=== PATIENT | female | born 1985 | race Two or more races ===

== ENCOUNTER 2020-08-11 06:47 | Outpatient (REF) | payer OTHER, SELFPAY ==
[2020-08-11 07:10] LABS: MANUAL DIFF FLAG NO
[2020-08-11 07:57] LABS: Basophils Percent Auto 0.5 % (0-2); Eosinophils Absolute Auto 0.1 X10*3/uL (0.0-0.4); Eosinophils Percent Auto 1.9 % (0-4); Hematocrit 40.3 % (37-47); Hemoglobin 13.3 g/dl (12.0-16.0); Imm Gran Abs Auto 0.02 X10*3/uL (0.00-0.03); Imm Gran Pct Auto 0.3 % (0.0-0.4); Lymphocytes Absolute Auto 2.1 X10*3/uL (1.2-4.9); Lymphocytes Percent Auto 34.3 % (20-40); Mean Corpuscular Hemoglobin 29.3 pg (27.0-33.0); Mean Corpuscular Volume 88.8 fL (80-98); Mean Platelet Volume 9.2 fL (9.4-12.3); Monocytes Absolute Auto 0.4 X10*3/uL (0.1-1.2); Monocytes Percent Auto 6.6 % (2-11); Neutrophils Absolute Auto 3.5 X10*3/uL (2.0-8.3); Neutrophils Percent Auto 56.4 % (45-73); Platelet Count 288 X10*3/uL (160-400); Red Blood Count 4.54 X10*6/uL (4.20-5.50); Red Cell Distribution Width 12.2 % (11.0-16.0); White Blood Count 6.2 X10*3/uL (4.8-10.8)
[2020-08-11 08:14] LABS: Alanine Aminotransferase 18 U/L (0-31); Albumin Level 4.2 g/dL (3.5-5.0); Alkaline Phosphatase 78 U/L (39-117); Anion Gap 14 (12-20); Aspartate Amino Transferase 14 U/L (5-31); Bilirubin Total 0.4 mg/dL (0.0-1.0); Blood Urea Nitrogen 9 mg/dL (9-16); Calcium 8.5 mg/dL (8.4-10.2); Carbon Dioxide 24 mmol/L (22-29); Chloride 103 mmol/L (96-108); Cholesterol 192 mg/dL; Estimated Glomerular Filt Rate > 60; Glucose Random 88 mg/dL (60-115); HDL Cholesterol 45 mg/dL; LDL Cholesterol Calculated 122 mg/dl; Sodium 137 mmol/L (135-145); Total Protein 7.5 g/dL (6.5-8.0); Triglycerides 127 mg/dL
[2020-08-11 08:37] LABS: Thyroid Stimulating Hormone 3.84 uIU/mL (0.32-4.0)
== END 2020-08-11 06:48 | disposition home or self-care (01) ==
LOC: HO.LAB 06:47
PROVIDERS: Visit Provider Internal Medicine
DX: N89.8 Other specified noninflammatory disorders of vagina (principal)
CPT/HCPCS: 36415; 80053; 80061; 84443; 85025

== ENCOUNTER 2020-09-06 23:07 | Emergency (ER) | payer OTHER, SELFPAY ==
--- NOTE | 2020-09-06 23:12 | ED.SEIZURE ---
HPI - Seizure General Chief Complaint: Seizure Stated Complaint: seizures Time Seen by Provider: 09/06/20 23:11 Source: EMS Mode of arrival: EMS Limitations: no limitations History of Present Illness HPI Narrative: Patient's history of seizures on Keppra 1000 twice daily and Lamictal 200 mg twice daily with fair compliance last seizure was in 12/16 today her noticed patient is having seizures 2 times lasted about 2 minutes each no head injury no fall patient did not miss her medications on EMS arrival patient was postictal slowly woke up and was back to normal when she arrived in the ER no fever no use of tramadol Wellbutrin no substance abuse. Patient has less sleep lately MD complaint: seizure Onset (ago): minute(s) Description of Episode: loss of consciousness and tonic-clonic movement -: minutes(s) Witnessed: Yes - by Bystander Trauma: No Related Data Home Medications Medication Instructions Recorded Confirmed lamotrigine 200 mg PO BID 09/06/20 09/06/20 levetiracetam 1,000 mg PO BID 09/06/20 09/06/20 Previous Rx's Medication Instructions Recorded cholecalciferol (vitamin D3) 50 50 mcg PO DAILY 30 Days #30 cap 05/24/20 mcg (2,000 unit) capsule linaclotide 145 mcg capsule 145 mcg PO DAILY 30 Days #30 cap 08/28/20 Allergies Allergy/AdvReac Type Severity Reaction Status Date / Time meperidine [From Demerol] AdvReac Mild HIVES Verified 09/06/20 23:36 Review of Systems Review of Systems: Constitutional : No Weight loss, No Fever, No Chills ENT/Mouth : No sore throat, No Rhinorrhea Eyes: No Eye Pain, No Swelling Cardiovascular : No Chest Pain, no palpitations Respiratory : No Cough, No Sputum, no shortness of breath Gastrointestinal : no Nausea, No Vomiting, No Diarrhea, No abdominal Pain, no black stools Genitourinary : No Dysuria, No Urinary Frequency Musculoskeletal : No joint pain, No Myalgias, No Joint Swelling Skin : No Skin Lesions, No rash Neuro : No Weakness, No Numbness, No Dizziness, No Headache Psych : No Anxiety/Panic, No Depression Heme/Lymph: No Bruising, No Lymphadenopathy Endocrine : No Polyuria, No Polydipsia All other systems reviewed and are negative [facility] Past Medical History Medical History Constipation by delayed colonic transit Social History Social History Alcohol intake: never Use of substances other than those prescribed or required for medical reasons: No Advance Directives: No Physical Exam Vital Signs: Vital Signs: Last Vital Signs Temp 98.0 F 09/07/20 00:26 Pulse 103 H 09/07/20 00:26 Resp 23 H 09/07/20 00:26 BP 131/76 09/07/20 00:26 Pulse Ox 96 09/07/20 00:26 Body Mass Index 35.5 Const: General: healthy appearing, comfortable, no acute distress, well developed and alert Nutritional Appearance: average body habitus Orientation/consciousness: patient oriented x3 HENMT: Head: Yes normocephalic and Yes atraumatic Ears: hearing grossly normal bilaterally General nose exam: Normal external nose present Mouth: Normal oral and palatal mucosa present and tongue normal Eyes: General: appearance normal, both eyes and all related structures Conjunctivae: conjunctivae normal Sclerae: sclerae normal Pupils: Equal, round and reactive pupils present Neck: Neck: Yes normal visual inspection Chest: Chest palpation & inspection: normal palpation of entire chest wall Resp: Effort & Inspection: normal respiratory effort Auscultation: clear to auscultation bilaterally, no crackles, no rales and no rhonchi Cardio: Rate: regular rate Rhythm: regular rhythm Heart sounds: S1 normal heart sound present and S2 normal heart sound present GI: Inspection: Yes normal to inspection Palpation (GI): Soft to palpation Auscultation: normal bowel sounds Back/Spine/Pelvis: Thoracic/Lumbar Spine: thoracic and lumbar spine normal to inspection Skin: General skin exam: no rashes or lesions noted Neuro: General: patient oriented x3, moves all extremities, no focal motor deficits and CN's II-XI intact bilaterally Cranial nerves: Yes Equal, round and reactive pupils present Extrem: General: Yes normal to inspection and Yes no calf tenderness Course Reevaluation(s) Reevaluation #1: Patient had a generalized tonic-clonic seizure witnessed by RN and myself lasted about a minute will give her Ativan 2 mg and 1 g of Keppra IV Time: 00:15 MDM - Seizure MDM Narrative Medical decision making narrative: Patient with history of recurrent seizures will give her a dose of Keppra iv 1000 mg in the ER advised to follow-up with her neurologist Differential Diagnosis Differential diagnosis: Likely generalized seizure Medical Records Attestation: I reviewed the patient's medical records. Lab Data Attestation: I reviewed the patient's lab results. Result diagrams: 09/06/20 23:54 09/06/20 23:54 Labs: Lab Results 09/06/20 09/06/20 09/06/20 Range/Units 23:16 23:54 23:54 WBC 7.0 (4.8-10.8) X10*3/uL RBC 4.37 (4.20-5.50) X10*6/uL Hgb 13.0 (12.0-16.0) g/dl Hct 39.2 (37-47) % MCV 89.7 (80-98) fL MCH 29.7 (27.0-33.0) pg MCHC 33.2 (31.0-35.0) g/dl RDW 12.2 (11.0-16.0) % Plt Count 310 (160-400) X10*3/uL MPV 9.0 L (9.4-12.3) fL Immature Gran % (Auto) 0.1 (0.0-0.4) % Neut % (Auto) 54.4 (45-73) % Lymph % (Auto) 35.3 (20-40) % [place] % (Auto) 7.9 (2-11) % Eos % (Auto) 1.9 (0-4) % Baso % (Auto) 0.4 (0-2) % Lymph # (Auto) 2.5 (1.2-4.9) X10*3/uL [place] # (Auto) 0.6 (0.1-1.2) X10*3/uL Eos # (Auto) 0.1 (0.0-0.4) X10*3/uL Baso # (Auto) 0.0 (0.0-0.2) X10*3/uL Abs Immat Gran (auto) 0.01 (0.00-0.03) X10*3/uL Absolute Neuts (auto) 3.8 (2.0-8.3) X10*3/uL Absolute Nucleated RBC 0.000 (0.0-0.012) X10*3/uL Nucleated RBC % (auto) 0.0 (0.0-0.2) /100WBC Sodium 138 (135-145) mmol/L Potassium 3.7 (3.3-5.1) mmol/L Chloride 104 (96-108) mmol/L Carbon Dioxide 28 (22-29) mmol/L Anion Gap 10 L (12-20) BUN 11 (9-16) mg/dL Creatinine 0.78 (0.5-1.4) mg/dL Estim Creat Clear Calc 118.8 Estimated GFR > 60 POC Glucose 99 (60-115) mg/dL Random Glucose 98 (60-115) mg/dL Calcium 8.6 (8.4-10.2) mg/dL Total Bilirubin 0.2 (0.0-1.0) mg/dL Direct Bilirubin < 0.2 (0.0-0.5) mg/dL AST 13 (5-31) U/L ALT 15 (0-31) U/L Alkaline Phosphatase 86 (39-117) U/L Total Protein 7.3 (6.5-8.0) g/dL Albumin 4.1 (3.5-5.0) g/dL Discharge Plan Discharge Clinical Impression: Epileptic seizure Patient Disposition: Home, Self-Care Instructions: Epilepsy (ED) Additional Instructions: Continue taking medication for seizures. Follow-up with neurologist. Report to the ER if recurrence of seizure Prescriptions: No Action cholecalciferol (vitamin D3) 50 mcg (2,000 unit) capsule 50 mcg PO DAILY 30 Days Qty: 30 RF: 3 Linzess 145 mcg capsule 145 mcg PO DAILY 30 Days Qty: 30 RF: 1 lamotrigine 200 mg Tablet 200 mg PO BID RF: 0 levetiracetam 1,000 mg Tablet 1,000 mg PO BID RF: 0 Referrals: Yunier House MD [Physician] - 1 week
[2020-09-06 23:19] LABS: Glucose, Whole Blood 99 mg/dL (60-115)
[2020-09-06 23:31] VITALS: BP 126/81; BP 140/87; PULSE 78; PULSE 90; RESP 16; TEMP 37.4; O2SAT 100; O2SAT 98; BMI 35.5
[2020-09-06 23:40] VITALS: BP 126/81; PULSE 81; RESP 12; TEMP 37.4; O2SAT 98
[2020-09-07 00:02] LABS: Basophils Percent Auto 0.4 % (0-2); Eosinophils Absolute Auto 0.1 X10*3/uL (0.0-0.4); Eosinophils Percent Auto 1.9 % (0-4); Hematocrit 39.2 % (37-47); Imm Gran Abs Auto 0.01 X10*3/uL (0.00-0.03); Imm Gran Pct Auto 0.1 % (0.0-0.4); Lymphocytes Absolute Auto 2.5 X10*3/uL (1.2-4.9); Lymphocytes Percent Auto 35.3 % (20-40); MANUAL DIFF FLAG NO; Mean Corpuscular HGB Conc 33.2 g/dl (31.0-35.0); Mean Corpuscular Hemoglobin 29.7 pg (27.0-33.0); Mean Corpuscular Volume 89.7 fL (80-98); Monocytes Absolute Auto 0.6 X10*3/uL (0.1-1.2); Monocytes Percent Auto 7.9 % (2-11); Neutrophils Absolute Auto 3.8 X10*3/uL (2.0-8.3); Neutrophils Percent Auto 54.4 % (45-73); Platelet Count 310 X10*3/uL (160-400); Red Blood Count 4.37 X10*6/uL (4.20-5.50); Red Cell Distribution Width 12.2 % (11.0-16.0)
[2020-09-07] MEDS: levETIRAcetam 1,000 MG in 0.9 % Sodium Chloride 100 ML 400 MG IV (00:24)
[2020-09-07] MEDS: LORazepam 2 MG/ML VIAL IVPUSH (00:24)
[2020-09-07 00:26] VITALS: BP 131/76; PULSE 103; RESP 23; TEMP 36.7; O2SAT 96
[2020-09-07 00:31] LABS: Alanine Aminotransferase 15 U/L (0-31); Albumin Level 4.1 g/dL (3.5-5.0); Alkaline Phosphatase 86 U/L (39-117); Anion Gap 10 (12-20); Aspartate Amino Transferase 13 U/L (5-31); Bilirubin Direct < 0.2 mg/dL (0.0-0.5); Bilirubin Total 0.2 mg/dL (0.0-1.0); Blood Urea Nitrogen 11 mg/dL (9-16); Calcium 8.6 mg/dL (8.4-10.2); Carbon Dioxide 28 mmol/L (22-29); Chloride 104 mmol/L (96-108); Creatinine Clr Calc Pharmacy 118.8; Estimated Glomerular Filt Rate > 60; Glucose Random 98 mg/dL (60-115); Potassium 3.7 mmol/L (3.3-5.1); Sodium 138 mmol/L (135-145); Total Protein 7.3 g/dL (6.5-8.0)
--- NOTE | 2020-09-07 02:08 | PC.NURSE ---
MD REPORTS PT IS READY FOR DISCHARGE, PT IS READY TO GO ONCE SHE IS A LITTLE MORE ALERT. CALLED FOR UPDATE, HE IS WAITING OUTSIDE IN CAR.
[2020-09-07 02:26] VITALS: BP 107/55; PULSE 123; RESP 16; O2SAT 98
== END 2020-09-07 02:59 | disposition home or self-care (01) ==
PROVIDERS: Emergency Provider Internal Medicine
DX: G40.909 Epilepsy, unspecified, not intractable, without status epilepticus (principal)
CPT/HCPCS: 36415; 80048; 80076; 82947; 85025; 96374; 96375; 99284; J1953; J2060

== ENCOUNTER 2020-11-07 21:03 | Emergency (ER) | payer OTHER, SELFPAY ==
[2020-11-07 21:10] VITALS: BP 120/78; BP 134/83; PULSE 100; PULSE 80; RESP 16; TEMP 36.7; O2SAT 100; BMI 35.5
--- NOTE | 2020-11-07 21:10 | ED.SEIZURE ---
HPI - Seizure General Chief Complaint: Seizure Stated Complaint: SEIZURE Time Seen by Provider: 11/07/20 21:08 Source: patient Mode of arrival: EMS History of Present Illness HPI Narrative: This is a 35-year-old female with history of seizures and otherwise no significant past medical history. She was diagnosed with seizures approximately 2 years ago and this evening was laying down at the time that she had the seizure, these are not tonic colonic, her witnessed this and states that the seizure was approximately 1 minute induration, and patient denies any loss of urine or feces. In addition, she denies any recent changes in medications or new medications, or recent illnesses. She denies any fevers, chills, abdominal pain/nausea/vomiting, urinary pain/frequency/burning. Seizure History: Yes Related Data Home Medications Medication Instructions Recorded Confirmed lamotrigine 200 mg PO BID 09/06/20 09/06/20 levetiracetam 1,000 mg PO BID 09/06/20 09/06/20 Previous Rx's Medication Instructions Recorded linaclotide 145 mcg capsule 145 mcg PO DAILY 30 Days #30 cap 08/28/20 cholecalciferol (vitamin D3) 50 50 mcg PO DAILY #30 cap 09/24/20 mcg (2,000 unit) capsule Allergies Allergy/AdvReac Type Severity Reaction Status Date / Time meperidine [From Demerol] AdvReac Mild HIVES Verified 09/06/20 23:36 Review of Systems Review of Systems: Pertinent positives and negatives as stated in HPI 10 point review of systems is otherwise negative. PMFSH Past Medical History Source: nursing notes reviewed Medical History Constipation by delayed colonic transit H/O partial seizures Social History Social History Alcohol intake: never Advance Directives: No Advance Directives Information Provided: No Physical Exam Vital Signs: Vital Signs: Last Vital Signs Temp 98.1 F 11/07/20 21:10 Pulse 80 11/07/20 21:10 Resp 16 11/07/20 21:10 BP 134/83 11/07/20 21:10 Pulse Ox 100 11/07/20 21:10 Body Mass Index 35.5 VITAL SIGNS: Reviewed. GENERAL: Well developed, well nourished, in no acute distress. HEAD: Normocephalic/atraumatic, EYES: PERRLA, EOMI intact without pain, no nystagmus EARS: Ext canals without abnormality NOSE: Nares patent bilateral OROPHARYNX: no oral lesions noted, posterior pharynx clear, and no intraoral lesions NECK: Supple, no adenopathy LUNGS: Normal breath sounds. No adventitious sounds or accessory muscle use. SpO2<100> CARDIOVASCULAR: Regular rate and rhythm without noted murmurs ABDOMEN: Soft, non-tender, non-distended with bowel sounds. NEUROLOGIC: Alert and oriented x 4. Strength and sensation to light touch were grossly intact x 4, no focal deficits noted. Course Course Course Narrative: This is a 35-year-old female with history and clinical presentation consistent with breakthrough seizure and will evaluate for evidence of infection, anemia, metabolic derangements that may have contributed to this event. In addition, will obtain drug levels of anti seizure medications. Review of all investigations without acute findings to demonstrate infection, anemia, arrhythmia, metabolic derangement. Both Lamictal and Keppra levels are pending and all results were discussed with the patient and she was instructed to follow-up with neurology for re-evaluation. MDM - Seizure Lab Data Result diagrams: 11/07/20 22:22 11/07/20 22:22 Labs: Lab Results 11/07/20 11/07/20 11/07/20 Range/Units 21:40 21:40 21:40 WBC (4.8-10.8) X10*3/uL RBC (4.20-5.50) X10*6/uL Hgb (12.0-16.0) g/dl Hct (37-47) % MCV (80-98) fL MCH (27.0-33.0) pg MCHC (31.0-35.0) g/dl RDW (11.0-16.0) % Plt Count (160-400) X10*3/uL MPV (9.4-12.3) fL Immature Gran % (Auto) (0.0-0.4) % Neut % (Auto) (45-73) % Lymph % (Auto) (20-40) % [place] % (Auto) (2-11) % Eos % (Auto) (0-4) % Baso % (Auto) (0-2) % Lymph # (Auto) (1.2-4.9) X10*3/uL [place] # (Auto) (0.1-1.2) X10*3/uL Eos # (Auto) (0.0-0.4) X10*3/uL Baso # (Auto) (0.0-0.2) X10*3/uL Abs Immat Gran (auto) (0.00-0.03) X10*3/uL Absolute Neuts (auto) (2.0-8.3) X10*3/uL Absolute Nucleated RBC (0.0-0.012) X10*3/uL Nucleated RBC % (auto) (0.0-0.2) /100WBC Sodium (135-145) mmol/L Potassium (3.3-5.1) mmol/L Chloride (96-108) mmol/L Carbon Dioxide (22-29) mmol/L Anion Gap (12-20) BUN (9-16) mg/dL Creatinine (0.5-1.4) mg/dL Estim Creat Clear Calc Estimated GFR Random Glucose (60-115) mg/dL Calcium (8.4-10.2) mg/dL Total Bilirubin (0.0-1.0) mg/dL AST (5-31) U/L ALT (0-31) U/L Alkaline Phosphatase (39-117) U/L Total Protein (6.5-8.0) g/dL Albumin (3.5-5.0) g/dL Beta HCG, Quant mIU/mL Urine Color YELLOW Urine Appearance CLEAR Urine pH 6.5 (5.0-8.0) Ur Specific [place] 1.025 (1.005-1.025) Urine Protein NEG (NEG-TRACE) MG/DL Urine Glucose (UA) NEG (NEG) MG/DL Urine Ketones NEG (NEG) MG/DL Urine Blood NEG (NEG) Urine Nitrite NEG (NEG) Ur Leukocyte Esterase NEG (NEG) Urine Test NEGATIVE (NEGATIVE) Urine Opiates Screen Not Detected (Not Detect) Ur Barbiturates Screen Not Detected (Not Detect) Ur Phencyclidine Scrn Not Detected (Not Detect) Ur Amphetamines Screen Not Detected (Not Detect) U Benzodiazepines Scrn Not Detected (Not Detect) Urine Cocaine Screen Not Detected (Not Detect) U Marijuana (THC) Screen Not Detected (Not Detect) Ethyl Alcohol mg/dL 11/07/20 11/07/20 11/07/20 Range/Units 22:22 22:22 22:22 WBC 8.9 (4.8-10.8) X10*3/uL RBC 4.60 (4.20-5.50) X10*6/uL Hgb 13.8 (12.0-16.0) g/dl Hct 40.4 (37-47) % MCV 87.8 (80-98) fL MCH 30.0 (27.0-33.0) pg MCHC 34.2 (31.0-35.0) g/dl RDW 12.5 (11.0-16.0) % Plt Count 333 (160-400) X10*3/uL MPV 8.9 L (9.4-12.3) fL Immature Gran % (Auto) 0.2 (0.0-0.4) % Neut % (Auto) 60.7 (45-73) % Lymph % (Auto) 28.9 (20-40) % [place] % (Auto) 8.1 (2-11) % Eos % (Auto) 1.8 (0-4) % Baso % (Auto) 0.3 (0-2) % Lymph # (Auto) 2.6 (1.2-4.9) X10*3/uL [place] # (Auto) 0.7 (0.1-1.2) X10*3/uL Eos # (Auto) 0.2 (0.0-0.4) X10*3/uL Baso # (Auto) 0.0 (0.0-0.2) X10*3/uL Abs Immat Gran (auto) 0.02 (0.00-0.03) X10*3/uL Absolute Neuts (auto) 5.4 (2.0-8.3) X10*3/uL Absolute Nucleated RBC 0.000 (0.0-0.012) X10*3/uL Nucleated RBC % (auto) 0.0 (0.0-0.2) /100WBC Sodium 139 (135-145) mmol/L Potassium 3.9 (3.3-5.1) mmol/L Chloride 105 (96-108) mmol/L Carbon Dioxide 25 (22-29) mmol/L Anion Gap 13 (12-20) BUN 11 (9-16) mg/dL Creatinine 0.81 (0.5-1.4) mg/dL Estim Creat Clear Calc 114.4 Estimated GFR > 60 Random Glucose 109 (60-115) mg/dL Calcium 9.3 D (8.4-10.2) mg/dL Total Bilirubin 0.3 (0.0-1.0) mg/dL AST 18 (5-31) U/L ALT 21 (0-31) U/L Alkaline Phosphatase 87 (39-117) U/L Total Protein 8.0 (6.5-8.0) g/dL Albumin 4.6 (3.5-5.0) g/dL Beta HCG, Quant < 2 mIU/mL Urine Color Urine Appearance Urine pH (5.0-8.0) Ur Specific [place] (1.005-1.025) Urine Protein (NEG-TRACE) MG/DL Urine Glucose (UA) (NEG) MG/DL Urine Ketones (NEG) MG/DL Urine Blood (NEG) Urine Nitrite (NEG) Ur Leukocyte Esterase (NEG) Urine Test (NEGATIVE) Urine Opiates Screen (Not Detect) Ur Barbiturates Screen (Not Detect) Ur Phencyclidine Scrn (Not Detect) Ur Amphetamines Screen (Not Detect) U Benzodiazepines Scrn (Not Detect) Urine Cocaine Screen (Not Detect) U Marijuana (THC) Screen (Not Detect) Ethyl Alcohol < 10 mg/dL ECG Data Attestation: I personally reviewed and interpreted this ECG as follows: Prior ECG tracings: available for review (12/20/2019 no acute changes on comparison) Interpretation: Normal sinus rhythm, HR-66, no evidence of acute ischemia, NH/QRS/QTC are within normal limits. Discharge Plan Discharge Clinical Impression: Seizure Patient Disposition: Home, Self-Care Instructions: Nonepileptic Seizures (ED) Additional Instructions: 1. Please resume all home medications as prescribed. 2. Please continue to get adequate rest, food, hydration. 3. Please follow up with Neurology, Dr. House, for re-evaluation and follow-up on your Lamictal and Keppra levels. Do not hesitate to return to the emergency department should you experience any acute worsening of your symptoms. Prescriptions: No Action Linzess 145 mcg capsule 145 mcg PO DAILY 30 Days Qty: 30 RF: 1 cholecalciferol (vitamin D3) 50 mcg (2,000 unit) capsule 50 mcg PO DAILY Qty: 30 RF: 3 lamotrigine 200 mg Tablet 200 mg PO BID RF: 0 levetiracetam 1,000 mg Tablet 1,000 mg PO BID RF: 0 Referrals: Physician,Unknown [Primary Care Provider] - 2 days
--- NOTE | 2020-11-07 21:11 | ECG_ITS ---
Test Reason : SEIZURE Blood Pressure : / mmHG Vent. Rate : 066 BPM Atrial Rate : 066 BPM P-R Int : 142 ms QRS Dur : 080 ms QT Int : 432 ms P-R-T Axes : 067 066 048 degrees QTc Int : 452 ms Normal sinus rhythm Normal ECG When compared with ECG of 20-DEC-2019 20:53, No significant change was found Referred By: Brittany Tate Electronically Signed By:DANUTA TREVINO
[2020-11-07 22:28] LABS: MANUAL DIFF FLAG NO
[2020-11-07 22:29] LABS: Basophils Percent Auto 0.3 % (0-2); Eosinophils Absolute Auto 0.2 X10*3/uL (0.0-0.4); Eosinophils Percent Auto 1.8 % (0-4); Hematocrit 40.4 % (37-47); Hemoglobin 13.8 g/dl (12.0-16.0); Imm Gran Abs Auto 0.02 X10*3/uL (0.00-0.03); Imm Gran Pct Auto 0.2 % (0.0-0.4); Lymphocytes Absolute Auto 2.6 X10*3/uL (1.2-4.9); Lymphocytes Percent Auto 28.9 % (20-40); Mean Corpuscular HGB Conc 34.2 g/dl (31.0-35.0); Mean Corpuscular Volume 87.8 fL (80-98); Mean Platelet Volume 8.9 fL (9.4-12.3); Monocytes Absolute Auto 0.7 X10*3/uL (0.1-1.2); Monocytes Percent Auto 8.1 % (2-11); Neutrophils Absolute Auto 5.4 X10*3/uL (2.0-8.3); Neutrophils Percent Auto 60.7 % (45-73); Platelet Count 333 X10*3/uL (160-400); Red Cell Distribution Width 12.5 % (11.0-16.0); White Blood Count 8.9 X10*3/uL (4.8-10.8)
[2020-11-07 22:50] LABS: Ethanol < 10 mg/dL
[2020-11-07 22:51] LABS: Glucose Urine UA NEG (NEG); Leukocyte Esterase Urine NEG (NEG); Nitrite Urine NEG (NEG); PH 6.5 (5.0-8.0); Specific Gravity - Urine 1.025 (1.005-1.025); Urine Blood NEG (NEG); Urine Ketones NEG (NEG); Urine Protein NEG (NEG-TRACE)
[2020-11-07 22:53] LABS: UPreg QC Valid YES; Urine Pregnancy NEGATIVE (NEGATIVE)
[2020-11-07 22:54] LABS: Alanine Aminotransferase 21 U/L (0-31); Albumin Level 4.6 g/dL (3.5-5.0); Alkaline Phosphatase 87 U/L (39-117); Anion Gap 13 (12-20); Aspartate Amino Transferase 18 U/L (5-31); Bilirubin Total 0.3 mg/dL (0.0-1.0); Blood Urea Nitrogen 11 mg/dL (9-16); Calcium 9.3 mg/dL (8.4-10.2); Carbon Dioxide 25 mmol/L (22-29); Chloride 105 mmol/L (96-108); Creatinine Clr Calc Pharmacy 114.4; Estimated Glomerular Filt Rate > 60; Glucose Random 109 mg/dL (60-115); Potassium 3.9 mmol/L (3.3-5.1); Sodium 139 mmol/L (135-145)
[2020-11-07 22:54] LABS: Appearance Urine CLEAR; Color Urine YELLOW
[2020-11-07 23:13] LABS: Amphetamine Screen Urine Not Detected (Not Detect); Barbiturates, Urine Not Detected (Not Detect); Benzodiazepines Screen Urine Not Detected (Not Detect); Cannabinoid Screen Urine Not Detected (Not Detect); Cocaine Screen Urine Not Detected (Not Detect); Opiate Screen Urine Not Detected (Not Detect); Phencyclidine Screen Urine Not Detected (Not Detect)
--- NOTE | 2020-11-07 23:22 | PC.NURSE ---
Report from Nedra RN, pt with seizure pads on her bed rails. Pt alert, ambulated back from bathroom on steady feet. EKG obtained. Pt VAZQUEZ.
[2020-11-07 23:43] LABS: HCG Quantitative < 2 mIU/mL
[2020-11-12 03:37] LABS: Lamotrigine Lamictal 9.9 mcg/mL (4.0-18.0)
[2020-11-12 22:28] LABS: Levetiracetam Keppra 22.9 mcg/mL (12.0-46.0)
== END 2020-11-08 00:45 | disposition home or self-care (01) ==
PROVIDERS: Emergency Provider Student in an Organized Health Care Education/Training Program
DX: R56.9 Unspecified convulsions (principal)
CPT/HCPCS: 36415; 80053; 80175; 80177; 80307; 80320; 81003; 81025; 84702; 85025; 93005; 99283

== ENCOUNTER 2020-11-14 23:25 | Emergency (ER) | payer OTHER, SELFPAY ==
[2020-11-15 00:02] VITALS: BP 133/64; PULSE 80; RESP 22; TEMP 36.4; O2SAT 98; BMI 35.5
== END 2020-11-15 01:18 | disposition left against medical advice (07) ==
PROVIDERS: Emergency Provider Emergency Medicine; PCP Internal Medicine
DX: R10.31 Right lower quadrant pain (principal)
CPT/HCPCS: 99282

== ENCOUNTER 2020-11-15 12:09 | Emergency (ER) | payer OTHER, SELFPAY ==
--- NOTE | ~2020-11-15 | CT_ITS ---
EXAMINATION: CT ABDOMEN AND PELVIS WITH CONTRAST CLINICAL INFORMATION: Right lower quadrant pain COMPARISON: CT abdomen and pelvis noncontrast 03/25/2017 TECHNIQUE: Multidetector volumetric images were obtained from the superior aspect of the liver through the pubic symphysis following administration 85 mL of Omnipaque 350 intravenous contrast. Sagittal and coronal reformatted images were obtained on the technologist's workstation. Oral contrast: No This CT examination was performed using dose optimization techniques as appropriate, variously including the following: *Automated exposure control *Adjustment of mA and/or kV according to patient size (this includes techniques or standardized protocols for targeted exams where dose is matched to indication/reason for exam; i.e. extremities or head) *Use of iterative reconstruction technique DLP: 780 mGy-cm FINDINGS: LUNG BASES: There is punctate nodule central left base and adjacent small pleural-based nodule, both stable from prior CT 03/25/2017 consistent with benign nodules. LIVER, GALLBLADDER, AND BILIARY TREE: The liver is normal in size and smooth in contour. There is mild hepatic steatosis. No focal hepatic parenchymal lesion or intrahepatic biliary ductal dilatation. The gallbladder is unremarkable with no evidence of radiopaque gallstones, gallbladder wall thickening, or obvious pericholecystic inflammatory changes. PANCREAS: Unremarkable. SPLEEN: Unremarkable. ADRENAL GLANDS: Borderline thickening left medial adrenal limb stable from 2017. Right adrenal normal. KIDNEYS AND URETERS: The kidneys enhance symmetrically. There is no hydronephrosis, hydroureter, calculi, or perinephric stranding. There is a probable subcentimeter cyst medial upper pole right kidney too small to characterize with density measurement. BLADDER: Unremarkable. GASTROINTESTINAL TRACT: There is no bowel obstruction or inflammatory changes in the bowel or mesentery. The appendix is normal in size. There is no inflammatory changes around the cecum or terminal ileum. No bowel wall thickening and pneumatosis or free air. No ascites or fluid collection. ABDOMINAL WALL: No significant hernia is appreciated. LYMPH NODES: No lymphadenopathy. VASCULAR: Unremarkable. PELVIC VISCERA: Unremarkable. OSSEOUS STRUCTURES: Unremarkable. CT/CT abdomen pelvis w con IMPRESSION: 1. No inflammatory changes in abdomen or pelvis. Unremarkable appendix. 2. No cholelithiasis or biliary ductal dilatation. 3. No hydronephrosis, calculi, or perinephric stranding. 4. 2 small benign stable nodules left lung base similar to CT 2017.
[2020-11-15 12:34] VITALS: BP 120/73; PULSE 78; RESP 17; TEMP 36.6; O2SAT 98; BMI 35.6
--- NOTE | 2020-11-15 13:09 | ED_ITS ---
HPI - Abdominal Pain General Chief Complaint: Abdominal Pain Stated Complaint: rt side abd pain Time Seen by Provider: 11/15/20 13:00 Source: patient Mode of arrival: ambulatory Limitations: no limitations History of Present Illness HPI narrative: 35-year-old female with a past medical history of a seizure disorder here with right-sided abdominal pain for 5 days. The patient told me the pain radiates from her right flank to right abdomen down the back of her right leg. She has had nausea with no vomiting. No urinary symptoms or vaginal discharge. No numbness or tingling. No saddle anesthesia. No fevers or chills. No diarrhea or constipation. MD elicited complaint: abdominal pain Related Data Home Medications Medication Instructions Recorded Confirmed lamotrigine 200 mg PO BID 09/06/20 09/06/20 levetiracetam 1,000 mg PO BID 09/06/20 09/06/20 Previous Rx's Medication Instructions Recorded linaclotide 145 mcg capsule 145 mcg PO DAILY 30 Days #30 cap 08/28/20 cholecalciferol (vitamin D3) 50 50 mcg PO DAILY #30 cap 09/24/20 mcg (2,000 unit) capsule cyclobenzaprine 10 mg PO TID PRN #10 tab 11/15/20 lidocaine [Lidoderm] 1 patch TOPICAL DAILY #15 ea 11/15/20 naproxen 500 mg PO BID PRN #20 tab 11/15/20 Allergies Allergy/AdvReac Type Severity Reaction Status Date / Time meperidine [From Demerol] AdvReac Mild HIVES Verified 09/06/20 23:36 Review of Systems Review of Systems Yes all other systems are reviewed and are negative Constitutional: Reports no additional constitutional complaints, Denies body ache(s), Denies chills, Denies fever(s), Denies headache(s) and Denies weakness Eyes: Reports no additional eye complaints and Denies change in vision Reports system reviewed and no additional complaints, except as documented, Denies dizziness, Denies headache(s), Denies nasal congestion, Denies nasal discharge and Denies neck pain Cardiovascular: Reports no additional cardiovascular complaints, Denies chest pain, Denies leg edema and Denies dyspnea Respiratory: Reports no additional respiratory complaints, Denies cough and Denies dyspnea Gastrointestinal: Reports no additional gastrointestinal complaints, Reports abdominal pain, Denies diarrhea, Reports nausea and Denies vomiting Genitourinary: Reports no additional female genitourinary complaints, Denies urinary frequency, Denies difficulty voiding, Denies dysuria, Denies pelvic pain, Reports flank pain, Denies urinary incontinence, Denies urinary hesitancy, Denies urinary urgency, Denies vaginal discharge and Denies vaginal pruritus Musculoskeletal: Reports no additional musculoskeletal complaints, Reports back pain, Denies arthralgias, Denies joint swelling, Denies neck pain, Denies numbness and Denies tingling Skin/Breast: Reports system reviewed and no additional complaints, except as docu and Denies rash Reports system reviewed and no additional complaints, except as documented, Denies Abnormal speech present, Denies dizziness, Denies headache(s), Denies numbness, Denies tingling and Denies weakness Physical Exam Vital Signs: Vital Signs: Last Vital Signs Temp 98.6 F 11/15/20 17:19 Pulse 67 11/15/20 17:19 Resp 12 11/15/20 17:19 BP 110/72 11/15/20 17:19 Pulse Ox 98 11/15/20 17:19 Body Mass Index 35.6 Const: General: cooperative, healthy appearing, comfortable and no acute distress Orientation/consciousness: patient oriented x3 Limitations: no limitations HENMT: Head: Yes normal to inspection Ears: hearing grossly normal bilaterally General nose exam: Normal external nose present Face and sinus: Yes normal facial exam Mouth: Normal oral and palatal mucosa present Throat: Yes posterior oropharynx normal Eyes: General: appearance normal, both eyes and all related structures Pupils: Equal, round and reactive pupils present Neck: Neck: Yes normal visual inspection Chest: Chest palpation & inspection: normal inspection of the chest Resp: Effort & Inspection: normal respiratory effort Auscultation: clear to auscultation bilaterally Cardio: Rate: regular rate Rhythm: regular rhythm Peripheral pulses: Peripheral pulses 2+ throughout GI: Inspection: Yes normal to inspection Palpation (GI): Soft to palpation and Tenderness to palpation present (GI) (Diffusely tender but there is some tenderness in the RLQ w/ guarding ) Auscultation: normal bowel sounds Back/Spine/Pelvis: Other: right thoracic/lumbar soft tissue tenderness with no muscle spasm Pain with straight leg raise on the right side Back: CVA tenderness (mild) Thoracic/Lumbar Spine: thoracic and lumbar spine normal to inspection Skin: General skin exam: no rashes or lesions noted Neuro: General: patient oriented x3, no focal motor deficits and normal sensation to monofilament Cranial nerves: Yes CN's II-XII intact bilaterally, Yes Equal, round and reactive pupils present, Yes Bilaterally intact EOM present, Yes Nystagmus not present, Yes Normal facial strength present and Yes Midline tongue present Cognition (Neuro): normal cognition Speech: No Abnormal speech present Gait exam (Neuro): Normal gait present Motor exam (neuro): 5/5 motor strength present throughout Sensory Exam: Normal double simultaneous stimulation for sensation Extrem: General: Yes normal to inspection Course Course Course Narrative: 35-year-old female here with right-sided abdominal pain with radiation from the right back to the right leg. With some nausea. No other complaints. On exam does have some tenderness in the right flank and right- sided abdomen but is diffusely tender in the abdomen. She has pain over the posterior right thigh. Pain with straight leg raise. Question the lumbar strain versus underlying abdominal pathology. Will need labs, UA, CT A/P. 1730-urine negative. Labs are unremarkable. CT shows no acute abdominal pathology. Exam is more consistent with sciatica or lumbar strain which was reviewed with the patient. Unclear source of abdominal pain. Patient however feeling improved and is tolerating p.o. ? Referred pain. Reviewed worrisome signs and symptoms and when to return to the emergency depart ment. Comfortable discharge home. MDM - Abdominal Pain MDM Narrative Medical decision making narrative: Lumbar strain, renal colic, , pyelonephritis ovarian cyst, appendicitis Medical Records Attestation: I reviewed the patient's medical records. Lab Data Attestation: I reviewed the patient's lab results. Result diagrams: 11/15/20 13:56 11/15/20 13:56 Labs: Lab Results 11/15/20 11/15/20 11/15/20 Range/Units 11:35 13:56 13:56 WBC 7.9 (4.8-10.8) X10*3/uL RBC 4.46 (4.20-5.50) X10*6/uL Hgb 13.2 (12.0-16.0) g/dl Hct 39.6 (37-47) % MCV 88.8 (80-98) fL MCH 29.6 (27.0-33.0) pg MCHC 33.3 (31.0-35.0) g/dl RDW 12.2 (11.0-16.0) % Plt Count 267 (160-400) X10*3/uL MPV 9.1 L (9.4-12.3) fL Immature Gran % (Auto) 0.4 (0.0-0.4) % Neut % (Auto) 68.4 (45-73) % Lymph % (Auto) 21.8 (20-40) % [place] % (Auto) 7.6 (2-11) % Eos % (Auto) 1.4 (0-4) % Baso % (Auto) 0.4 (0-2) % Lymph # (Auto) 1.7 (1.2-4.9) X10*3/uL [place] # (Auto) 0.6 (0.1-1.2) X10*3/uL Eos # (Auto) 0.1 (0.0-0.4) X10*3/uL Baso # (Auto) 0.0 (0.0-0.2) X10*3/uL Abs Immat Gran (auto) 0.03 (0.00-0.03) X10*3/uL Absolute Neuts (auto) 5.4 (2.0-8.3) X10*3/uL Absolute Nucleated RBC 0.000 (0.0-0.012) X10*3/uL Nucleated RBC % (auto) 0.0 (0.0-0.2) /100WBC Hold Blue Top SEE NOTE Sodium (135-145) mmol/L Potassium (3.3-5.1) mmol/L Chloride (96-108) mmol/L Carbon Dioxide (22-29) mmol/L Anion Gap (12-20) BUN (9-16) mg/dL Creatinine (0.5-1.4) mg/dL Estim Creat Clear Calc Estimated GFR Random Glucose (60-115) mg/dL Calcium (8.4-10.2) mg/dL Magnesium (1.6-2.6) mg/dL Total Bilirubin (0.0-1.0) mg/dL Direct Bilirubin (0.0-0.5) mg/dL AST (5-31) U/L ALT (0-31) U/L Alkaline Phosphatase (39-117) U/L Total Protein (6.5-8.0) g/dL Albumin (3.5-5.0) g/dL Lipase (8-78) U/L Urine Color YELLOW Urine Appearance CLEAR Urine pH 5.5 (5.0-8.0) Ur Specific [place] >= 1.030 H (1.005-1.025) Urine Protein NEG (NEG-TRACE) MG/DL Urine Glucose (UA) NEG (NEG) MG/DL Urine Ketones NEG (NEG) MG/DL Urine Blood NEG (NEG) Urine Nitrite NEG (NEG) Ur Leukocyte Esterase NEG (NEG) Urine Test (NEGATIVE) 11/15/20 11/15/20 11/15/20 Range/Units 13:56 13:56 13:56 WBC (4.8-10.8) X10*3/uL RBC (4.20-5.50) X10*6/uL Hgb (12.0-16.0) g/dl Hct (37-47) % MCV (80-98) fL MCH (27.0-33.0) pg MCHC (31.0-35.0) g/dl RDW (11.0-16.0) % Plt Count (160-400) X10*3/uL MPV (9.4-12.3) fL Immature Gran % (Auto) (0.0-0.4) % Neut % (Auto) (45-73) % Lymph % (Auto) (20-40) % [place] % (Auto) (2-11) % Eos % (Auto) (0-4) % Baso % (Auto) (0-2) % Lymph # (Auto) (1.2-4.9) X10*3/uL [place] # (Auto) (0.1-1.2) X10*3/uL Eos # (Auto) (0.0-0.4) X10*3/uL Baso # (Auto) (0.0-0.2) X10*3/uL Abs Immat Gran (auto) (0.00-0.03) X10*3/uL Absolute Neuts (auto) (2.0-8.3) X10*3/uL Absolute Nucleated RBC (0.0-0.012) X10*3/uL Nucleated RBC % (auto) (0.0-0.2) /100WBC Hold Blue Top Sodium 138 (135-145) mmol/L Potassium 4.3 (3.3-5.1) mmol/L Chloride 101 (96-108) mmol/L Carbon Dioxide 28 (22-29) mmol/L Anion Gap 13 (12-20) BUN 12 (9-16) mg/dL Creatinine 0.72 (0.5-1.4) mg/dL Estim Creat Clear Calc 128.9 Estimated GFR > 60 Random Glucose 85 (60-115) mg/dL Calcium 9.1 (8.4-10.2) mg/dL Magnesium 1.9 (1.6-2.6) mg/dL Total Bilirubin 0.7 (0.0-1.0) mg/dL Direct Bilirubin 0.2 (0.0-0.5) mg/dL AST 19 (5-31) U/L ALT 26 (0-31) U/L Alkaline Phosphatase 76 (39-117) U/L Total Protein 7.7 (6.5-8.0) g/dL Albumin 4.4 (3.5-5.0) g/dL Lipase 23 (8-78) U/L Urine Color Urine Appearance Urine pH (5.0-8.0) Ur Specific [place] (1.005-1.025) Urine Protein (NEG-TRACE) MG/DL Urine Glucose (UA) (NEG) MG/DL Urine Ketones (NEG) MG/DL Urine Blood (NEG) Urine Nitrite (NEG) Ur Leukocyte Esterase (NEG) Urine Test NEGATIVE (NEGATIVE) Imaging Data CT scan - abdomen: Attestation: I personally reviewed and interpreted this imaging study as follows: Radiologist's impression: EXAMINATION: CT ABDOMEN AND PELVIS WITH CONTRAST CLINICAL INFORMATION: Right lower quadrant pain COMPARISON: CT abdomen and pelvis noncontrast 03/25/2017 TECHNIQUE: Multidetector volumetric images were obtained from the superior aspect of the liver through the pubic symphysis following administration 85 mL of Omnipaque 350 intravenous contrast. Sagittal and coronal reformatted images were obtained on the technologist's workstation. Oral contrast: No This CT examination was performed using dose optimization techniques as appropriate, variously including the following: *Automated exposure control *Adjustment of mA and/or kV according to patient size (this includes techniques or standardized protocols for targeted exams where dose is matched to indication/reason for exam; i.e. extremities or head) *Use of iterative reconstruction technique DLP: 780 mGy-cm FINDINGS: LUNG BASES: There is punctate nodule central left base and adjacent small pleural-based nodule, both stable from prior CT 03/25/2017 consistent with benign nodules. LIVER, GALLBLADDER, AND BILIARY TREE: The liver is normal in size and smooth in contour. There is mild hepatic steatosis. No focal hepatic parenchymal lesion or intrahepatic biliary ductal dilatation. The gallbladder is unremarkable with no evidence of radiopaque gallstones, gallbladder wall thickening, or obvious pericholecystic inflammatory changes. PANCREAS: Unremarkable. SPLEEN: Unremarkable. ADRENAL GLANDS: Borderline thickening left medial adrenal limb stable from 2017. Right adrenal normal. KIDNEYS AND URETERS: The kidneys enhance symmetrically. There is no hydronephrosis, hydroureter, calculi, or perinephric stranding. There is a probable subcentimeter cyst medial upper pole right kidney too small to characterize with density measurement. BLADDER: Unremarkable. GASTROINTESTINAL TRACT: There is no bowel obstruction or inflammatory changes in the bowel or mesentery. The appendix is normal in size. There is no inflammatory changes around the cecum or terminal ileum. No bowel wall thickening and pneumatosis or free air. No ascites or fluid collection. ABDOMINAL WALL: No significant hernia is appreciated. LYMPH NODES: No lymphadenopathy. VASCULAR: Unremarkable. PELVIC VISCERA: Unremarkable. OSSEOUS STRUCTURES: Unremarkable. CT/CT abdomen pelvis w con IMPRESSION: 1. No inflammatory changes in abdomen or pelvis. Unremarkable appendix. 2. No cholelithiasis or biliary ductal dilatation. 3. No hydronephrosis, calculi, or perinephric stranding. 4. 2 small benign stable nodules left lung base similar to CT 2017. Discharge Plan Discharge Clinical Impression: Constipation by delayed colonic transit, Sciatica Patient Disposition: Home, Self-Care Instructions: Constipation (ED), Sciatica (ED) Additional Instructions: No heavy lifting or bending Gentle stretching Prescriptions: New naproxen 500 mg tablet 500 mg PO BID PRN (Reason: pain) Qty: 20 RF: 0 cyclobenzaprine 10 mg tablet 10 mg PO TID PRN (Reason: muscle spasm) Qty: 10 RF: 0 lidocaine [Lidoderm] 5 % adhesive patch,medicated 1 patch topical DAILY Qty: 15 RF: 0 No Action Linzess 145 mcg capsule 145 mcg PO DAILY 30 Days Qty: 30 RF: 1 cholecalciferol (vitamin D3) 50 mcg (2,000 unit) capsule 50 mcg PO DAILY Qty: 30 RF: 3 lamotrigine 200 mg Tablet 200 mg PO BID RF: 0 levetiracetam 1,000 mg Tablet 1,000 mg PO BID RF: 0 Referrals: Vee Shafer MD [Primary Care Provider] - 2 days Stand Alone Forms: Work/School Release Interventions: ED Discharge Assessment Last Done: 11/15/20 17:26 Discharge Date/Time: 11/15/20 17:28 [facility] Past Medical History Attestation statement: The following information was validated with the patient. Source: old records reviewed and nursing notes reviewed Medical History Constipation by delayed colonic transit H/O partial seizures Social History Social History Alcohol intake: never Advance Directives: No Advance Directives Information Provided: No
[2020-11-15 14:24] LABS: MANUAL DIFF FLAG NO
[2020-11-15 14:28] LABS: Basophils Percent Auto 0.4 % (0-2); Eosinophils Absolute Auto 0.1 X10*3/uL (0.0-0.4); Eosinophils Percent Auto 1.4 % (0-4); Hematocrit 39.6 % (37-47); Hemoglobin 13.2 g/dl (12.0-16.0); Imm Gran Abs Auto 0.03 X10*3/uL (0.00-0.03); Imm Gran Pct Auto 0.4 % (0.0-0.4); Lymphocytes Absolute Auto 1.7 X10*3/uL (1.2-4.9); Lymphocytes Percent Auto 21.8 % (20-40); Mean Corpuscular HGB Conc 33.3 g/dl (31.0-35.0); Mean Corpuscular Hemoglobin 29.6 pg (27.0-33.0); Mean Corpuscular Volume 88.8 fL (80-98); Mean Platelet Volume 9.1 fL (9.4-12.3); Monocytes Absolute Auto 0.6 X10*3/uL (0.1-1.2); Monocytes Percent Auto 7.6 % (2-11); Neutrophils Absolute Auto 5.4 X10*3/uL (2.0-8.3); Neutrophils Percent Auto 68.4 % (45-73); Platelet Count 267 X10*3/uL (160-400); Red Blood Count 4.46 X10*6/uL (4.20-5.50); Red Cell Distribution Width 12.2 % (11.0-16.0); White Blood Count 7.9 X10*3/uL (4.8-10.8)
[2020-11-15 14:35] LABS: Glucose Urine UA NEG (NEG); Leukocyte Esterase Urine NEG (NEG); Nitrite Urine NEG (NEG); PH 5.5 (5.0-8.0); Specific Gravity - Urine >= 1.030 (1.005-1.025); Urine Blood NEG (NEG); Urine Ketones NEG (NEG); Urine Protein NEG (NEG-TRACE)
[2020-11-15 14:44] LABS: Appearance Urine CLEAR; Color Urine YELLOW
[2020-11-15 14:44] LABS: UPreg QC Valid YES; Urine Pregnancy NEGATIVE (NEGATIVE)
[2020-11-15 14:56] LABS: Lipase 23 U/L (8-78)
[2020-11-15 14:57] LABS: Alanine Aminotransferase 26 U/L (0-31); Albumin Level 4.4 g/dL (3.5-5.0); Alkaline Phosphatase 76 U/L (39-117); Anion Gap 13 (12-20); Aspartate Amino Transferase 19 U/L (5-31); Bilirubin Direct 0.2 mg/dL (0.0-0.5); Bilirubin Total 0.7 mg/dL (0.0-1.0); Blood Urea Nitrogen 12 mg/dL (9-16); Calcium 9.1 mg/dL (8.4-10.2); Carbon Dioxide 28 mmol/L (22-29); Chloride 101 mmol/L (96-108); Creatinine Clr Calc Pharmacy 128.9; Estimated Glomerular Filt Rate > 60; Glucose Random 85 mg/dL (60-115); Magnesium 1.9 mg/dL (1.6-2.6); Potassium 4.3 mmol/L (3.3-5.1); Sodium 138 mmol/L (135-145); Total Protein 7.7 g/dL (6.5-8.0)
[2020-11-15 15:29] VITALS: BP 103/58; PULSE 71; RESP 15; TEMP 36.6; O2SAT 99
[2020-11-15 15:45] VITALS: RESP 15
[2020-11-15] MEDS: Morphine Sulfate 4 MG/ML CARTRIDGE IVPUSH (15:45)
[2020-11-15] MEDS: ondansetron HCL 4 MG/2 ML VIAL IVPUSH (15:45)
[2020-11-15] MEDS: iohexoL 350 MG/ML 100 ML INFUS..BTL IV (16:16)
[2020-11-15 17:19] VITALS: BP 110/72; PULSE 67; RESP 12; TEMP 37; O2SAT 98
== END 2020-11-15 17:28 | disposition home or self-care (01) ==
PROVIDERS: Nurse Practitioner Family; Emergency Provider Emergency Medicine; PCP Internal Medicine
DX: M54.42 Lumbago with sciatica, left side (principal); M54.41 Lumbago with sciatica, right side; K59.00 Constipation, unspecified; R10.9 Unspecified abdominal pain; M79.604 Pain in right leg; Z79.899 Other long term (current) drug therapy
CPT/HCPCS: 36415; 74177; 80048; 80076; 81003; 81025; 83690; 83735; 85025; 96365; 96375; 99284; J2270; J2405; Q9967

== ENCOUNTER → 2020-12-06 13:24 | Outpatient (BNVA) | payer OTHER, SELFPAY | PROVIDERS: PCP Internal Medicine; Visit Provider Physician Assistant | DX: R10.9 Unspecified abdominal pain (principal); K59.01 Slow transit constipation; G89.29 Other chronic pain | CPT/HCPCS: 99212 ==

== ENCOUNTER 2020-12-23 13:58 | Day surgery (SDC) | payer OTHER, SELFPAY ==
[2020-12-17 11:00] VITALS: BMI 37.3
--- NOTE | 2020-12-22 09:14 | P.CONAN_ITS ---
Documented by User: Elissa Catalan 12/22/20 09:15 HPI - Anesthesia Eval Consult details Narrative: 35yo F for Colonoscopy PMFSH Active Problems Active Problems: All Active Problems (Updated 12/17/20 @ 10:59 by Juana Almonte) Chronic abdominal pain (Acute) Constipation by delayed colonic transit (Acute) Past Medical History Medical History (Updated 12/17/20 @ 10:59 by Juana Almonte) Chronic abdominal pain Constipation by delayed colonic transit H/O partial seizures Family History Family History Maternal Grandmother Colon cancer Paternal Grandmother Stomach cancer Mother Diabetes Father Diabetes Surgical History Surgical History (Updated 12/17/20 @ 10:59 by Juana Almonte) Hx of hemorrhoidectomy Hx of tubal ligation Social History Social History (Updated 12/06/20 @ 13:38 by Bonny Mackay CMA) Household Members: Spouse and Children Alcohol intake: never Advance Directives Information Provided: No 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 Allergies Allergy/AdvReac Type Severity Reaction Status Date / Time meperidine [From Demerol] AdvReac Mild HIVES Verified 12/06/20 13:33 Home Medications Medication Instructions Recorded Confirmed Last Taken Type lamotrigine 200 mg PO BID 09/06/20 12/17/20 12/23/20 History levetiracetam 1,000 mg PO BID 09/06/20 12/23/20 12/23/20 History Exam Exam Date and Time: December 22, 2020 0914 Height,Weight and Vital Signs: Height 5 ft 6 in Weight 104.78 kg Pertinent Lab Results Pertinent Lab Results: Laboratory Tests 11/15/20 11/15/20 13:56 13:56 WBC 7.9 Hgb 13.2 Hct 39.6 Plt Count 267 Sodium 138 Potassium 4.3 Chloride 101 Carbon Dioxide 28 BUN 12 Creatinine 0.72 Assessment and Plan Assessment Anesthesia Assessment: Chart Reviewed Documented by User: Rodney Lindquist MD 12/23/20 14:11 [facility] Past Medical History Medical History (Updated 12/17/20 @ 10:59 by Juana Almonte) Chronic abdominal pain Constipation by delayed colonic transit H/O partial seizures Family History Family History Maternal Grandmother Colon cancer Paternal Grandmother Stomach cancer Mother Diabetes Father Diabetes Surgical History Surgical History (Updated 12/17/20 @ 10:59 by Juana Almonte) Hx of hemorrhoidectomy Hx of tubal ligation Social History Social History (Updated 12/06/20 @ 13:38 by Bonny Mackay CMA) Household Members: Spouse and Children Alcohol intake: never Advance Directives Information Provided: No 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 Allergies Allergy/AdvReac Type Severity Reaction Status Date / Time meperidine [From Demerol] AdvReac Mild HIVES Verified 12/06/20 13:33 Home Medications Medication Instructions Recorded Confirmed Last Taken Type lamotrigine 200 mg PO BID 09/06/20 12/17/20 12/23/20 History levetiracetam 1,000 mg PO BID 09/06/20 12/23/20 12/23/20 History Assessment and Plan Assessment Anesthesia Assessment: Anesthesia Plan Discussed and Chart Reviewed Final Anesthetic Review NPO: Yes ASA Class: III Final Preanesthetic Review: No Changes in Pt Med Stat, Meds/Allgs Chart Reviewed, Consent Obtained/Reviewed and Anes Risks/Benef Reviewed Patient Risk: Low Anesthetic Plan Anesthetic Plan: MAC: Disposition: Standard PACU
[2020-12-23 14:11] VITALS: BP 102/58; PULSE 82; RESP 16; TEMP 36.7; O2SAT 98
[2020-12-23] MEDS: Lactated Ringers 1,000 ML 100 ML IVCONT (14:14)
--- NOTE | 2020-12-23 14:20 | MHC.SHP ---
Pre-Procedural Eval Section B Chief Complaint: slow transit constipation Details of Present Illness: nausea and epigastric pain Relevant Family History (Specify if Yes): No Relevant Social History: None Present Medications: see Short Stay Collaborative assessment Medical History: Significant History (Chronic abdominal pain Constipation by delayed colonic transit H/O partial seizures) History of Previous Operations: Relevant previous surgery/procedure and date(s) (Hx of hemorrhoidectomy Hx of tubal ligation) Allergies: Allergies Allergy/AdvReac Type Severity Reaction Status Date / Time meperidine [From Demerol] AdvReac Mild HIVES Verified 12/06/20 13:33 Review of Systems Sugical H&P ROS: Negative: Constitution, Cardiovascular, Respiratory, Neurological, Psychiatric, Hem-Onc, Allergic/Immunologic, Gastrointestinal, Genitourinary, Musculoskeletal, Integumentary, Endocrine and Eyes/Ears/Nose/Throat Exam Surgical H&P Exam: Normal: HEENT, Normal: Heart, Normal: Lungs, Normal: Extremities, Normal: Skin and Normal: Neurological and Significant Findings: Abdomen (epigastric tenderness) Plan Diagnosis/Plan: Unchanged I have reviewed the history and physical and performed a pertinent physical examination on my patient. No changes have occurred unless specified. Colonoscopy and possible EGD
--- NOTE | 2020-12-23 14:32 | P.BOP_ITS ---
Brief Operative Note Date of Service: 12/23/20 Pre-op diagnosis: constipation, epigastric pain, nausea Post-op diagnosis: same Procedure: see op note Surgeon: La Godfrey MD Anesthesia: MAC Was an Head Transfer Clerk used for this Procedure?: No Estimated blood loss (mL): 0 Condition: stable Disposition: PACU
--- NOTE | 2020-12-23 14:33 | P.OP_ITS ---
Operative Note Operative Note Date of Service: 12/23/20 Narrative: Operative Information Procedure Description: EGD, Colonoscopy FLEXIBLE TRANSORAL UPPER GASTROINTESTINAL ENDOSCOPY AND COLONOSCOPY PROCEDURE NOTE UPPER ENDOSCOPY Consent: Indications for the procedure and potential complications of bleeding, perforation, reaction to medications and missed diagnosis were discussed with the patient and informed consent was obtained. Instrument: Olympus GIF H 190 J mid size upper endoscope Monitoring: Vital signs and clinical assessment, continuous EKG monitoring, Pulse oximetry, Carbon Dioxide monitoring and blood pressure monitoring were done throughout the procedure. Procedure: The patient was placed in the left lateral decubitis position and pre-procedure medications were administered and a bite block was placed. The endoscope was inserted into the mouth and advanced under direct vision to the third part of duodenum. A careful inspection was made as the upper endoscope was withdrawn including a retroflexed examination of the proximal stomach; Findings and interventions are described below. Findings: Larynx:normal Esophagus: GE junction at 37 cm, diaphragm hiatus at 37 cm, LA grade A esophagitis noted, bx taken Stomach: scattered erythema with erosions at the antrum. Biopsies were obtained. Grade 2 flap valve on retroflexed examination of the cardia. Duodenum: Mild bulbar duodenitis, bx taken Intervention: Biopsies as noted above COLONOSCOPY Instrument: Olympus variable stiffness pediatric scope 190L Colonoscopy Monitoring: Vital signs and clinical assessment, continuous EKG monitoring, Pulse oximetry, Carbon Dioxide monitoring and blood pressure monitoring were done throughout the procedure. Colon withdrawal time was 17 minutes. Procedure: The patient was placed in the left lateral decubitis position and pre-procedure medications were administered. After a digital rectal examination of the ano-rectum, the video colonoscope was inserted into the rectum and advanced through the colon to the cecum/TI. The colonoscope was slowly withdrawn in a retrograde panoramic fashion and the colon mucosa was carefully examined including a retroflexed view of the rectum. Findings and interventions are described below. Procedure Difficulty:moderate due to looping and tortuous colon, pressure applied Findings: Terminal Ileum-normal, bx taken random colon bx taken Cecum:normal Ascending Colon: normal Transverse Colon -normal Descending Colon:normal Sigmoid Colon: normal Rectum: Retroflexion with small internal hemorrhoids, grade I Anorectum - normal Colon preparation: [place] Bowel Preparation Scale Right colon; 2 Transverse colon: 2 Left colon; 1 (0 = Unprepared colon segment with mucosa not seen due to solid stool that cannot be cleared. 1 = Portion of mucosa of the colon segment seen, but other areas of the colon segment not well seen due to staining, residual stool and/or opaque liquid. 2 = Minor amount of residual staining, small fragments of stool and/or opaque liquid, but mucosa of colon segment seen well. 3 = Entire mucosa of colon segment seen well with no residual staining, small fragments of stool or opaque liquid) Impression and Post Procedure Diagnosis: Endoscopy Findings: esophagitis gastritis, erosions duodenitis Colonoscopy Findings: internal hemorrhoids Plan: Await Pathology results Repeat Colonoscopy in 5 years or earlier if clinically indicated High fiber diet leaflet avoid straining at stool, epsom salts and sitz bath, anusol supps or cream prn if h pylori pos then treat, may benefit from PPI, check nsaid hx Above findings were reviewed with the patient and relevant handouts were provided if indicated.
[2020-12-23 15:33] VITALS: BP 106/64; PULSE 92; RESP 16; TEMP 36.1; O2SAT 92
[2020-12-23 15:48] VITALS: BP 107/66; PULSE 75; RESP 18; O2SAT 100
[2020-12-23 16:03] VITALS: BP 106/66; PULSE 77; RESP 20; O2SAT 100
== END 2020-12-23 16:30 | disposition home or self-care (01) ==
PROVIDERS: PCP Internal Medicine; Visit Provider Internal Medicine Gastroenterology
PROC: 0DJD8ZZ Inspection of Lower Intestinal Tract, Via Natural or Artificial Opening Endoscopic (ICD-10-PCS; CPT 45378; principal; 2020-12-23 15:40)
DX: K59.01 Slow transit constipation (principal); K64.0 First degree hemorrhoids; K20.80 Other esophagitis without bleeding; K29.60 Other gastritis without bleeding; K29.80 Duodenitis without bleeding; K44.9 Diaphragmatic hernia without obstruction or gangrene; Z79.899 Other long term (current) drug therapy; Z88.8 Allergy status to other drugs, medicaments and biological substances
CPT/HCPCS: 45380; 43239; 88305; 88342; J2250

== ENCOUNTER 2021-01-26 17:11 | Outpatient (REF) | payer OTHER, SELFPAY ==
[2021-01-28 21:22] LABS: TS Negative Control Passed; TS Panel A 0; TS Panel B 0; TS Positive Control Passed; TSpotTB Negative (SeeBelow)
== END 2021-01-26 17:12 | disposition home or self-care (01) ==
LOC: HO.LAB 17:11
PROVIDERS: PCP Internal Medicine; Visit Provider Internal Medicine
DX: Z11.7 Encounter for testing for latent tuberculosis infection (principal); N89.8 Other specified noninflammatory disorders of vagina
CPT/HCPCS: 36415; 86481

== ENCOUNTER → 2021-02-01 10:49 | Outpatient (BNVA) | payer OTHER, SELFPAY | PROVIDERS: PCP Internal Medicine; Visit Provider Physician Assistant ==

== ENCOUNTER 2021-02-05 10:05 | Emergency (ER) | payer OTHER, SELFPAY ==
[2021-02-05 10:09] VITALS: BP 113/84; BP 123/65; PULSE 106; PULSE 110; RESP 16; TEMP 36.9; O2SAT 100; O2SAT 95; BMI 36.9
--- NOTE | 2021-02-05 10:11 | ED_ITS ---
HPI - Seizure General Chief Complaint: Seizure Stated Complaint: seizure Time Seen by Provider: 02/05/21 10:11 Source: patient and EMS Mode of arrival: EMS Limitations: no limitations History of Present Illness HPI Narrative: witnessed in bed GTC seizure at home x 1 to 2 minutes with incontinence, tongue abrasion started after being told a family member this AM she took her keppra and lamictal this morning complaint: seizure Onset (ago): minute(s) Description of Episode: loss of consciousness and tonic-clonic movement Duration of episode: 2 -: minutes(s) Witnessed: Yes - by Bystander Trauma: No Seizure History: Yes Place: Home Possible Precipitating Event: stress Associated symptoms: other (tongue abrasion and urinary incontinence) Treatments prior to arrival: other (she took her AEDs prior to event) Related Data Home Medications Medication Instructions Recorded Confirmed lamotrigine 200 mg PO BID 09/06/20 12/17/20 levetiracetam 1,000 mg PO BID 09/06/20 12/23/20 Previous Rx's Medication Instructions Recorded linaclotide 145 mcg capsule 145 mcg PO DAILY 30 Days #30 cap 08/28/20 cholecalciferol (vitamin D3) 50 50 mcg PO DAILY #30 cap 09/24/20 mcg (2,000 unit) capsule cyclobenzaprine 10 mg PO TID PRN #10 tab 11/15/20 lidocaine [Lidoderm] 1 patch TOPICAL DAILY #15 ea 11/15/20 naproxen 500 mg PO BID PRN #20 tab 11/15/20 bisacodyl 5 mg tablet,delayed 10 mg PO ONCE 1 Days #2 tab 12/06/20 release methylcellulose (laxative) 500 mg 500 mg PO BID #60 tab 12/06/20 tablet polyethylene glycol 3350 17 238 g PO ONCE 1 Days #238 g 12/06/20 gram/dose oral powder Allergies Allergy/AdvReac Type Severity Reaction Status Date / Time meperidine [From Demerol] AdvReac Mild HIVES Verified 12/06/20 13:33 Review of Systems Review of Systems: Constitutional :No Fever, No Chills ENT/Mouth : No sore throat, No Rhinorrhea, pos tongue abrasion Eyes: No Eye Pain, No Swelling, No Redness Cardiovascular : No Chest Pain, No SOB Respiratory : No Cough, No Sputum, No Wheezing Gastrointestinal : No Nausea, No Vomiting, No Diarrhea Genitourinary : No Dysuria, No Urinary Frequency, No Hematuria, Musculoskeletal : No joint pain, No Myalgia Neuro : No Weakness, No Numbness, No Dizziness, No Headache, pos seizure Psych : No Anxiety/Panic, No Depression All other systems reviewed and are negative [facility] Past Medical History Attestation statement: The following information was validated with the patient. 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 Oriented X3. No acute distress. Eyes: Pupils equal, round and reactive to light. ENT: Pharynx normal. small tongue abrasion to left anterior side no bleeding Neck: Normal inspection. Neck supple. CVS: Normal heart rate and rhythm. Pulses normal. Respiratory: No respiratory distress. Breath sounds normal. Abdomen: Soft and non-tender. Skin: Skin warm and dry. Normal skin color. Normal skin turgor. Extremities: No lower extremity edema. No calf ttp Neuro: Oriented X 3. No motor deficit. No sensory deficit. Course Course Course Narrative: at baseline no further seizures, GCS 15, obs x 2 hours stable for DC MDM - Seizure MDM Narrative Medical decision making narrative: 35 yo female known seizure disorder compliant with her AEDs comes in with c/o GTC seizure after hearing terrible news, she is GCS 15 now, took her AM meds, no trauma other than tongue biting will obtain basic labs, observe IV ativan, anticipate DC home once clinically improved and observed. Lab Data Result diagrams: 02/05/21 11:29 02/05/21 11:29 Labs: Lab Results 02/05/21 02/05/21 Range/Units 11:29 11:29 WBC 6.4 (4.8-10.8) X10*3/uL RBC 4.66 (4.20-5.50) X10*6/uL Hgb 13.6 (12.0-16.0) g/dl Hct 41.4 (37-47) % MCV 88.8 (80-98) fL MCH 29.2 (27.0-33.0) pg MCHC 32.9 (31.0-35.0) g/dl RDW 11.9 (11.0-16.0) % Plt Count 240 (160-400) X10*3/uL MPV 9.2 L (9.4-12.3) fL Immature Gran % (Auto) 0.2 (0.0-0.4) % Neut % (Auto) 72.9 (45-73) % Lymph % (Auto) 18.8 L (20-40) % [place] % (Auto) 6.1 (2-11) % Eos % (Auto) 1.4 (0-4) % Baso % (Auto) 0.6 (0-2) % Lymph # (Auto) 1.2 (1.2-4.9) X10*3/uL [place] # (Auto) 0.4 (0.1-1.2) X10*3/uL Eos # (Auto) 0.1 (0.0-0.4) X10*3/uL Baso # (Auto) 0.0 (0.0-0.2) X10*3/uL Abs Immat Gran (auto) 0.01 (0.00-0.03) X10*3/uL Absolute Neuts (auto) 4.6 (2.0-8.3) X10*3/uL Absolute Nucleated RBC 0.000 (0.0-0.012) X10*3/uL Nucleated RBC % (auto) 0.0 (0.0-0.2) /100WBC Sodium 138 (135-145) mmol/L Potassium 3.9 (3.3-5.1) mmol/L Chloride 106 (96-108) mmol/L Carbon Dioxide 21 L (22-29) mmol/L Anion Gap 15 (12-20) BUN 8 L (9-16) mg/dL Creatinine 0.78 (0.5-1.4) mg/dL Estim Creat Clear Calc 121.4 Estimated GFR > 60 Random Glucose 90 (60-115) mg/dL Calcium 9.0 (8.4-10.2) mg/dL Magnesium 1.9 (1.6-2.6) mg/dL Total Bilirubin 0.4 (0.0-1.0) mg/dL Direct Bilirubin < 0.2 (0.0-0.5) mg/dL AST 17 (5-31) U/L ALT 20 (0-31) U/L Alkaline Phosphatase 75 (39-117) U/L Total Protein 7.6 (6.5-8.0) g/dL Albumin 4.3 (3.5-5.0) g/dL Discharge Plan Discharge Clinical Impression: Generalized seizure Patient Disposition: Home, Self-Care Instructions: Epilepsy (ED) Additional Instructions: return to ED for any worsening symptoms or concerns stay with family today follow up and touch base with your Neurologist this week. Prescriptions: No Action Linzess 145 mcg capsule 145 mcg PO DAILY 30 Days Qty: 30 RF: 1 cholecalciferol (vitamin D3) 50 mcg (2,000 unit) capsule 50 mcg PO DAILY Qty: 30 RF: 3 lamotrigine 200 mg Tablet 200 mg PO BID RF: 0 levetiracetam 1,000 mg Tablet 1,000 mg PO BID RF: 0 naproxen 500 mg tablet 500 mg PO BID PRN (Reason: pain) Qty: 20 RF: 0 cyclobenzaprine 10 mg tablet 10 mg PO TID PRN (Reason: muscle spasm) Qty: 10 RF: 0 lidocaine [Lidoderm] 5 % adhesive patch,medicated 1 patch topical DAILY Qty: 15 RF: 0 Citrucel 500 mg tablet 500 mg PO BID Qty: 60 RF: 5 bisacodyl [Dulcolax (bisacodyl)] 5 mg tablet,delayed release (DR/EC) 10 mg PO ONCE 1 Days Qty: 2 RF: 0 polyethylene glycol 3350 [Miralax] 17 gram/dose powder 238 g PO ONCE 1 Days Qty: 238 RF: 0 Stand Alone Forms: Work/School Release
[2021-02-05] MEDS: LORazepam 2 MG/ML VIAL 1 MG IVPUSH (10:52)
[2021-02-05] MEDS: ondansetron HCL 4 MG/2 ML VIAL IVPUSH (10:52)
[2021-02-05] MEDS: 0.9 % Sodium Chloride 1,000 ML 999 ML IVCONT (10:54)
[2021-02-05 11:34] LABS: MANUAL DIFF FLAG NO
[2021-02-05 11:37] LABS: Basophils Percent Auto 0.6 % (0-2); Eosinophils Absolute Auto 0.1 X10*3/uL (0.0-0.4); Eosinophils Percent Auto 1.4 % (0-4); Hematocrit 41.4 % (37-47); Hemoglobin 13.6 g/dl (12.0-16.0); Imm Gran Abs Auto 0.01 X10*3/uL (0.00-0.03); Imm Gran Pct Auto 0.2 % (0.0-0.4); Lymphocytes Absolute Auto 1.2 X10*3/uL (1.2-4.9); Lymphocytes Percent Auto 18.8 % (20-40); Mean Corpuscular HGB Conc 32.9 g/dl (31.0-35.0); Mean Corpuscular Hemoglobin 29.2 pg (27.0-33.0); Mean Corpuscular Volume 88.8 fL (80-98); Mean Platelet Volume 9.2 fL (9.4-12.3); Monocytes Absolute Auto 0.4 X10*3/uL (0.1-1.2); Monocytes Percent Auto 6.1 % (2-11); Neutrophils Absolute Auto 4.6 X10*3/uL (2.0-8.3); Neutrophils Percent Auto 72.9 % (45-73); Platelet Count 240 X10*3/uL (160-400); Red Blood Count 4.66 X10*6/uL (4.20-5.50); Red Cell Distribution Width 11.9 % (11.0-16.0); White Blood Count 6.4 X10*3/uL (4.8-10.8)
[2021-02-05 11:43] VITALS: BP 101/63; PULSE 78; RESP 16; O2SAT 99
[2021-02-05 12:05] LABS: Alanine Aminotransferase 20 U/L (0-31); Albumin Level 4.3 g/dL (3.5-5.0); Alkaline Phosphatase 75 U/L (39-117); Anion Gap 15 (12-20); Aspartate Amino Transferase 17 U/L (5-31); Bilirubin Direct < 0.2 mg/dL (0.0-0.5); Bilirubin Total 0.4 mg/dL (0.0-1.0); Blood Urea Nitrogen 8 mg/dL (9-16); Carbon Dioxide 21 mmol/L (22-29); Chloride 106 mmol/L (96-108); Creatinine Clr Calc Pharmacy 121.4; Estimated Glomerular Filt Rate > 60; Glucose Random 90 mg/dL (60-115); Magnesium 1.9 mg/dL (1.6-2.6); Potassium 3.9 mmol/L (3.3-5.1); Sodium 138 mmol/L (135-145); Total Protein 7.6 g/dL (6.5-8.0)
== END 2021-02-05 12:21 | disposition home or self-care (01) ==
PROVIDERS: Emergency Provider Emergency Medicine; PCP Internal Medicine
DX: G40.409 Other generalized epilepsy and epileptic syndromes, not intractable, without status epilepticus (principal); Z79.899 Other long term (current) drug therapy; Z63.4 Disappearance and death of family member
CPT/HCPCS: 36415; 80048; 80076; 83735; 85025; 96361; 96374; 96375; 99284; J2060; J2405

== ENCOUNTER 2021-07-02 20:24 | Emergency (ER) | payer OTHER, SELFPAY ==
[2021-07-02 20:30] VITALS: BP 114/69; PULSE 84; RESP 16; TEMP 36.7; O2SAT 99; BMI 36.8
--- NOTE | 2021-07-02 23:39 | PC.NURSE ---
CALLED MULTIPLE TIMES NO RESPONSE FOR ROOM ASSIGNMENT
== END 2021-07-02 23:39 | disposition left against medical advice (07) ==
PROVIDERS: Emergency Provider Emergency Medicine; PCP Internal Medicine
DX: R10.9 Unspecified abdominal pain (principal)
CPT/HCPCS: 99281; 99283

== ENCOUNTER 2021-07-03 14:19 | Emergency (ER) | payer OTHER, SELFPAY ==
[2021-07-03 14:40] VITALS: BP 120/69; PULSE 67; RESP 18; TEMP 36.8; O2SAT 100; BMI 36.8
[2021-07-03 15:14] LABS: Appearance Urine CLEAR; Color Urine YELLOW; Glucose Urine UA NEG (NEG); Leukocyte Esterase Urine NEG (NEG); Nitrite Urine NEG (NEG); Specific Gravity - Urine >= 1.030 (1.005-1.025); Urine Blood NEG (NEG); Urine Ketones NEG (NEG); Urine Protein NEG (NEG-TRACE)
[2021-07-03 18:30] LABS: UPreg QC Valid YES; Urine Pregnancy NEGATIVE (NEGATIVE)
== END 2021-07-03 19:05 | disposition left against medical advice (07) ==
LOC: HO.ED 20:14
PROVIDERS: Physician Assistant Medical; Emergency Provider Emergency Medicine; PCP Internal Medicine
DX: N23 Unspecified renal colic (principal)
CPT/HCPCS: 36415; 81003; 81025; 99283

== ENCOUNTER 2021-07-16 19:18 | Emergency (ER) | payer OTHER, SELFPAY ==
[2021-07-16 20:14] VITALS: BP 108/68; PULSE 75; RESP 20; TEMP 36.6; O2SAT 99; BMI 36.8
--- NOTE | 2021-07-17 00:28 | PC.NURSE ---
PT WAS NOT IN ROOM WHEN DR WENT TO SEE THEM CHECKED BATHROOM AND WAIT ROOM AND PT WAS NOT THERE.
== END 2021-07-17 00:31 | disposition left against medical advice (07) ==
PROVIDERS: Emergency Provider Emergency Medicine; PCP Internal Medicine
DX: M54.50 Low back pain, unspecified (principal)
CPT/HCPCS: 99281; 99282

== ENCOUNTER 2021-11-03 15:39 | Outpatient (REF) | payer OTHER, SELFPAY ==
[2021-11-03 16:04] LABS: MANUAL DIFF FLAG NO
[2021-11-03 16:10] LABS: Basophils Percent Auto 0.6 % (0-2); Eosinophils Absolute Auto 0.1 X10*3/uL (0.0-0.4); Eosinophils Percent Auto 1.9 % (0-4); Hematocrit 39.1 % (37.0-47.0); Imm Gran Abs Auto 0.01 X10*3/uL (0.00-0.03); Imm Gran Pct Auto 0.1 % (0.0-0.4); Lymphocytes Absolute Auto 2.4 X10*3/uL (1.2-4.9); Lymphocytes Percent Auto 35.3 % (20-40); Mean Corpuscular HGB Conc 33.2 g/dl (31.0-35.0); Mean Corpuscular Hemoglobin 29.1 pg (27.0-33.0); Mean Corpuscular Volume 87.7 fL (80.0-98.0); Mean Platelet Volume 9.1 fL (9.4-12.3); Monocytes Absolute Auto 0.4 X10*3/uL (0.1-1.2); Monocytes Percent Auto 5.5 % (2-11); Neutrophils Absolute Auto 3.8 x10*3/uL (2.0-8.3); Neutrophils Percent Auto 56.6 % (45-73); Platelet Count 324 X10*3/uL (160-400); Red Blood Count 4.46 X10*6/uL (4.20-5.50); Red Cell Distribution Width 12.5 % (11.0-16.0); White Blood Count 6.8 X10*3/uL (4.8-10.8)
[2021-11-03 16:28] LABS: Alanine Aminotransferase 24 U/L (0-31); Albumin Level 4.5 g/dL (3.5-5.0); Alkaline Phosphatase 79 U/L (39-117); Anion Gap 13 (12-20); Aspartate Amino Transferase 19 U/L (5-31); Bilirubin Total 0.3 mg/dL (0.0-1.0); Blood Urea Nitrogen 13 mg/dL (9-16); Calcium 9.2 mg/dL (8.4-10.2); Carbon Dioxide 23 mmol/L (22-29); Chloride 105 mmol/L (96-108); Cholesterol 199 mg/dL; Estimated Glomerular Filt Rate > 60; Glucose Random 88 mg/dL (60-115); HDL Cholesterol 43 mg/dL; LDL Cholesterol Calculated 139 mg/dl; Potassium 3.8 mmol/L (3.3-5.1); Sodium 137 mmol/L (135-145); Total Protein 8.2 g/dL (6.5-8.0); Triglycerides 85 mg/dL
[2021-11-09 11:17] LABS: Levetiracetam Keppra 14.9 mcg/mL (12.0-46.0)
== END 2021-11-03 15:40 | disposition home or self-care (01) ==
LOC: HO.LAB 15:39
PROVIDERS: PCP Internal Medicine; Visit Provider Internal Medicine
DX: Z00.00 Encounter for general adult medical examination without abnormal findings (principal); R21 Rash and other nonspecific skin eruption; G43.909 Migraine, unspecified, not intractable, without status migrainosus; G40.109 Localization-related (focal) (partial) symptomatic epilepsy and epileptic syndromes with simple partial seizures, not intractable, without status epilepticus; Z90.710 Acquired absence of both cervix and uterus
CPT/HCPCS: 36415; 80053; 80061; 80177; 85025

== ENCOUNTER 2021-11-12 21:21 | Emergency (ER) | payer OTHER, SELFPAY ==
[2021-11-12 21:32] VITALS: BP 118/72; PULSE 66; RESP 15; TEMP 36.5; O2SAT 98; BMI 36.3
--- NOTE | 2021-11-12 21:41 | ECG_ITS ---
Test Reason : SEIZURE Blood Pressure : / mmHG Vent. Rate : 071 BPM Atrial Rate : 071 BPM P-R Int : 132 ms QRS Dur : 074 ms QT Int : 418 ms P-R-T Axes : 045 048 037 degrees QTc Int : 454 ms Normal sinus rhythm Junctional ST depression, probably normal Borderline ECG When compared with ECG of 07-NOV-2020 23:13, No significant change was found Referred By: Brittany Tate Electronically Signed By:Bharat Awad
[2021-11-12 21:42] VITALS: BP 126/72; PULSE 78; RESP 17; O2SAT 97
[2021-11-12 22:05] LABS: MANUAL DIFF FLAG NO
[2021-11-12 22:07] LABS: Basophils Percent Auto 0.4 % (0-2); Eosinophils Absolute Auto 0.2 X10*3/uL (0.0-0.4); Eosinophils Percent Auto 2.1 % (0-4); Hematocrit 38.8 % (37.0-47.0); Imm Gran Abs Auto 0.02 X10*3/uL (0.00-0.03); Imm Gran Pct Auto 0.3 % (0.0-0.4); Lymphocytes Absolute Auto 2.8 X10*3/uL (1.2-4.9); Lymphocytes Percent Auto 35.1 % (20-40); Mean Corpuscular HGB Conc 33.5 g/dl (31.0-35.0); Mean Corpuscular Hemoglobin 29.8 pg (27.0-33.0); Monocytes Absolute Auto 0.5 X10*3/uL (0.1-1.2); Monocytes Percent Auto 6.6 % (2-11); Neutrophils Absolute Auto 4.4 x10*3/uL (2.0-8.3); Neutrophils Percent Auto 55.5 % (45-73); Platelet Count 314 X10*3/uL (160-400); Red Blood Count 4.36 X10*6/uL (4.20-5.50); Red Cell Distribution Width 12.3 % (11.0-16.0); White Blood Count 7.9 X10*3/uL (4.8-10.8)
[2021-11-12 22:22] LABS: Ethanol < 10 mg/dL
[2021-11-12 22:29] LABS: Alanine Aminotransferase 31 U/L (0-31); Alkaline Phosphatase 81 U/L (39-117); Anion Gap 15 (12-20); Aspartate Amino Transferase 21 U/L (5-31); Bilirubin Total 0.4 mg/dL (0.0-1.0); Blood Urea Nitrogen 11 mg/dL (9-16); Calcium 9.4 mg/dL (8.4-10.2); Carbon Dioxide 23 mmol/L (22-29); Chloride 104 mmol/L (96-108); Creatinine Clr Calc Pharmacy 113.2; Estimated Glomerular Filt Rate > 60; Glucose Random 92 mg/dL (60-115); Potassium 3.4 mmol/L (3.3-5.1); Sodium 139 mmol/L (135-145); Total Protein 7.5 g/dL (6.5-8.0)
[2021-11-12 22:37] LABS: Appearance Urine CLEAR; Color Urine YELLOW; Glucose Urine UA NEG (NEG); Leukocyte Esterase Urine NEG (NEG); Nitrite Urine NEG (NEG); Urine Blood NEG (NEG); Urine Ketones NEG (NEG); Urine Protein NEG (NEG-TRACE)
[2021-11-12 22:38] LABS: UPreg QC Valid YES; Urine Pregnancy NEGATIVE (NEGATIVE)
[2021-11-12 22:46] LABS: Amphetamine Screen Urine Not Detected (Not Detect); Barbiturates, Urine Not Detected (Not Detect); Benzodiazepines Screen Urine Not Detected (Not Detect); Cannabinoid Screen Urine Not Detected (Not Detect); Cocaine Screen Urine Not Detected (Not Detect); Fentanyl, urine Not Detected (Not Detect); Opiate Screen Urine Not Detected (Not Detect); Phencyclidine Screen Urine Not Detected (Not Detect)
--- NOTE | 2021-11-12 22:48 | ED_ITS ---
HPI - Seizure General Chief Complaint: Seizure Stated Complaint: ? Seizure Time Seen by Provider: 11/12/21 21:41 Source: patient Mode of arrival: EMS Limitations: no limitations History of Present Illness HPI Narrative: 36-year-old female who has a known seizure presents emergency department by ambulance for evaluation of a seizure witnessed at home by her family. The patient states that she has no aura before her seizures but 1-2 days before in onset seizure she has fatigue. She states that she has been very tired over the past 1-2 days but has had no difficulty sleeping. She takes Keppra 1000 mg twice a day and she states she has been compliant with his medication. She states that she was in bed and had no awareness of her seizure. Family members reported that she was convulsing for approximately 1 minute. The patient then had a postictal period and she remembers waking up when the paramedics arrived to take her to the hospital. She states that her last seizure was 2 months prior. She states that 1 week prior she had 1 day of severe abdominal pain, nausea, vomiting and diarrhea. She states that she did have an episode of syncope after vomiting. Seizure History: Yes Place: Home Related Data Home Medications Medication Instructions Recorded Confirmed lamotrigine 200 mg tablet 200 mg PO BID 09/06/20 12/17/20 levetiracetam 1,000 mg tablet 1,000 mg PO BID 09/06/20 12/23/20 Previous Rx's Medication Instructions Recorded cholecalciferol (vitamin D3) 50 50 mcg PO DAILY #30 cap 09/24/20 mcg (2,000 unit) capsule cyclobenzaprine 10 mg tablet 10 mg PO TID PRN #10 tab 11/15/20 lidocaine 5 % topical patch 1 patch TOPICAL DAILY #15 ea 11/15/20 (Lidoderm) naproxen 500 mg tablet 500 mg PO BID PRN #20 tab 11/15/20 bisacodyl 5 mg tablet,delayed 10 mg PO ONCE 1 Days #2 tab 12/06/20 release (Dulcolax (bisacodyl)) methylcellulose (laxative) 500 mg 500 mg PO BID #60 tab 12/06/20 tablet (Citrucel) polyethylene glycol 3350 17 238 g PO ONCE 1 Days #238 g 12/06/20 gram/dose oral powder (Miralax) linaclotide 145 mcg capsule 145 mcg PO DAILY #30 cap 08/02/21 (Linzess) Allergies Allergy/AdvReac Type Severity Reaction Status Date / Time meperidine [From Demerol] AdvReac Mild HIVES Verified 07/16/21 20:19 Review of Systems Review of Systems: Yes all other systems are reviewed and are negative [facility] Past Medical History [facility] Narrative: Social history: She denies tobacco, alcohol and drug use. 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 Vital Signs: Vital Signs: Last Vital Signs Temp 97.7 F 11/12/21 21:32 Pulse 70 11/12/21 22:53 Resp 13 11/12/21 22:53 BP 105/77 11/12/21 22:53 Pulse Ox 98 11/12/21 22:53 BMI result Body Mass Index 36.3 Const: General: cooperative and no acute distress Orientation/c onsciousness: oriented to person and oriented to place Limitations: no limitations HEENT: Head: Yes normal to inspection, Yes normocephalic and Yes atraumatic Ears: external ears normal General nose exam: Normal external nose present Face and sinus: Yes normal facial exam Mouth: Normal oral and palatal mucosa present Throat: Yes posterior oropharynx normal Eyes: General: appearance normal, both eyes and all related structures Pupils: Equal, round and reactive pupils present Neck: Neck: Yes normal visual inspection, Yes no lymphadenopathy, Yes trachea midline and Yes supple Chest: Chest palpation & inspection: normal inspection of the chest and normal palpation of entire chest wall Resp: Effort & Inspection: normal respiratory effort and able to speak in complete sentences Auscultation: clear to auscultation bilaterally Cardio: Rate: regular rate Rhythm: regular rhythm Heart sounds: S1 normal heart sound present, S2 normal heart sound present and no murmurs GI: Inspection: Yes normal to inspection Palpation (GI): Soft to palpation, nontender and no guarding Auscultation: normal bowel sounds : General: Yes no CVA tenderness Back/Spine/Pelvis: Back: no CVA tenderness Skin: General skin exam: no rashes or lesions noted Neuro: General: oriented to person and oriented to place Cranial nerves: Yes CN's II-XII intact bilaterally and Yes Equal, round and reactive pupils present Cognition (Neuro): normal cognition Motor exam (neuro): 5/5 motor strength present throughout Extrem: General: Yes normal to inspection Psych: Appearance: grossly normal Speech and movement: Normal speech and movement present Affect: normal affect Attitude: cooperative Thought process: Normal thought process present Thought content: Normal thought co ntent present Course Course Course Narrative: 36-year-old female who presents emergency department for evaluation of a witnessed tonic-clonic seizure that occurred at home while she was in bed, report from the family was that she was convulsing and lasted approximately 1 minute. The patient was not aware of her seizure, she was postictal and did wake up when the paramedics arrived to bring her to the hospital. Patient takes Keppra 1000 mg twice a day and she states she has been compliant with this re gimen. Vital signs were normal. Physical examination was unremarkable. Patient was given Toradol 15 mg IV and Ativan 1 mg IV. 2252 : Laboratory evaluation: CMP was normal. CBC was normal. Urinalysis was normal. Urine tox screen was negative. The patient's presentation and findings are consistent with her seizure disorder. Patient has been compliant with her medications and there was no obvious precipitating event causing her seizure. The patient will be discharged home, she was advised to continue her medications as prescribed by her provider and to return to emergency department if her symptoms get worse or she develops any symptoms that are concerning to her. MDM - Seizure Lab Data Result diagrams: 11/12/21 22:00 11/12/21 22:00 Labs: Lab Results 11/12/21 11/12/21 11/12/21 Range/Units 22:00 22:00 22:00 WBC 7.9 (4.8-10.8) X10*3/uL RBC 4.36 (4.20-5.50) X10*6/uL Hgb 13.0 (12.0-16.0) g/dl Hct 38.8 (37.0-47.0) % MCV 89.0 (80.0-98.0) fL MCH 29.8 (27.0-33.0) pg MCHC 33.5 (31.0-35.0) g/dl RDW 12.3 (11.0-16.0) % Plt Count 314 (160-400) X10*3/uL MPV 9.0 L (9.4-12.3) fL Immature Gran % (Auto) 0.3 (0.0-0.4) % Neut % (Auto) 55.5 (45-73) % Lymph % (Auto) 35.1 (20-40) % [place] % (Auto) 6.6 (2-11) % Eos % (Auto) 2.1 (0-4) % Baso % (Auto) 0.4 (0-2) % Lymph # (Auto) 2.8 (1.2-4.9) X10*3/uL [place] # (Auto) 0.5 (0.1-1.2) X10*3/uL Eos # (Auto) 0.2 (0.0-0.4) X10*3/uL Baso # (Auto) 0.0 (0.0-0.2) X10*3/uL Abs Immat Gran (auto) 0.02 (0.00-0.03) X10*3/uL Absolute Neuts (auto) 4.4 (2.0-8.3) x10*3/uL Absolute Nucleated RBC 0.000 (0.0-0.012) X10*3/uL Nucleated RBC % (auto) 0.0 (0.0-0.2) /100WBC Sodium 139 (135-145) mmol/L Potassium 3.4 (3.3-5.1) mmol/L Chloride 104 (96-108) mmol/L Carbon Dioxide 23 (22-29) mmol/L Anion Gap 15 (12-20) BUN 11 (9-16) mg/dL Creatinine 0.82 (0.5-1.4) mg/dL Estim Creat Clear Calc 113.2 Estimated GFR > 60 Random Glucose 92 (60-115) mg/dL Calcium 9.4 (8.4-10.2) mg/dL Magnesium 2.0 (1.6-2.6) mg/dL Total Bilirubin 0.4 (0.0-1.0) mg/dL AST 21 (5-31) U/L ALT 31 (0-31) U/L Alkaline Phosphatase 81 (39-117) U/L Total Protein 7.5 (6.5-8.0) g/dL Albumin 4.0 (3.5-5.0) g/dL Urine Color Urine Appearance Urine pH (5.0-8.0) Ur Specific [place] (1.005-1.025) Urine Protein (NEG-TRACE) MG/DL Urine Glucose (UA) (NEG) MG/DL Urine Ketones (NEG) MG/DL Urine Blood (NEG) Urine Nitrite (NEG) Ur Leukocyte Esterase (NEG) Urine Test (NEGATIVE) Urine Opiates Screen (Not Detect) Urine Fentanyl Screen (Not Detect) Ur Barbiturates Screen (Not Detect) Ur Phencyclidine Scrn (Not Detect) Ur Amphetamines Screen (Not Detect) U Benzodiazepines Scrn (Not Detect) Urine Cocaine Screen (Not Detect) U Marijuana (THC) Screen (Not Detect) Ethyl Alcohol mg/dL COVID-19 (YONY) COVID-19 Clin Com Influenza Type A (LINDA) Cancelled Influenza Type A (PCR) (Negative) Influenza Type B (LINDA) Cancelled Influenza Type B (PCR) (Negative) Influenza A & B Note Cancelled RSV RNA Qual (PCR) (Negative) SARS-CoV-2 RNA (RT-PCR) (Negative) 11/12/21 11/12/21 11/12/21 Range/Units 22:00 22:00 22:00 WBC (4.8-10.8) X10*3/uL RBC (4.20-5.50) X10*6/uL Hgb (12.0-16.0) g/dl Hct (37.0-47.0) % MCV (80.0-98.0) fL MCH (27.0-33.0) pg MCHC (31.0-35.0) g/dl RDW (11.0-16.0) % Plt Count (160-400) X10*3/uL MPV (9.4-12.3) fL Immature Gran % (Auto) (0.0-0.4) % Neut % (Auto) (45-73) % Lymph % (Auto) (20-40) % [place] % (Auto) (2-11) % Eos % (Auto) (0-4) % Baso % (Auto) (0-2) % Lymph # (Auto) (1.2-4.9) X10*3/uL [place] # (Auto) (0.1-1.2) X10*3/uL Eos # (Auto) (0.0-0.4) X10*3/uL Baso # (Auto) (0.0-0.2) X10*3/uL Abs Immat Gran (auto) (0.00-0.03) X10*3/uL Absolute Neuts (auto) (2.0-8.3) x10*3/uL Absolute Nucleated RBC (0.0-0.012) X10*3/uL Nucleated RBC % (auto) (0.0-0.2) /100WBC Sodium (135-145) mmol/L Potassium (3.3-5.1) mmol/L Chloride (96-108) mmol/L Carbon Dioxide (22-29) mmol/L Anion Gap (12-20) BUN (9-16) mg/dL Creatinine (0.5-1.4) mg/dL Estim Creat Clear Calc Estimated GFR Random Glucose (60-115) mg/dL Calcium (8.4-10.2) mg/dL Magnesium (1.6-2.6) mg/dL Total Bilirubin (0.0-1.0) mg/dL AST (5-31) U/L ALT (0-31) U/L Alkaline Phosphatase (39-117) U/L Total Protein (6.5-8.0) g/dL Albumin (3.5-5.0) g/dL Urine Color Urine Appearance Urine pH (5.0-8.0) Ur Specific [place] (1.005-1.025) Urine Protein (NEG-TRACE) MG/DL Urine Glucose (UA) (NEG) MG/DL Urine Ketones (NEG) MG/DL Urine Blood (NEG) Urine Nitrite (NEG) Ur Leukocyte Esterase (NEG) Urine Test (NEGATIVE) Urine Opiates Screen (Not Detect) Urine Fentanyl Screen (Not Detect) Ur Barbiturates Screen (Not Detect) Ur Phencyclidine Scrn (Not Detect) Ur Amphetamines Screen (Not Detect) U Benzodiazepines Scrn (Not Detect) Urine Cocaine Screen (Not Detect) U Marijuana (THC) Screen (Not Detect) Ethyl Alcohol < 10 mg/dL COVID-19 (YONY) Cancelled COVID-19 Clin Com Cancelled Influenza Type A (LINDA) Influenza Type A (PCR) NEGATIVE (Negative) Influenza Type B (LINDA) Influenza Type B (PCR) NEGATIVE (Negative) Influenza A & B Note RSV RNA Qual (PCR) NEGATIVE (Negative) SARS-CoV-2 RNA (RT-PCR) NEGATIVE (Negative) 11/12/21 11/12/21 11/12/21 Range/Units 22:22 22:22 22:22 WBC (4.8-10.8) X10*3/uL RBC (4.20-5.50) X10*6/uL Hgb (12.0-16.0) g/dl Hct (37.0-47.0) % MCV (80.0-98.0) fL MCH (27.0-33.0) pg MCHC (31.0-35.0) g/dl RDW (11.0-16.0) % Plt Count (160-400) X10*3/uL MPV (9.4-12.3) fL Immature Gran % (Auto) (0.0-0.4) % Neut % (Auto) (45-73) % Lymph % (Auto) (20-40) % [place] % (Auto) (2-11) % Eos % (Auto) (0-4) % Baso % (Auto) (0-2) % Lymph # (Auto) (1.2-4.9) X10*3/uL [place] # (Auto) (0.1-1.2) X10*3/uL Eos # (Auto) (0.0-0.4) X10*3/uL Baso # (Auto) (0.0-0.2) X10*3/uL Abs Immat Gran (auto) (0.00-0.03) X10*3/uL Absolute Neuts (auto) (2.0-8.3) x10*3/uL Absolute Nucleated RBC (0.0-0.012) X10*3/uL Nucleated RBC % (auto) (0.0-0.2) /100WBC Sodium (135-145) mmol/L Potassium (3.3-5.1) mmol/L Chloride (96-108) mmol/L Carbon Dioxide (22-29) mmol/L Anion Gap (12-20) BUN (9-16) mg/dL Creatinine (0.5-1.4) mg/dL Estim Creat Clear Calc Estimated GFR Random Glucose (60-115) mg/dL Calcium (8.4-10.2) mg/dL Magnesium (1.6-2.6) mg/dL Total Bilirubin (0.0-1.0) mg/dL AST (5-31) U/L ALT (0-31) U/L Alkaline Phosphatase (39-117) U/L Total Protein (6.5-8.0) g/dL Albumin (3.5-5.0) g/dL Urine Color YELLOW Urine Appearance CLEAR Urine pH 6.0 (5.0-8.0) Ur Specific [place] 1.010 (1.005-1.025) Urine Protein NEG (NEG-TRACE) MG/DL Urine Glucose (UA) NEG (NEG) MG/DL Urine Ketones NEG (NEG) MG/DL Urine Blood NEG (NEG) Urine Nitrite NEG (NEG) Ur Leukocyte Esterase NEG (NEG) Urine Test NEGATIVE (NEGATIVE) Urine Opiates Screen Not Detected (Not Detect) Urine Fentanyl Screen Not Detected (Not Detect) Ur Barbiturates Screen Not Detected (Not Detect) Ur Phencyclidine Scrn Not Detected (Not Detect) Ur Amphetamines Screen Not Detected (Not Detect) U Benzodiazepines Scrn Not Detected (Not Detect) Urine Cocaine Screen Not Detected (Not Detect) U Marijuana (THC) Screen Not Detected (Not Detect) Ethyl Alcohol mg/dL COVID-19 (YONY) COVID-19 Clin Com Influenza Type A (LINDA) Influenza Type A (PCR) (Negative) Influenza Type B (LINDA) Influenza Type B (PCR) (Negative) Influenza A & B Note RSV RNA Qual (PCR) (Negative) SARS-CoV-2 RNA (RT-PCR) (Negative) ECG Data Attestation: I personally reviewed and interpreted this ECG as follows: Interpretation: 2209 : Normal sinus rhythm the rate of 71, normal [place] interval QRS duration QTC interval pain no ST segment elevation, no ST segment depression, inverted T- wave in V1, no PACs, no PVCs Discharge Plan Discharge Clinical Impression: Epileptic seizure Patient Disposition: Home, Self-Care Instructions: Epilepsy (ED) Additional Instructions: Your laboratory evaluation was unremarkable. You received Toradol 15 mg IV for your head and neck pain. Received Ativan (lorazepam) 1 mg IV to help prevent to seizure over the next 24 hours. This medication will make you sleepy so you should go home sleep. Continue taking your Keppra as prescribed by your doctor. You should ask your doctor about increasing your dose of Keppra to 1000 mg in the morning and 1500 mg at night to see if this would reduce the number of seizures that your having. Continue taking your other anti seizure medications, lamotigine as prescribed by your doctor Follow-up with your doctor in 2 days. Please return to the emergency department if your symptoms get worse or if you develop any symptoms that are concerning to you. Prescriptions: No Action cholecalciferol (vitamin D3) 50 mcg (2,000 unit) capsule 50 mcg PO DAILY Qty: 30 3RF Linzess 145 mcg capsule 145 mcg PO DAILY Qty: 30 1RF lamotrigine 200 mg Tablet 200 mg PO BID 0RF levetiracetam 1,000 mg Tablet 1,000 mg PO BID 0RF naproxen 500 mg tablet 500 mg PO BID PRN (Reason: pain) Qty: 20 0RF cyclobenzaprine 10 mg tablet 10 mg PO TID PRN (Reason: muscle spasm) Qty: 10 0RF lidocaine [Lidoderm] 5 % adhesive patch,medicated 1 patch topical DAILY Qty: 15 0RF Rx Instructions: leave on most painful area for up to 12 hrs Citrucel 500 mg tablet 500 mg PO BID Qty: 60 5RF bisacodyl [Dulcolax (bisacodyl)] 5 mg tablet,delayed release (DR/EC) 10 mg PO ONCE 1 Days Qty: 2 0RF Rx Instructions: Take 2 tablets by mouth at 12:00pm the day before your procedure. polyethylene glycol 3350 [Miralax] 17 gram/dose powder 238 g PO ONCE 1 Days Qty: 238 0RF Rx Instructions: Take as directed by mouth the day before your procedure. Interventions: ED Discharge Assessment Last Done: 11/12/21 23:21 Discharge Date/Time: 11/12/21 23:22
[2021-11-12 22:53] VITALS: BP 105/77; PULSE 70; RESP 13; O2SAT 98
[2021-11-12 22:55] LABS: Influenza A PCR NEGATIVE (Negative); Influenza B PCR NEGATIVE (Negative); Resp Syncy Virus RNA Qual PCR NEGATIVE (Negative); SARS COV2 PCR INHOUSE NEGATIVE (Negative)
[2021-11-12] MEDS: LORazepam 2 MG/ML VIAL 1 MG IVPUSH (22:55)
[2021-11-12] MEDS: Ketorolac Tromethamine 15 MG/ML VIAL IVPUSH (22:55)
[2021-11-18 14:07] LABS: Levetiracetam Keppra 26.5 mcg/mL (12.0-46.0)
== END 2021-11-12 23:22 | disposition home or self-care (01) ==
PROVIDERS: Student in an Organized Health Care Education/Training Program; Emergency Provider Emergency Medicine Emergency Medical Services; PCP Internal Medicine
DX: G40.909 Epilepsy, unspecified, not intractable, without status epilepticus (principal); Z79.899 Other long term (current) drug therapy; Z20.822 Contact with and (suspected) exposure to COVID-19
CPT/HCPCS: 0241U; 36415; 80053; 80177; 80307; 81003; 81025; 82077; 83735; 85025; 93005; 96374; 96375; 99285; J1885; J2060

== ENCOUNTER 2022-05-01 14:59 | Outpatient (REF) | payer OTHER, SELFPAY ==
[2022-05-01 15:08] LABS: MANUAL DIFF FLAG NO
[2022-05-01 15:44] LABS: Basophils Percent Auto 0.4 % (0-2); Eosinophils Absolute Auto 0.1 X10*3/uL (0.0-0.4); Eosinophils Percent Auto 1.1 % (0-4); Hematocrit 41.7 % (37.0-47.0); Hemoglobin 13.6 g/dl (12.0-16.0); Imm Gran Abs Auto 0.05 X10*3/uL (0.00-0.03); Imm Gran Pct Auto 0.6 % (0.0-0.4); Lymphocytes Absolute Auto 2.2 X10*3/uL (1.2-4.9); Mean Corpuscular HGB Conc 32.6 g/dl (31.0-35.0); Mean Corpuscular Hemoglobin 29.2 pg (27.0-33.0); Mean Corpuscular Volume 89.7 fL (80.0-98.0); Mean Platelet Volume 9.4 fL (9.4-12.3); Monocytes Absolute Auto 0.6 X10*3/uL (0.1-1.2); Monocytes Percent Auto 7.2 % (2-11); Neutrophils Percent Auto 62.7 % (45-73); Platelet Count 313 X10*3/uL (160-400); Red Blood Count 4.65 X10*6/uL (4.20-5.50); Red Cell Distribution Width 12.2 % (11.0-16.0)
[2022-05-01 16:11] LABS: Alanine Aminotransferase 17 U/L (0-31); Albumin Level 4.5 g/dL (3.5-5.0); Alkaline Phosphatase 70 U/L (39-117); Anion Gap 14 (12-20); Aspartate Amino Transferase 13 U/L (5-31); Bilirubin Total 0.3 mg/dL (0.0-1.0); Blood Urea Nitrogen 12 mg/dL (9-16); Calcium 9.6 mg/dL (8.4-10.2); Carbon Dioxide 29 mmol/L (22-29); Chloride 102 mmol/L (96-108); Estimated Glomerular Filt Rate > 60; Glucose Random 96 mg/dL (60-115); Potassium 4.2 mmol/L (3.3-5.1); Sodium 141 mmol/L (135-145); Total Protein 7.8 g/dL (6.5-8.0)
== END 2022-05-01 15:00 | disposition home or self-care (01) ==
LOC: HO.LAB 14:59
PROVIDERS: PCP Internal Medicine; Visit Provider Internal Medicine
DX: K64.8 Other hemorrhoids (principal); R10.32 Left lower quadrant pain; R10.813 Right lower quadrant abdominal tenderness; R11.10 Vomiting, unspecified; R19.7 Diarrhea, unspecified
CPT/HCPCS: 36415; 80053; 85025

== ENCOUNTER 2022-05-29 19:27 | Emergency (ER) | payer OTHER, SELFPAY ==
--- NOTE | ~2022-05-29 | CT_ITS ---
EXAMINATION: CT HEAD WITHOUT CONTRAST CLINICAL INFORMATION: Fall. Pain. COMPARISON: CT head 10/07/2018 TECHNIQUE: Contiguous axial imaging was performed from the skull base to vertex without intravenous administration of contrast. Coronal and sagittal reformatted images are performed at the CT scanner. [This CT examination was performed using dose optimization techniques as appropriate, variously including the following: *Automated exposure control *Adjustment of mA and/or kV according to patient size (this includes techniques or standardized protocols for targeted exams where dose is matched to indication/reason for exam; i.e. extremities or head) *Use of iterative reconstruction technique] DLP: 706 mGy-cm. FINDINGS: There is no evidence of acute intracranial hemorrhage or territorial infarction. No abnormal mass-effect or midline shift is seen. Maher to white matter differentiation is well preserved. No extra-axial fluid collections are identified. The ventricles are normal in size. There is no abnormal attenuation within the brain parenchyma. There is no osseous abnormality. The mastoid air cells and visualized portions of the paranasal sinuses are well-aerated. CT/CT head/brain wo IV con IMPRESSION: No acute intracranial pathology.
[2022-05-29 19:42] VITALS: BP 130/86; BP 137/87; PULSE 107; PULSE 98; RESP 18; TEMP 36.8; O2SAT 96; O2SAT 97; BMI 36.3
--- NOTE | 2022-05-29 19:54 | ED_ITS ---
HPI - Seizure General Chief Complaint: Seizure Stated Complaint: seizure Time Seen by Provider: 05/29/22 19:33 Source: patient Mode of arrival: EMS Limitations: no limitations History of Present Illness HPI Narrative: Patient has history of seizures for last 3 years on Keppra 1500 mg twice daily Lamictal 200 mg twice daily fair compliance still having seizure about 3 to 4 times a year last seizure was 3 months ago. He today patient was in the bedroom with the granddaughter trying to get up and suddenly her daughter heard some sound of falling noted her having a tonic-clonic seizure lasted for about 3-4 miinutes patient fell to the ground complaining of headache feels very sleepy at this time Seizure History: Yes Related Data Home Medications Medication Instructions Recorded Confirmed lamotrigine 200 mg tablet 200 mg PO BID 09/06/20 12/17/20 levetiracetam 1,000 mg tablet 1,000 mg PO BID 09/06/20 12/23/20 Previous Rx's Medication Instructions Recorded cholecalciferol (vitamin D3) 50 50 mcg PO DAILY #30 caps 09/24/20 mcg (2,000 unit) capsule cyclobenzaprine 10 mg tablet 10 mg PO TID PRN muscle spasm #10 11/15/20 tabs lidocaine 5 % topical patch 1 patch topical DAILY #15 ea 11/15/20 (Lidoderm) naproxen 500 mg tablet 500 mg PO BID PRN pain #20 tabs 11/15/20 bisacodyl 5 mg tablet,delayed 10 mg PO ONCE colonoscopy prep 1 12/06/20 release (Dulcolax (bisacodyl)) day #2 tabs methylcellulose (laxative) 500 mg 500 mg PO BID #60 tabs 12/06/20 tablet (Citrucel) polyethylene glycol 3350 17 238 g PO ONCE 1 day #238 grams 12/06/20 gram/dose oral powder (Miralax) linaclotide 145 mcg capsule 145 mcg PO DAILY #30 caps 08/02/21 (Linzess) Allergies Allergy/AdvReac Type Severity Reaction Status Date / Time meperidine [From Demerol] AdvReac Mild HIVES Verified 07/16/21 20:19 Review of Systems Review of Systems: Yes all other systems are reviewed and are negative PMFSH Past Medical History Medical History Chronic abdominal pain Constipation by delayed colonic transit Epilepsy H/O partial seizures Surgical History Hx of hemorrhoidectomy Hx of tubal ligation Family History Family History Maternal Grandmother Colon cancer Paternal Grandmother Stomach cancer Mother Diabetes Father Diabetes Social History Social History Household Members: Spouse and Children Alcohol intake: never Patient Tobacco Use Status: Never used Tobacco Advance Directives: No Advance Directives Information Provided: No Current occupational status: employed 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 Oriented X3. No acute distress. Eyes: PERRLA, No Nystagmus ENT: Pharynx normal. Oral Mucosa moist soft tissues swelling right temporal parietal area Neck: Normal inspection. Neck supple. CVS: Normal heart rate and rhythm. Pulses normal. Respiratory: No respiratory distress. Equal air entry bilateral, no wheezing/rales/rhonchi Abdomen: Soft and nontender. Bowel sounds are present, no mass palpable, no CVA tenderness Skin: Skin warm and dry. Normal skin color. Normal skin turgor. Extremities: No lower extremity edema. No calf tenderness Neuro: Oriented X 3. No motor deficit. No sensory deficit.No cerebellar signs , cranial nerves II-XII intact MDM - Seizure MDM Narrative Medical decision making narrative: Patient with recurrent seizures case discussed with Dr. House neurologist it was nothing to be done at this time can give patient may take Ativan as needed for seizures and follow with neurologist Differential Diagnosis Differential diagnosis: Likely generalized seizure Lab Data Attestation: I reviewed the patient's lab results. Result diagrams: 05/29/22 20:46 05/29/22 20:46 Labs: Lab Results 05/29/22 05/29/22 Range/Units 20:46 20:46 WBC 6.5 (4.8-10.8) X10*3/uL RBC 4.29 (4.20-5.50) X10*6/uL Hgb 12.8 (12.0-16.0) g/dl Hct 38.0 (37.0-47.0) % MCV 88.6 (80.0-98.0) fL MCH 29.8 (27.0-33.0) pg MCHC 33.7 (31.0-35.0) g/dl RDW 11.8 (11.0-16.0) % Plt Count 258 (160-400) X10*3/uL MPV 9.1 L (9.4-12.3) fL Immature Gran % (Auto) 0.2 (0.0-0.4) % Neut % (Auto) 63.6 (45-73) % Lymph % (Auto) 24.8 (20-40) % [place] % (Auto) 9.3 (2-11) % Eos % (Auto) 1.5 (0-4) % Baso % (Auto) 0.6 (0-2) % Lymph # (Auto) 1.6 (1.2-4.9) X10*3/uL [place] # (Auto) 0.6 (0.1-1.2) X10*3/uL Eos # (Auto) 0.1 (0.0-0.4) X10*3/uL Baso # (Auto) 0.0 (0.0-0.2) X10*3/uL Abs Immat Gran (auto) 0.01 (0.00-0.03) X10*3/uL Absolute Neuts (auto) 4.1 (2.0-8.3) x10*3/uL Absolute Nucleated RBC 0.000 (0.0-0.012) X10*3/uL Nucleated RBC % (auto) 0.0 (0.0-0.2) /100WBC Sodium 140 (135-145) mmol/L Potassium 3.7 (3.3-5.1) mmol/L Chloride 103 (96-108) mmol/L Carbon Dioxide 30 H (22-29) mmol/L Anion Gap 11 L (12-20) BUN 10 (9-16) mg/dL Creatinine 0.78 (0.5-1.4) mg/dL Estim Creat Clear Calc 117.9 Estimated GFR > 60 Random Glucose 97 (60-115) mg/dL Calcium 8.9 D (8.4-10.2) mg/dL Total Bilirubin 0.2 (0.0-1.0) mg/dL AST 15 (5-31) U/L ALT 19 (0-31) U/L Alkaline Phosphatase 86 D (39-117) U/L Total Protein 7.4 (6.5-8.0) g/dL Albumin 4.3 (3.5-5.0) g/dL Discharge Plan Discharge Clinical Impression: Generalized seizure Patient Disposition: Home, Self-Care Instructions: Recurrent Seizures in Adults (ED) Additional Instructions: Continue seizure medications Follow-up with your neurologist Prescriptions: No Action cholecalciferol (vitamin D3) 50 mcg (2,000 unit) capsule 50 mcg PO DAILY Qty: 30 3RF Linzess 145 mcg capsule 145 mcg PO DAILY Qty: 30 1RF lamotrigine 200 mg Tablet 200 mg PO BID levetiracetam 1,000 mg Tablet 1,000 mg PO BID naproxen 500 mg tablet 500 mg PO BID PRN (Reason: pain) Qty: 20 0RF cyclobenzaprine 10 mg tablet 10 mg PO TID PRN (Reason: muscle spasm) Qty: 10 0RF lidocaine [Lidoderm] 5 % adhesive patch,medicated 1 patch topical DAILY Qty: 15 0RF Rx Instructions: leave on most painful area for up to 12 hrs Citrucel 500 mg tablet 500 mg PO BID Qty: 60 5RF bisacodyl [Dulcolax (bisacodyl)] 5 mg tablet,delayed release (DR/EC) 10 mg PO ONCE 1 Days Qty: 2 0RF Rx Instructions: Take 2 tablets by mouth at 12:00pm the day before your procedure. polyethylene glycol 3350 [Miralax] 17 gram/dose powder 238 g PO ONCE 1 Days Qty: 238 0RF Rx Instructions: Take as directed by mouth the day before your procedure.
[2022-05-29 20:49] LABS: MANUAL DIFF FLAG NO
[2022-05-29 20:50] LABS: Basophils Percent Auto 0.6 % (0-2); Eosinophils Absolute Auto 0.1 X10*3/uL (0.0-0.4); Eosinophils Percent Auto 1.5 % (0-4); Hemoglobin 12.8 g/dl (12.0-16.0); Imm Gran Abs Auto 0.01 X10*3/uL (0.00-0.03); Imm Gran Pct Auto 0.2 % (0.0-0.4); Lymphocytes Absolute Auto 1.6 X10*3/uL (1.2-4.9); Lymphocytes Percent Auto 24.8 % (20-40); Mean Corpuscular HGB Conc 33.7 g/dl (31.0-35.0); Mean Corpuscular Hemoglobin 29.8 pg (27.0-33.0); Mean Corpuscular Volume 88.6 fL (80.0-98.0); Mean Platelet Volume 9.1 fL (9.4-12.3); Monocytes Absolute Auto 0.6 X10*3/uL (0.1-1.2); Monocytes Percent Auto 9.3 % (2-11); Neutrophils Absolute Auto 4.1 x10*3/uL (2.0-8.3); Neutrophils Percent Auto 63.6 % (45-73); Platelet Count 258 X10*3/uL (160-400); Red Blood Count 4.29 X10*6/uL (4.20-5.50); Red Cell Distribution Width 11.8 % (11.0-16.0); White Blood Count 6.5 X10*3/uL (4.8-10.8)
[2022-05-29 21:04] LABS: Alanine Aminotransferase 19 U/L (0-31); Albumin Level 4.3 g/dL (3.5-5.0); Alkaline Phosphatase 86 U/L (39-117); Anion Gap 11 (12-20); Aspartate Amino Transferase 15 U/L (5-31); Bilirubin Total 0.2 mg/dL (0.0-1.0); Blood Urea Nitrogen 10 mg/dL (9-16); Calcium 8.9 mg/dL (8.4-10.2); Carbon Dioxide 30 mmol/L (22-29); Chloride 103 mmol/L (96-108); Creatinine Clr Calc Pharmacy 117.9; Estimated Glomerular Filt Rate > 60; Glucose Random 97 mg/dL (60-115); Potassium 3.7 mmol/L (3.3-5.1); Sodium 140 mmol/L (135-145); Total Protein 7.4 g/dL (6.5-8.0)
[2022-05-29] MEDS: Ketorolac Tromethamine 30 MG/ML VIAL IVPUSH (21:19)
--- NOTE | 2022-05-29 21:58 | PC.NURSE ---
this RN went in to re-assess patient pain but patient sleeping comfortably on stretcher, no apparent distress, respirations even and unlabored. on workers compensation coordinator, seizure pads in place. call hughes within reach. will continue to monitor closely.
[2022-05-29 22:21] VITALS: BP 120/72; PULSE 83; RESP 18; O2SAT 97
== END 2022-05-29 22:26 | disposition home or self-care (01) ==
PROVIDERS: Emergency Provider Internal Medicine; PCP Internal Medicine
DX: R56.9 Unspecified convulsions (principal); Z79.899 Other long term (current) drug therapy
CPT/HCPCS: 36415; 70450; 80053; 85025; 96374; 99283; 99284; J1885

== ENCOUNTER 2022-07-28 18:59 | Emergency (ER) | payer OTHER, SELFPAY ==
[2022-07-28 19:06] VITALS: BP 118/72; BP 120/70; PULSE 102; PULSE 90; RESP 16; TEMP 37.2; O2SAT 92; O2SAT 99; BMI 35.3
[2022-07-28 20:52] LABS: MANUAL DIFF FLAG NO
[2022-07-28 21:01] LABS: Basophils Percent Auto 0.5 % (0-2); Eosinophils Absolute Auto 0.1 X10*3/uL (0.0-0.4); Eosinophils Percent Auto 0.9 % (0-4); Hematocrit 39.3 % (37.0-47.0); Hemoglobin 13.2 g/dl (12.0-16.0); Imm Gran Abs Auto 0.03 X10*3/uL (0.00-0.03); Imm Gran Pct Auto 0.4 % (0.0-0.4); Lymphocytes Absolute Auto 1.4 X10*3/uL (1.2-4.9); Lymphocytes Percent Auto 16.9 % (20-40); Mean Corpuscular HGB Conc 33.6 g/dl (31.0-35.0); Mean Corpuscular Hemoglobin 29.6 pg (27.0-33.0); Mean Corpuscular Volume 88.1 fL (80.0-98.0); Mean Platelet Volume 9.2 fL (9.4-12.3); Monocytes Absolute Auto 0.4 X10*3/uL (0.1-1.2); Monocytes Percent Auto 5.4 % (2-11); Neutrophils Absolute Auto 6.2 x10*3/uL (2.0-8.3); Neutrophils Percent Auto 75.9 % (45-73); Platelet Count 336 X10*3/uL (160-400); Red Blood Count 4.46 X10*6/uL (4.20-5.50); Red Cell Distribution Width 11.9 % (11.0-16.0); White Blood Count 8.2 X10*3/uL (4.8-10.8)
[2022-07-28] MEDS: LORazepam 2 MG/ML VIAL IVPUSH (21:03)
[2022-07-28 21:11] LABS: Alanine Aminotransferase 14 U/L (0-31); Albumin Level 4.2 g/dL (3.5-5.0); Alkaline Phosphatase 82 U/L (39-117); Anion Gap 16 (12-20); Aspartate Amino Transferase 21 U/L (5-31); Bilirubin Total 0.3 mg/dL (0.0-1.0); Blood Urea Nitrogen 10 mg/dL (9-16); Calcium 9.1 mg/dL (8.4-10.2); Carbon Dioxide 22 mmol/L (22-29); Chloride 105 mmol/L (96-108); Creatinine Clr Calc Pharmacy 110.6; Estimated Glomerular Filt Rate > 60; Glucose Random 115 mg/dL (60-115); Sodium 138 mmol/L (135-145); Total Protein 7.8 g/dL (6.5-8.0)
--- NOTE | 2022-07-28 21:20 | P.HPHOSP_ITS ---
History of Present Illness Date of Service: 07/28/22 [facility] Medical History Chronic abdominal pain Constipation by delayed colonic transit Epilepsy H/O partial seizures Family History Maternal Grandmother Colon cancer Paternal Grandmother Stomach cancer Mother Diabetes Father Diabetes Surgical History Hx of hemorrhoidectomy Hx of tubal ligation Social History Household Members: Spouse and Children Alcohol intake: never Patient Tobacco Use Status: Never used Tobacco Smoked in Last 30 Days: No Use of substances other than those prescribed or required for medical reasons: No Advance Directives: No Advance Directives Information Provided: No Current occupational status: employed 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 Meds Allergies Allergy/AdvReac Type Severity Reaction Status Date / Time meperidine [From Demerol] AdvReac Mild HIVES Verified 07/16/21 20:19 Home Medications Medication Instructions Recorded Confirmed Last Taken Type lamotrigine 200 mg tablet 200 mg PO BID 09/06/20 12/17/20 12/23/20 History levetiracetam 1,000 mg tablet 1,000 mg PO BID 09/06/20 12/23/20 12/23/20 History Physical Exam Vital Signs and Narrative: Vital Signs: Last Vital Signs Temp 98.9 F 07/28/22 19:06 Pulse 90 07/28/22 19:06 Resp 16 07/28/22 19:06 BP 118/72 07/28/22 19:06 Pulse Ox 99 07/28/22 19:06 O2 Del Method 07/28/22 19:06 BMI result Body Mass Index 35.3 Results Labs CBC and Chem 7: 07/28/22 20:48 07/28/22 20:48 Labs: Laboratory Results - last 24 hr 07/28/22 07/28/22 20:48 20:48 MCV 88.1 MCH 29.6 MCHC 33.6 RDW 11.9 Plt Count 336 D MPV 9.2 L Immature Gran % (Auto) 0.4 Neut % (Auto) 75.9 H Lymph % (Auto) 16.9 L [place] % (Auto) 5.4 Eos % (Auto) 0.9 Baso % (Auto) 0.5 Lymph # (Auto) 1.4 [place] # (Auto) 0.4 Eos # (Auto) 0.1 Baso # (Auto) 0.0 Abs Immat Gran (auto) 0.03 Absolute Neuts (auto) 6.2 Absolute Nucleated RBC 0.000 Nucleated RBC % (auto) 0.0 Anion Gap 16 Estim Creat Clear Calc 110.6 Estimated GFR > 60 Random Glucose 115 Calcium 9.1 Total Bilirubin 0.3 AST 21 ALT 14 Alkaline Phosphatase 82 Total Protein 7.8 Albumin 4.2 Assessment and Plan Time Spent With Patient Time: Total time managing care of this patient today ____ minutes.
--- NOTE | 2022-07-28 21:30 | ED.SEIZURE ---
HPI - Seizure General Chief Complaint: Seizure Stated Complaint: seizure Time Seen by Provider: 07/28/22 20:39 Source: patient Mode of arrival: EMS Limitations: no limitations History of Present Illness HPI Narrative: Patient comes in the emergency room complaining of a seizure. Patient states today that she had a 1 minute seizure, witnessed by her . Patient states she bit the side of her tongue, did not lose consciousness. Patient has has history of epilepsy, takes lamotrigine and Keppra. Patient states she is compliant with her medications. Patient states that for the last 2-3 days she has been feeling very weak, complaining of diffuse body aches, headache. Seizure History: Yes Place: Home Related Data Home Medications Medication Instructions Recorded Confirmed lamotrigine 200 mg tablet 200 mg PO BID 09/06/20 12/17/20 levetiracetam 1,000 mg tablet 1,000 mg PO BID 09/06/20 12/23/20 Previous Rx's Medication Instructions Recorded cholecalciferol (vitamin D3) 50 50 mcg PO DAILY #30 caps 09/24/20 mcg (2,000 unit) capsule cyclobenzaprine 10 mg tablet 10 mg PO TID PRN muscle spasm #10 11/15/20 tabs lidocaine 5 % topical patch 1 patch topical DAILY #15 ea 11/15/20 (Lidoderm) naproxen 500 mg tablet 500 mg PO BID PRN pain #20 tabs 11/15/20 bisacodyl 5 mg tablet,delayed 10 mg PO ONCE colonoscopy prep 1 12/06/20 release (Dulcolax (bisacodyl)) day #2 tabs methylcellulose (laxative) 500 mg 500 mg PO BID #60 tabs 12/06/20 tablet (Citrucel) polyethylene glycol 3350 17 238 g PO ONCE 1 day #238 grams 12/06/20 gram/dose oral powder (Miralax) linaclotide 145 mcg capsule 145 mcg PO DAILY #30 caps 08/02/21 (Linzess) lorazepam 1 mg tablet (Ativan) 1 mg PO BID PRN anxiety/seizure 05/29/22 #10 tabs lamotrigine 100 mg tablet 250 mg PO BID 30 days #150 tabs 07/28/22 Allergies Allergy/AdvReac Type Severity Reaction Status Date / Time meperidine [From Demerol] AdvReac Mild HIVES Verified 07/16/21 20:19 Review of Systems Review of Systems: Constitutional : No Weight loss, No Fever, No Chills, No Night Sweats, vomiting of fatigue, generalized malaise ENT/Mouth : No Hearing loss, No Ear Pain, No Nasal Congestion, No Sinus Pain, No Hoarseness, No sore throat, No Rhinorrhea, No Swallowing Difficulty Eyes: No Eye Pain, No Swelling, No Redness, No Foreign Body, No Discharge, No Vision Changes Cardiovascular : No Chest Pain, No SOB, No Dyspnea on Exertion, No Orthopnea, No Edema, No Palpitations Respiratory : No Cough, No Sputum, No Wheezing, No Smoke Exposure, No Dyspnea Gastrointestinal : No Nausea, No Vomiting, No Diarrhea, No Constipation, No abdominal Pain, No Hematochezia, No Melena Genitourinary : no irregular bleeding, No Dysuria, No Urinary Frequency, No Hematuria, No Urinary Incontinence, No Urgency, No Flank Pain, No Urinary Flow Changes, No Hesitancy Musculoskeletal : No joint pain, No Myalgias, No Joint Swelling Skin : No Skin Lesions, No rash Neuro : No Weakness, No Numbness, No Paresthesias, complaining of an epileptic seizure lasting approximately 1 minute No Dizziness, No Headache Psych : No Anxiety/Panic, No Depression, No SI/HI/AH/VH, No Social Issues, Heme/Lymph: No Bruising, No Bleeding,No Lymphadenopathy Endocrine : No Polyuria, No Polydipsia, No Temperature Intolerance PMFSH Past Medical History Medical History Chronic abdominal pain Constipation by delayed colonic transit Epilepsy H/O partial seizures Surgical History Hx of hemorrhoidectomy Hx of tubal ligation Family History Family History Maternal Grandmother Colon cancer Paternal Grandmother Stomach cancer Mother Diabetes Father Diabetes Social History Social History Household Members: Spouse and Children Alcohol intake: never Patient Tobacco Use Status: Never used Tobacco Smoked in Last 30 Days: No Use of substances other than those prescribed or required for medical reasons: No Advance Directives: No Advance Directives Information Provided: No Current occupational status: employed 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 Oriented X3. No acute distress. Eyes: Pupils equal, round and reactive to light. ENT: Pharynx normal. Neck: Normal inspection. Neck supple. No lymph nodes noted. No crepitus CVS: Normal heart rate and rhythm. Pulses normal. Normal S1 and S2 Respiratory: No respiratory distress. Breath sounds normal. No Wheezing. No rales Abdomen: Soft and nontender. No rigidity. No distention. Skin: Skin warm and dry. Normal skin color. Normal skin turgor. Extremities: No lower extremity edema. No Lacerations. No Rash Neuro: Oriented X 3. No motor deficit. No sensory deficit. Moving all extremities. No slurred speech. CN 2 through 12 grossly intact Psych: calm, cooperative, normal affect Course Course Course Narrative: Here in the emergency room, patient did not have any seizures. Patient was given 2 mg of Ativan. Patient is a high dose lamotrigine and Keppra which is already at max dose. Lamotrigine can side increased. Patient is running out of medications, requesting a prescription. I discussed with the patient that we will increase her lamotrigine to 250 mg b.i.d. which is max dose. Patient is close follow-up with her neurologist. Of note, patient did not have any tongue bite markings, her white blood cell count was within normal limits, lactic acid within normal limits. For a seizure that lasted approximately 1 minute, I would expect an abnormality in her labs. It is possible the patient may have had pseudo-seizure Medications Administered Discontinued Medications Generic Name Dose Route Start Last Admin Trade Name Freq PRN Reason Stop Dose Admin Lorazepam 2 mg 07/28/22 20:48 07/28/22 21:03 Lorazepam 2 Mg/Ml Vial IVPUSH 07/28/22 20:49 2 mg ONCE ONE Administration Medical Decision Making Differential Diagnosis Differential Diagnoses: The differential diagnosis associated with the presentation includes (Seizure, pseudo-seizure, viral syndrome) Lab Data MDM Lab Attestation statement: I reviewed the patient's lab results. Result Diagrams: 07/28/22 20:48 07/28/22 20:48 Labs: Lab Results 07/28/22 07/28/22 07/28/22 Range/Units 20:48 20:48 20:48 WBC 8.2 (4.8-10.8) X10*3/uL RBC 4.46 (4.20-5.50) X10*6/uL Hgb 13.2 (12.0-16.0) g/dl Hct 39.3 (37.0-47.0) % MCV 88.1 (80.0-98.0) fL MCH 29.6 (27.0-33.0) pg MCHC 33.6 (31.0-35.0) g/dl RDW 11.9 (11.0-16.0) % Plt Count 336 D (160-400) X10*3/uL MPV 9.2 L (9.4-12.3) fL Immature Gran % (Auto) 0.4 (0.0-0.4) % Neut % (Auto) 75.9 H (45-73) % Lymph % (Auto) 16.9 L (20-40) % [place] % (Auto) 5.4 (2-11) % Eos % (Auto) 0.9 (0-4) % Baso % (Auto) 0.5 (0-2) % Lymph # (Auto) 1.4 (1.2-4.9) X10*3/uL [place] # (Auto) 0.4 (0.1-1.2) X10*3/uL Eos # (Auto) 0.1 (0.0-0.4) X10*3/uL Baso # (Auto) 0.0 (0.0-0.2) X10*3/uL Abs Immat Gran (auto) 0.03 (0.00-0.03) X10*3/uL Absolute Neuts (auto) 6.2 (2.0-8.3) x10*3/uL Absolute Nucleated RBC 0.000 (0.0-0.012) X10*3/uL Nucleated RBC % (auto) 0.0 (0.0-0.2) /100WBC Sodium 138 (135-145) mmol/L Potassium 5.0 D (3.3-5.1) mmol/L Chloride 105 (96-108) mmol/L Carbon Dioxide 22 (22-29) mmol/L Anion Gap 16 (12-20) BUN 10 (9-16) mg/dL Creatinine 0.82 (0.5-1.4) mg/dL Estim Creat Clear Calc 110.6 Estimated GFR > 60 Random Glucose 115 (60-115) mg/dL Lactic Acid (0.5-2.0) mmol/L Calcium 9.1 (8.4-10.2) mg/dL Total Bilirubin 0.3 (0.0-1.0) mg/dL AST 21 (5-31) U/L ALT 14 (0-31) U/L Alkaline Phosphatase 82 (39-117) U/L Total Protein 7.8 (6.5-8.0) g/dL Albumin 4.2 (3.5-5.0) g/dL COVID-19 (YONY) (Negative) COVID-19 Clin Com Influenza Type A (LINDA) (Negative) Influenza Type A (PCR) NEGATIVE (Negative) Influenza Type B (LINDA) (Negative) Influenza Type B (PCR) NEGATIVE (Negative) Influenza A & B Note RSV RNA Qual (PCR) NEGATIVE (Negative) SARS-CoV-2 RNA (RT-PCR) NEGATIVE (Negative) 07/28/22 07/28/22 07/28/22 Range/Units 22:00 22:00 22:00 WBC (4.8-10.8) X10*3/uL RBC (4.20-5.50) X10*6/uL Hgb (12.0-16.0) g/dl Hct (37.0-47.0) % MCV (80.0-98.0) fL MCH (27.0-33.0) pg MCHC (31.0-35.0) g/dl RDW (11.0-16.0) % Plt Count (160-400) X10*3/uL MPV (9.4-12.3) fL Immature Gran % (Auto) (0.0-0.4) % Neut % (Auto) (45-73) % Lymph % (Auto) (20-40) % [place] % (Auto) (2-11) % Eos % (Auto) (0-4) % Baso % (Auto) (0-2) % Lymph # (Auto) (1.2-4.9) X10*3/uL [place] # (Auto) (0.1-1.2) X10*3/uL Eos # (Auto) (0.0-0.4) X10*3/uL Baso # (Auto) (0.0-0.2) X10*3/uL Abs Immat Gran (auto) (0.00-0.03) X10*3/uL Absolute Neuts (auto) (2.0-8.3) x10*3/uL Absolute Nucleated RBC (0.0-0.012) X10*3/uL Nucleated RBC % (auto) (0.0-0.2) /100WBC Sodium (135-145) mmol/L Potassium (3.3-5.1) mmol/L Chloride (96-108) mmol/L Carbon Dioxide (22-29) mmol/L Anion Gap (12-20) BUN (9-16) mg/dL Creatinine (0.5-1.4) mg/dL Estim Creat Clear Calc Estimated GFR Random Glucose (60-115) mg/dL Lactic Acid 1.0 (0.5-2.0) mmol/L Calcium (8.4-10.2) mg/dL Total Bilirubin (0.0-1.0) mg/dL AST (5-31) U/L ALT (0-31) U/L Alkaline Phosphatase (39-117) U/L Total Protein (6.5-8.0) g/dL Albumin (3.5-5.0) g/dL COVID-19 (YONY) Negative (Negative) COVID-19 Clin Com See Note Influenza Type A (LINDA) Negative (Negative) Influenza Type A (PCR) (Negative) Influenza Type B (LINDA) Negative (Negative) Influenza Type B (PCR) (Negative) Influenza A & B Note See Note RSV RNA Qual (PCR) (Negative) SARS-CoV-2 RNA (RT-PCR) (Negative) Discharge Plan Discharge Clinical Impression: Epileptic seizure Patient Disposition: Home, Self-Care Instructions: Epilepsy (ED) Additional Instructions: Please follow-up with your primary care physician and with your neurologist tomorrow. If you have any worsening or new symptoms, please return to the emergency room or call 911 Prescriptions: New lamotrigine 100 mg tablet 250 mg PO BID 30 Days Qty: 150 0RF No Action cholecalciferol (vitamin D3) 50 mcg (2,000 unit) capsule 50 mcg PO DAILY Qty: 30 3RF Linzess 145 mcg capsule 145 mcg PO DAILY Qty: 30 1RF lamotrigine 200 mg Tablet 200 mg PO BID levetiracetam 1,000 mg Tablet 1,000 mg PO BID naproxen 500 mg tablet 500 mg PO BID PRN (Reason: pain) Qty: 20 0RF cyclobenzaprine 10 mg tablet 10 mg PO TID PRN (Reason: muscle spasm) Qty: 10 0RF lidocaine [Lidoderm] 5 % adhesive patch,medicated 1 patch topical DAILY Qty: 15 0RF Rx Instructions: leave on most painful area for up to 12 hrs lorazepam [Ativan] 1 mg tablet 1 mg PO BID PRN (Reason: anxiety/seizure) Qty: 10 0RF Citrucel 500 mg tablet 500 mg PO BID Qty: 60 5RF bisacodyl [Dulcolax (bisacodyl)] 5 mg tablet,delayed release (DR/EC) 10 mg PO ONCE 1 Days Qty: 2 0RF Rx Instructions: Take 2 tablets by mouth at 12:00pm the day before your procedure. polyethylene glycol 3350 [Miralax] 17 gram/dose powder 238 g PO ONCE 1 Days Qty: 238 0RF Rx Instructions: Take as directed by mouth the day before your procedure.
[2022-07-28 21:32] LABS: Influenza A PCR NEGATIVE (Negative); Influenza B PCR NEGATIVE (Negative); Resp Syncy Virus RNA Qual PCR NEGATIVE (Negative); SARS COV2 PCR INHOUSE NEGATIVE (Negative)
[2022-07-28 22:24] LABS: COVID-19 Test Negative (Negative); IDNOW Serial# 08D9AD1C; Influenza A Negative (Negative); Influenza B2 Negative (Negative)
--- NOTE | 2022-07-28 22:27 | PC.NURSE ---
Patient is alert and oriented x3. Patient is able to use a call hughes and make her needs known. VSS. Patient is resting in bed with her eyes closed, RR 16, no s/s of distress noted. Seizure precautions in place. Lactic acid drawn per MD orders.
[2022-07-28 22:39] VITALS: BP 125/68; PULSE 81; RESP 12; TEMP 37.1; O2SAT 98
== END 2022-07-28 23:14 | disposition home or self-care (01) ==
PROVIDERS: Emergency Provider Emergency Medicine
DX: R56.9 Unspecified convulsions (principal); Z20.822 Contact with and (suspected) exposure to COVID-19; Z79.899 Other long term (current) drug therapy
CPT/HCPCS: 0241U; 36415; 80053; 83605; 85025; 87502; 87635; 96374; 99284; J2060

== ENCOUNTER 2022-08-09 10:58 | Outpatient (REF) | payer OTHER, SELFPAY ==
[2022-08-09 13:30] LABS: Syphilis Screen Nonreactive (Nonreactive)
[2022-08-09 14:04] LABS: CT PCR NOT DETECTED (Not Detect.); NG PCR NOT DETECTED (Not Detect.)
[2022-08-11 09:44] LABS: HIV AB/AG Nonreactive (Nonreactive); HIV Num 1 0.07 S/CO (0.00-0.99)
[2022-08-13 20:43] LABS: Lamotrigine Lamictal 10.2 mcg/mL (4.0-18.0); Levetiracetam Keppra 39.6 mcg/mL (6.0-46.0)
== END 2022-08-09 10:59 | disposition home or self-care (01) ==
LOC: HO.LAB 10:58
PROVIDERS: PCP Internal Medicine; Visit Provider Internal Medicine
DX: Z11.4 Encounter for screening for human immunodeficiency virus [HIV] (principal); Z11.3 Encounter for screening for infections with a predominantly sexual mode of transmission; F32.2 Major depressive disorder, single episode, severe without psychotic features; G40.109 Localization-related (focal) (partial) symptomatic epilepsy and epileptic syndromes with simple partial seizures, not intractable, without status epilepticus; N64.4 Mastodynia
CPT/HCPCS: 0353U; 80175; 80177; 86780; 87389

== ENCOUNTER 2022-09-07 10:52 | Outpatient (REF) | payer OTHER, SELFPAY ==
--- NOTE | ~2022-09-07 | MM_ITS ---
EXAMINATION: MM DIAGNOSTIC DIGITAL BREAST TOMOSYNTHESIS, BILATERAL US BREAST, BILATERAL CLINICAL INFORMATION: Bilateral nipple pain radiating to axilla with itching. Bilateral inverted nipples for 3 years. The lifetime risk of breast cancer based on the Tyrer-Cuzick Model is 19.1%. COMPARISON: Mammography: None TECHNIQUE: Digital breast tomosynthesis is performed in both the craniocaudal and mediolateral oblique views along with computer-aided detection (CAD). Synthesized 2D images are generated from the tomosynthesis. Bilateral targeted breast ultrasound. FINDINGS: There are scattered areas of fibroglandular density (ACR BI-RADS breast composition Category b). There are no significant masses, abnormal calcifications, or other abnormalities. Targeted right breast ultrasound did not demonstrate any suspicious cystic or solid masses. No region of abnormal distal sound shadowing. No edematous change within the parenchyma is seen. Targeted left breast ultrasound did not demonstrate any suspicious cystic or solid masses. No region of abnormal distal sound shadowing was identified. No edematous change within the parenchyma is seen. There is noted to be a 3 x 2 mm cyst in the retroareolar region. Results are discussed with the patient at time of visit. MM/MM tomosynthesis diagnostic BI IMPRESSION: No mammographic or ultrasound evidence of malignancy. ASSESSMENT: BI-RADS 1: Negative RECOMMENDATION: Routine annual mammography screening. This patient's information was entered into a reminder system with a target due date for their next mammogram.
== END 2022-09-07 10:53 | disposition home or self-care (01) ==
LOC: HO.MAMMO 10:52
PROVIDERS: Visit Provider Internal Medicine
DX: N64.4 Mastodynia (principal)
CPT/HCPCS: 76642; 77062; 77066

== ENCOUNTER 2022-10-02 11:53 | Outpatient (REF) | payer OTHER, SELFPAY ==
--- NOTE | ~2022-10-02 | XR_ITS ---
EXAMINATION: XR CHEST CLINICAL INFORMATION: Preop COMPARISON: None TECHNIQUE: 2 views of the chest were obtained. FINDINGS: No significant abnormality is noted involving the heart, lungs, mediastinum, bony thorax or soft tissues. XR/XR chest 2V IMPRESSION: Unremarkable examination.
[2022-10-02 12:56] LABS: INTERNATIONAL NORM RATIO 1.5 (0.9-1.1); Prothrombin Time 17.4 SEC (10.0-13.1)
[2022-10-02 12:58] LABS: Partial Thromboplastin Time 36.1 SEC (26.0-36.4)
[2022-10-02 13:28] LABS: Alanine Aminotransferase 15 U/L (0-31); Albumin Level 4.3 g/dL (3.5-5.0); Alkaline Phosphatase 74 U/L (39-117); Anion Gap 13 (12-20); Aspartate Amino Transferase 16 U/L (5-31); Bilirubin Total 0.4 mg/dL (0.0-1.0); Blood Urea Nitrogen 11 mg/dL (9-16); Calcium 8.9 mg/dL (8.4-10.2); Carbon Dioxide 26 mmol/L (22-29); Chloride 107 mmol/L (96-108); Estimated Glomerular Filt Rate > 60; Glucose Random 92 mg/dL (60-115); Potassium 4.1 mmol/L (3.3-5.1); Sodium 142 mmol/L (135-145); Total Protein 7.4 g/dL (6.5-8.0)
[2022-10-02 13:33] LABS: HIV AB/AG Nonreactive (Nonreactive); HIV Num 1 0.06 S/CO (0.00-0.99)
[2022-10-02 13:46] LABS: Thyroid Stimulating Hormone 3.01 uIU/mL (0.32-4.0)
== END 2022-10-02 11:54 | disposition home or self-care (01) ==
LOC: HO.XRAY 11:53
PROVIDERS: PCP Internal Medicine; Visit Provider Internal Medicine
DX: Z01.818 Encounter for other preprocedural examination (principal); Z11.4 Encounter for screening for human immunodeficiency virus [HIV]; I10 Essential (primary) hypertension
CPT/HCPCS: 36415; 71046; 80053; 84443; 85610; 85730; 87389

== ENCOUNTER 2022-10-11 13:43 | Outpatient (REF) | payer OTHER, SELFPAY ==
[2022-10-11 14:07] LABS: INTERNATIONAL NORM RATIO 1.4 (0.9-1.1); Prothrombin Time 16.2 SEC (10.0-13.1)
== END 2022-10-11 13:44 | disposition home or self-care (01) ==
LOC: HO.LAB 13:43
PROVIDERS: PCP Internal Medicine; Visit Provider Internal Medicine
DX: Z01.818 Encounter for other preprocedural examination (principal); I10 Essential (primary) hypertension
CPT/HCPCS: 36415; 85610

== ENCOUNTER 2022-11-14 09:11 | Emergency (ER) | payer OTHER, SELFPAY ==
[2022-11-14 09:21] VITALS: BP 123/61; PULSE 66; RESP 18; TEMP 36.6; O2SAT 98; BMI 32.9
[2022-11-14 09:25] VITALS: BP 111/64; PULSE 58; RESP 16; TEMP 36.8; O2SAT 97
--- NOTE | 2022-11-14 10:23 | ED.GENADULT ---
HPI - General Adult General Chief complaint: Skin/Abscess/Foreign Body Stated complaint: Infection Surgical Site Time Seen by Provider: 11/14/22 09:37 Source: patient Mode of arrival: ambulatory Limitations: no limitations History of Present Illness HPI narrative: This is a 37 years old female what the an abdominoplasty in [place] about 3 weeks ago presented to the emergency room a with a question of wound infection. She denies any fever, any chills any vomiting any diarrhea. Onset (ago): day(s) (2) Radiation: non-radiation Severity: mild Quality: burning Relieving factors: none Exacerbating factors: none Associated symptoms: denies other symptoms Related Data Home Medications Medication Instructions Recorded Confirmed lamotrigine 200 mg tablet 200 mg PO BID 09/06/20 12/17/20 levetiracetam 1,000 mg tablet 1,000 mg PO BID 09/06/20 12/23/20 Previous Rx's Medication Instructions Recorded cholecalciferol (vitamin D3) 50 50 mcg PO DAILY #30 caps 09/24/20 mcg (2,000 unit) capsule cyclobenzaprine 10 mg tablet 10 mg PO TID PRN muscle spasm #10 11/15/20 tabs lidocaine 5 % topical patch 1 patch topical DAILY #15 ea 11/15/20 (Lidoderm) naproxen 500 mg tablet 500 mg PO BID PRN pain #20 tabs 11/15/20 bisacodyl 5 mg tablet,delayed 10 mg PO ONCE colonoscopy prep 1 12/06/20 release (Dulcolax (bisacodyl)) day #2 tabs methylcellulose (laxative) 500 mg 500 mg PO BID #60 tabs 12/06/20 tablet (Citrucel) polyethylene glycol 3350 17 238 g PO ONCE 1 day #238 grams 12/06/20 gram/dose oral powder (Miralax) linaclotide 145 mcg capsule 145 mcg PO DAILY #30 caps 08/02/21 (Linzess) lorazepam 1 mg tablet (Ativan) 1 mg PO BID PRN anxiety/seizure 05/29/22 #10 tabs lamotrigine 100 mg tablet 250 mg PO BID 30 days #150 tabs 07/28/22 cephalexin 500 mg capsule 500 mg PO Q8H 7 days #21 caps 11/14/22 Allergies Allergy/AdvReac Type Severity Reaction Status Date / Time meperidine [From Demerol] AdvReac Mild HIVES Verified 11/14/22 09:21 Review of Systems Constitutional: Constitutional: Reports no additional constitutional complaints ENT: Reports system reviewed and no additional complaints, except as documented Neurologic: Reports system reviewed and no additional complaints, except as documented PMFSH Past Medical History Medical History Chronic abdominal pain Constipation by delayed colonic transit Epilepsy H/O partial seizures Surgical History Hx of hemorrhoidectomy Hx of tubal ligation Family History Family History Maternal Grandmother Colon cancer Paternal Grandmother Stomach cancer Mother Diabetes Father Diabetes Social History Social History Household Members: Spouse and Children Alcohol intake: never Patient Tobacco Use Status: Never used Tobacco Smoked in Last 30 Days: No Use of substances other than those prescribed or required for medical reasons: No Advance Directives: No Current occupational status: employed 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 Exam ED Vital Signs: Vital Signs - 24 hr 11/14/22 09:21 11/14/22 09:25 11/14/22 11:37 Temperature 98 F 98.2 F 98.3 F Pulse Rate 66 58 62 Respiratory Rate 18 16 16 Blood Pressure 123/61 111/64 117/80 Pulse Oximetry 98 97 100 Oxygen Delivery Method Room Air Room Air Room Air BMI result Body Mass Index 32.9 Const Other: She looks well she is not toxic-appearing General: cooperative, healthy appearing, comfortable, no acute distress, well developed, alert and awake Nutritional Appearance: well nourished Orientation/consciousness: patient oriented x3 Limitations: no limitations HENMT Head: Yes normal to inspection General nose exam: Normal external nose present Face and sinus: Yes normal facial exam Throat: Yes posterior oropharynx normal Neck Neck: Yes normal visual inspection Chest Chest palpation & inspection: normal inspection of the chest Resp Effort & Inspection: normal respiratory effort Auscultation: clear to auscultation bilaterally Cardio Jugular venous distension: no JVD Rate: regular rate Rhythm: regular rhythm GI Other: Examination of the abdomen shows a wound in the lower abdomen which is slightly red I do not see any evidence of abscess, I do not see any drainage at this point abdomen is otherwise soft and no tenderness no peritoneal signs no guarding Inspection: No distended Neuro General: patient oriented x3 Course Reevaluation(s) Reevaluation #1: LABS ARE SHOWED A NORMAL WHITE COUNT, SHE HAS NO FEVER SHE IS NOT TOXIC SHE CAN BE DISCHARGED HOME ON [address]. THE PATIENT STATES THAT SHE IS FLYING TO [place] IN A COUPLE OF DAYS TO SEE THE SURGEON WILL PERFORM THE THE OPERATION Time: 12:19 Medical Decision Making Medical Decision Making [facility] Narrative: PATIENT PRESENTED AFTER ABDOMINOPLASTY WITH THE POSSIBLE WOUND INFECTION WILL GET LABS AND REASSES Differential Diagnosis Differential Diagnoses: The differential diagnosis associated with the presentation includes CELLULITIS/ABSCESS/SEPSIS Admission/Observation Consideration of admission/observation: Escalation of care including admission/observation considered Lab Data [facility] Lab Attestation statement: I reviewed the patient's lab results. 11/14/22 10:41 11/14/22 10:42 Labs: Lab Results 11/14/22 11/14/22 11/14/22 Range/Units 10:41 10:42 10:42 WBC 6.2 (4.8-10.8) X10*3/uL RBC 3.83 L (4.20-5.50) X10*6/uL Hgb 11.7 L (12.0-16.0) g/dl Hct 34.8 L (37.0-47.0) % MCV 90.9 (80.0-98.0) fL MCH 30.5 (27.0-33.0) pg MCHC 33.6 (31.0-35.0) g/dl RDW 13.0 (11.0-16.0) % Plt Count 289 (160-400) X10*3/uL MPV 9.1 L (9.4-12.3) fL Immature Gran % (Auto) 0.2 (0.0-0.4) % Neut % (Auto) 58.7 (45-73) % Lymph % (Auto) 29.6 (20-40) % [place] % (Auto) 4.4 (2-11) % Eos % (Auto) 6.6 H (0-4) % Baso % (Auto) 0.5 (0-2) % Lymph # (Auto) 1.8 (1.2-4.9) X10*3/uL [place] # (Auto) 0.3 (0.1-1.2) X10*3/uL Eos # (Auto) 0.4 (0.0-0.4) X10*3/uL Baso # (Auto) 0.0 (0.0-0.2) X10*3/uL Abs Immat Gran (auto) 0.01 (0.00-0.03) X10*3/uL Absolute Neuts (auto) 3.6 (2.0-8.3) x10*3/uL Absolute Nucleated RBC 0.000 (0.0-0.012) X10*3/uL Nucleated RBC % (auto) 0.0 (0.0-0.2) /100WBC ESR 31 H (0-20) MM/HR Sodium 141 (135-145) mmol/L Potassium 3.9 (3.3-5.1) mmol/L Chloride 104 (96-108) mmol/L Carbon Dioxide 28 (22-29) mmol/L Anion Gap 13 (12-20) BUN 12 (9-16) mg/dL Creatinine 0.71 (0.5-1.4) mg/dL Estim Creat Clear Calc 123.1 Estimated GFR > 60 Random Glucose 84 (60-115) mg/dL Calcium 9.4 (8.4-10.2) mg/dL Total Bilirubin 0.4 (0.0-1.0) mg/dL AST 12 (5-31) U/L ALT 16 (0-31) U/L Alkaline Phosphatase 78 (39-117) U/L C-Reactive Protein 0.72 H (< or = 0.50) mg/dL Total Protein 7.9 (6.5-8.0) g/dL Albumin 4.6 (3.5-5.0) g/dL Tests considered The following testing was considered but not selected: cT SCAN OF ABDOMEN .NOT DONE BECAUSE ABDOMEN SOFT AND NO TENDER Prescription Management I considered prescription management with: Pain Medication NOT GIVEN BECAUSE NO PAIN Discharge Plan Discharge Clinical Impression: Wound infection Patient Disposition: Home, Self-Care Instructions: Cellulitis (DC) Additional Instructions: PLEASE FOLLOW-UP WITH YOU SURGEON A YOU PLANNING TO DO, RETURN TO EMERGENCY ROOM IF YOU HAVE A FEW ,IF YOU ARE VOMITING IF YOU ARE WORSE Prescriptions: New cephalexin 500 mg capsule 500 mg PO Q8H 7 Days Qty: 21 0RF No Action cholecalciferol (vitamin D3) 50 mcg (2,000 unit) capsule 50 mcg PO DAILY Qty: 30 3RF Linzess 145 mcg capsule 145 mcg PO DAILY Qty: 30 1RF lamotrigine 200 mg Tablet 200 mg PO BID levetiracetam 1,000 mg Tablet 1,000 mg PO BID naproxen 500 mg tablet 500 mg PO BID PRN (Reason: pain) Qty: 20 0RF cyclobenzaprine 10 mg tablet 10 mg PO TID PRN (Reason: muscle spasm) Qty: 10 0RF lidocaine [Lidoderm] 5 % adhesive patch,medicated 1 patch topical DAILY Qty: 15 0RF Rx Instructions: leave on most painful area for up to 12 hrs lorazepam [Ativan] 1 mg tablet 1 mg PO BID PRN (Reason: anxiety/seizure) Qty: 10 0RF lamotrigine 100 mg tablet 250 mg PO BID 30 Days Qty: 150 0RF Citrucel 500 mg tablet 500 mg PO BID Qty: 60 5RF bisacodyl [Dulcolax (bisacodyl)] 5 mg tablet,delayed release (DR/EC) 10 mg PO ONCE 1 Days Qty: 2 0RF Rx Instructions: Take 2 tablets by mouth at 12:00pm the day before your procedure. polyethylene glycol 3350 [Miralax] 17 gram/dose powder 238 g PO ONCE 1 Days Qty: 238 0RF Rx Instructions: Take as directed by mouth the day before your procedure.
[2022-11-14 10:49] LABS: MANUAL DIFF FLAG NO
[2022-11-14 10:51] LABS: Basophils Percent Auto 0.5 % (0-2); Eosinophils Absolute Auto 0.4 X10*3/uL (0.0-0.4); Eosinophils Percent Auto 6.6 % (0-4); Hematocrit 34.8 % (37.0-47.0); Hemoglobin 11.7 g/dl (12.0-16.0); Imm Gran Abs Auto 0.01 X10*3/uL (0.00-0.03); Imm Gran Pct Auto 0.2 % (0.0-0.4); Lymphocytes Absolute Auto 1.8 X10*3/uL (1.2-4.9); Lymphocytes Percent Auto 29.6 % (20-40); Mean Corpuscular HGB Conc 33.6 g/dl (31.0-35.0); Mean Corpuscular Hemoglobin 30.5 pg (27.0-33.0); Mean Corpuscular Volume 90.9 fL (80.0-98.0); Mean Platelet Volume 9.1 fL (9.4-12.3); Monocytes Absolute Auto 0.3 X10*3/uL (0.1-1.2); Monocytes Percent Auto 4.4 % (2-11); Neutrophils Absolute Auto 3.6 x10*3/uL (2.0-8.3); Neutrophils Percent Auto 58.7 % (45-73); Platelet Count 289 X10*3/uL (160-400); Red Blood Count 3.83 X10*6/uL (4.20-5.50); White Blood Count 6.2 X10*3/uL (4.8-10.8)
[2022-11-14 11:08] LABS: Alanine Aminotransferase 16 U/L (0-31); Albumin Level 4.6 g/dL (3.5-5.0); Alkaline Phosphatase 78 U/L (39-117); Anion Gap 13 (12-20); Aspartate Amino Transferase 12 U/L (5-31); Bilirubin Total 0.4 mg/dL (0.0-1.0); Blood Urea Nitrogen 12 mg/dL (9-16); C Reactive Protein 0.72 mg/dL (< or = 0.50); Calcium 9.4 mg/dL (8.4-10.2); Carbon Dioxide 28 mmol/L (22-29); Chloride 104 mmol/L (96-108); Creatinine Clr Calc Pharmacy 123.1; Estimated Glomerular Filt Rate > 60; Glucose Random 84 mg/dL (60-115); Potassium 3.9 mmol/L (3.3-5.1); Sodium 141 mmol/L (135-145); Total Protein 7.9 g/dL (6.5-8.0)
[2022-11-14 11:30] LABS: Erythrocyte Sedimentation Rate 31 MM/HR (0-20)
[2022-11-14 11:37] VITALS: BP 117/80; PULSE 62; RESP 16; TEMP 36.8; O2SAT 100
== END 2022-11-14 12:36 | disposition home or self-care (01) ==
PROVIDERS: Emergency Provider Emergency Medicine; PCP Internal Medicine
DX: K91.89 Other postprocedural complications and disorders of digestive system (principal); T81.49XA Infection following a procedure, other surgical site, initial encounter; B99.9 Unspecified infectious disease; Y82.8 Other medical devices associated with adverse incidents; Y83.8 Other surgical procedures as the cause of abnormal reaction of the patient, or of later complication, without mention of misadventure at the time of the procedure; Y92.9 Unspecified place or not applicable
CPT/HCPCS: 36415; 80053; 85025; 85652; 86140; 87040; 99283; 99284

== ENCOUNTER 2022-11-19 21:10 | Emergency (ER) | payer OTHER, SELFPAY ==
[2022-11-19 21:20] VITALS: BP 111/60; PULSE 65; RESP 18; TEMP 36.1; O2SAT 98; BMI 33.2
[2022-11-19 21:38] LABS: MANUAL DIFF FLAG NO
[2022-11-19 21:39] LABS: Basophils Percent Auto 0.4 % (0-2); Eosinophils Absolute Auto 0.4 X10*3/uL (0.0-0.4); Eosinophils Percent Auto 5.1 % (0-4); Hematocrit 34.7 % (37.0-47.0); Hemoglobin 11.4 g/dl (12.0-16.0); Imm Gran Abs Auto 0.02 X10*3/uL (0.00-0.03); Imm Gran Pct Auto 0.3 % (0.0-0.4); Lymphocytes Percent Auto 28.3 % (20-40); Mean Corpuscular HGB Conc 32.9 g/dl (31.0-35.0); Mean Corpuscular Hemoglobin 29.6 pg (27.0-33.0); Mean Corpuscular Volume 90.1 fL (80.0-98.0); Monocytes Absolute Auto 0.5 X10*3/uL (0.1-1.2); Monocytes Percent Auto 7.1 % (2-11); Neutrophils Absolute Auto 4.1 x10*3/uL (2.0-8.3); Neutrophils Percent Auto 58.8 % (45-73); Platelet Count 282 X10*3/uL (160-400); Red Blood Count 3.85 X10*6/uL (4.20-5.50); Red Cell Distribution Width 13.1 % (11.0-16.0)
[2022-11-19 21:57] LABS: Alanine Aminotransferase 22 U/L (0-31); Albumin Level 4.2 g/dL (3.5-5.0); Alkaline Phosphatase 72 U/L (39-117); Anion Gap 12 (12-20); Aspartate Amino Transferase 17 U/L (5-31); Bilirubin Total 0.4 mg/dL (0.0-1.0); Blood Urea Nitrogen 13 mg/dL (9-16); Calcium 9.1 mg/dL (8.4-10.2); Carbon Dioxide 28 mmol/L (22-29); Chloride 104 mmol/L (96-108); Creatinine Clr Calc Pharmacy 69.7; Estimated Glomerular Filt Rate 48; Glucose Random 93 mg/dL (60-115); Potassium 4.1 mmol/L (3.3-5.1); Sodium 140 mmol/L (135-145); Total Protein 7.3 g/dL (6.5-8.0)
[2022-11-19] MEDS: Doxycycline Monohydrate 100 MG CAPSULE PO (23:36)
[2022-11-19] MEDS: levoFLOXacin 500 MG TABLET PO (23:36)
--- NOTE | 2022-11-19 23:44 | ED_ITS ---
HPI - Wound/Laceration General Chief Complaint: Wound/Laceration Stated Complaint: infection on 4wk old surgery site Time Seen by Provider: 11/19/22 23:12 Source: patient Mode of arrival: ambulatory Limitations: no limitations History of Present Illness HPI narrative: Patient status post tummy tuck operation on 10/19 in [place] was seen here on 11/14 for slight infection of the wound started on cephalexin patient comes back as notice more discharge and redness in spite of taking cephalexin. No fever no significant redness or swelling no dehiscence of the wound Related Data Home Medications Medication Instructions Recorded Confirmed lamotrigine 200 mg tablet 200 mg PO BID 09/06/20 12/17/20 levetiracetam 1,000 mg tablet 1,000 mg PO BID 09/06/20 12/23/20 Previous Rx's Medication Instructions Recorded cholecalciferol (vitamin D3) 50 50 mcg PO DAILY #30 caps 09/24/20 mcg (2,000 unit) capsule cyclobenzaprine 10 mg tablet 10 mg PO TID PRN muscle spasm #10 11/15/20 tabs lidocaine 5 % topical patch 1 patch topical DAILY #15 ea 11/15/20 (Lidoderm) naproxen 500 mg tablet 500 mg PO BID PRN pain #20 tabs 11/15/20 bisacodyl 5 mg tablet,delayed 10 mg PO ONCE colonoscopy prep 1 12/06/20 release (Dulcolax (bisacodyl)) day #2 tabs methylcellulose (laxative) 500 mg 500 mg PO BID #60 tabs 12/06/20 tablet (Citrucel) polyethylene glycol 3350 17 238 g PO ONCE 1 day #238 grams 12/06/20 gram/dose oral powder (Miralax) linaclotide 145 mcg capsule 145 mcg PO DAILY #30 caps 08/02/21 (Linzess) lorazepam 1 mg tablet (Ativan) 1 mg PO BID PRN anxiety/seizure 05/29/22 #10 tabs lamotrigine 100 mg tablet 250 mg PO BID 30 days #150 tabs 07/28/22 cephalexin 500 mg capsule 500 mg PO Q8H 7 days #21 caps 11/14/22 ciprofloxacin HCl 500 mg tablet 500 mg PO BID #20 tabs 11/19/22 (Cipro) doxycycline hyclate 100 mg tablet 100 mg PO BID #20 tabs 11/19/22 mupirocin 2 % topical ointment 1 appl topical BID #22 grams 11/19/22 Allergies Allergy/AdvReac Type Severity Reaction Status Date / Time meperidine [From Demerol] AdvReac Mild HIVES Verified 11/19/22 21:20 Review of Systems Review of Systems: Yes all other systems are reviewed and are negative PMFSH Past Medical History Medical History Chronic abdominal pain Constipation by delayed colonic transit Epilepsy H/O partial seizures Surgical History Hx of hemorrhoidectomy Hx of tubal ligation Family History Family History Maternal Grandmother Colon cancer Paternal Grandmother Stomach cancer Mother Diabetes Father Diabetes Social History Social History Household Members: Spouse and Children Alcohol intake: never Patient Tobacco Use Status: Never used Tobacco Advance Directives: No Advance Directives Information Provided: Yes Current occupational status: employed 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 Oriented X3. No acute distress. Eyes: No pallor ENT: Pharynx normal. Oral Mucosa moist Neck: Normal inspection. Neck supple. CVS: Normal heart rate and rhythm. Pulses normal. Respiratory: No respiratory distress. Equal air entry bilateral, Abdomen: Soft and nontender. Bowel sounds are present, no mass palpable, no CVA tenderness Skin: Skin warm and dry. Healthy-looking surgical wound with small areas of purulent base no significant pus discharge. Extremities: No lower extremity edema. No calf tenderness Neuro: Oriented X 3. Medications Administered Discontinued Medications Generic Name Dose Route Start Last Admin Trade Name Freq PRN Reason Stop Dose Admin Doxycycline Monohydrate 100 mg 11/19/22 23:23 11/19/22 23:36 Doxycycline Monohydrate 100 Mg Capsule PO 11/19/22 23:24 100 mg ONCE ONE Administration Levofloxacin 500 mg 11/19/22 23:25 11/19/22 23:36 Levofloxacin 500 Mg Tablet PO 11/19/22 23:26 500 mg ONCE ONE Administration Medical Decision Making Medical Decision Making MDM Narrative: Culture from the wound were taken start patient on doxycycline and Cipro to cover Pseudomonas/MRSA infection as patient failed outpatient treatment with cephalexin Lab Data 11/19/22 21:27 11/19/22 21:27 Labs: Lab Results 11/19/22 11/19/22 Range/Units 21:27 21:27 WBC 7.0 (4.8-10.8) X10*3/uL RBC 3.85 L (4.20-5.50) X10*6/uL Hgb 11.4 L (12.0-16.0) g/dl Hct 34.7 L (37.0-47.0) % MCV 90.1 (80.0-98.0) fL MCH 29.6 (27.0-33.0) pg MCHC 32.9 (31.0-35.0) g/dl RDW 13.1 (11.0-16.0) % Plt Count 282 (160-400) X10*3/uL MPV 9.0 L (9.4-12.3) fL Immature Gran % (Auto) 0.3 (0.0-0.4) % Neut % (Auto) 58.8 (45-73) % Lymph % (Auto) 28.3 (20-40) % [place] % (Auto) 7.1 (2-11) % Eos % (Auto) 5.1 H (0-4) % Baso % (Auto) 0.4 (0-2) % Lymph # (Auto) 2.0 (1.2-4.9) X10*3/uL [place] # (Auto) 0.5 (0.1-1.2) X10*3/uL Eos # (Auto) 0.4 (0.0-0.4) X10*3/uL Baso # (Auto) 0.0 (0.0-0.2) X10*3/uL Abs Immat Gran (auto) 0.02 (0.00-0.03) X10*3/uL Absolute Neuts (auto) 4.1 (2.0-8.3) x10*3/uL Absolute Nucleated RBC 0.000 (0.0-0.012) X10*3/uL Nucleated RBC % (auto) 0.0 (0.0-0.2) /100WBC Sodium 140 (135-145) mmol/L Potassium 4.1 (3.3-5.1) mmol/L Chloride 104 (96-108) mmol/L Carbon Dioxide 28 (22-29) mmol/L Anion Gap 12 (12-20) BUN 13 (9-16) mg/dL Creatinine 1.26 (0.5-1.4) mg/dL Estim Creat Clear Calc 69.7 Estimated GFR 48 Random Glucose 93 (60-115) mg/dL Calcium 9.1 (8.4-10.2) mg/dL Total Bilirubin 0.4 (0.0-1.0) mg/dL AST 17 (5-31) U/L ALT 22 (0-31) U/L Alkaline Phosphatase 72 (39-117) U/L Total Protein 7.3 (6.5-8.0) g/dL Albumin 4.2 (3.5-5.0) g/dL Discharge Plan Discharge Clinical Impression: Infected surgical wound Patient Disposition: Home, Self-Care Instructions: Surgical Site Infections (ED) Additional Instructions: Local wound care as advised Take antibiotic as prescribed Apply Bactroban ointment twice daily at the infected area Follow with surgeon if not better Prescriptions: New ciprofloxacin HCl [Cipro] 500 mg tablet 500 mg PO BID Qty: 20 0RF doxycycline hyclate 100 mg tablet 100 mg PO BID Qty: 20 0RF mupirocin 2 % ointment 1 appl topical BID Qty: 22 0RF No Action cholecalciferol (vitamin D3) 50 mcg (2,000 unit) capsule 50 mcg PO DAILY Qty: 30 3RF Linzess 145 mcg capsule 145 mcg PO DAILY Qty: 30 1RF lamotrigine 200 mg Tablet 200 mg PO BID levetiracetam 1,000 mg Tablet 1,000 mg PO BID naproxen 500 mg tablet 500 mg PO BID PRN (Reason: pain) Qty: 20 0RF cyclobenzaprine 10 mg tablet 10 mg PO TID PRN (Reason: muscle spasm) Qty: 10 0RF lidocaine [Lidoderm] 5 % adhesive patch,medicated 1 patch topical DAILY Qty: 15 0RF Rx Instructions: leave on most painful area for up to 12 hrs lorazepam [Ativan] 1 mg tablet 1 mg PO BID PRN (Reason: anxiety/seizure) Qty: 10 0RF lamotrigine 100 mg tablet 250 mg PO BID 30 Days Qty: 150 0RF cephalexin 500 mg capsule 500 mg PO Q8H 7 Days Qty: 21 0RF Citrucel 500 mg tablet 500 mg PO BID Qty: 60 5RF bisacodyl [Dulcolax (bisacodyl)] 5 mg tablet,delayed release (DR/EC) 10 mg PO ONCE 1 Days Qty: 2 0RF Rx Instructions: Take 2 tablets by mouth at 12:00pm the day before your procedure. polyethylene glycol 3350 [Miralax] 17 gram/dose powder 238 g PO ONCE 1 Days Qty: 238 0RF Rx Instructions: Take as directed by mouth the day before your procedure. Referrals: Tony Ray MD [Physician] - 1 week Discharge Date/Time: 11/19/22 23:40
== END 2022-11-19 23:40 | disposition home or self-care (01) ==
PROVIDERS: Emergency Provider Internal Medicine; PCP Internal Medicine
DX: L08.9 Local infection of the skin and subcutaneous tissue, unspecified (principal); Z79.899 Other long term (current) drug therapy
CPT/HCPCS: 36415; 80053; 85025; 87070; 87205; 99282; 99283

== ENCOUNTER 2023-01-07 17:40 | Emergency (ER) | payer OTHER, SELFPAY ==
[2023-01-07 17:52] VITALS: BP 114/71; BP 131/86; PULSE 93; PULSE 97; RESP 17; TEMP 36.6; O2SAT 97; O2SAT 99; BMI 34.1
--- NOTE | 2023-01-07 18:17 | ED.SEIZURE ---
HPI - Seizure General Chief Complaint: Seizure Stated Complaint: seizure Time Seen by Provider: 01/07/23 18:12 Source: patient Mode of arrival: ambulatory Limitations: no limitations History of Present Illness HPI Narrative: Patient is 37 years old with history of epilepsy years on Lamictal 200 mg twice daily and Keppra 1500 mg twice see neurologist at [facility] last seizure was 2 weeks ago comes here as well she is getting her hair done had 2 small episodes of seizure lasted total for 4 minutes patient feels tired with mild headache no injury no tongue bite no incontinence patient recently had abdominal plasty and sleeping on recliner with poor sleep lately Seizure History: Yes Related Data Home Medications Medication Instructions Recorded Confirmed lamotrigine 200 mg tablet 200 mg PO BID 09/06/20 12/17/20 levetiracetam 1,000 mg tablet 1,000 mg PO BID 09/06/20 12/23/20 Previous Rx's Medication Instructions Recorded cholecalciferol (vitamin D3) 50 50 mcg PO DAILY #30 caps 09/24/20 mcg (2,000 unit) capsule cyclobenzaprine 10 mg tablet 10 mg PO TID PRN muscle spasm #10 11/15/20 tabs lidocaine 5 % topical patch 1 patch topical DAILY #15 ea 11/15/20 (Lidoderm) naproxen 500 mg tablet 500 mg PO BID PRN pain #20 tabs 11/15/20 bisacodyl 5 mg tablet,delayed 10 mg PO ONCE colonoscopy prep 1 12/06/20 release (Dulcolax (bisacodyl)) day #2 tabs methylcellulose (laxative) 500 mg 500 mg PO BID #60 tabs 12/06/20 tablet (Citrucel) polyethylene glycol 3350 17 238 g PO ONCE 1 day #238 grams 12/06/20 gram/dose oral powder (Miralax) linaclotide 145 mcg capsule 145 mcg PO DAILY #30 caps 08/02/21 (Linzess) lorazepam 1 mg tablet (Ativan) 1 mg PO BID PRN anxiety/seizure 05/29/22 #10 tabs lamotrigine 100 mg tablet 250 mg PO BID 30 days #150 tabs 07/28/22 cephalexin 500 mg capsule 500 mg PO Q8H 7 days #21 caps 11/14/22 ciprofloxacin HCl 500 mg tablet 500 mg PO BID #20 tabs 11/19/22 (Cipro) doxycycline hyclate 100 mg tablet 100 mg PO BID #20 tabs 11/19/22 mupirocin 2 % topical ointment 1 appl topical BID #22 grams 11/19/22 lorazepam 1 mg tablet (Ativan) 1 mg PO BEDTIME PRN sleep #14 tabs 01/07/23 Allergies Allergy/AdvReac Type Severity Reaction Status Date / Time meperidine [From Demerol] AdvReac Mild HIVES Verified 11/19/22 21:20 Review of Systems Review of Systems: Yes all other systems are reviewed and are negative COUNTS INCLUDE 234 BEDS AT THE [facility] Past Medical History Medical History Chronic abdominal pain Constipation by delayed colonic transit Epilepsy H/O partial seizures Surgical History Hx of hemorrhoidectomy Hx of tubal ligation Family History Family History Maternal Grandmother Colon cancer Paternal Grandmother Stomach cancer Mother Diabetes Father Diabetes Social History Social History Household Members: Spouse and Children Alcohol intake: never Patient Tobacco Use Status: Never used Tobacco Advance Directives: No Advance Directives Information Provided: No Current occupational status: employed 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 Oriented X3. No acute distress. Eyes: PERRLA, No Nystagmus ENT: Pharynx normal. Oral Mucosa moist Neck: Normal inspection. Neck supple. CVS: Normal heart rate and rhythm. Pulses normal. Respiratory: No respiratory distress. Equal air entry bilateral, no wheezing/rales/rhonchi Abdomen: Soft and nontender. Bowel sounds are present, no mass palpable, no CVA tenderness Skin: Skin warm and dry. Normal skin color. Normal skin turgor. Extremities: No lower extremity edema. No calf tenderness Neuro: Oriented X 3. No motor deficit. No sensory deficit.No cerebellar signs , cranial nerves II-XII intact Medications Administered Discontinued Medications Generic Name Dose Route Start Last Admin Trade Name Freq PRN Reason Stop Dose Admin Lorazepam 2 mg 01/07/23 18:24 01/07/23 18:38 Lorazepam 1 Mg Tablet PO 01/07/23 18:25 2 mg ONCE ONE Administration Medical Decision Making Medical Decision Making [facility] Narrative: Patient fairly compliant on medication been here before with workup negative supposed to see neurologist will add Ativan likely patient having seizure because of sleep deprivation from recent surgery Discharge Plan Discharge Clinical Impression: Generalized seizure Patient Disposition: Home, Self-Care Instructions: Recurrent Seizures in Adults (ED) Additional Instructions: Continue to use Lamictal and Keppra and follow-up with neurology Sleep well , Ativan for sleep and to avoid seizures every night Prescriptions: New lorazepam [Ativan] 1 mg tablet 1 mg PO BEDTIME PRN (Reason: sleep) Qty: 14 0RF No Action cholecalciferol (vitamin D3) 50 mcg (2,000 unit) capsule 50 mcg PO DAILY Qty: 30 3RF Linzess 145 mcg capsule 145 mcg PO DAILY Qty: 30 1RF lamotrigine 200 mg Tablet 200 mg PO BID levetiracetam 1,000 mg Tablet 1,000 mg PO BID naproxen 500 mg tablet 500 mg PO BID PRN (Reason: pain) Qty: 20 0RF cyclobenzaprine 10 mg tablet 10 mg PO TID PRN (Reason: muscle spasm) Qty: 10 0RF lidocaine [Lidoderm] 5 % adhesive patch,medicated 1 patch topical DAILY Qty: 15 0RF Rx Instructions: leave on most painful area for up to 12 hrs lorazepam [Ativan] 1 mg tablet 1 mg PO BID PRN (Reason: anxiety/seizure) Qty: 10 0RF lamotrigine 100 mg tablet 250 mg PO BID 30 Days Qty: 150 0RF cephalexin 500 mg capsule 500 mg PO Q8H 7 Days Qty: 21 0RF ciprofloxacin HCl [Cipro] 500 mg tablet 500 mg PO BID Qty: 20 0RF doxycycline hyclate 100 mg tablet 100 mg PO BID Qty: 20 0RF mupirocin 2 % ointment 1 appl topical BID Qty: 22 0RF Citrucel 500 mg tablet 500 mg PO BID Qty: 60 5RF bisacodyl [Dulcolax (bisacodyl)] 5 mg tablet,delayed release (DR/EC) 10 mg PO ONCE 1 Days Qty: 2 0RF Rx Instructions: Take 2 tablets by mouth at 12:00pm the day before your procedure. polyethylene glycol 3350 [Miralax] 17 gram/dose powder 238 g PO ONCE 1 Days Qty: 238 0RF Rx Instructions: Take as directed by mouth the day before your procedure. Interventions: ED Discharge Assessment Last Done: 01/07/23 18:40 Discharge Date/Time: 01/07/23 18:42
[2023-01-07] MEDS: LORazepam 1 MG TABLET 2 MG PO (18:38)
== END 2023-01-07 18:42 | disposition home or self-care (01) ==
PROVIDERS: Emergency Provider Internal Medicine; PCP Internal Medicine
DX: R56.9 Unspecified convulsions (principal); Z79.899 Other long term (current) drug therapy
CPT/HCPCS: 99282; 99283

== ENCOUNTER 2023-01-14 01:27 | Emergency (ER) | payer OTHER, SELFPAY ==
--- NOTE | ~2023-01-14 | CT_ITS ---
EXAMINATION: CT HEAD WITHOUT CONTRAST CLINICAL INFORMATION: Seizure and fall. COMPARISON: None available. TECHNIQUE: Contiguous axial imaging was performed from the skull base to vertex without intravenous administration of contrast. This CT examination was performed using dose optimization techniques as appropriate, variously including the following: *Automated exposure control *Adjustment of mA and/or kV according to patient size (this includes techniques or standardized protocols for targeted exams where dose is matched to indication/reason for exam; i.e. extremities or head) *Use of iterative reconstruction technique DLP: 627 mGy-cm FINDINGS: There is no acute intra-axial, extra-axial bleed, masses or midline shift., There is no acute infarction in evolution. There is no edema. The rosario to white matter difference is maintained normal. The lateral ventricles are symmetrical in size and configuration without enlargement. Bone windows reveal no calvarial abnormality. There is no scalp soft tissue abnormality. Bilateral paranasal sinuses and mastoid air cells are well-aerated. CT/CT head/brain wo IV con IMPRESSION: No acute intracranial process seen.
[2023-01-14 01:35] VITALS: BP 117/78; BP 121/79; PULSE 74; PULSE 90; RESP 13; TEMP 37; O2SAT 99; BMI 33.4
[2023-01-14 01:51] VITALS: BP 121/79; PULSE 74; RESP 13; TEMP 37; O2SAT 99
[2023-01-14 04:08] VITALS: BP 104/62; PULSE 78; RESP 17; TEMP 36.8; O2SAT 99
[2023-01-14 06:14] VITALS: BP 98/58; PULSE 73; RESP 14; TEMP 36.8; O2SAT 97
[2023-01-14] MEDS: Acetaminophen 325 MG TABLET 975 MG PO (06:18)
--- NOTE | 2023-01-14 06:32 | ED.GENADULT ---
HPI - General Adult General Chief complaint: Seizure Stated complaint: Seizure Time Seen by Provider: 01/14/23 06:29 Source: patient, EMS, RN notes reviewed and old records reviewed Mode of arrival: EMS Limitations: no limitations History of Present Illness HPI narrative: Patient is a 37-year-old female with history of epilepsy, constipation, and recent abdominoplasty in October presenting to the emergency department after seizure. Patient states she was in the bathroom urinating when her seizure began, was found on the bathroom floor seizing by her father after he heard her fall. PatReports seizure one week prior for which she was seen here, also reports seizure two week ago. States she has been taking her medications as prescribed, at the same times each day. Denies any other new medications. Has an appointment with her neurologist at [facility] on 01/21 for medication adjustment due to multiple recent seizures. Denies any recent illness or fevers. Does report mild lower abdominal pain in area of surgical incision. Denies any erythema, swelling, discharge or drainage from incision. Denies any cough, shortness of breath or chest pain. Does report some constipation but states this is baseline. Denies diarrhea or vomiting. Denies dysuria, hematuria, or any other urinary symptoms. Denies headache or vision changes. Denies dizziness or lightheadedness. MD complaint: seizure Onset (ago): hour(s) Associated symptoms: denies other symptoms Treatments prior to arrival: none Related Data Home Medications Medication Instructions Recorded Confirmed lamotrigine 200 mg tablet 200 mg PO BID 09/06/20 12/17/20 levetiracetam 1,000 mg tablet 1,000 mg PO BID 09/06/20 12/23/20 Previous Rx's Medication Instructions Recorded cholecalciferol (vitamin D3) 50 50 mcg PO DAILY #30 caps 09/24/20 mcg (2,000 unit) capsule cyclobenzaprine 10 mg tablet 10 mg PO TID PRN muscle spasm #10 11/15/20 tabs lidocaine 5 % topical patch 1 patch topical DAILY #15 ea 11/15/20 (Lidoderm) naproxen 500 mg tablet 500 mg PO BID PRN pain #20 tabs 11/15/20 bisacodyl 5 mg tablet,delayed 10 mg PO ONCE colonoscopy prep 1 12/06/20 release (Dulcolax (bisacodyl)) day #2 tabs methylcellulose (laxative) 500 mg 500 mg PO BID #60 tabs 12/06/20 tablet (Citrucel) polyethylene glycol 3350 17 238 g PO ONCE 1 day #238 grams 12/06/20 gram/dose oral powder (Miralax) linaclotide 145 mcg capsule 145 mcg PO DAILY #30 caps 08/02/21 (Linzess) lorazepam 1 mg tablet (Ativan) 1 mg PO BID PRN anxiety/seizure 05/29/22 #10 tabs lamotrigine 100 mg tablet 250 mg PO BID 30 days #150 tabs 07/28/22 cephalexin 500 mg capsule 500 mg PO Q8H 7 days #21 caps 11/14/22 ciprofloxacin HCl 500 mg tablet 500 mg PO BID #20 tabs 11/19/22 (Cipro) doxycycline hyclate 100 mg tablet 100 mg PO BID #20 tabs 11/19/22 mupirocin 2 % topical ointment 1 appl topical BID #22 grams 11/19/22 lorazepam 1 mg tablet (Ativan) 1 mg PO BEDTIME PRN sleep #14 tabs 01/07/23 Allergies Allergy/AdvReac Type Severity Reaction Status Date / Time meperidine [From Demerol] AdvReac Mild HIVES Verified 11/19/22 21:20 Review of Systems Review of Systems: As per HPI. Yes all other systems are reviewed and are negative Constitutional: Constitutional: Reports as per HPI [facility] Past Medical History Medical History Chronic abdominal pain Constipation by delayed colonic transit Epilepsy H/O partial seizures Surgical History Hx of hemorrhoidectomy Hx of tubal ligation Family History Family History Maternal Grandmother Colon cancer Paternal Grandmother Stomach cancer Mother Diabetes Father Diabetes Social History Social History Household Members: Spouse and Children Alcohol intake: never Patient Tobacco Use Status: Never used Tobacco Smoked in Last 30 Days: No Use of substances other than those prescribed or required for medical reasons: No Advance Directives: No Advance Directives Information Provided: No Patient : No Current occupational status: employed 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 Blood pressure normal. Heart rate normal. Respiratory rate normal. Temperature normal. Oxygen saturation normal. Const General: cooperative, healthy appearing and no acute distress Orientation/consciousness: oriented to person, oriented to place, oriented to time and patient oriented x3 Limitations: no limitations HENMT Head: Yes No palpable skull fracture present, Yes normocephalic, No Alvarez's sign, Yes contusion (right forehead, healing), No raccoon eyes, No scalp tenderness and No periorbital ecchymosis Head images: 1. contusion Ears: external ears normal General nose exam: Normal external nose present Face and sinus: Yes face symmetric Mouth: oropharynx normal and moist mucous membranes Throat: Yes uvula midline Eyes Pupils: Equal, round and reactive pupils present Neck Neck: Yes normal visual inspection and Yes supple Resp Effort & Inspection: normal respiratory effort and able to speak in complete sentences Auscultation: clear to auscultation bilaterally Cardio Rate: regular rate Rhythm: regular rhythm Heart sounds: S1 normal heart sound present and S2 normal heart sound present GI Inspection: Yes scar (lower abdominal surgical incision, no erythema, calor, fluctuance, discharg) Palpation (GI): Soft to palpation, nontender, no guarding and No Rebound tenderness present Auscultation: normoactive bowel sounds Abdomen image: 1. surgical incision is clean, dry, well healed, no erythema, calor, fluctuance, drainage or discharge General: Yes no CVA tenderness Back/Spine/Pelvis Back: no CVA tenderness Skin General skin exam: elasticity normal and turgor normal Neuro General: oriented to person, oriented to place, oriented to time, patient oriented x3, moves all extremities, no focal motor deficits and CN's II-XI intact bilaterally Cranial nerves: Yes Equal, round and reactive pupils present Cognition (Neuro): normal cognition Extrem General: Yes full ROM, Yes no pedal edema and Yes no calf tenderness Psych Mental Status: mental status grossly normal Affect: normal affect Thought process: Normal thought process present Medications Administered Discontinued Medications Generic Name Dose Route Start Last Admin Trade Name Lucina PRN Reason Stop Dose Admin Acetaminophen 975 mg 01/14/23 06:12 01/14/23 06:18 Acetaminophen 325 Mg Tablet PO 01/14/23 06:13 975 mg ONCE STA Administration Medical Decision Making Medical Decision Making [facility] Narrative: Patient is a 37-year-old female with history of epilepsy, constipation, and recent abdominoplasty in October presenting to the emergency department after seizure. On exam patient is awake, A+Ox3, normal neurological exam without focal deficits, LS CTA throughout, abdomen is soft and nontender, no CVA tenderness. Review of outside records from [facility] Neurology state that patient is supposed to be taking 1500mg of Keppra BID and 200mg of Lamictal BID which patient states she is taking as prescribed. Patient has not had any seizure-like activity since arriving to the ED. Labs unremarkable, UA negative for signs of infection, CT head without abnormal findings. Presentation is consistent with reported history of epilepsy. I considered but did not find evidence of metabolic disturbances, acute infection, ICH/tumor/CVA. No evidence of skull fracture. Patient currently at max dose of Keppra. Case discussed with Dr. Tate who recommends ordering levels for Keppra and Lamictal. Labs obtained but levels will not be available today. Feel patient is stable for discharge home with neurology follow up in one week. All results discussed and questions answered, return precautions discussed at bedside. Patient verbalized agreement with plan. Differential Diagnosis Differential Diagnoses: The differential diagnosis associated with the presentation includes As above. Lab Data [facility] Lab Attestation statement: I reviewed the patient's lab results. 01/14/23 06:49 01/14/23 06:49 Labs: Lab Results 01/14/23 01/14/23 01/14/23 Range/Units 06:49 06:49 07:54 WBC 10.6 (4.8-10.8) X10*3/uL RBC 4.40 (4.20-5.50) X10*6/uL Hgb 13.0 (12.0-16.0) g/dl Hct 38.2 (37.0-47.0) % MCV 86.8 (80.0-98.0) fL MCH 29.5 (27.0-33.0) pg MCHC 34.0 (31.0-35.0) g/dl RDW 12.0 (11.0-16.0) % Plt Count 292 (160-400) X10*3/uL MPV 9.4 (9.4-12.3) fL Immature Gran % (Auto) 0.4 (0.0-0.4) % Neut % (Auto) 76.5 H (45-73) % Lymph % (Auto) 18.2 L (20-40) % [place] % (Auto) 4.2 (2-11) % Eos % (Auto) 0.4 (0-4) % Baso % (Auto) 0.3 (0-2) % Lymph # (Auto) 1.9 (1.2-4.9) X10*3/uL [place] # (Auto) 0.5 (0.1-1.2) X10*3/uL Eos # (Auto) 0.0 (0.0-0.4) X10*3/uL Baso # (Auto) 0.0 (0.0-0.2) X10*3/uL Abs Immat Gran (auto) 0.04 H (0.00-0.03) X10*3/uL Absolute Neuts (auto) 8.1 (2.0-8.3) x10*3/uL Absolute Nucleated RBC 0.000 (0.0-0.012) X10*3/uL Nucleated RBC % (auto) 0.0 (0.0-0.2) /100WBC Sodium 136 (135-145) mmol/L Potassium 3.9 (3.3-5.1) mmol/L Chloride 106 (96-108) mmol/L Carbon Dioxide 21 L (22-29) mmol/L Anion Gap 13 (12-20) BUN 9 (9-16) mg/dL Creatinine 0.72 (0.5-1.4) mg/dL Estim Creat Clear Calc 122.3 Estimated GFR > 60 Random Glucose 99 (60-115) mg/dL Calcium 9.1 (8.4-10.2) mg/dL Total Bilirubin 0.4 (0.0-1.0) mg/dL AST 12 (5-31) U/L ALT 12 (0-31) U/L Alkaline Phosphatase 70 (39-117) U/L Total Protein 7.4 (6.5-8.0) g/dL Albumin 4.0 (3.5-5.0) g/dL Urine Color Yellow Urine Appearance Clear Urine pH 6.0 (5.0-9.0) Ur Specific [place] 1.010 (1.005-1.025) Urine Protein Negative (Neg-Trace) mg/dL Urine Glucose (UA) Negative (Negative) mg/dL Urine Ketones Negative (Negative) mg/dL Urine Blood Negative (Negative) Urine Nitrite Negative (Negative) Ur Leukocyte Esterase Negative (Negative) Independent Interpretation I performed an independent interpretation of an: CT Scan Interpretation: I independently reviewed the CT scan and agree with the radiologist's interpretation. Radiology Impression Discussion of test interpretation with radiology: I have reviewed the radiologist's reading. Radiologist Impression: FINDINGS: There is no acute intra-axial, extra-axial bleed, masses or midline shift., There is no acute infarction in evolution. There is no edema. The rosario to white matter difference is maintained normal. The lateral ventricles are symmetrical in size and configuration without enlargement. Bone windows reveal no calvarial abnormality. There is no scalp soft tissue abnormality. Bilateral paranasal sinuses and mastoid air cells are well-aerated. ? CT/CT head/brain wo IV con IMPRESSION: No acute intracranial process seen. External Record Review External record reviewed: Inpatient record, Office record, Outpatient record and Other ([facility] neuro from 10/03/22) Chronic Conditions Patient?s care impacted by: Other (EPILEPSY) Discharge Plan Discharge Clinical Impression: Seizure Patient Disposition: Home, Self-Care Instructions: Epilepsy (DC) Additional Instructions: You were evaluated in the emergency department today for a seizure. Your evaluation, including labs, urinalysis and CT scan of your brain, were unremarkable. Please keep your appointment with your neurologist next week. Continue taking your seizure medications as prescribed. Return to the emergency department if you experience recurrent seizures, difficulty walking or moving your arms or legs, slurred speech, difficulty with normal activities, abnormal behavior, vision changes, or any other concerning symptoms. Prescriptions: No Action cholecalciferol (vitamin D3) 50 mcg (2,000 unit) capsule 50 mcg PO DAILY Qty: 30 3RF Linzess 145 mcg capsule 145 mcg PO DAILY Qty: 30 1RF lamotrigine 200 mg Tablet 200 mg PO BID levetiracetam 1,000 mg Tablet 1,000 mg PO BID naproxen 500 mg tablet 500 mg PO BID PRN (Reason: pain) Qty: 20 0RF cyclobenzaprine 10 mg tablet 10 mg PO TID PRN (Reason: muscle spasm) Qty: 10 0RF lidocaine [Lidoderm] 5 % adhesive patch,medicated 1 patch topical DAILY Qty: 15 0RF Rx Instructions: leave on most painful area for up to 12 hrs lorazepam [Ativan] 1 mg tablet 1 mg PO BID PRN (Reason: anxiety/seizure) Qty: 10 0RF lamotrigine 100 mg tablet 250 mg PO BID 30 Days Qty: 150 0RF cephalexin 500 mg capsule 500 mg PO Q8H 7 Days Qty: 21 0RF ciprofloxacin HCl [Cipro] 500 mg tablet 500 mg PO BID Qty: 20 0RF doxycycline hyclate 100 mg tablet 100 mg PO BID Qty: 20 0RF mupirocin 2 % ointment 1 appl topical BID Qty: 22 0RF lorazepam [Ativan] 1 mg tablet 1 mg PO BEDTIME PRN (Reason: sleep) Qty: 14 0RF Citrucel 500 mg tablet 500 mg PO BID Qty: 60 5RF bisacodyl [Dulcolax (bisacodyl)] 5 mg tablet,delayed release (DR/EC) 10 mg PO ONCE 1 Days Qty: 2 0RF Rx Instructions: Take 2 tablets by mouth at 12:00pm the day before your procedure. polyethylene glycol 3350 [Miralax] 17 gram/dose powder 238 g PO ONCE 1 Days Qty: 238 0RF Rx Instructions: Take as directed by mouth the day before your procedure.
[2023-01-14 06:54] LABS: MANUAL DIFF FLAG NO
[2023-01-14 06:55] LABS: Basophils Percent Auto 0.3 % (0-2); Eosinophils Percent Auto 0.4 % (0-4); Hematocrit 38.2 % (37.0-47.0); Imm Gran Abs Auto 0.04 X10*3/uL (0.00-0.03); Imm Gran Pct Auto 0.4 % (0.0-0.4); Lymphocytes Absolute Auto 1.9 X10*3/uL (1.2-4.9); Lymphocytes Percent Auto 18.2 % (20-40); Mean Corpuscular Hemoglobin 29.5 pg (27.0-33.0); Mean Corpuscular Volume 86.8 fL (80.0-98.0); Mean Platelet Volume 9.4 fL (9.4-12.3); Monocytes Absolute Auto 0.5 X10*3/uL (0.1-1.2); Monocytes Percent Auto 4.2 % (2-11); Neutrophils Absolute Auto 8.1 x10*3/uL (2.0-8.3); Neutrophils Percent Auto 76.5 % (45-73); Platelet Count 292 X10*3/uL (160-400); White Blood Count 10.6 X10*3/uL (4.8-10.8)
[2023-01-14 07:07] LABS: Alanine Aminotransferase 12 U/L (0-31); Alkaline Phosphatase 70 U/L (39-117); Anion Gap 13 (12-20); Aspartate Amino Transferase 12 U/L (5-31); Bilirubin Total 0.4 mg/dL (0.0-1.0); Blood Urea Nitrogen 9 mg/dL (9-16); Calcium 9.1 mg/dL (8.4-10.2); Carbon Dioxide 21 mmol/L (22-29); Chloride 106 mmol/L (96-108); Creatinine Clr Calc Pharmacy 122.3; Estimated Glomerular Filt Rate > 60; Glucose Random 99 mg/dL (60-115); Potassium 3.9 mmol/L (3.3-5.1); Sodium 136 mmol/L (135-145); Total Protein 7.4 g/dL (6.5-8.0)
[2023-01-14 07:55] VITALS: BP 100/57; PULSE 66; RESP 18; O2SAT 97
--- NOTE | 2023-01-14 07:59 | PC.NURSE ---
pt alert and oriented, skin appropriate for ethnicity, respirations even and unlabored, no seizure activity noticed since arrival to the ed. pt is reporting a headache 8/10 Tylenol helped some but pt states hx of headaches but states these are getting worse and states feeling anxious and stressed out a little at home. vs stable and ns on the monitor.
[2023-01-14 08:13] LABS: Appearance Urine Clear; Color Urine Yellow; Glucose Urine UA Negative (Negative); Leukocyte Esterase Urine Negative (Negative); Nitrite Urine Negative (Negative); Urine Blood Negative (Negative); Urine Ketones Negative (Negative); Urine Protein Negative (Neg-Trace)
[2023-01-17 17:23] LABS: Levetiracetam Keppra 26.2 mcg/mL (6.0-46.0)
[2023-01-18 20:33] LABS: Lamotrigine Lamictal 6.6 mcg/mL (2.5-15.0)
== END 2023-01-14 09:30 | disposition home or self-care (01) ==
PROVIDERS: Registered Nurse Emergency; Emergency Provider Emergency Medicine Emergency Medical Services
DX: G40.909 Epilepsy, unspecified, not intractable, without status epilepticus (principal); S00.83XA Contusion of other part of head, initial encounter; W17.89XA Other fall from one level to another, initial encounter; Z79.899 Other long term (current) drug therapy; Y93.89 Activity, other specified; Y92.012 Bathroom of single-family (private) house as the place of occurrence of the external cause; Y99.9 Unspecified external cause status
CPT/HCPCS: 36415; 70450; 80053; 80175; 80177; 81003; 85025; 99284

== ENCOUNTER 2023-03-22 09:50 | Emergency (ER) | payer OTHER, SELFPAY | END 2023-03-22 12:37 | disposition left against medical advice (07) | PROVIDERS: Emergency Provider Emergency Medicine; PCP Internal Medicine | DX: R10.9 Unspecified abdominal pain (principal) ==

== ENCOUNTER 2023-05-01 15:49 | Emergency (ER) | payer OTHER, SELFPAY ==
[2023-05-01] VITALS (7 sets, daily range): BP systolic 104–128; BP diastolic 66–88; PULSE 60–104; RESP 14–17; TEMP 36.8–36.9; O2SAT 96–99; BMI 35.1
--- NOTE | ~2023-05-01 | CT_ITS ---
EXAMINATION: CT HEAD WITHOUT CONTRAST CLINICAL INFORMATION: Headache. Seizure. COMPARISON: CT head from 01/14/2023. TECHNIQUE: Contiguous axial imaging was performed from the skull base to vertex without intravenous administration of contrast. This CT examination was performed using dose optimization techniques as appropriate, variously including the following: *Automated exposure control. *Adjustment of mA and/or kV according to patient size (this includes techniques or standardized protocols for targeted exams where dose is matched to indication/reason for exam; i.e. extremities or head). *Use of iterative reconstruction technique. DLP: 640 mGy-cm FINDINGS: There is no evidence of acute intracranial hemorrhage or edematous territorial infarction. Maher-white matter differentiation is preserved. There is no abnormal attenuation within the brain parenchyma. The ventricles are normal in morphology and size. No evidence for obstructive hydrocephalus. No abnormal mass effect or midline shift. No extra-axial fluid collections. No acute soft tissue or osseous abnormalities. The mastoid air cells and visualized paranasal sinuses are clear. CT/CT head/brain wo IV con IMPRESSION: No evidence of acute intracranial hemorrhage or edematous territorial infarction.
--- NOTE | 2023-05-01 16:17 | PC.NURSE ---
Patient comes in from home, had 1 minutes seizure witnessed by family, unknown headstrike but is reporting a headache at this time. Pt verbalizes that she has not had a seizure in over a month. Pt takes medications for her seizures. Offers no complaints otherwise. Seizure precautions in place
--- NOTE | 2023-05-01 16:29 | ED_ITS ---
HPI - General Adult General Chief complaint: Seizure Stated complaint: SEIZURE Time Seen by Provider: 05/01/23 16:12 Source: patient Mode of arrival: ambulatory Limitations: no limitations History of Present Illness HPI narrative: 38-year-old female with history of seizure resents to the ED for having a seizure 1 hour ago at home. Patient states she was in bed when she had a seizure. Patient states seizure was witnessed and father. Patient did not fall off the bed or hit any objects. Patient states when she woke up she was in the ambulance. Once again patient states she had seizure in bed and family told her she did not fall off the bed. Patient states she her family informed her she was shaking while unconscious. Patient states being compliant with Lamictal and Keppra. Patient states she had seizure in bed. Patient also had seizure last month. Related Data Home Medications Medication Instructions Recorded Confirmed lamotrigine 200 mg tablet 200 mg PO BID 09/06/20 12/17/20 levetiracetam 1,000 mg tablet 1,000 mg PO BID 09/06/20 12/23/20 Previous Rx's Medication Instructions Recorded cholecalciferol (vitamin D3) 50 50 mcg PO DAILY #30 caps 09/24/20 mcg (2,000 unit) capsule cyclobenzaprine 10 mg tablet 10 mg PO TID PRN muscle spasm #10 11/15/20 tabs lidocaine 5 % topical patch 1 patch topical DAILY #15 ea 11/15/20 (Lidoderm) naproxen 500 mg tablet 500 mg PO BID PRN pain #20 tabs 11/15/20 bisacodyl 5 mg tablet,delayed 10 mg (2 x 5 mg) PO ONCE 12/06/20 release (Dulcolax (bisacodyl)) colonoscopy prep 1 day #2 tabs methylcellulose (laxative) 500 mg 500 mg PO BID #60 tabs 12/06/20 tablet (Citrucel) polyethylene glycol 3350 17 238 g PO ONCE 1 day #238 grams 12/06/20 gram/dose oral powder (Miralax) linaclotide 145 mcg capsule 145 mcg PO DAILY #30 caps 08/02/21 (Linzess) lorazepam 1 mg tablet (Ativan) 1 mg PO BID PRN anxiety/seizure 05/29/22 #10 tabs lamotrigine 100 mg tablet 250 mg (2.5 x 100 mg) PO BID 30 12/30/22 days #150 tabs cephalexin 500 mg capsule 500 mg PO Q8H 7 days #21 caps 11/14/22 ciprofloxacin HCl 500 mg tablet 500 mg PO BID #20 tabs 11/19/22 (Cipro) doxycycline hyclate 100 mg tablet 100 mg PO BID #20 tabs 11/19/22 mupirocin 2 % topical ointment 1 appl topical BID #22 grams 11/19/22 lorazepam 1 mg tablet (Ativan) 1 mg PO BEDTIME PRN sleep #14 tabs 01/07/23 Allergies Allergy/AdvReac Type Severity Reaction Status Date / Time meperidine [From Demerol] AdvReac Mild HIVES Verified 11/19/22 21:20 Review of Systems 2 Review of Systems: Seizure Yes all other systems are reviewed and are negative FORMERLY [facility], [facility] Past Medical History Medical History Chronic abdominal pain Constipation by delayed colonic transit Epilepsy H/O partial seizures Surgical History Hx of hemorrhoidectomy Hx of tubal ligation Family History Family History Maternal Grandmother Colon cancer Paternal Grandmother Stomach cancer Mother Diabetes Father Diabetes Social History Social History Household Members: Spouse and Children Alcohol intake: never Patient Tobacco Use Status: Never used Tobacco Smoked in Last 30 Days: No Use of substances other than those prescribed or required for medical reasons: No Advance Directives: No Advance Directives Information Provided: No Patient : No Current occupational status: employed 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 Physical Exam ED Vital Signs: Vital Signs - 24 hr 05/01/23 16:07 05/01/23 17:16 05/01/23 19:09 Temperature 98.5 F Pulse Rate 95 93 66 Respiratory Rate 16 15 14 Blood Pressure 115/81 111/68 Pulse Oximetry 96 99 98 Oxygen Delivery Method Room Air Room Air Room Air 05/01/23 19:54 05/01/23 21:41 05/01/23 23:35 Temperature 98.5 F 98.4 F 98.2 F Pulse Rate 71 60 66 Respiratory Rate 16 16 16 Blood Pressure 112/68 104/66 113/76 Pulse Oximetry 98 96 98 Oxygen Delivery Method Room Air Room Air Room Air BMI result Body Mass Index 35.1 Const General: cooperative, healthy appearing, comfortable, no acute distress, well developed, alert, awake and Physically active Orientation/consciousness: oriented to person, oriented to place, oriented to time and patient oriented x3 HENNV Head: Yes normal to inspection, Yes No palpable skull fracture present, Yes normocephalic, Yes atraumatic and No abrasion Ears: hearing grossly normal bilaterally, external ears normal, TM's normal bilaterally, TM normal on the right, TM normal on the left, EAC's normal, mastoids normal and no periauricular adenopathy Eyes General: appearance normal, both eyes and all related structures Neck Neck: Yes normal visual inspection, Yes full ROM, Yes no lymphadenopathy, Yes no meningeal signs, Yes trachea midline, Yes supple, No anterior neck swelling and No tender Chest Chest palpation & inspection: normal inspection of the chest and normal palpation of entire chest wall Resp Effort & Inspection: normal respiratory effort and able to speak in complete sentences Auscultation: clear to auscultation bilaterally Cardio Jugular venous distension: no JVD Heart sounds: S1 normal heart sound present and S2 normal heart sound present GI Inspection: Yes normal to inspection and No abdominal wall ecchymosis Palpation (GI): Soft to palpation, not firm, nontender, no guarding and not rigid General: No CVA tenderness and Yes no CVA tenderness Back/Spine/Pelvis Back: no CVA tenderness, No CVA tenderness and No back tenderness Skin General skin exam: no rashes or lesions noted, elasticity normal and turgor normal Neuro General: oriented to person, oriented to place, oriented to time, patient oriented x3, gait normal, tone normal, moves all extremities, Normal light touch and pain sensation, no meningeal signs, no focal motor deficits, CN's II-XI intact bilaterally and normal sensation to monofilament Extrem General: Yes normal to inspection and Yes full ROM Psych Appearance: grossly normal, well kempt and not disheveled Medications Administered Discontinued Medications Generic Name Dose Route Start Last Admin Trade Name Freq PRN Reason Stop Dose Admin Acetaminophen 975 mg 05/01/23 16:27 05/01/23 17:09 Acetaminophen 325 Mg Tablet PO 05/01/23 16:28 975 mg ONCE ONE Administration Sodium Chloride 1,000 mls @ 999 mls/hr 05/01/23 16:26 05/01/23 18:41 Ns IV 05/01/23 17:26 Infused .Q1H1M STA Infusion Sodium Chloride 1,000 mls @ 999 mls/hr 05/01/23 16:27 05/01/23 20:43 Ns IV 05/01/23 17:27 Infused .Q1H1M STA Infusion Ketorolac Tromethamine 15 mg 05/01/23 23:20 05/01/23 23:27 Ketorolac Tromethamine 15 Mg/Ml Vial IVPUSH 05/01/23 23:21 15 mg ONCE ONE Administration Lamotrigine 250 mg 05/01/23 16:36 05/01/23 17:10 Lamotrigine 100 Mg Tablet PO 05/01/23 16:37 250 mg ONCE ONE Administration Levetiracetam 1,500 mg 05/01/23 16:36 05/01/23 17:09 Levetiracetam 1,000 Mg Tablet PO 05/01/23 16:37 1,500 mg ONCE ONE Administration Ondansetron HCl 4 mg 05/01/23 16:27 05/01/23 17:10 Ondansetron Hcl 4 Mg/2 Ml Vial IVPUSH 05/01/23 16:28 4 mg ONCE ONE Administration Medical Decision Making Medical Decision Making MDM Narrative: 38-year-old female history of seizure presents to the ED for having a seizure while in bed today. Patient had a seizure last month. Patient states compliant with Lamictal and lamotrigine. Patient denies falling to the ground. Seizure was witnessed by and father. Patient was informed she was shaking in the bed. Will do medical evaluation including labs and fluids. Patient states she has headache with no signs of head trauma will give Tylenol. Will give Zofran for nausea. Patient states she is due for her Lamictal and Keppra 17:00. Will order them 23:16: Head CT scan normal. Labs are normal. Patient is safe for discharge. Patient had head CT scan done because she still complained of headache. headache resolved with toradol. Patient informed to follow-up with the primary care and neurologist. Differential Diagnosis Differential Diagnoses: The differential diagnosis associated with the presentation includes (Seizure) Admission/Observation Consideration of admission/observation: Escalation of care including admission/observation considered Lab Data MDM Lab Attestation statement: I reviewed the patient's lab results. 05/01/23 18:06 05/01/23 18:06 Labs: Lab Results 05/01/23 05/01/23 05/01/23 Range/Units 18:05 18:06 20:01 WBC 7.1 (4.8-10.8) X10*3/uL RBC 4.27 (4.20-5.50) X10*6/uL Hgb 12.6 (12.0-16.0) g/dl Hct 37.4 (37.0-47.0) % MCV 87.6 (80.0-98.0) fL MCH 29.5 (27.0-33.0) pg MCHC 33.7 (31.0-35.0) g/dl RDW 11.9 (11.0-16.0) % Plt Count 298 (160-400) X10*3/uL MPV 9.2 L (9.4-12.3) fL Immature Gran % (Auto) 0.1 (0.0-0.4) % Neut % (Auto) 71.2 (45-73) % Lymph % (Auto) 21.0 (20-40) % [place] % (Auto) 6.0 (2-11) % Eos % (Auto) 1.1 (0-4) % Baso % (Auto) 0.6 (0-2) % Lymph # (Auto) 1.5 (1.2-4.9) X10*3/uL [place] # (Auto) 0.4 (0.1-1.2) X10*3/uL Eos # (Auto) 0.1 (0.0-0.4) X10*3/uL Baso # (Auto) 0.0 (0.0-0.2) X10*3/uL Abs Immat Gran (auto) 0.01 (0.00-0.03) X10*3/uL Absolute Neuts (auto) 5.1 (2.0-8.3) x10*3/uL Absolute Nucleated RBC 0.000 (0.0-0.012) X10*3/uL Nucleated RBC % (auto) 0.0 (0.0-0.2) /100WBC Sodium 139 (135-145) mmol/L Potassium 3.8 (3.3-5.1) mmol/L Chloride 105 (96-108) mmol/L Carbon Dioxide 26 (22-29) mmol/L Anion Gap 12 (12-20) BUN 13 (9-16) mg/dL Creatinine 0.77 (0.5-1.4) mg/dL Estim Creat Clear Calc 116.1 Estimated GFR > 60 POC Glucose 109 (60-115) mg/dL Random Glucose 70 (60-115) mg/dL Calcium 9.4 (8.4-10.2) mg/dL Magnesium 2.0 (1.6-2.6) mg/dL Total Bilirubin 0.2 (0.0-1.0) mg/dL AST 13 (5-31) U/L ALT 10 (0-31) U/L Alkaline Phosphatase 71 (39-117) U/L Total Protein 7.4 (6.5-8.0) g/dL Albumin 4.1 (3.5-5.0) g/dL Beta HCG, Quant < 2 mIU/mL Urine Color Yellow Urine Appearance Clear Urine pH 6.0 (5.0-9.0) Ur Specific [place] 1.015 (1.005-1.025) Urine Protein Negative (Neg-Trace) mg/dL Urine Glucose (UA) Negative (Negative) mg/dL Urine Ketones Negative (Negative) mg/dL Urine Blood Negative (Negative) Urine Nitrite Negative (Negative) Ur Leukocyte Esterase Negative (Negative) Ethyl Alcohol < 10 mg/dL Independent Interpretation I performed an independent interpretation of an: CT Scan Radiology Impression Discussion of test interpretation with radiology: I have reviewed the radiologist's reading. Independent Historian Clinical information obtained from an independent historian. History obtained from or confirmed by: EMS External Record Review External record reviewed: Other (Prior Visit) Discharge Plan Discharge Clinical Impression: Seizure Patient Disposition: Home, Self-Care Instructions: Recurrent Seizures in Adults (ED) Additional Instructions: Recommend follow-up with your primary care provider and neurologist. Return to the ED immediately for recurring seizures, altered mental status, slurred speech, facial droop, paralysis of extremities, severe headache, or any other concerning symptoms. Prescriptions: No Action cholecalciferol (vitamin D3) 50 mcg (2,000 unit) capsule 50 mcg PO DAILY Qty: 30 3RF Linzess 145 mcg capsule 145 mcg PO DAILY Qty: 30 1RF lamotrigine 200 mg Tablet 200 mg PO BID levetiracetam 1,000 mg Tablet 1,000 mg PO BID naproxen 500 mg tablet 500 mg PO BID PRN (Reason: pain) Qty: 20 0RF cyclobenzaprine 10 mg tablet 10 mg PO TID PRN (Reason: muscle spasm) Qty: 10 0RF lidocaine [Lidoderm] 5 % adhesive patch,medicated 1 patch topical DAILY Qty: 15 0RF Rx Instructions: leave on most painful area for up to 12 hrs lorazepam [Ativan] 1 mg tablet 1 mg PO BID PRN (Reason: anxiety/seizure) Qty: 10 0RF lamotrigine 100 mg tablet 250 mg PO BID 30 Days Qty: 150 0RF cephalexin 500 mg capsule 500 mg PO Q8H 7 Days Qty: 21 0RF ciprofloxacin HCl [Cipro] 500 mg tablet 500 mg PO BID Qty: 20 0RF doxycycline hyclate 100 mg tablet 100 mg PO BID Qty: 20 0RF mupirocin 2 % ointment 1 appl topical BID Qty: 22 0RF lorazepam [Ativan] 1 mg tablet 1 mg PO BEDTIME PRN (Reason: sleep) Qty: 14 0RF Citrucel 500 mg tablet 500 mg PO BID Qty: 60 5RF bisacodyl [Dulcolax (bisacodyl)] 5 mg tablet,delayed release (DR/EC) 10 mg PO ONCE 1 Days Qty: 2 0RF Rx Instructions: Take 2 tablets by mouth at 12:00pm the day before your procedure. polyethylene glycol 3350 [Miralax] 17 gram/dose powder 238 g PO ONCE 1 Days Qty: 238 0RF Rx Instructions: Take as directed by mouth the day before your procedure. Interventions: ED Discharge Assessment Last Done: 05/01/23 23:37 Discharge Date/Time: 05/01/23 23:39 Print Language: [place]i
[2023-05-01] MEDS: Acetaminophen 325 MG TABLET 975 MG PO (17:09)
[2023-05-01] MEDS: levETIRAcetam 1,000 MG TABLET 1500 MG PO (17:09)
[2023-05-01] MEDS: lamoTRIgine 100 MG TABLET 250 MG PO (17:10)
[2023-05-01] MEDS: ondansetron HCL 4 MG/2 ML VIAL IVPUSH (17:10)
[2023-05-01] MEDS: 0.9 % Sodium Chloride 1,000 ML 999 ML IV ×2 (17:10→19:38)
--- NOTE | 2023-05-01 17:59 | PC.NURSE ---
this RN, Shelia SILVERMAN and DORITA Goyal were all unable to obtain venous access for blood work or IV. DEIRDRE restrepo
[2023-05-01 18:18] LABS: MANUAL DIFF FLAG NO
[2023-05-01 18:21] LABS: Appearance Urine Clear; Color Urine Yellow; Glucose Urine UA Negative (Negative); Leukocyte Esterase Urine Negative (Negative); Nitrite Urine Negative (Negative); Specific Gravity - Urine 1.015 (1.005-1.025); Urine Blood Negative (Negative); Urine Ketones Negative (Negative); Urine Protein Negative (Neg-Trace)
[2023-05-01 18:41] LABS: Basophils Percent Auto 0.6 % (0-2); Eosinophils Absolute Auto 0.1 X10*3/uL (0.0-0.4); Eosinophils Percent Auto 1.1 % (0-4); Hematocrit 37.4 % (37.0-47.0); Hemoglobin 12.6 g/dl (12.0-16.0); Imm Gran Abs Auto 0.01 X10*3/uL (0.00-0.03); Imm Gran Pct Auto 0.1 % (0.0-0.4); Lymphocytes Absolute Auto 1.5 X10*3/uL (1.2-4.9); Mean Corpuscular HGB Conc 33.7 g/dl (31.0-35.0); Mean Corpuscular Hemoglobin 29.5 pg (27.0-33.0); Mean Corpuscular Volume 87.6 fL (80.0-98.0); Mean Platelet Volume 9.2 fL (9.4-12.3); Monocytes Absolute Auto 0.4 X10*3/uL (0.1-1.2); Neutrophils Absolute Auto 5.1 x10*3/uL (2.0-8.3); Neutrophils Percent Auto 71.2 % (45-73); Platelet Count 298 X10*3/uL (160-400); Red Blood Count 4.27 X10*6/uL (4.20-5.50); Red Cell Distribution Width 11.9 % (11.0-16.0); White Blood Count 7.1 X10*3/uL (4.8-10.8)
[2023-05-01 18:45] LABS: Alanine Aminotransferase 10 U/L (0-31); Albumin Level 4.1 g/dL (3.5-5.0); Alkaline Phosphatase 71 U/L (39-117); Anion Gap 12 (12-20); Aspartate Amino Transferase 13 U/L (5-31); Bilirubin Total 0.2 mg/dL (0.0-1.0); Blood Urea Nitrogen 13 mg/dL (9-16); Calcium 9.4 mg/dL (8.4-10.2); Carbon Dioxide 26 mmol/L (22-29); Chloride 105 mmol/L (96-108); Creatinine Clr Calc Pharmacy 116.1; Estimated Glomerular Filt Rate > 60; Ethanol < 10 mg/dL; Glucose Random 70 mg/dL (60-115); HCG Quantitative < 2 mIU/mL; Potassium 3.8 mmol/L (3.3-5.1); Sodium 139 mmol/L (135-145); Total Protein 7.4 g/dL (6.5-8.0)
--- NOTE | 2023-05-01 18:46 | PC.NURSE ---
20g ultrasound guided IV placed by REMEDIOS Cody in L[facility]. Pt offers no complaints at this time, respirations even and unlabored, no seizure activity
[2023-05-01 21:01] LABS: Glucose, Whole Blood 109 mg/dL (60-115)
[2023-05-01] MEDS: Ketorolac Tromethamine 15 MG/ML VIAL IVPUSH (23:27)
[2023-05-06 09:14] LABS: Lamotrigine Lamictal 7.4 mcg/mL (2.5-15.0)
== END 2023-05-01 23:39 | disposition home or self-care (01) ==
PROVIDERS: Physician Assistant; Emergency Provider Emergency Medicine
DX: R56.9 Unspecified convulsions (principal); Z79.899 Other long term (current) drug therapy
CPT/HCPCS: 36415; 70450; 80053; 80175; 80307; 81003; 82947; 83735; 84702; 85025; 96361; 96374; 96375; 99284; 99285; J1885; J2405

== ENCOUNTER 2023-05-08 19:59 | Emergency (ER) | payer OTHER, SELFPAY ==
[2023-05-08 20:03] VITALS: BP 130/85; PULSE 69; O2SAT 98
[2023-05-08 20:08] VITALS: BP 110/74; PULSE 76; RESP 18; TEMP 37; O2SAT 99; BMI 33.8
--- NOTE | 2023-05-08 21:16 | ED.SEIZURE ---
HPI - Seizure General Chief Complaint: Seizure Stated Complaint: Sz lasting 1 min Time Seen by Provider: 05/08/23 21:10 Source: patient Mode of arrival: EMS Limitations: no limitations History of Present Illness HPI Narrative: Patient history of the lice epilepsy frequent episodes on Lamictal and Geeta was seen here on 05/01 comes back again as she had absence seizur while she is bed. Per patient she is able to sleep lately and has increased stress no history of tramadol of Wellbutrin intake no alcohol use no head injury Seizure History: Yes Place: Home Related Data Home Medications Medication Instructions Recorded Confirmed lamotrigine 200 mg tablet 200 mg PO BID 09/06/20 12/17/20 levetiracetam 1,000 mg tablet 1,000 mg PO BID 09/06/20 12/23/20 Previous Rx's Medication Instructions Recorded cholecalciferol (vitamin D3) 50 50 mcg PO DAILY #30 caps 09/24/20 mcg (2,000 unit) capsule cyclobenzaprine 10 mg tablet 10 mg PO TID PRN muscle spasm #10 11/15/20 tabs lidocaine 5 % topical patch 1 patch topical DAILY #15 ea 11/15/20 (Lidoderm) naproxen 500 mg tablet 500 mg PO BID PRN pain #20 tabs 11/15/20 bisacodyl 5 mg tablet,delayed 10 mg (2 x 5 mg) PO ONCE 12/06/20 release (Dulcolax (bisacodyl)) colonoscopy prep 1 day #2 tabs methylcellulose (laxative) 500 mg 500 mg PO BID #60 tabs 12/06/20 tablet (Citrucel) polyethylene glycol 3350 17 238 g PO ONCE 1 day #238 grams 12/06/20 gram/dose oral powder (Miralax) linaclotide 145 mcg capsule 145 mcg PO DAILY #30 caps 08/02/21 (Linzess) lorazepam 1 mg tablet (Ativan) 1 mg PO BID PRN anxiety/seizure 05/29/22 #10 tabs lamotrigine 100 mg tablet 250 mg (2.5 x 100 mg) PO BID 30 07/28/22 days #150 tabs cephalexin 500 mg capsule 500 mg PO Q8H 7 days #21 caps 11/14/22 ciprofloxacin HCl 500 mg tablet 500 mg PO BID #20 tabs 04/23/23 (Cipro) doxycycline hyclate 100 mg tablet 100 mg PO BID #20 tabs 11/19/22 mupirocin 2 % topical ointment 1 appl topical BID #22 grams 11/19/22 lorazepam 1 mg tablet (Ativan) 1 mg PO BEDTIME PRN sleep #14 tabs 01/07/23 lorazepam 1 mg tablet (Ativan) 1 mg PO BEDTIME PRN sleep #20 tabs 05/08/23 Allergies Allergy/AdvReac Type Severity Reaction Status Date / Time meperidine [From Demerol] AdvReac Mild HIVES Verified 11/19/22 21:20 Review of Systems Review of Systems: Yes all other systems are reviewed and are negative [facility] Past Medical History Medical History Epilepsy Chronic abdominal pain H/O partial seizures Constipation by delayed colonic transit Surgical History Hx of hemorrhoidectomy Hx of tubal ligation Family History Family History Maternal Grandmother Colon cancer Paternal Grandmother Stomach cancer Mother Diabetes Father Diabetes Social History Social History Household Members: Spouse and Children Alcohol intake: never Patient Tobacco Use Status: Never used Tobacco Advance Directives: No Advance Directives Information Provided: No Current occupational status: employed Current occupation: [employer] Physical Exam Vital Signs: Vital Signs: Last Vital Signs Temp 98.6 F 05/08/23 20:08 Pulse 76 05/08/23 20:08 Resp 18 05/08/23 20:08 BP 110/74 05/08/23 20:08 Pulse Ox 99 05/08/23 20:08 O2 Del Method Room Air 05/08/23 20:08 BMI result Body Mass Index 33.8 Appearance: Alert. Oriented X3. No acute distress. Eyes: PERRLA, No Nystagmus ENT: Pharynx normal. Oral Mucosa moist normal tongue Neck: Normal inspection. Neck supple. CVS: Normal heart rate and rhythm. Pulses normal. Respiratory: No respiratory distress. Equal air entry bilateral, no wheezing/rales/rhonchi Abdomen: Soft and nontender. Bowel sounds are present, no mass palpable, no CVA tenderness Skin: Skin warm and dry. Normal skin color. Normal skin turgor. Extremities: No lower extremity edema. No calf tenderness Neuro: Oriented X 3. No motor deficit. No sensory deficit.No cerebellar signs , cranial nerves II-XII intact Medical Decision Making Medical Decision Making [facility] Narrative: Patient with recurrent absence seizure on Lamictal and Keppra lately patient not able to sleep well and has increased stress likely the cause of seizure prior to this patient been having seizure very occasionally Lab Data [facility] Lab Attestation statement: I reviewed the patient's lab results. 05/08/23 21:28 05/08/23 21:28 Labs: Lab Results 05/08/23 Range/Units 21:28 WBC 7.1 (4.8-10.8) X10*3/uL RBC 4.58 (4.20-5.50) X10*6/uL Hgb 13.6 (12.0-16.0) g/dl Hct 40.4 (37.0-47.0) % MCV 88.2 (80.0-98.0) fL MCH 29.7 (27.0-33.0) pg MCHC 33.7 (31.0-35.0) g/dl RDW 11.9 (11.0-16.0) % Plt Count 284 (160-400) X10*3/uL MPV 9.0 L (9.4-12.3) fL Immature Gran % (Auto) 0.3 (0.0-0.4) % Neut % (Auto) 65.4 (45-73) % Lymph % (Auto) 26.0 (20-40) % [place] % (Auto) 6.5 (2-11) % Eos % (Auto) 1.4 (0-4) % Baso % (Auto) 0.4 (0-2) % Lymph # (Auto) 1.8 (1.2-4.9) X10*3/uL [place] # (Auto) 0.5 (0.1-1.2) X10*3/uL Eos # (Auto) 0.1 (0.0-0.4) X10*3/uL Baso # (Auto) 0.0 (0.0-0.2) X10*3/uL Abs Immat Gran (auto) 0.02 (0.00-0.03) X10*3/uL Absolute Neuts (auto) 4.6 (2.0-8.3) x10*3/uL Absolute Nucleated RBC 0.000 (0.0-0.012) X10*3/uL Nucleated RBC % (auto) 0.0 (0.0-0.2) /100WBC Lactic Acid 1.2 (0.5-2.0) mmol/L Discharge Plan Discharge Clinical Impression: Generalized seizure Patient Disposition: Home, Self-Care Instructions: Recurrent Seizures in Adults (ED) Additional Instructions: Continue to take your Keppra and Lamictal for seizure Ativan 1 mg every night as needed for sleep/stress Follow-up with your neurologist Prescriptions: New lorazepam [Ativan] 1 mg tablet 1 mg PO BEDTIME PRN (Reason: sleep) Qty: 20 0RF No Action cholecalciferol (vitamin D3) 50 mcg (2,000 unit) capsule 50 mcg PO DAILY Qty: 30 3RF Linzess 145 mcg capsule 145 mcg PO DAILY Qty: 30 1RF lamotrigine 200 mg Tablet 200 mg PO BID levetiracetam 1,000 mg Tablet 1,000 mg PO BID naproxen 500 mg tablet 500 mg PO BID PRN (Reason: pain) Qty: 20 0RF cyclobenzaprine 10 mg tablet 10 mg PO TID PRN (Reason: muscle spasm) Qty: 10 0RF lidocaine [Lidoderm] 5 % adhesive patch,medicated 1 patch topical DAILY Qty: 15 0RF Rx Instructions: leave on most painful area for up to 12 hrs lorazepam [Ativan] 1 mg tablet 1 mg PO BID PRN (Reason: anxiety/seizure) Qty: 10 0RF lamotrigine 100 mg tablet 250 mg PO BID 30 Days Qty: 150 0RF cephalexin 500 mg capsule 500 mg PO Q8H 7 Days Qty: 21 0RF ciprofloxacin HCl [Cipro] 500 mg tablet 500 mg PO BID Qty: 20 0RF doxycycline hyclate 100 mg tablet 100 mg PO BID Qty: 20 0RF mupirocin 2 % ointment 1 appl topical BID Qty: 22 0RF lorazepam [Ativan] 1 mg tablet 1 mg PO BEDTIME PRN (Reason: sleep) Qty: 14 0RF Citrucel 500 mg tablet 500 mg PO BID Qty: 60 5RF bisacodyl [Dulcolax (bisacodyl)] 5 mg tablet,delayed release (DR/EC) 10 mg PO ONCE 1 Days Qty: 2 0RF Rx Instructions: Take 2 tablets by mouth at 12:00pm the day before your procedure. polyethylene glycol 3350 [Miralax] 17 gram/dose powder 238 g PO ONCE 1 Days Qty: 238 0RF Rx Instructions: Take as directed by mouth the day before your procedure.
[2023-05-08 22:00] LABS: Alanine Aminotransferase 12 U/L (0-31); Albumin Level 4.4 g/dL (3.5-5.0); Alkaline Phosphatase 75 U/L (39-117); Anion Gap 15 (12-20); Aspartate Amino Transferase 14 U/L (5-31); Bilirubin Direct 0.1 mg/dL (0.0-0.5); Bilirubin Total 0.3 mg/dL (0.0-1.0); Blood Urea Nitrogen 13 mg/dL (9-16); Calcium 9.3 mg/dL (8.4-10.2); Carbon Dioxide 24 mmol/L (22-29); Chloride 104 mmol/L (96-108); Creatinine Clr Calc Pharmacy 123.5; Estimated Glomerular Filt Rate > 60; Ethanol < 10 mg/dL; Glucose Random 96 mg/dL (60-115); Potassium 4.5 mmol/L (3.3-5.1); Sodium 138 mmol/L (135-145)
== END 2023-05-08 22:24 | disposition home or self-care (01) ==
PROVIDERS: Emergency Medicine; Emergency Provider Internal Medicine
DX: R56.9 Unspecified convulsions (principal); Z79.899 Other long term (current) drug therapy
CPT/HCPCS: 36415; 80048; 80076; 80307; 83605; 84484; 84702; 85025; 99284

== ENCOUNTER 2023-05-16 00:02 | Emergency (ER) | payer OTHER, SELFPAY ==
[2023-05-16 00:28] VITALS: BP 158/67; PULSE 86; RESP 16; TEMP 36.8; O2SAT 96
--- NOTE | 2023-05-16 00:36 | ED.SEIZURE ---
HPI - Seizure General Chief Complaint: Seizure Stated Complaint: SEIZURE Time Seen by Provider: 05/16/23 00:14 Source: patient Mode of arrival: EMS Limitations: no limitations History of Present Illness HPI Narrative: Patient with history of idiopathic epilepsy for last 10 years on Lamictal 200 mg twice daily and keppra 750 twice a day been having recurrent seizures for last few weeks increased stress at home with poor sleep patient was seen here on 05/08 at that time labs were normal was prescribed Ativan for sleep today while in the bed patient had a witnessed seizure illness 20 clinic by her it was not available no injury no tongue bite Seizure History: Yes Related Data Home Medications Medication Instructions Recorded Confirmed lamotrigine 200 mg tablet 200 mg PO BID 09/06/20 12/17/20 levetiracetam 1,000 mg tablet 1,000 mg PO BID 09/06/20 12/23/20 Previous Rx's Medication Instructions Recorded cholecalciferol (vitamin D3) 50 50 mcg PO DAILY #30 caps 09/24/20 mcg (2,000 unit) capsule cyclobenzaprine 10 mg tablet 10 mg PO TID PRN muscle spasm #10 11/15/20 tabs lidocaine 5 % topical patch 1 patch topical DAILY #15 ea 11/15/20 (Lidoderm) naproxen 500 mg tablet 500 mg PO BID PRN pain #20 tabs 11/15/20 bisacodyl 5 mg tablet,delayed 10 mg (2 x 5 mg) PO ONCE 12/06/20 release (Dulcolax (bisacodyl)) colonoscopy prep 1 day #2 tabs methylcellulose (laxative) 500 mg 500 mg PO BID #60 tabs 12/06/20 tablet (Citrucel) polyethylene glycol 3350 17 238 g PO ONCE 1 day #238 grams 12/06/20 gram/dose oral powder (Miralax) linaclotide 145 mcg capsule 145 mcg PO DAILY #30 caps 08/02/21 (Linzess) lorazepam 1 mg tablet (Ativan) 1 mg PO BID PRN anxiety/seizure 05/29/22 #10 tabs lamotrigine 100 mg tablet 250 mg (2.5 x 100 mg) PO BID 30 07/28/22 days #150 tabs cephalexin 500 mg capsule 500 mg PO Q8H 7 days #21 caps 11/14/22 ciprofloxacin HCl 500 mg tablet 500 mg PO BID #20 tabs 04/23/23 (Cipro) doxycycline hyclate 100 mg tablet 100 mg PO BID #20 tabs 11/19/22 mupirocin 2 % topical ointment 1 appl topical BID #22 grams 11/19/22 lorazepam 1 mg tablet (Ativan) 1 mg PO BEDTIME PRN sleep #14 tabs 01/07/23 lorazepam 1 mg tablet (Ativan) 1 mg PO BEDTIME PRN sleep #20 tabs 05/08/23 lorazepam 1 mg tablet (Ativan) 1 mg PO BEDTIME PRN sleep #20 tabs 05/16/23 Allergies Allergy/AdvReac Type Severity Reaction Status Date / Time meperidine [From Demerol] AdvReac Mild HIVES Verified 05/16/23 00:50 Review of Systems Review of Systems: Yes all other systems are reviewed and are negative [facility] Past Medical History Medical History Epilepsy Chronic abdominal pain H/O partial seizures Constipation by delayed colonic transit Surgical History Hx of hemorrhoidectomy Hx of tubal ligation Family History Family History Maternal Grandmother Colon cancer Paternal Grandmother Stomach cancer Mother Diabetes Father Diabetes Social History Social History Household Members: Spouse and Children Alcohol intake: never Patient Tobacco Use Status: Never used Tobacco Advance Directives: No Advance Directives Information Provided: No Current occupational status: employed Current occupation: [employer] Physical Exam Vital Signs: Vital Signs: Last Vital Signs Temp 98.3 F 05/16/23 00:28 Pulse 86 05/16/23 00:28 Resp 16 05/16/23 00:28 BP 158/67 H 05/16/23 00:28 Pulse Ox 96 05/16/23 00:28 BMI result Body Mass Index 32.9 Appearance: Alert. Oriented X3. No acute distress. Eyes: PERRLA, No Nystagmus ENT: Pharynx normal. Oral Mucosa moist no tongue bite Neck: Normal inspection. Neck supple. CVS: Normal heart rate and rhythm. Pulses normal. Respiratory: No respiratory distress. Equal air entry bilateral, no wheezing/rales/rhonchi Abdomen: Soft and nontender. Bowel sounds are present, no mass palpable, no CVA tenderness Skin: Skin warm and dry. Normal skin color. Normal skin turgor. Extremities: No lower extremity edema. No calf tenderness Neuro: Oriented X 3. No motor deficit. No sensory deficit.No cerebellar signs , cranial nerves II-XII intact Medications Administered Discontinued Medications Generic Name Dose Route Start Last Admin Trade Name Freq PRN Reason Stop Dose Admin Levetiracetam 500 mg 05/16/23 00:54 05/16/23 01:09 Levetiracetam 500 Mg Tablet PO 05/16/23 00:55 500 mg ONCE ONE Administration Lorazepam 1 mg 05/16/23 00:54 05/16/23 01:09 Lorazepam 1 Mg Tablet PO 05/16/23 00:55 1 mg ONCE ONE Administration Medical Decision Making Medical Decision Making MDM Narrative: Patient with frequent seizures with increased stress and poor sleep liking the triggering factor will discharge patient home advised to discontinue lorazepam every night to sleep continue take Keppra will increase the dose to 1000 mg twice daily and continue Lamictal and follow-up with Neurology Discharge Plan Discharge Clinical Impression: Epileptic seizure Patient Disposition: Home, Self-Care Instructions: Epilepsy (ED) Additional Instructions: Increased dose of Keppra to 1000 mg twice a day Continued take Lamictal Sleep well and avoid stresses Follow-up with Neurology Prescriptions: New lorazepam [Ativan] 1 mg tablet 1 mg PO BEDTIME PRN (Reason: sleep) Qty: 20 0RF No Action cholecalciferol (vitamin D3) 50 mcg (2,000 unit) capsule 50 mcg PO DAILY Qty: 30 3RF Linzess 145 mcg capsule 145 mcg PO DAILY Qty: 30 1RF lamotrigine 200 mg Tablet 200 mg PO BID levetiracetam 1,000 mg Tablet 1,000 mg PO BID naproxen 500 mg tablet 500 mg PO BID PRN (Reason: pain) Qty: 20 0RF cyclobenzaprine 10 mg tablet 10 mg PO TID PRN (Reason: muscle spasm) Qty: 10 0RF lidocaine [Lidoderm] 5 % adhesive patch,medicated 1 patch topical DAILY Qty: 15 0RF Rx Instructions: leave on most painful area for up to 12 hrs lorazepam [Ativan] 1 mg tablet 1 mg PO BID PRN (Reason: anxiety/seizure) Qty: 10 0RF lamotrigine 100 mg tablet 250 mg PO BID 30 Days Qty: 150 0RF cephalexin 500 mg capsule 500 mg PO Q8H 7 Days Qty: 21 0RF ciprofloxacin HCl [Cipro] 500 mg tablet 500 mg PO BID Qty: 20 0RF doxycycline hyclate 100 mg tablet 100 mg PO BID Qty: 20 0RF mupirocin 2 % ointment 1 appl topical BID Qty: 22 0RF lorazepam [Ativan] 1 mg tablet 1 mg PO BEDTIME PRN (Reason: sleep) Qty: 20 0RF lorazepam [Ativan] 1 mg tablet 1 mg PO BEDTIME PRN (Reason: sleep) Qty: 14 0RF Citrucel 500 mg tablet 500 mg PO BID Qty: 60 5RF bisacodyl [Dulcolax (bisacodyl)] 5 mg tablet,delayed release (DR/EC) 10 mg PO ONCE 1 Days Qty: 2 0RF Rx Instructions: Take 2 tablets by mouth at 12:00pm the day before your procedure. polyethylene glycol 3350 [Miralax] 17 gram/dose powder 238 g PO ONCE 1 Days Qty: 238 0RF Rx Instructions: Take as directed by mouth the day before your procedure. Interventions: ED Discharge Assessment Last Done: 05/16/23 01:29 Discharge Date/Time: 05/16/23 01:31
[2023-05-16 00:50] VITALS: BMI 32.9
[2023-05-16] MEDS: LORazepam 1 MG TABLET PO (01:09)
[2023-05-16] MEDS: levETIRAcetam 500 MG TABLET PO (01:09)
== END 2023-05-16 01:31 | disposition home or self-care (01) ==
PROVIDERS: Emergency Provider Internal Medicine; PCP Internal Medicine
DX: G40.909 Epilepsy, unspecified, not intractable, without status epilepticus (principal); Z79.899 Other long term (current) drug therapy
CPT/HCPCS: 99282; 99283

== ENCOUNTER 2023-06-12 18:19 | Emergency (ER) | payer OTHER, SELFPAY ==
--- NOTE | 2023-06-12 | ECG_ITS ---
Test Reason : seizures Blood Pressure : / mmHG Vent. Rate : 092 BPM Atrial Rate : 092 BPM P-R Int : 142 ms QRS Dur : 086 ms QT Int : 374 ms P-R-T Axes : 067 059 052 degrees QTc Int : 462 ms Normal sinus rhythm Normal ECG No significant changes seen Referred By: Mary Elias Electronically Signed By:JEFFREY CANTRELL MD
[2023-06-12 18:28] VITALS: BP 113/68; PULSE 96; O2SAT 99; BMI 34.8
--- NOTE | 2023-06-12 18:37 | PC.NURSE ---
PT A+O X3, WITNESSED SEIZURE LASTING 2 MINS. HX OF SEIZURE, LAST ONE ABOUT ONE MONTH AGO. NO MEMORY OF EVENTS PRIOR TO SEIZURE. FELT TIRED ALL DAY, USUAL INDICATOR OF SEIZURE. C/O HEADACHE, UNKNOWN IF HEAD STRIKE. DENIES DIZZINESS, BLURRY VISION.
[2023-06-12 18:50] VITALS: BP 110/70; PULSE 96; RESP 18; O2SAT 98
--- NOTE | 2023-06-12 19:13 | ED_ITS ---
HPI - Seizure General Chief Complaint: Seizure Stated Complaint: seizure post ictal Time Seen by Provider: 06/12/23 18:25 History of Present Illness HPI Narrative: patient is a 38-year-old female presents today with having a history of seizure in the past. Normally gets seizure about once a month. Presented today after having a seizure today patient was in bed at the time. Her last seizure was 1 month ago patient is compliant with her Keppra and Lamictal. Denies any recreational drugs. No chest pain or shortness breath no systemic complaints. Patient from home. Seizure History: Yes Related Data Home Medications Medication Instructions Recorded Confirmed lamotrigine 200 mg tablet 200 mg PO BID 09/06/20 12/17/20 levetiracetam 1,000 mg tablet 1,000 mg PO BID 09/06/20 12/23/20 Previous Rx's Medication Instructions Recorded cholecalciferol (vitamin D3) 50 50 mcg PO DAILY #30 caps 09/24/20 mcg (2,000 unit) capsule cyclobenzaprine 10 mg tablet 10 mg PO TID PRN muscle spasm #10 11/15/20 tabs lidocaine 5 % topical patch 1 patch topical DAILY #15 ea 11/15/20 (Lidoderm) naproxen 500 mg tablet 500 mg PO BID PRN pain #20 tabs 11/15/20 bisacodyl 5 mg tablet,delayed 10 mg (2 x 5 mg) PO ONCE 12/06/20 release (Dulcolax (bisacodyl)) colonoscopy prep 1 day #2 tabs methylcellulose (laxative) 500 mg 500 mg PO BID #60 tabs 12/06/20 tablet (Citrucel) polyethylene glycol 3350 17 238 g PO ONCE 1 day #238 grams 12/06/20 gram/dose oral powder (Miralax) linaclotide 145 mcg capsule 145 mcg PO DAILY #30 caps 08/02/21 (Linzess) lorazepam 1 mg tablet (Ativan) 1 mg PO BID PRN anxiety/seizure 05/29/22 #10 tabs lamotrigine 100 mg tablet 250 mg (2.5 x 100 mg) PO BID 30 07/28/22 days #150 tabs cephalexin 500 mg capsule 500 mg PO Q8H 7 days #21 caps 11/14/22 ciprofloxacin HCl 500 mg tablet 500 mg PO BID #20 tabs 11/19/22 (Cipro) doxycycline hyclate 100 mg tablet 100 mg PO BID #20 tabs 11/19/22 mupirocin 2 % topical ointment 1 appl topical BID #22 grams 11/19/22 lorazepam 1 mg tablet (Ativan) 1 mg PO BEDTIME PRN sleep #14 tabs 01/07/23 lorazepam 1 mg tablet (Ativan) 1 mg PO BEDTIME PRN sleep #20 tabs 05/08/23 lorazepam 1 mg tablet (Ativan) 1 mg PO BEDTIME PRN sleep #20 tabs 05/16/23 Allergies Allergy/AdvReac Type Severity Reaction Status Date / Time meperidine [From Demerol] AdvReac Mild HIVES Verified 06/12/23 18:35 Review of Systems 2 Review of Systems: No fever no chills no chest pain or shortness of breath no diaphoresis Yes all other systems are reviewed and are negative [facility] Past Medical History Attestation statement: The following information was validated with the patient. Medical History Epilepsy Chronic abdominal pain H/O partial seizures Constipation by delayed colonic transit Surgical History Hx of hemorrhoidectomy Hx of tubal ligation Family History Family History Maternal Grandmother Colon cancer Paternal Grandmother Stomach cancer Mother Diabetes Father Diabetes Social History Social History Household Members: Spouse and Children Alcohol intake: never Patient Tobacco Use Status: Never used Tobacco Smoked in Last 30 Days: No Use of substances other than those prescribed or required for medical reasons: No Advance Directives: No Advance Directives Information Provided: No Patient : No Current occupational status: employed Current occupation: [employer] Physical Exam 2 Vital Signs: Vital Signs: Last Vital Signs Pulse 100 06/12/23 19:41 Resp 13 06/12/23 19:41 BP 103/68 06/12/23 19:41 Pulse Ox 98 06/12/23 19:41 O2 Del Method Room Air 06/12/23 19:41 BMI result Body Mass Index 34.8 Appearance: Alert. Oriented X3. No acute distress. Eyes: Pupils equal, round and reactive to light. ENT: Pharynx normal. Neck: Normal inspection. Neck supple. No lymph nodes noted. No crepitus CVS: Normal heart rate and rhythm. Pulses normal. Normal S1 and S2 Respiratory: No respiratory distress. Breath sounds normal. No Wheezing. No rales Abdomen: Soft and nontender. No rigidity. No distention. good BS x4 Skin: Skin warm and dry. Normal skin color. Normal skin turgor. Extremities: No lower extremity edema. Neurovascular intact to all extremities. No Lacerations. No Rash Neuro: Oriented X 3. No motor deficit. No sensory deficit. Moving all extermities. No slurred speech Medications Administered Discontinued Medications Generic Name Dose Route Start Last Admin Trade Name Freq PRN Reason Stop Dose Admin Acetaminophen 650 mg 06/12/23 19:37 06/12/23 19:43 Acetaminophen 325 Mg Tablet PO 06/12/23 19:38 650 mg ONCE ONE Administration Ondansetron HCl 4 mg 06/12/23 19:37 06/12/23 19:44 Ondansetron Hcl 4 Mg/2 Ml Vial IVPUSH 06/12/23 19:38 4 mg ONCE ONE Administration Medical Decision Making Medical Decision Making [facility] Narrative: well-appearing no acute distress. Neurologically intact. had a breakthrough seizure. The frequency of seizure has not changed. Patient claims compliance with her medication. Her electrolytes are normal. After a long discussion with patient will discharge patient home. Close follow-up with patient's neurologist. Continue current medications. Follow seizure precautions. Patient states understanding. No driving no activities are put her in danger she had a seizure that time Differential Diagnosis Differential Diagnoses: The differential diagnosis associated with the presentation includes seizure breakthrough seizure seizure secondary to noncompliance Admission/Observation Consideration of admission/observation: Escalation of care including admission/observation considered no need to admit as patient only have 1 seizure within the last month which is usual frequency. Lab Data [facility] Lab Attestation statement: I reviewed the patient's lab results. 06/12/23 19:56 06/12/23 19:56 Labs: Lab Results 06/12/23 Range/Units 19:56 WBC 9.3 (4.8-10.8) X10*3/uL RBC 4.37 (4.20-5.50) X10*6/uL Hgb 13.1 (12.0-16.0) g/dl Hct 37.9 (37.0-47.0) % MCV 86.7 (80.0-98.0) fL MCH 30.0 (27.0-33.0) pg MCHC 34.6 (31.0-35.0) g/dl RDW 11.9 (11.0-16.0) % Plt Count 272 (160-400) X10*3/uL MPV 9.2 L (9.4-12.3) fL Immature Gran % (Auto) 0.3 (0.0-0.4) % Neut % (Auto) 82.3 H (45-73) % Lymph % (Auto) 10.3 L (20-40) % [place] % (Auto) 5.9 (2-11) % Eos % (Auto) 1.0 (0-4) % Baso % (Auto) 0.2 (0-2) % Lymph # (Auto) 1.0 L (1.2-4.9) X10*3/uL [place] # (Auto) 0.6 (0.1-1.2) X10*3/uL Eos # (Auto) 0.1 (0.0-0.4) X10*3/uL Baso # (Auto) 0.0 (0.0-0.2) X10*3/uL Abs Immat Gran (auto) 0.03 (0.00-0.03) X10*3/uL Absolute Neuts (auto) 7.7 (2.0-8.3) x10*3/uL Absolute Nucleated RBC 0.000 (0.0-0.012) X10*3/uL Nucleated RBC % (auto) 0.0 (0.0-0.2) /100WBC Sodium 138 (135-145) mmol/L Potassium 4.2 (3.3-5.1) mmol/L Chloride 102 (96-108) mmol/L Carbon Dioxide 28 (22-29) mmol/L Anion Gap 12 (12-20) BUN 7 L (9-16) mg/dL Creatinine 0.80 (0.5-1.4) mg/dL Estim Creat Clear Calc 111.3 Estimated GFR > 60 Random Glucose 102 (60-115) mg/dL Calcium 9.0 (8.4-10.2) mg/dL Beta HCG, Quant < 2 mIU/mL Prescription Management I considered prescription management with: Pain Medication No need for pain medication Chronic Conditions seizure Discharge Plan Discharge Clinical Impression: Generalized seizure Patient Disposition: Home, Self-Care Instructions: Recurrent Seizures in Adults (ED) Prescriptions: No Action cholecalciferol (vitamin D3) 50 mcg (2,000 unit) capsule 50 mcg PO DAILY Qty: 30 3RF Linzess 145 mcg capsule 145 mcg PO DAILY Qty: 30 1RF lamotrigine 200 mg Tablet 200 mg PO BID levetiracetam 1,000 mg Tablet 1,000 mg PO BID naproxen 500 mg tablet 500 mg PO BID PRN (Reason: pain) Qty: 20 0RF cyclobenzaprine 10 mg tablet 10 mg PO TID PRN (Reason: muscle spasm) Qty: 10 0RF lidocaine [Lidoderm] 5 % adhesive patch,medicated 1 patch topical DAILY Qty: 15 0RF Rx Instructions: leave on most painful area for up to 12 hrs lorazepam [Ativan] 1 mg tablet 1 mg PO BID PRN (Reason: anxiety/seizure) Qty: 10 0RF lamotrigine 100 mg tablet 250 mg PO BID 30 Days Qty: 150 0RF cephalexin 500 mg capsule 500 mg PO Q8H 7 Days Qty: 21 0RF ciprofloxacin HCl [Cipro] 500 mg tablet 500 mg PO BID Qty: 20 0RF doxycycline hyclate 100 mg tablet 100 mg PO BID Qty: 20 0RF mupirocin 2 % ointment 1 appl topical BID Qty: 22 0RF lorazepam [Ativan] 1 mg tablet 1 mg PO BEDTIME PRN (Reason: sleep) Qty: 20 0RF lorazepam [Ativan] 1 mg tablet 1 mg PO BEDTIME PRN (Reason: sleep) Qty: 20 0RF lorazepam [Ativan] 1 mg tablet 1 mg PO BEDTIME PRN (Reason: sleep) Qty: 14 0RF Citrucel 500 mg tablet 500 mg PO BID Qty: 60 5RF bisacodyl [Dulcolax (bisacodyl)] 5 mg tablet,delayed release (DR/EC) 10 mg PO ONCE 1 Days Qty: 2 0RF Rx Instructions: Take 2 tablets by mouth at 12:00pm the day before your procedure. polyethylene glycol 3350 [Miralax] 17 gram/dose powder 238 g PO ONCE 1 Days Qty: 238 0RF Rx Instructions: Take as directed by mouth the day before your procedure. Referrals: Vee Shafer MD [Primary Care Provider] - 06/14/23
--- NOTE | 2023-06-12 19:29 | PC.NURSE ---
this rn assumed care of pt. pt a&ox4, respirations even and unlabored. pt reports remembering a possible seizure that her mother or father called ems for. pt currently reports headache and nausea that she reports are typical post seizure symptoms for her, provider aware. pt normal sinus on tele [id number]. resting in stretcher comfortably.
[2023-06-12 19:41] VITALS: BP 103/68; PULSE 100; RESP 13; O2SAT 98
[2023-06-12] MEDS: Acetaminophen 325 MG TABLET 650 MG PO (19:43)
[2023-06-12] MEDS: ondansetron HCL 4 MG/2 ML VIAL IVPUSH (19:44)
[2023-06-12 20:01] LABS: MANUAL DIFF FLAG NO
--- NOTE | 2023-06-12 20:04 | PC.NURSE ---
pt IV line infiltrated at this time, IV removed, new IV established in the right AC. labs obtained and sent to lab at this time.
[2023-06-12 20:05] LABS: Basophils Percent Auto 0.2 % (0-2); Eosinophils Absolute Auto 0.1 X10*3/uL (0.0-0.4); Hematocrit 37.9 % (37.0-47.0); Hemoglobin 13.1 g/dl (12.0-16.0); Imm Gran Abs Auto 0.03 X10*3/uL (0.00-0.03); Imm Gran Pct Auto 0.3 % (0.0-0.4); Lymphocytes Percent Auto 10.3 % (20-40); Mean Corpuscular HGB Conc 34.6 g/dl (31.0-35.0); Mean Corpuscular Volume 86.7 fL (80.0-98.0); Mean Platelet Volume 9.2 fL (9.4-12.3); Monocytes Absolute Auto 0.6 X10*3/uL (0.1-1.2); Monocytes Percent Auto 5.9 % (2-11); Neutrophils Absolute Auto 7.7 x10*3/uL (2.0-8.3); Neutrophils Percent Auto 82.3 % (45-73); Platelet Count 272 X10*3/uL (160-400); Red Blood Count 4.37 X10*6/uL (4.20-5.50); Red Cell Distribution Width 11.9 % (11.0-16.0); White Blood Count 9.3 X10*3/uL (4.8-10.8)
[2023-06-12 20:23] LABS: Anion Gap 12 (12-20); Blood Urea Nitrogen 7 mg/dL (9-16); Carbon Dioxide 28 mmol/L (22-29); Chloride 102 mmol/L (96-108); Creatinine Clr Calc Pharmacy 111.3; Estimated Glomerular Filt Rate > 60; Glucose Random 102 mg/dL (60-115); Potassium 4.2 mmol/L (3.3-5.1); Sodium 138 mmol/L (135-145)
[2023-06-12 20:24] LABS: HCG Quantitative < 2 mIU/mL
[2023-06-12 22:00] VITALS: BP 113/62; PULSE 60; RESP 14; O2SAT 96
== END 2023-06-12 22:16 | disposition home or self-care (01) ==
PROVIDERS: Emergency Provider Emergency Medicine Emergency Medical Services; PCP Internal Medicine
DX: G40.409 Other generalized epilepsy and epileptic syndromes, not intractable, without status epilepticus (principal)
CPT/HCPCS: 36415; 80048; 84702; 85025; 93005; 96374; 99284; 99285; J2405

== ENCOUNTER 2023-07-04 23:11 | Emergency (ER) | payer OTHER, SELFPAY ==
[2023-07-04 23:18] VITALS: BP 121/75; PULSE 89
[2023-07-04 23:23] VITALS: BP 119/71; PULSE 78; RESP 17; TEMP 36.9; O2SAT 97
[2023-07-04 23:37] VITALS: BP 119/71; PULSE 78; RESP 19; O2SAT 98; BMI 33.4
--- NOTE | 2023-07-04 23:41 | PC.NURSE ---
Pt ca&ox4, no signs of distress. Plan of care ongoing.
--- NOTE | 2023-07-05 00:17 | ED_ITS ---
HPI - Seizure General Chief Complaint: Seizure Stated Complaint: 2 SZ'S,POST ICTAL/TIRED PER EMS Time Seen by Provider: 07/04/23 23:43 Source: patient Mode of arrival: ambulatory Limitations: no limitations History of Present Illness HPI Narrative: Patient comes to the emergency room via ambulance from home. Earlier today, patient had 2 seizures which were witnessed by the patient's . Patient was already in bed. Patient states that she does not remember anything, just feels a bit tired and confused but otherwise has no headache, no pain. Patient states that approximately 3 weeks ago, patient had a breakthrough seizure, was brought here to the ED. Patient called her neurologist in [facility], they did a new MRI and EEG, patient is waiting for results, no changes to her medications were made. Patient states that for the last few weeks, patient has been having breakthrough seizures every 2-3 weeks. Seizure History: Yes Related Data Home Medications Medication Instructions Recorded Confirmed lamotrigine 200 mg tablet 200 mg PO BID 09/06/20 12/17/20 levetiracetam 1,000 mg tablet 1,000 mg PO BID 09/06/20 12/23/20 Previous Rx's Medication Instructions Recorded cholecalciferol (vitamin D3) 50 50 mcg PO DAILY #30 caps 09/24/20 mcg (2,000 unit) capsule cyclobenzaprine 10 mg tablet 10 mg PO TID PRN muscle spasm #10 11/15/20 tabs lidocaine 5 % topical patch 1 patch topical DAILY #15 ea 11/15/20 (Lidoderm) naproxen 500 mg tablet 500 mg PO BID PRN pain #20 tabs 11/15/20 bisacodyl 5 mg tablet,delayed 10 mg (2 x 5 mg) PO ONCE 12/06/20 release (Dulcolax (bisacodyl)) colonoscopy prep 1 day #2 tabs methylcellulose (laxative) 500 mg 500 mg PO BID #60 tabs 12/06/20 tablet (Citrucel) polyethylene glycol 3350 17 238 g PO ONCE 1 day #238 grams 12/06/20 gram/dose oral powder (Miralax) linaclotide 145 mcg capsule 145 mcg PO DAILY #30 caps 08/02/21 (Linzess) lorazepam 1 mg tablet (Ativan) 1 mg PO BID PRN anxiety/seizure 05/29/22 #10 tabs lamotrigine 100 mg tablet 250 mg (2.5 x 100 mg) PO BID 30 07/28/22 days #150 tabs cephalexin 500 mg capsule 500 mg PO Q8H 7 days #21 caps 11/14/22 ciprofloxacin HCl 500 mg tablet 500 mg PO BID #20 tabs 11/19/22 (Cipro) doxycycline hyclate 100 mg tablet 100 mg PO BID #20 tabs 11/19/22 mupirocin 2 % topical ointment 1 appl topical BID #22 grams 11/19/22 lorazepam 1 mg tablet (Ativan) 1 mg PO BEDTIME PRN sleep #14 tabs 01/07/23 lorazepam 1 mg tablet (Ativan) 1 mg PO BEDTIME PRN sleep #20 tabs 05/08/23 lorazepam 1 mg tablet (Ativan) 1 mg PO BEDTIME PRN sleep #20 tabs 05/16/23 lamotrigine 25 mg tablet (Lamictal) 50 mg (2 x 25 mg) PO DAILY 30 days 07/05/23 #60 tabs Allergies Allergy/AdvReac Type Severity Reaction Status Date / Time meperidine [From Demerol] AdvReac Mild HIVES Verified 06/12/23 18:35 Review of Systems 2 Review of Systems: Constitutional : No Weight loss, No Fever, No Chills, No Night Sweats, feeling tired and slightly confused ENT/Mouth : No Hearing loss, No Ear Pain, No Nasal Congestion, No Sinus Pain, No Hoarseness, No sore throat, No Rhinorrhea, No Swallowing Difficulty Eyes: No Eye Pain, No Swelling, No Redness, No Foreign Body, No Discharge, No Vision Changes Cardiovascular : No Chest Pain, No SOB, No Dyspnea on Exertion, No Orthopnea, No Edema, No Palpitations Respiratory : No Cough, No Sputum, No Wheezing, No Smoke Exposure, No Dyspnea Gastrointestinal : No Nausea, No Vomiting, No Diarrhea, No Constipation, No abdominal Pain, No Hematochezia, No Melena Genitourinary : no irregular bleeding, No Dysuria, No Urinary Frequency, No Hematuria, No Urinary Incontinence, No Urgency, No Flank Pain, No Urinary Flow Changes, No Hesitancy Musculoskeletal : No joint pain, No Myalgias, No Joint Swelling Skin : No Skin Lesions, No rash Neuro : No Weakness, No Numbness, No Paresthesias, No Loss of Consciousness, No Dizziness, No Headache, per patient , patient had a seizure Psych : No Anxiety/Panic, No Depression, No SI/HI/AH/VH, No Social Issues, Heme/Lymph: No Bruising, No Bleeding,No Lymphadenopathy Endocrine : No Polyuria, No Polydipsia, No Temperature Intolerance PMF Past Medical History Medical History Epilepsy Chronic abdominal pain H/O partial seizures Constipation by delayed colonic transit Surgical History Hx of hemorrhoidectomy Hx of tubal ligation Family History Family History Maternal Grandmother Colon cancer Paternal Grandmother Stomach cancer Mother Diabetes Father Diabetes Social History Social History Household Members: Spouse and Children Alcohol intake: never Patient Tobacco Use Status: Never used Tobacco Smoked in Last 30 Days: No Use of substances other than those prescribed or required for medical reasons: No Advance Directives: No Advance Directives Information Provided: Yes Current occupational status: employed Current occupation: [employer] Physical Exam 2 Vital Signs: Vital Signs: Last Vital Signs Temp 98.1 F 07/05/23 00:57 Pulse 63 07/05/23 00:57 Resp 17 07/05/23 00:57 BP 112/62 07/05/23 00:57 Pulse Ox 97 07/05/23 00:57 O2 Del Method Room Air 07/05/23 00:57 BMI result Body Mass Index 33.4 Const: Other: Appearance: Alert. Oriented X3. No acute distress, coherent Eyes: Pupils equal, round and reactive to light. ENT: Pharynx normal. Neck: Normal inspection. Neck supple. No lymph nodes noted. No crepitus CVS: Normal heart rate and rhythm. Pulses normal. Normal S1 and S2 Respiratory: No respiratory distress. Breath sounds normal. No Wheezing. No rales Abdomen: Soft and nontender. No rigidity. No distention. Skin: Skin warm and dry. Normal skin color. Normal skin turgor. Extremities: No lower extremity edema. No Lacerations. No Rash Neuro: Oriented X 3. No motor deficit. No sensory deficit. Moving all extremities. No slurred speech. CN 2 through 12 grossly intact Psych: calm, cooperative, normal affect Course Course Course Narrative: -all of patient's labs pending Medical Decision Making Medical Decision Making [facility] Narrative: -my lab interpretation: White blood cell count normal, lactic acid normal. Unclear if patient had tonic clonic seizure. However, patient does have history of epilepsy. -patient is already on the maximum dose of Keppra, 1500 mg b.i.d.. For the Lamictal, patient takes 200 mg b.i.d., discussed with the patient to take Lamictal 250 mg b.i.d. and to call her neurologist tomorrow and to inform him that she is still having breakthrough seizures. -patient already took her evening dose before arriving to the ED. patient was given additionally 50 mg of Lamictal. -patient overall feeling better, other than having a mild headache. No neurological deficits. Differential Diagnosis Differential Diagnoses: The differential diagnosis associated with the presentation includes (Seizure, pseudo-seizure, epilepsy) Admission/Observation Consideration of admission/observation: Escalation of care including admission/observation considered (Given patient's history of recurrent seizures, patient was considered) Lab Data [facility] Lab Attestation statement: I reviewed the patient's lab results. 07/05/23 01:09 07/05/23 01:09 Labs: Lab Results 07/05/23 Range/Units 01:09 WBC 10.4 (4.8-10.8) X10*3/uL RBC 4.36 (4.20-5.50) X10*6/uL Hgb 13.0 (12.0-16.0) g/dl Hct 38.4 (37.0-47.0) % MCV 88.1 (80.0-98.0) fL MCH 29.8 (27.0-33.0) pg MCHC 33.9 (31.0-35.0) g/dl RDW 11.9 (11.0-16.0) % Plt Count 320 (160-400) X10*3/uL MPV 9.3 L (9.4-12.3) fL Immature Gran % (Auto) 0.2 (0.0-0.4) % Neut % (Auto) 79.0 H (45-73) % Lymph % (Auto) 14.8 L (20-40) % [place] % (Auto) 4.9 (2-11) % Eos % (Auto) 0.6 (0-4) % Baso % (Auto) 0.5 (0-2) % Lymph # (Auto) 1.5 (1.2-4.9) X10*3/uL [place] # (Auto) 0.5 (0.1-1.2) X10*3/uL Eos # (Auto) 0.1 (0.0-0.4) X10*3/uL Baso # (Auto) 0.1 (0.0-0.2) X10*3/uL Abs Immat Gran (auto) 0.02 (0.00-0.03) X10*3/uL Absolute Neuts (auto) 8.2 (2.0-8.3) x10*3/uL Absolute Nucleated RBC 0.000 (0.0-0.012) X10*3/uL Nucleated RBC % (auto) 0.0 (0.0-0.2) /100WBC Lactic Acid 1.3 (0.5-2.0) mmol/L Discharge Plan Discharge Clinical Impression: Seizure Patient Disposition: Home, Self-Care Instructions: Epilepsy (ED) Additional Instructions: Please follow-up with your primary care physician and neurologist tomorrow. Do not drive until cleared by Neurology. This may be a few months. If you have any worsening or new symptoms, please return to the emergency room or call 911 Prescriptions: New lamotrigine [Lamictal] 25 mg tablet 50 mg PO DAILY 30 Days Qty: 60 1RF Rx Instructions: Please add 50 additional mg b.i.d. to your original dose of 200 mg. 250 mg oral twice a day. No Action cholecalciferol (vitamin D3) 50 mcg (2,000 unit) capsule 50 mcg PO DAILY Qty: 30 3RF Linzess 145 mcg capsule 145 mcg PO DAILY Qty: 30 1RF lamotrigine 200 mg Tablet 200 mg PO BID levetiracetam 1,000 mg Tablet 1,000 mg PO BID naproxen 500 mg tablet 500 mg PO BID PRN (Reason: pain) Qty: 20 0RF cyclobenzaprine 10 mg tablet 10 mg PO TID PRN (Reason: muscle spasm) Qty: 10 0RF lidocaine [Lidoderm] 5 % adhesive patch,medicated 1 patch topical DAILY Qty: 15 0RF Rx Instructions: leave on most painful area for up to 12 hrs lorazepam [Ativan] 1 mg tablet 1 mg PO BID PRN (Reason: anxiety/seizure) Qty: 10 0RF lamotrigine 100 mg tablet 250 mg PO BID 30 Days Qty: 150 0RF cephalexin 500 mg capsule 500 mg PO Q8H 7 Days Qty: 21 0RF ciprofloxacin HCl [Cipro] 500 mg tablet 500 mg PO BID Qty: 20 0RF doxycycline hyclate 100 mg tablet 100 mg PO BID Qty: 20 0RF mupirocin 2 % ointment 1 appl topical BID Qty: 22 0RF lorazepam [Ativan] 1 mg tablet 1 mg PO BEDTIME PRN (Reason: sleep) Qty: 20 0RF lorazepam [Ativan] 1 mg tablet 1 mg PO BEDTIME PRN (Reason: sleep) Qty: 20 0RF lorazepam [Ativan] 1 mg tablet 1 mg PO BEDTIME PRN (Reason: sleep) Qty: 14 0RF Citrucel 500 mg tablet 500 mg PO BID Qty: 60 5RF bisacodyl [Dulcolax (bisacodyl)] 5 mg tablet,delayed release (DR/EC) 10 mg PO ONCE 1 Days Qty: 2 0RF Rx Instructions: Take 2 tablets by mouth at 12:00pm the day before your procedure. polyethylene glycol 3350 [Miralax] 17 gram/dose powder 238 g PO ONCE 1 Days Qty: 238 0RF Rx Instructions: Take as directed by mouth the day before your procedure. Stand Alone Forms: Work/School Release
[2023-07-05 00:57] VITALS: BP 112/62; PULSE 63; RESP 17; TEMP 36.7; O2SAT 97
[2023-07-05 01:14] LABS: MANUAL DIFF FLAG NO
[2023-07-05 01:19] LABS: Basophils Absolute Auto 0.1 X10*3/uL (0.0-0.2); Basophils Percent Auto 0.5 % (0-2); Eosinophils Absolute Auto 0.1 X10*3/uL (0.0-0.4); Eosinophils Percent Auto 0.6 % (0-4); Hematocrit 38.4 % (37.0-47.0); Imm Gran Abs Auto 0.02 X10*3/uL (0.00-0.03); Imm Gran Pct Auto 0.2 % (0.0-0.4); Lymphocytes Absolute Auto 1.5 X10*3/uL (1.2-4.9); Lymphocytes Percent Auto 14.8 % (20-40); Mean Corpuscular HGB Conc 33.9 g/dl (31.0-35.0); Mean Corpuscular Hemoglobin 29.8 pg (27.0-33.0); Mean Corpuscular Volume 88.1 fL (80.0-98.0); Mean Platelet Volume 9.3 fL (9.4-12.3); Monocytes Absolute Auto 0.5 X10*3/uL (0.1-1.2); Monocytes Percent Auto 4.9 % (2-11); Neutrophils Absolute Auto 8.2 x10*3/uL (2.0-8.3); Platelet Count 320 X10*3/uL (160-400); Red Blood Count 4.36 X10*6/uL (4.20-5.50); Red Cell Distribution Width 11.9 % (11.0-16.0); White Blood Count 10.4 X10*3/uL (4.8-10.8)
[2023-07-05 01:24] LABS: Lactic Acid 1.3 mmol/L (0.5-2.0)
[2023-07-05 01:39] LABS: Alanine Aminotransferase 13 U/L (0-31); Albumin Level 4.1 g/dL (3.5-5.0); Alkaline Phosphatase 80 U/L (39-117); Aspartate Amino Transferase 14 U/L (5-31); Bilirubin Direct < 0.2 mg/dL (0.0-0.5); Bilirubin Total 0.2 mg/dL (0.0-1.0); Blood Urea Nitrogen 11 mg/dL (9-16); Calcium 9.3 mg/dL (8.4-10.2); Carbon Dioxide 23 mmol/L (22-29); Glucose Random 108 mg/dL (60-115); HCG Quantitative < 2 mIU/mL; Total Protein 7.5 g/dL (6.5-8.0)
[2023-07-05 01:42] LABS: Anion Gap 12 (12-20); Chloride 108 mmol/L (96-108); Creatinine Clr Calc Pharmacy 111.8; Estimated Glomerular Filt Rate > 60; Potassium 4.2 mmol/L (3.3-5.1); Sodium 139 mmol/L (135-145)
[2023-07-05] MEDS: lamoTRIgine 25 MG TABLET 50 MG PO (02:50)
[2023-07-05] MEDS: Acetaminophen 325 MG TABLET 975 MG PO (02:50)
--- NOTE | 2023-07-05 02:56 | PC.NURSE ---
Pt ca&ox4, no signs of distress. Pt medicated per mar. Plan of care ongoing.
[2023-07-10 22:38] LABS: Levetiracetam Keppra 34.4 mcg/mL (6.0-46.0)
[2023-07-11 17:24] LABS: Lamotrigine Lamictal 7.8 mcg/mL (2.5-15.0)
== END 2023-07-05 03:19 | disposition home or self-care (01) ==
PROVIDERS: Emergency Provider Emergency Medicine
DX: G40.909 Epilepsy, unspecified, not intractable, without status epilepticus (principal)
CPT/HCPCS: 36415; 80048; 80076; 80175; 80177; 83605; 84702; 85025; 99283; 99284

== ENCOUNTER 2023-07-10 02:30 | Emergency (ER) | payer OTHER, SELFPAY ==
[2023-07-10 03:30] VITALS: BP 123/48; PULSE 94; RESP 12; TEMP 37.3; O2SAT 98; BMI 35.7
--- NOTE | 2023-07-10 05:23 | ED_ITS ---
HPI - Seizure General Chief Complaint: Seizure Stated Complaint: Seizure Time Seen by Provider: 07/10/23 05:23 Source: patient Mode of arrival: EMS Limitations: no limitations History of Present Illness HPI Narrative: Patient with history of epilepsy and pseudo seizures secondary to stress on Lamictal and Keppra reports having 2 mgyp-rw-xqrd seizures witnessed by her is not available patient was seen on 07/05 for same patient been seen at [facility] also for same and they ordered for MRI which she had it. Patient feels today's seizure was not real epilepsy feels it is secondary to stress no tongue bite no incontinence no tiredness post seizure patient taking her Lamictal and Keppra on a regular basis Seizure History: Yes Related Data Home Medications Medication Instructions Recorded Confirmed lamotrigine 200 mg tablet 200 mg PO BID 09/06/20 12/17/20 levetiracetam 1,000 mg tablet 1,000 mg PO BID 09/06/20 12/23/20 Previous Rx's Medication Instructions Recorded cholecalciferol (vitamin D3) 50 50 mcg PO DAILY #30 caps 09/24/20 mcg (2,000 unit) capsule cyclobenzaprine 10 mg tablet 10 mg PO TID PRN muscle spasm #10 11/15/20 tabs lidocaine 5 % topical patch 1 patch topical DAILY #15 ea 11/15/20 (Lidoderm) naproxen 500 mg tablet 500 mg PO BID PRN pain #20 tabs 11/15/20 bisacodyl 5 mg tablet,delayed 10 mg (2 x 5 mg) PO ONCE 12/06/20 release (Dulcolax (bisacodyl)) colonoscopy prep 1 day #2 tabs methylcellulose (laxative) 500 mg 500 mg PO BID #60 tabs 12/06/20 tablet (Citrucel) polyethylene glycol 3350 17 238 g PO ONCE 1 day #238 grams 12/06/20 gram/dose oral powder (Miralax) linaclotide 145 mcg capsule 145 mcg PO DAILY #30 caps 08/02/21 (Linzess) lorazepam 1 mg tablet (Ativan) 1 mg PO BID PRN anxiety/seizure 05/29/22 #10 tabs lamotrigine 100 mg tablet 250 mg (2.5 x 100 mg) PO BID 30 07/28/22 days #150 tabs cephalexin 500 mg capsule 500 mg PO Q8H 7 days #21 caps 11/14/22 ciprofloxacin HCl 500 mg tablet 500 mg PO BID #20 tabs 11/19/22 (Cipro) doxycycline hyclate 100 mg tablet 100 mg PO BID #20 tabs 11/19/22 mupirocin 2 % topical ointment 1 appl topical BID #22 grams 11/19/22 lorazepam 1 mg tablet (Ativan) 1 mg PO BEDTIME PRN sleep #14 tabs 01/07/23 lorazepam 1 mg tablet (Ativan) 1 mg PO BEDTIME PRN sleep #20 tabs 05/08/23 lorazepam 1 mg tablet (Ativan) 1 mg PO BEDTIME PRN sleep #20 tabs 05/16/23 lamotrigine 25 mg tablet (Lamictal) 50 mg (2 x 25 mg) PO DAILY 30 days 07/05/23 #60 tabs lorazepam 1 mg tablet (Ativan) 1 mg PO BEDTIME PRN anxiety #10 07/10/23 tabs Allergies Allergy/AdvReac Type Severity Reaction Status Date / Time meperidine [From Demerol] AdvReac Mild HIVES Verified 06/12/23 18:35 Review of Systems Review of Systems: Yes all other systems are reviewed and are negative [facility] Past Medical History Medical History Epilepsy Chronic abdominal pain H/O partial seizures Constipation by delayed colonic transit Surgical History Hx of hemorrhoidectomy Hx of tubal ligation Family History Family History Maternal Grandmother Colon cancer Paternal Grandmother Stomach cancer Mother Diabetes Father Diabetes Social History Social History Household Members: Spouse and Children Alcohol intake: never Patient Tobacco Use Status: Never used Tobacco Smoked in Last 30 Days: No Use of substances other than those prescribed or required for medical reasons: No Advance Directives: No Advance Directives Information Provided: Yes Current occupational status: employed Current occupation: [employer] Physical Exam Vital Signs: Vital Signs: Last Vital Signs Temp 98.6 F 07/10/23 05:37 Pulse 84 12/12/23 05:37 Resp 17 07/10/23 05:37 BP 111/70 07/10/23 05:37 Pulse Ox 97 07/10/23 05:37 O2 Del Method Room Air 07/10/23 05:37 BMI result Body Mass Index 35.7 Appearance: Alert. Oriented X3. No acute distress. Eyes: PERRLA, No Nystagmus ENT: Pharynx normal. Oral Mucosa moist no tongue bite atraumatic normocephalic Neck: Normal inspection. Neck supple. CVS: Normal heart rate and rhythm. Pulses normal. Respiratory: No respiratory distress. Equal air entry bilateral, no wheezing/rales/rhonchi Abdomen: Soft and nontender. Bowel sounds are present, no mass palpable, no CVA tenderness Skin: Skin warm and dry. Normal skin color. Normal skin turgor. Extremities: No lower extremity edema. No calf tenderness Neuro: Oriented X 3. No motor deficit. 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 versus epilepsy given Ativan abuse follow with PCP neurologist regarding dosage Discharge Plan Discharge Clinical Impression: Epileptic seizure Patient Disposition: Home, Self-Care Instructions: Epilepsy (ED) Additional Instructions: Continue taking medications and follow with neurologist Take lorazepam 1 mg at bedtime for increased stress and seizure Prescriptions: New lorazepam [Ativan] 1 mg tablet 1 mg PO BEDTIME PRN (Reason: anxiety) Qty: 10 0RF No Action cholecalciferol (vitamin D3) 50 mcg (2,000 unit) capsule 50 mcg PO DAILY Qty: 30 3RF Linzess 145 mcg capsule 145 mcg PO DAILY Qty: 30 1RF lamotrigine 200 mg Tablet 200 mg PO BID levetiracetam 1,000 mg Tablet 1,000 mg PO BID naproxen 500 mg tablet 500 mg PO BID PRN (Reason: pain) Qty: 20 0RF cyclobenzaprine 10 mg tablet 10 mg PO TID PRN (Reason: muscle spasm) Qty: 10 0RF lidocaine [Lidoderm] 5 % adhesive patch,medicated 1 patch topical DAILY Qty: 15 0RF Rx Instructions: leave on most painful area for up to 12 hrs lorazepam [Ativan] 1 mg tablet 1 mg PO BID PRN (Reason: anxiety/seizure) Qty: 10 0RF lamotrigine 100 mg tablet 250 mg PO BID 30 Days Qty: 150 0RF cephalexin 500 mg capsule 500 mg PO Q8H 7 Days Qty: 21 0RF ciprofloxacin HCl [Cipro] 500 mg tablet 500 mg PO BID Qty: 20 0RF doxycycline hyclate 100 mg tablet 100 mg PO BID Qty: 20 0RF mupirocin 2 % ointment 1 appl topical BID Qty: 22 0RF lorazepam [Ativan] 1 mg tablet 1 mg PO BEDTIME PRN (Reason: sleep) Qty: 20 0RF lorazepam [Ativan] 1 mg tablet 1 mg PO BEDTIME PRN (Reason: sleep) Qty: 20 0RF lamotrigine [Lamictal] 25 mg tablet 50 mg PO DAILY 30 Days Qty: 60 1RF Rx Instructions: Please add 50 additional mg b.i.d. to your original dose of 200 mg. 250 mg oral twice a day. lorazepam [Ativan] 1 mg tablet 1 mg PO BEDTIME PRN (Reason: sleep) Qty: 14 0RF Citrucel 500 mg tablet 500 mg PO BID Qty: 60 5RF bisacodyl [Dulcolax (bisacodyl)] 5 mg tablet,delayed release (DR/EC) 10 mg PO ONCE 1 Days Qty: 2 0RF Rx Instructions: Take 2 tablets by mouth at 12:00pm the day before your procedure. polyethylene glycol 3350 [Miralax] 17 gram/dose powder 238 g PO ONCE 1 Days Qty: 238 0RF Rx Instructions: Take as directed by mouth the day before your procedure. Stand Alone Forms: Work/School Release Interventions: ED Discharge Assessment Last Done: 07/10/23 06:02 Discharge Date/Time: 07/10/23 06:07
[2023-07-10 05:37] VITALS: BP 111/70; PULSE 84; RESP 17; TEMP 37; O2SAT 97
--- NOTE | 2023-07-10 06:03 | PC.NURSE ---
Patient is alert and oriented x3, VSS. Patient reports mild headache, no nausea/ vomiting, no seizure activity observed during ED stay. Patient medicated with Lorazepam 1 mg PO per MD order at 04:11 am. Patient is calm and cooperative. Call [facility] within pateint's reach.
[2023-07-10] MEDS: LORazepam 1 MG TABLET PO (06:07)
== END 2023-07-10 06:07 | disposition home or self-care (01) ==
PROVIDERS: Emergency Provider Internal Medicine
DX: G40.909 Epilepsy, unspecified, not intractable, without status epilepticus (principal)
CPT/HCPCS: 99283; 99284

== ENCOUNTER 2023-09-18 13:18 | Outpatient (REF) | payer OTHER, SELFPAY | END 2023-09-18 13:19 | disposition home or self-care (01) | LOC: HO.LAB 13:18 | PROVIDERS: PCP Internal Medicine; Visit Provider Internal Medicine | DX: B37.31 Acute candidiasis of vulva and vagina (principal); R30.0 Dysuria | CPT/HCPCS: 87086 ==

== ENCOUNTER 2023-12-15 01:01 | Emergency (ER) | payer OTHER, SELFPAY ==
--- NOTE | 2023-12-15 01:05 | ECG_ITS ---
Test Reason : seizure Blood Pressure : / mmHG Vent. Rate : 085 BPM Atrial Rate : 085 BPM P-R Int : 148 ms QRS Dur : 084 ms QT Int : 380 ms P-R-T Axes : 054 052 042 degrees QTc Int : 452 ms Normal sinus rhythm Normal ECG When compared with ECG of 12-JUN-2023 18:36, No significant change was found Referred By: Evangelina Cardona Electronically Signed By:ANGEL BAPTISTE MD
[2023-12-15 01:09] VITALS: BP 122/76; PULSE 110
[2023-12-15 01:10] VITALS: BP 124/79; PULSE 101; RESP 13; TEMP 36.7; O2SAT 95
--- NOTE | 2023-12-15 01:15 | ED.SEIZURE ---
HPI - Seizure General Chief Complaint: Seizure Stated Complaint: seizure Time Seen by Provider: 12/15/23 01:11 Source: patient and EMS Mode of arrival: EMS Limitations: no limitations History of Present Illness HPI Narrative: Patient comes to the emergency room by ambulance from home. According to the patient, she had a seizure. Patient states that she does not remember much of what happened. Patient states that she is compliant with Lamictal and Keppra. At this time, patient states she feels a bit confused but otherwise has no symptoms. Denies headache. Patient denies any recent illnesses. Seizure History: Yes Related Data Home Medications ?Medication ?Instructions ?Recorded ?Confirmed lamotrigine 200 mg tablet 200 mg PO BID 09/06/20 12/17/20 levetiracetam 1,000 mg tablet 1,000 mg PO BID 09/06/20 12/23/20 Previous Rx's ?Medication ?Instructions ?Recorded cholecalciferol (vitamin D3) 50 50 mcg PO DAILY #30 caps 09/24/20 mcg (2,000 unit) capsule cyclobenzaprine 10 mg tablet 10 mg PO TID PRN muscle spasm #10 11/15/20 tabs lidocaine 5 % topical patch 1 patch topical DAILY #15 ea 11/15/20 (Lidoderm) naproxen 500 mg tablet 500 mg PO BID PRN pain #20 tabs 11/15/20 bisacodyl 5 mg tablet,delayed 10 mg (2 x 5 mg) PO ONCE 12/06/20 release (Dulcolax (bisacodyl)) colonoscopy prep 1 day #2 tabs methylcellulose (laxative) 500 mg 500 mg PO BID #60 tabs 12/06/20 tablet (Citrucel) polyethylene glycol 3350 17 238 g PO ONCE 1 day #238 grams 12/06/20 gram/dose oral powder (Miralax) linaclotide 145 mcg capsule 145 mcg PO DAILY #30 caps 08/02/21 (Linzess) lorazepam 1 mg tablet (Ativan) 1 mg PO BID PRN anxiety/seizure 05/29/22 #10 tabs lamotrigine 100 mg tablet 250 mg (2.5 x 100 mg) PO BID 30 07/28/22 days #150 tabs cephalexin 500 mg capsule 500 mg PO Q8H 7 days #21 caps 11/14/22 ciprofloxacin HCl 500 mg tablet 500 mg PO BID #20 tabs 11/19/22 (Cipro) doxycycline hyclate 100 mg tablet 100 mg PO BID #20 tabs 11/19/22 mupirocin 2 % topical ointment 1 appl topical BID #22 grams 11/19/22 lorazepam 1 mg tablet (Ativan) 1 mg PO BEDTIME PRN sleep #14 tabs 01/07/23 lorazepam 1 mg tablet (Ativan) 1 mg PO BEDTIME PRN sleep #20 tabs 05/08/23 lorazepam 1 mg tablet (Ativan) 1 mg PO BEDTIME PRN sleep #20 tabs 05/16/23 lamotrigine 25 mg tablet (Lamictal) 50 mg (2 x 25 mg) PO DAILY 30 days 07/05/23 #60 tabs lorazepam 1 mg tablet (Ativan) 1 mg PO BEDTIME PRN anxiety #10 07/10/23 tabs lamotrigine 150 mg tablet 300 mg (2 x 150 mg) PO BID 1 month 12/15/23 (Lamictal) #120 tabs Allergies Allergy/AdvReac Type Severity Reaction Status Date / Time meperidine [From Demerol] AdvReac Mild HIVES Verified 06/12/23 18:35 Review of Systems Review of Systems: Constitutional : No Weight loss, No Fever, No Chills, No Night Sweats, No Fatigue, No Malaise ENT/Mouth : No Hearing loss, No Ear Pain, No Nasal Congestion, No Sinus Pain, No Hoarseness, No sore throat, No Rhinorrhea, No Swallowing Difficulty Eyes: No Eye Pain, No Swelling, No Redness, No Foreign Body, No Discharge, No Vision Changes Cardiovascular : No Chest Pain, No SOB, No Dyspnea on Exertion, No Orthopnea, No Edema, No Palpitations Respiratory : No Cough, No Sputum, No Wheezing, No Smoke Exposure, No Dyspnea Gastrointestinal : No Nausea, No Vomiting, No Diarrhea, No Constipation, No abdominal Pain, No Hematochezia, No Melena Genitourinary : no irregular bleeding, No Dysuria, No Urinary Frequency, No Hematuria, No Urinary Incontinence, No Urgency, No Flank Pain, No Urinary Flow Changes, No Hesitancy Musculoskeletal : No joint pain, No Myalgias, No Joint Swelling Skin : No Skin Lesions, No rash Neuro : No Weakness, No Numbness, No Paresthesias, No Loss of Consciousness, No Dizziness, No Headache, complaining of having a seizure Psych : No Anxiety/Panic, No Depression, No SI/HI/AH/VH, No Social Issues, Heme/Lymph: No Bruising, No Bleeding,No Lymphadenopathy Endocrine : No Polyuria, No Polydipsia, No Temperature Intolerance PMF Past Medical History Medical History Epilepsy Chronic abdominal pain H/O partial seizures Constipation by delayed colonic transit Surgical History Hx of hemorrhoidectomy Hx of tubal ligation Family History Family History Maternal Grandmother Colon cancer Paternal Grandmother Stomach cancer Mother Diabetes Father Diabetes Social History Social History Household Members: Spouse and Children Alcohol intake: never Patient Tobacco Use Status: Never used Tobacco Smoked in Last 30 Days: No Advance Directives: No Advance Directives Information Provided: Yes Current occupational status: employed 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 Oriented X3. No acute distress. Eyes: Pupils equal, round and reactive to light. ENT: Pharynx normal. Neck: Normal inspection. Neck supple. No lymph nodes noted. No crepitus CVS: Normal heart rate and rhythm. Pulses normal. Normal S1 and S2 Respiratory: No respiratory distress. Breath sounds normal. No Wheezing. No rales Abdomen: Soft and nontender. No rigidity. No distention. Skin: Skin warm and dry. Normal skin color. Normal skin turgor. Extremities: No lower extremity edema. No Lacerations. No Rash Neuro: Oriented X 3. No motor deficit. No sensory deficit. Moving all extremities. No slurred speech. CN 2 through 12 grossly intact Psych: calm, cooperative, normal affect Course Course Course Narrative: -all of patient's labs and imaging pending Medications Administered Discontinued Medications Generic Name Dose Route Start Last Admin Trade Name Lucina PRN Reason Stop Dose Admin Sodium Chloride 1,000 mls @ 999 mls/hr 12/15/23 01:04 12/15/23 01:30 Ns IVCONT 12/15/23 02:04 999 mls/hr .Q1H1M ONE Administration Ondansetron HCl 4 mg 12/15/23 01:55 12/15/23 02:00 Ondansetron Hcl 4 Mg/2 Ml Vial IVPUSH 12/15/23 01:56 4 mg ONCE ONE Administration Medical Decision Making Medical Decision Making MDM Narrative: My interpretation of labs: Hematology and chemistry at baseline. Patient's lactic acid is 3.2 the secondary to a seizure. Sepsis is not suspected. -at home, patient takes Lamictal 200 mg b.i.d. and Keppra 150 mg b.i.d.. -here in the emergency room patient was given 2 mg of Ativan. -patient feeling better, no seizures activities. -discussed with the patient to increase her Lamictal to 300 mg b.i.d. and to have close follow-up with her primary care physician and neurologist. Differential Diagnosis Differential Diagnoses: The differential diagnosis associated with the presentation includes (Breakthrough seizure, pseudo-seizure, clonic seizure) Admission/Observation Consideration of admission/observation: Escalation of care including admission/observation considered (Given patient's breakthrough seizure history, admission/observation was considered) Lab Data MDM Lab Attestation statement: I reviewed the patient's lab results. 12/15/23 01:19 12/15/23 01:19 Labs: Lab Results 12/15/23 12/15/23 Range/Units 01:19 02:44 WBC 9.1 (4.8-10.8) X10*3/uL RBC 4.36 (4.20-5.50) X10*6/uL Hgb 13.4 (12.0-16.0) g/dl Hct 40.0 (37.0-47.0) % MCV 91.7 (80.0-98.0) fL MCH 30.7 (27.0-33.0) pg MCHC 33.5 (31.0-35.0) g/dl RDW 12.2 (11.0-16.0) % Plt Count 276 (160-400) X10*3/uL MPV 9.1 L (9.4-12.3) fL Immature Gran % (Auto) 0.2 (0.0-0.4) % Neut % (Auto) 59.2 (45-73) % Lymph % (Auto) 31.9 (20-40) % [place] % (Auto) 6.6 (2-11) % Eos % (Auto) 1.6 (0-4) % Baso % (Auto) 0.5 (0-2) % Lymph # (Auto) 2.9 (1.2-4.9) X10*3/uL [place] # (Auto) 0.6 (0.1-1.2) X10*3/uL Eos # (Auto) 0.2 (0.0-0.4) X10*3/uL Baso # (Auto) 0.1 (0.0-0.2) X10*3/uL Abs Immat Gran (auto) 0.02 (0.00-0.03) X10*3/uL Absolute Neuts (auto) 5.4 (2.0-8.3) x10*3/uL Absolute Nucleated RBC 0.000 (0.0-0.012) X10*3/uL Nucleated RBC % (auto) 0.0 (0.0-0.2) /100WBC Sodium 141 (135-145) mmol/L Potassium 3.8 (3.3-5.1) mmol/L Chloride 104 (96-108) mmol/L Carbon Dioxide 23 (22-29) mmol/L Anion Gap 18 (12-20) BUN 13 (9-16) mg/dL Creatinine 1.08 (0.5-1.4) mg/dL Estim Creat Clear Calc TNP Estimated GFR 56 Random Glucose 94 (60-115) mg/dL Lactic Acid 3.3 H* (0.5-2.0) mmol/L Calcium 9.6 (8.4-10.2) mg/dL Total Bilirubin 0.2 (0.0-1.0) mg/dL Direct Bilirubin < 0.2 (0.0-0.5) mg/dL AST 15 (5-31) U/L ALT 14 (0-31) U/L Alkaline Phosphatase 86 (39-117) U/L Total Protein 7.9 (6.5-8.0) g/dL Albumin 4.3 (3.5-5.0) g/dL Urine Color Yellow Urine Appearance Clear Urine pH 7.0 (5.0-9.0) Ur Specific [place] 1.025 (1.005-1.025) Urine Protein Trace (Neg-Trace) mg/dL Urine Glucose (UA) Negative (Negative) mg/dL Urine Ketones Trace (Negative) mg/dL Urine Blood Negative (Negative) Urine Nitrite Negative (Negative) Ur Leukocyte Esterase Negative (Negative) Urine Opiates Screen Not Detected (Not Detect) Ur Buprenorphine Scrn Not Detected (Not Detect) ng/mL Ur Oxycodone Screen Not Detected (Not Detect) ng/mL Urine Methadone Screen Not Detected (Not Detect) ng/mL Urine Fentanyl Screen Not Detected (Not Detect) Ur Barbiturates Screen Not Detected (Not Detect) Ur Phencyclidine Scrn Not Detected (Not Detect) Ur Amphetamines Screen Not Detected (Not Detect) U Benzodiazepines Scrn Not Detected (Not Detect) Urine Cocaine Screen Not Detected (Not Detect) U Marijuana (THC) Screen Not Detected (Not Detect) Ethyl Alcohol < 10 mg/dL Critical Care Time Critical Care Time Critical Care Time: Yes Total Critical Care Time: 60 Attestation: I have personally provided critical care time. Time includes review of lab data, radiology results, discussion with consultants, and monitoring for potential decompensation. Intervention performed as documented. Discharge Plan Discharge Clinical Impression: Breakthrough seizure Patient Disposition: Home, Self-Care Instructions: Recurrent Seizures in Adults (ED) Additional Instructions: Please increase Lamictal to 300 mg b.i.d.. Keep taking Keppra as prescribed. Please have close follow-up with your primary care physician and neurologist Prescriptions: New lamotrigine [Lamictal] 150 mg tablet 300 mg PO BID 30 Days Qty: 120 0RF No Action cholecalciferol (vitamin D3) 50 mcg (2,000 unit) capsule 50 mcg PO DAILY Qty: 30 3RF Linzess 145 mcg capsule 145 mcg PO DAILY Qty: 30 1RF lamotrigine 200 mg Tablet 200 mg PO BID levetiracetam 1,000 mg Tablet 1,000 mg PO BID naproxen 500 mg tablet 500 mg PO BID PRN (Reason: pain) Qty: 20 0RF cyclobenzaprine 10 mg tablet 10 mg PO TID PRN (Reason: muscle spasm) Qty: 10 0RF lidocaine [Lidoderm] 5 % adhesive patch,medicated 1 patch topical DAILY Qty: 15 0RF Rx Instructions: leave on most painful area for up to 12 hrs lorazepam [Ativan] 1 mg tablet 1 mg PO BID PRN (Reason: anxiety/seizure) Qty: 10 0RF lamotrigine 100 mg tablet 250 mg PO BID 30 Days Qty: 150 0RF cephalexin 500 mg capsule 500 mg PO Q8H 7 Days Qty: 21 0RF ciprofloxacin HCl [Cipro] 500 mg tablet 500 mg PO BID Qty: 20 0RF doxycycline hyclate 100 mg tablet 100 mg PO BID Qty: 20 0RF mupirocin 2 % ointment 1 appl topical BID Qty: 22 0RF lorazepam [Ativan] 1 mg tablet 1 mg PO BEDTIME PRN (Reason: sleep) Qty: 20 0RF lorazepam [Ativan] 1 mg tablet 1 mg PO BEDTIME PRN (Reason: sleep) Qty: 20 0RF lamotrigine [Lamictal] 25 mg tablet 50 mg PO DAILY 30 Days Qty: 60 1RF Rx Instructions: Please add 50 additional mg b.i.d. to your original dose of 200 mg. 250 mg oral twice a day. lorazepam [Ativan] 1 mg tablet 1 mg PO BEDTIME PRN (Reason: sleep) Qty: 14 0RF lorazepam [Ativan] 1 mg tablet 1 mg PO BEDTIME PRN (Reason: anxiety) Qty: 10 0RF Citrucel 500 mg tablet 500 mg PO BID Qty: 60 5RF bisacodyl [Dulcolax (bisacodyl)] 5 mg tablet,delayed release (DR/EC) 10 mg PO ONCE 1 Days Qty: 2 0RF Rx Instructions: Take 2 tablets by mouth at 12:00pm the day before your procedure. polyethylene glycol 3350 [Miralax] 17 gram/dose powder 238 g PO ONCE 1 Days Qty: 238 0RF Rx Instructions: Take as directed by mouth the day before your procedure. Print Language: [place] Citizen
[2023-12-15 01:26] LABS: Basophils Absolute Auto 0.1 X10*3/uL (0.0-0.2); Basophils Percent Auto 0.5 % (0-2); Eosinophils Absolute Auto 0.2 X10*3/uL (0.0-0.4); Eosinophils Percent Auto 1.6 % (0-4); Hemoglobin 13.4 g/dl (12.0-16.0); Imm Gran Abs Auto 0.02 X10*3/uL (0.00-0.03); Imm Gran Pct Auto 0.2 % (0.0-0.4); Lymphocytes Absolute Auto 2.9 X10*3/uL (1.2-4.9); Lymphocytes Percent Auto 31.9 % (20-40); MANUAL DIFF FLAG NO; Mean Corpuscular HGB Conc 33.5 g/dl (31.0-35.0); Mean Corpuscular Hemoglobin 30.7 pg (27.0-33.0); Mean Corpuscular Volume 91.7 fL (80.0-98.0); Mean Platelet Volume 9.1 fL (9.4-12.3); Monocytes Absolute Auto 0.6 X10*3/uL (0.1-1.2); Monocytes Percent Auto 6.6 % (2-11); Neutrophils Absolute Auto 5.4 x10*3/uL (2.0-8.3); Neutrophils Percent Auto 59.2 % (45-73); Platelet Count 276 X10*3/uL (160-400); Red Blood Count 4.36 X10*6/uL (4.20-5.50); Red Cell Distribution Width 12.2 % (11.0-16.0); White Blood Count 9.1 X10*3/uL (4.8-10.8)
[2023-12-15 01:30] VITALS: BMI 32.5
[2023-12-15] MEDS: 0.9 % Sodium Chloride 1,000 ML 999 ML IVCONT (01:30)
[2023-12-15 01:41] LABS: Ethanol < 10 mg/dL
[2023-12-15 01:43] LABS: Alanine Aminotransferase 14 U/L (0-31); Albumin Level 4.3 g/dL (3.5-5.0); Alkaline Phosphatase 86 U/L (39-117); Anion Gap 18 (12-20); Aspartate Amino Transferase 15 U/L (5-31); Bilirubin Direct < 0.2 mg/dL (0.0-0.5); Bilirubin Total 0.2 mg/dL (0.0-1.0); Blood Urea Nitrogen 13 mg/dL (9-16); Calcium 9.6 mg/dL (8.4-10.2); Carbon Dioxide 23 mmol/L (22-29); Chloride 104 mmol/L (96-108); Estimated Glomerular Filt Rate 56; Glucose Random 94 mg/dL (60-115); Lactic Acid 3.3 mmol/L (0.5-2.0); Potassium 3.8 mmol/L (3.3-5.1); Sodium 141 mmol/L (135-145); Total Protein 7.9 g/dL (6.5-8.0)
[2023-12-15] MEDS: ondansetron HCL 4 MG/2 ML VIAL IVPUSH (02:00)
[2023-12-15 02:50] LABS: Appearance Urine Clear; Color Urine Yellow; Glucose Urine UA Negative (Negative); Leukocyte Esterase Urine Negative (Negative); Nitrite Urine Negative (Negative); Specific Gravity - Urine 1.025 (1.005-1.025); Urine Blood Negative (Negative); Urine Ketones Trace mg/dL (Negative); Urine Protein Trace mg/dL (Neg-Trace)
[2023-12-15 03:03] LABS: Amphetamine Screen Urine Not Detected (Not Detect); Barbiturates, Urine Not Detected (Not Detect); Benzodiazepines Screen Urine Not Detected (Not Detect); Buprenorphine Scr Not Detected (Not Detect); Cannabinoid Screen Urine Not Detected (Not Detect); Cocaine Screen Urine Not Detected (Not Detect); Fentanyl, urine Not Detected (Not Detect); Methadone Screen, Urine Not Detected (Not Detect); Opiate Screen Urine Not Detected (Not Detect); Oxycodone Screen Urine Not Detected (Not Detect); Phencyclidine Screen Urine Not Detected (Not Detect)
[2023-12-15 03:25] LABS: Reflex Lactate? Lactic Acid Added
[2023-12-15 03:38] VITALS: PULSE 81; RESP 14; O2SAT 98
--- NOTE | 2023-12-15 03:44 | PC.NURSE ---
handoff to beatriz hopkins rn
[2023-12-15 04:59] VITALS: BP 124/79; PULSE 81; RESP 17; TEMP 36.6; O2SAT 98
[2023-12-20 08:53] LABS: Levetiracetam Keppra 23.2 mcg/mL (6.0-46.0)
[2023-12-20 15:24] LABS: Lamotrigine Lamictal 6.8 mcg/mL (2.5-15.0)
== END 2023-12-15 05:00 | disposition home or self-care (01) ==
PROVIDERS: Emergency Provider Emergency Medicine
DX: G40.909 Epilepsy, unspecified, not intractable, without status epilepticus (principal); Z79.899 Other long term (current) drug therapy
CPT/HCPCS: 36415; 80048; 80076; 80175; 80177; 80307; 81003; 83605; 85025; 93005; 96361; 96374; 99284; J2405

== ENCOUNTER → 2023-12-15 01:05 | Outpatient (BNV) | payer OTHER, SELFPAY | PROVIDERS: Emergency Provider Emergency Medicine; Visit Provider Internal Medicine Cardiovascular Disease | DX: G40.89 Other seizures (principal) | CPT/HCPCS: 93010 ==

== ENCOUNTER 2024-02-12 01:50 | Emergency (ER) | payer OTHER, SELFPAY ==
[2024-02-12 01:53] VITALS: BP 110/48; BP 123/74; PULSE 100; PULSE 90; RESP 12; TEMP 36.8; O2SAT 95; O2SAT 97; BMI 33.1
--- NOTE | 2024-02-12 01:59 | ECG_ITS ---
Test Reason : SEIZURE Blood Pressure : / mmHG Vent. Rate : 084 BPM Atrial Rate : 084 BPM P-R Int : 148 ms QRS Dur : 078 ms QT Int : 388 ms P-R-T Axes : 049 047 038 degrees QTc Int : 458 ms Normal sinus rhythm Normal ECG When compared with ECG of 15-DEC-2023 01:21, No significant change was found Referred By: Generic ED Physician Electronically Signed By:ANGEL BAPTISTE MD
[2024-02-12 02:04] VITALS: BP 110/48; PULSE 93; RESP 12; TEMP 36.8; O2SAT 95
[2024-02-12 02:10] LABS: MANUAL DIFF FLAG NO
[2024-02-12 02:12] LABS: Basophils Absolute Auto 0.1 X10*3/uL (0.0-0.2); Basophils Percent Auto 0.6 % (0-2); Eosinophils Absolute Auto 0.2 X10*3/uL (0.0-0.4); Eosinophils Percent Auto 1.9 % (0-4); Hematocrit 38.7 % (37.0-47.0); Hemoglobin 13.4 g/dl (12.0-16.0); Imm Gran Abs Auto 0.02 X10*3/uL (0.00-0.03); Imm Gran Pct Auto 0.2 % (0.0-0.4); Lymphocytes Absolute Auto 2.7 X10*3/uL (1.2-4.9); Lymphocytes Percent Auto 32.8 % (20-40); Mean Corpuscular HGB Conc 34.6 g/dl (31.0-35.0); Mean Corpuscular Hemoglobin 31.2 pg (27.0-33.0); Mean Corpuscular Volume 90.2 fL (80.0-98.0); Mean Platelet Volume 8.9 fL (9.4-12.3); Monocytes Absolute Auto 0.5 X10*3/uL (0.1-1.2); Monocytes Percent Auto 6.2 % (2-11); Neutrophils Absolute Auto 4.8 x10*3/uL (2.0-8.3); Neutrophils Percent Auto 58.3 % (45-73); Platelet Count 300 X10*3/uL (160-400); Red Blood Count 4.29 X10*6/uL (4.20-5.50); Red Cell Distribution Width 12.3 % (11.0-16.0); White Blood Count 8.2 X10*3/uL (4.8-10.8)
--- NOTE | 2024-02-12 02:21 | ED_ITS ---
HPI - Seizure General Chief Complaint: Seizure Stated Complaint: seizure Time Seen by Provider: 02/12/24 02:21 Source: patient Mode of arrival: ambulatory Limitations: no limitations History of Present Illness ED Provider: ting CLAY Narrative: Patient history of epilepsy and anxiety induced pseudo seizures on Lamictal and Keppra been under increased stress lately went to sleep noticed patient is having seizure which lasted for about 1 minutes no trauma no injury no tongue bite patient feel this seizure likely from increased stress not real epilepsy patient had poor sleep lately Seizure History: Yes Related Data Home Medications ?Medication ?Instructions ?Recorded ?Confirmed lamotrigine 200 mg tablet 200 mg PO BID 09/06/20 12/17/20 levetiracetam 1,000 mg tablet 1,000 mg PO BID 09/06/20 12/23/20 Previous Rx's ?Medication ?Instructions ?Recorded cholecalciferol (vitamin D3) 50 50 mcg PO DAILY #30 caps 09/24/20 mcg (2,000 unit) capsule cyclobenzaprine 10 mg tablet 10 mg PO TID PRN muscle spasm #10 11/15/20 tabs lidocaine 5 % topical patch 1 patch topical DAILY #15 ea 11/15/20 (Lidoderm) naproxen 500 mg tablet 500 mg PO BID PRN pain #20 tabs 11/15/20 bisacodyl 5 mg tablet,delayed 10 mg (2 x 5 mg) PO ONCE 12/06/20 release (Dulcolax (bisacodyl)) colonoscopy prep 1 day #2 tabs methylcellulose (laxative) 500 mg 500 mg PO BID #60 tabs 12/06/20 tablet (Citrucel) polyethylene glycol 3350 17 238 g PO ONCE 1 day #238 grams 12/06/20 gram/dose oral powder (Miralax) linaclotide 145 mcg capsule 145 mcg PO DAILY #30 caps 08/02/21 (Linzess) lorazepam 1 mg tablet (Ativan) 1 mg PO BID PRN anxiety/seizure 05/29/22 #10 tabs lamotrigine 100 mg tablet 250 mg (2.5 x 100 mg) PO BID 30 07/28/22 days #150 tabs cephalexin 500 mg capsule 500 mg PO Q8H 7 days #21 caps 11/14/22 ciprofloxacin HCl 500 mg tablet 500 mg PO BID #20 tabs 11/19/22 (Cipro) doxycycline hyclate 100 mg tablet 100 mg PO BID #20 tabs 11/19/22 mupirocin 2 % topical ointment 1 appl topical BID #22 grams 11/19/22 lorazepam 1 mg tablet (Ativan) 1 mg PO BEDTIME PRN sleep #14 tabs 01/07/23 lorazepam 1 mg tablet (Ativan) 1 mg PO BEDTIME PRN sleep #20 tabs 05/08/23 lorazepam 1 mg tablet (Ativan) 1 mg PO BEDTIME PRN sleep #20 tabs 05/16/23 lamotrigine 25 mg tablet (Lamictal) 50 mg (2 x 25 mg) PO DAILY 30 days 07/05/23 #60 tabs lorazepam 1 mg tablet (Ativan) 1 mg PO BEDTIME PRN anxiety #10 07/10/23 tabs lamotrigine 150 mg tablet 300 mg (2 x 150 mg) PO BID 1 month 12/15/23 (Lamictal) #120 tabs lorazepam 1 mg tablet (Ativan) 1 mg PO BEDTIME PRN anxiety/sleep 02/12/24 #7 tabs Allergies Allergy/AdvReac Type Severity Reaction Status Date / Time meperidine [From Demerol] AdvReac Mild HIVES Verified 02/12/24 01:56 Review of Systems 2 Review of Systems: Yes all other systems are reviewed and are negative PMFSH Past Medical History Medical History Epilepsy Chronic abdominal pain H/O partial seizures Constipation by delayed colonic transit Surgical History Hx of hemorrhoidectomy Hx of tubal ligation Family History Family History Maternal Grandmother Colon cancer Paternal Grandmother Stomach cancer Mother Diabetes Father Diabetes Social History Social History Household Members: Spouse and Children Alcohol intake: never Patient Tobacco Use Status: Never used Tobacco Smoked in Last 30 Days: No Use of substances other than those prescribed or required for medical reasons: No Advance Directives: No Advance Directives Information Provided: Yes Do you have a plan to hurt others: No Plan Current occupational status: employed Current occupation: [employer] Physical Exam 2 Vital Signs: Vital Signs: Last Vital Signs Temp 98.2 F 02/12/24 04:00 Pulse 80 02/12/24 04:00 Resp 19 02/12/24 04:00 BP 101/54 L 02/12/24 04:00 Pulse Ox 94 02/12/24 04:00 O2 Del Method Room Air 02/12/24 04:00 BMI result Body Mass Index 33.1 Appearance: Alert. Oriented X3. No acute distress. Eyes: PERRLA, No Nystagmus ENT: Pharynx normal. Oral Mucosa moist no tongue bite Neck: Normal inspection. Neck supple. CVS: Normal heart rate and rhythm. Pulses normal. Respiratory: No respiratory distress. Equal air entry bilateral, no wheezing/rales/rhonchi Abdomen: Soft and nontender. Bowel sounds are present, no mass palpable, no CVA tenderness Skin: Skin warm and dry. Normal skin color. Normal skin turgor. Extremities: No lower extremity edema. No calf tenderness Neuro: Oriented X 3. No motor deficit. No sensory deficit.No cerebellar signs , cranial nerves II-XII intact Medications Administered Discontinued Medications Generic Name Dose Route Start Last Admin Trade Name Freq PRN Reason Stop Dose Admin Lorazepam 1 mg 02/12/24 02:29 02/12/24 02:33 Lorazepam 2 Mg/Ml Vial IVPUSH 02/12/24 02:30 1 mg ONCE ONE Administration Ondansetron HCl 4 mg 02/12/24 02:29 02/12/24 02:33 Ondansetron Hcl 4 Mg/2 Ml Vial IVPUSH 02/12/24 02:30 4 mg ONCE ONE Administration Medical Decision Making Medical Decision Making [facility] Narrative: Patient is a epilepsy/pseudo seizures likely anxiety induced seizure vitals stable will give Ativan discharge patient home advised to continue medications and follow up with your neurologist Lab Data [facility] Lab Attestation statement: I reviewed the patient's lab results. 02/12/24 02:04 02/12/24 02:04 Labs: Lab Results 02/12/24 Range/Units 02:04 WBC 8.2 (4.8-10.8) X10*3/uL RBC 4.29 (4.20-5.50) X10*6/uL Hgb 13.4 (12.0-16.0) g/dl Hct 38.7 (37.0-47.0) % MCV 90.2 (80.0-98.0) fL MCH 31.2 (27.0-33.0) pg MCHC 34.6 (31.0-35.0) g/dl RDW 12.3 (11.0-16.0) % Plt Count 300 (160-400) X10*3/uL MPV 8.9 L (9.4-12.3) fL Immature Gran % (Auto) 0.2 (0.0-0.4) % Neut % (Auto) 58.3 (45-73) % Lymph % (Auto) 32.8 (20-40) % [place] % (Auto) 6.2 (2-11) % Eos % (Auto) 1.9 (0-4) % Baso % (Auto) 0.6 (0-2) % Lymph # (Auto) 2.7 (1.2-4.9) X10*3/uL [place] # (Auto) 0.5 (0.1-1.2) X10*3/uL Eos # (Auto) 0.2 (0.0-0.4) X10*3/uL Baso # (Auto) 0.1 (0.0-0.2) X10*3/uL Abs Immat Gran (auto) 0.02 (0.00-0.03) X10*3/uL Absolute Neuts (auto) 4.8 (2.0-8.3) x10*3/uL Absolute Nucleated RBC 0.000 (0.0-0.012) X10*3/uL Nucleated RBC % (auto) 0.0 (0.0-0.2) /100WBC Hold Purple Top SEE NOTE Sodium 139 (135-145) mmol/L Potassium 3.3 (3.3-5.1) mmol/L Chloride 103 (96-108) mmol/L Carbon Dioxide 27 (22-29) mmol/L Anion Gap 12 (12-20) BUN 11 (9-16) mg/dL Creatinine 0.85 (0.5-1.4) mg/dL Estim Creat Clear Calc 102.1 Estimated GFR > 60 Random Glucose 82 (60-115) mg/dL Calcium 9.6 (8.4-10.2) mg/dL Total Bilirubin 0.2 (0.0-1.0) mg/dL AST 16 (5-31) U/L ALT 16 (0-31) U/L Alkaline Phosphatase 94 (39-117) U/L Total Protein 7.9 (6.5-8.0) g/dL Albumin 4.5 (3.5-5.0) g/dL Discharge Plan Discharge Clinical Impression: Seizure disorder Patient Disposition: Home, Self-Care Instructions: Epilepsy (ED) Additional Instructions: Continue take your seizure medication Ativan for severe anxiety/sleep Follow up with neurologist Prescriptions: New lorazepam [Ativan] 1 mg tablet 1 mg PO BEDTIME PRN (Reason: anxiety/sleep) Qty: 7 0RF No Action cholecalciferol (vitamin D3) 50 mcg (2,000 unit) capsule 50 mcg PO DAILY Qty: 30 3RF Linzess 145 mcg capsule 145 mcg PO DAILY Qty: 30 1RF lamotrigine 200 mg Tablet 200 mg PO BID levetiracetam 1,000 mg Tablet 1,000 mg PO BID naproxen 500 mg tablet 500 mg PO BID PRN (Reason: pain) Qty: 20 0RF cyclobenzaprine 10 mg tablet 10 mg PO TID PRN (Reason: muscle spasm) Qty: 10 0RF lidocaine [Lidoderm] 5 % adhesive patch,medicated 1 patch topical DAILY Qty: 15 0RF Rx Instructions: leave on most painful area for up to 12 hrs lorazepam [Ativan] 1 mg tablet 1 mg PO BID PRN (Reason: anxiety/seizure) Qty: 10 0RF lamotrigine 100 mg tablet 250 mg PO BID 30 Days Qty: 150 0RF cephalexin 500 mg capsule 500 mg PO Q8H 7 Days Qty: 21 0RF ciprofloxacin HCl [Cipro] 500 mg tablet 500 mg PO BID Qty: 20 0RF doxycycline hyclate 100 mg tablet 100 mg PO BID Qty: 20 0RF mupirocin 2 % ointment 1 appl topical BID Qty: 22 0RF lorazepam [Ativan] 1 mg tablet 1 mg PO BEDTIME PRN (Reason: sleep) Qty: 20 0RF lorazepam [Ativan] 1 mg tablet 1 mg PO BEDTIME PRN (Reason: sleep) Qty: 20 0RF lamotrigine [Lamictal] 25 mg tablet 50 mg PO DAILY 30 Days Qty: 60 1RF Rx Instructions: Please add 50 additional mg b.i.d. to your original dose of 200 mg. 250 mg oral twice a day. lamotrigine [Lamictal] 150 mg tablet 300 mg PO BID 30 Days Qty: 120 0RF lorazepam [Ativan] 1 mg tablet 1 mg PO BEDTIME PRN (Reason: sleep) Qty: 14 0RF lorazepam [Ativan] 1 mg tablet 1 mg PO BEDTIME PRN (Reason: anxiety) Qty: 10 0RF Citrucel 500 mg tablet 500 mg PO BID Qty: 60 5RF bisacodyl [Dulcolax (bisacodyl)] 5 mg tablet,delayed release (DR/EC) 10 mg PO ONCE 1 Days Qty: 2 0RF Rx Instructions: Take 2 tablets by mouth at 12:00pm the day before your procedure. polyethylene glycol 3350 [Miralax] 17 gram/dose powder 238 g PO ONCE 1 Days Qty: 238 0RF Rx Instructions: Take as directed by mouth the day before your procedure. Print Language: [place] Citizen
[2024-02-12 02:27] LABS: Alanine Aminotransferase 16 U/L (0-31); Albumin Level 4.5 g/dL (3.5-5.0); Alkaline Phosphatase 94 U/L (39-117); Anion Gap 12 (12-20); Aspartate Amino Transferase 16 U/L (5-31); Bilirubin Total 0.2 mg/dL (0.0-1.0); Blood Urea Nitrogen 11 mg/dL (9-16); Calcium 9.6 mg/dL (8.4-10.2); Carbon Dioxide 27 mmol/L (22-29); Chloride 103 mmol/L (96-108); Creatinine Clr Calc Pharmacy 102.1; Estimated Glomerular Filt Rate > 60; Glucose Random 82 mg/dL (60-115); Potassium 3.3 mmol/L (3.3-5.1); Sodium 139 mmol/L (135-145); Total Protein 7.9 g/dL (6.5-8.0)
[2024-02-12] MEDS: LORazepam 2 MG/ML VIAL 1 MG IVPUSH (02:33)
[2024-02-12] MEDS: ondansetron HCL 4 MG/2 ML VIAL IVPUSH (02:33)
[2024-02-12 04:00] VITALS: BP 101/54; PULSE 80; RESP 19; TEMP 36.8; O2SAT 94
[2024-02-12 05:55] VITALS: BP 104/63; PULSE 88; RESP 15; TEMP 36.6; O2SAT 98
== END 2024-02-12 06:11 | disposition home or self-care (01) ==
PROVIDERS: Emergency Provider Internal Medicine; PCP Internal Medicine
DX: R56.9 Unspecified convulsions (principal); F43.9 Reaction to severe stress, unspecified; Z79.899 Other long term (current) drug therapy
CPT/HCPCS: 36415; 80053; 85025; 93005; 96374; 96375; 99284; J2060; J2405

== ENCOUNTER → 2024-02-12 01:59 | Outpatient (BNV) | payer OTHER, SELFPAY | PROVIDERS: Emergency Provider Internal Medicine; PCP Internal Medicine; Visit Provider Internal Medicine Cardiovascular Disease | DX: G40.89 Other seizures (principal) | CPT/HCPCS: 93010 ==

== ENCOUNTER 2024-02-20 13:37 | Outpatient (AMB) | payer OTHER, SELFPAY ==
[2024-02-20 13:44] VITALS: BP 128/76; PULSE 77; TEMP 36.4; O2SAT 99; BMI 33.5
--- NOTE | 2024-02-20 13:44 | AM.OFFWIN_ITS ---
Intake Vital Signs 02/20/24 13:44 Height 5 ft 6 in Weight 207 lb 8 oz BMI 33.5 BP 128/76 Blood Pressure Location Rt brachial Position Sitting Pulse 77 Pulse Source Pulse Oximeter Temp 97.5 F Temp Source Temporal Artery Scan Pulse Oximetry (%) 99 Oxygen Delivery Method Room Air Intake Visit Reasons: EP lower back pain/RT side leg affected Intake Note: Ramon is a 39 year old female who presents to the office today for lower back pain that goes down her leg. Pt states she had a seizure 02/12/24 and then 2 days later she started having this pain. She also states she has been urinating more frequently. Patient Tobacco Use Status: Never used Tobacco Allergies meperidine [From Demerol] Adverse Reaction (Mild, Verified 02/20/24 13:47) HIVES HPI HPI Comments History of Present Illness Details Patient is a 39-year-old female complaining of right-sided low back pain that extends into her leg. She states that she had a seizure 8 days ago and since then she has had this pain. She describes the pain as a sharp shooting pain that is worse when she tries to stand up or walk. She has not tri ed any medications to make it better. She denies any loss of control of her bladder or bowels. 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 [employer] Review of Systems Const All systems reviewed & are unremarkable except as noted in HPI and below Physical Exam Vital Signs: Last Vital Signs Temp 97.5 F 02/20/24 13:44 Pulse 77 02/20/24 13:44 BP 128/76 02/20/24 13:44 Pulse Ox 99 02/20/24 13:44 Oxygen Delivery Method Room Air 02/20/24 13:44 BMI result Body Mass Index 33.5 Const General: cooperative, healthy appearing, comfortable and no acute distress Orientation/consciousness: patient oriented x3 Limitations: no limitations HEENT Head: Yes normal to inspection Resp Effort & Inspection: normal respiratory effort and able to speak in complete sentences Back/Spine/Pelvis Thoracic/Lumbar Spine: straight leg raise positive right at 40 degrees Neuro General: patient oriented x3 Results AMB Urinalysis, Automated UA Leukoctes 0 Caio/uL Last Edit by Vikki Bennett CMA on 02/20/24 13:57 UA Nitrite Negative Last Edit by Vikki Bennett, MANNIE on 02/20/24 13:57 UA Urobilinogen 0.2 mg/dL Last Edit by Vikki Bennett CMA on 02/20/24 13:57 UA Protein 0 mg/dL Last Edit by Vikki Bennett CMA on 02/20/24 13:57 UA pH 6.0 Last Edit by Vikki Bennett, MANNIE on 02/20/24 13:57 UA Blood 10 Jaswant/uL Last Edit by Vikki Bennett, MANNIE on 02/20/24 13:57 UA Specific [place] 1.020 Last Edit by Vikki Bennett, MANNIE on 02/20/24 13:57 UA Ketone Negative Last Edit by Vikki Bennett CMA on 02/20/24 13:57 UA Bilirubin 0 mg/dL Last Edit by Vikki Bennett CMA on 02/20/24 13:57 UA Glucose 0 mg/dL Last Edit by Vikki Bennett CMA on 02/20/24 13:57 Assessment & Plan Assessment & Plan (1) Sciatica: Code(s): M54.30 - Sciatica, unspecified side Qualifiers: Laterality: right Qualified Code(s): M54.31 - Sciatica, right side Plan: Gave patient 1st dose of prednisone in office, sent prescription for the next 4 doses to her pharmacy. Also recommended using Aleve around the clock for the next 4-5 days. Recommended if she has any loss of control of her bladder or bowels that she go to the emergency department for further workup. Plan See above Orders: Orders AMB Prednisone Adult Dose Today M54.30 - Sciatica, unspecified side AMB Urinalysis Automated Today Z13.9 - Encounter for screening, unspecified Medications: New prednisone 20 mg PO DAILY 4 tabs 0RF prednisone 20 mg PO ONCE 1 tab 0RF M54.30 - Sciatica, unspecified side Coding Level of Care Code New Pt Level 4 (20806) Diagnoses Sciatica of right side M54.31 Laterality: right
== END 2024-02-20 14:06 | disposition home or self-care (01) ==
PROVIDERS: PCP Internal Medicine; Visit Provider Physician Assistant
DX: Z13.9 Encounter for screening, unspecified (principal); M54.31 Sciatica, right side
CPT/HCPCS: 81003; 99204

== ENCOUNTER 2024-03-07 00:38 | Emergency (ER) | payer OTHER, SELFPAY ==
[2024-03-07 00:45] VITALS: BP 117/74; PULSE 104; O2SAT 98
[2024-03-07 00:48] VITALS: BP 111/69; PULSE 90; RESP 17; TEMP 36.9; O2SAT 95
--- NOTE | 2024-03-07 00:52 | ECG_ITS ---
Test Reason : SEIZURE Blood Pressure : / mmHG Vent. Rate : 090 BPM Atrial Rate : 090 BPM P-R Int : 144 ms QRS Dur : 082 ms QT Int : 390 ms P-R-T Axes : 050 047 036 degrees QTc Int : 477 ms Normal sinus rhythm Normal ECG When compared with ECG of 12-FEB-2024 02:00, No significant change was found Referred By: Evangelina Cardona Electronically Signed By:ANGEL BAPTISTE MD
[2024-03-07 00:55] VITALS: BP 111/69; PULSE 90; RESP 17; TEMP 36.9; O2SAT 95; BMI 33.3
--- NOTE | 2024-03-07 01:09 | ED.SEIZURE ---
HPI - Seizure General Chief Complaint: Seizure Stated Complaint: seizure Time Seen by Provider: 03/07/24 01:04 Source: patient and EMS Mode of arrival: EMS Limitations: no limitations History of Present Illness ED Provider: Dr. Evangelina Cardona HPI Narrative: Patient comes to the emergency room complaining of having a seizure. Patient states that she went to bed, was sleeping, the next thing she remembers she was in the ambulance. Patient states that she takes Keppra and Lamictal and states that she is compliant with her medications. Patient denies falling off the bed, denies urinary/fecal incontinence, denies biting her tongue. Last breakthrough seizure was approximately 2 weeks ago. Patient states that this time she feels back to normal Seizure History: Yes Related Data Home Medications ?Medication ?Instructions ?Recorded ?Confirmed levetiracetam 1,000 mg tablet 1,000 mg PO BID 09/06/20 12/23/20 Previous Rx's ?Medication ?Instructions ?Recorded cholecalciferol (vitamin D3) 50 50 mcg PO DAILY #30 caps 09/24/20 mcg (2,000 unit) capsule lidocaine 5 % topical patch 1 patch topical DAILY #15 ea 11/15/20 (Lidoderm) naproxen 500 mg tablet 500 mg PO BID PRN pain #20 tabs 11/15/20 bisacodyl 5 mg tablet,delayed 10 mg (2 x 5 mg) PO ONCE 12/06/20 release (Dulcolax (bisacodyl)) colonoscopy prep 1 day #2 tabs polyethylene glycol 3350 17 238 g PO ONCE 1 day #238 grams 12/06/20 gram/dose oral powder (Miralax) mupirocin 2 % topical ointment 1 appl topical BID #22 grams 11/19/22 lamotrigine 150 mg tablet 300 mg (2 x 150 mg) PO BID 1 month 12/15/23 (Lamictal) #120 tabs prednisone 20 mg tablet 20 mg PO DAILY #4 tabs 02/20/24 Allergies Allergy/AdvReac Type Severity Reaction Status Date / Time meperidine [From Demerol] AdvReac Mild HIVES Verified 03/07/24 00:56 Review of Systems Review of Systems: Constitutional : No Weight loss, No Fever, No Chills, No Night Sweats, No Fatigue, No Malaise ENT/Mouth : No Hearing loss, No Ear Pain, No Nasal Congestion, No Sinus Pain, No Hoarseness, No sore throat, No Rhinorrhea, No Swallowing Difficulty Eyes: No Eye Pain, No Swelling, No Redness, No Foreign Body, No Discharge, No Vision Changes Cardiovascular : No Chest Pain, No SOB, No Dyspnea on Exertion, No Orthopnea, No Edema, No Palpitations Respiratory : No Cough, No Sputum, No Wheezing, No Smoke Exposure, No Dyspnea Gastrointestinal : No Nausea, No Vomiting, No Diarrhea, No Constipation, No abdominal Pain, No Hematochezia, No Melena Genitourinary : no irregular bleeding, No Dysuria, No Urinary Frequency, No Hematuria, No Urinary Incontinence, No Urgency, No Flank Pain, No Urinary Flow Changes, No Hesitancy Musculoskeletal : No joint pain, No Myalgias, No Joint Swelling Skin : No Skin Lesions, No rash Neuro : No Weakness, No Numbness, No Paresthesias, No Loss of Consciousness, No Dizziness, No Headache, complaining of a breakthrough seizure Psych : No Anxiety/Panic, No Depression, No SI/HI/AH/VH, No Social Issues, Heme/Lymph: No Bruising, No Bleeding,No Lymphadenopathy Endocrine : No Polyuria, No Polydipsia, No Temperature Intolerance PMFSH Past Medical History Medical History Epilepsy Chronic abdominal pain H/O partial seizures Constipation by delayed colonic transit Surgical History Hx of hemorrhoidectomy Hx of tubal ligation Family History Family History Maternal Grandmother Colon cancer Paternal Grandmother Stomach cancer Mother Diabetes Father Diabetes Social History Social History Household Members: Spouse and Children Alcohol intake: never Patient Tobacco Use Status: Never used Tobacco Advance Directives: No Advance Directives Information Provided: No Current occupational status: employed 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 Oriented X3. No acute distress. Eyes: Pupils equal, round and reactive to light. ENT: Pharynx normal. Neck: Normal inspection. Neck supple. No lymph nodes noted. No crepitus CVS: Normal heart rate and rhythm. Pulses normal. Normal S1 and S2 Respiratory: No respiratory distress. Breath sounds normal. No Wheezing. No rales Abdomen: Soft and nontender. No rigidity. No distention. Skin: Skin warm and dry. Normal skin color. Normal skin turgor. Extremities: No lower extremity edema. No Lacerations. No Rash Neuro: Oriented X 3. No motor deficit. No sensory deficit. Moving all extremities. No slurred speech. 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 Ativan Medications Administered Discontinued Medications Generic Name Dose Route Start Last Admin Trade Name Freq PRN Reason Stop Dose Admin Lorazepam 1 mg 03/07/24 01:08 03/07/24 02:02 Lorazepam 1 Mg Tablet PO 03/07/24 01:09 1 mg ONCE ONE Administration Medical Decision Making Medical Decision Making [facility] Narrative: My interpretation of labs: Normal white blood cell count, normal chemistry, normal lactic -patient asymptomatic -vitals stable -patient was never postictal, no incontinence, no tongue biting -today, patient likely had a pseudo-seizure. No changes in her medication will be made. Differential Diagnosis Differential Diagnoses: The differential diagnosis associated with the presentation includes (Seizure, pseudo-seizure) Lab Data [facility] Lab Attestation statement: I reviewed the patient's lab results. 03/07/24 01:09 03/07/24 01:09 Labs: Lab Results 03/07/24 03/07/24 03/07/24 Range/Units 01:08 01:09 01:44 WBC 9.3 (4.8-10.8) X10*3/uL RBC 4.17 L (4.20-5.50) X10*6/uL Hgb 12.9 (12.0-16.0) g/dl Hct 37.1 (37.0-47.0) % MCV 89.0 (80.0-98.0) fL MCH 30.9 (27.0-33.0) pg MCHC 34.8 (31.0-35.0) g/dl RDW 11.9 (11.0-16.0) % Plt Count 285 (160-400) X10*3/uL MPV 9.0 L (9.4-12.3) fL Immature Gran % (Auto) 0.2 (0.0-0.4) % Neut % (Auto) 65.2 (45-73) % Lymph % (Auto) 25.9 (20-40) % [place] % (Auto) 6.4 (2-11) % Eos % (Auto) 1.8 (0-4) % Baso % (Auto) 0.5 (0-2) % Lymph # (Auto) 2.4 (1.2-4.9) X10*3/uL [place] # (Auto) 0.6 (0.1-1.2) X10*3/uL Eos # (Auto) 0.2 (0.0-0.4) X10*3/uL Baso # (Auto) 0.1 (0.0-0.2) X10*3/uL Abs Immat Gran (auto) 0.02 (0.00-0.03) X10*3/uL Absolute Neuts (auto) 6.1 (2.0-8.3) x10*3/uL Absolute Nucleated RBC 0.000 (0.0-0.012) X10*3/uL Nucleated RBC % (auto) 0.0 (0.0-0.2) /100WBC Sodium 140 (135-145) mmol/L Potassium 3.3 (3.3-5.1) mmol/L Chloride 106 (96-108) mmol/L Carbon Dioxide 23 (22-29) mmol/L Anion Gap 14 (12-20) BUN 11 (9-16) mg/dL Creatinine 0.89 (0.5-1.4) mg/dL Estim Creat Clear Calc 96.7 Estimated GFR > 60 Random Glucose 116 H (60-115) mg/dL Lactic Acid 1.3 (0.5-2.0) mmol/L Calcium 9.2 (8.4-10.2) mg/dL Total Bilirubin 0.2 (0.0-1.0) mg/dL Direct Bilirubin < 0.2 (0.0-0.5) mg/dL AST 15 (5-31) U/L ALT 16 (0-31) U/L Alkaline Phosphatase 84 (39-117) U/L Troponin I High Sens < 2.7 (<3.5-17.0) ng/L Total Protein 7.4 (6.5-8.0) g/dL Albumin 4.1 (3.5-5.0) g/dL Ethyl Alcohol < 10 mg/dL Critical Care Time Critical Care Time Critical Care Time: Yes Total Critical Care Time: 35 Attestation: I have personally provided critical care time. Time includes review of lab data, radiology results, discussion with consultants, and monitoring for potential decompensation. Intervention performed as documented. Discharge Plan Discharge Clinical Impression: Breakthrough seizure Patient Disposition: Home, Self-Care Instructions: Recurrent Seizures in Adults (ED) Additional Instructions: Please follow-up with your primary care physician tomorrow. If you have any worsening or new symptoms, please return to the emergency room or call 911 Prescriptions: No Action cholecalciferol (vitamin D3) 50 mcg (2,000 unit) capsule 50 mcg PO DAILY Qty: 30 3RF levetiracetam 1,000 mg Tablet 1,000 mg PO BID naproxen 500 mg tablet 500 mg PO BID PRN (Reason: pain) Qty: 20 0RF lidocaine [Lidoderm] 5 % adhesive patch,medicated 1 patch topical DAILY Qty: 15 0RF Rx Instructions: leave on most painful area for up to 12 hrs mupirocin 2 % ointment 1 appl topical BID Qty: 22 0RF lamotrigine [Lamictal] 150 mg tablet 300 mg PO BID 30 Days Qty: 120 0RF prednisone 20 mg tablet 20 mg PO ONCE Qty: 1 0RF prednisone 20 mg tablet 20 mg PO DAILY Qty: 4 0RF bisacodyl [Dulcolax (bisacodyl)] 5 mg tablet,delayed release (DR/EC) 10 mg PO ONCE 1 Days Qty: 2 0RF Rx Instructions: Take 2 tablets by mouth at 12:00pm the day before your procedure. polyethylene glycol 3350 [Miralax] 17 gram/dose powder 238 g PO ONCE 1 Days Qty: 238 0RF Rx Instructions: Take as directed by mouth the day before your procedure. Print Language: Cameroonian
[2024-03-07 01:14] LABS: MANUAL DIFF FLAG NO
[2024-03-07 01:17] LABS: Basophils Absolute Auto 0.1 X10*3/uL (0.0-0.2); Basophils Percent Auto 0.5 % (0-2); Eosinophils Absolute Auto 0.2 X10*3/uL (0.0-0.4); Eosinophils Percent Auto 1.8 % (0-4); Hematocrit 37.1 % (37.0-47.0); Hemoglobin 12.9 g/dl (12.0-16.0); Imm Gran Abs Auto 0.02 X10*3/uL (0.00-0.03); Imm Gran Pct Auto 0.2 % (0.0-0.4); Lymphocytes Absolute Auto 2.4 X10*3/uL (1.2-4.9); Lymphocytes Percent Auto 25.9 % (20-40); Mean Corpuscular HGB Conc 34.8 g/dl (31.0-35.0); Mean Corpuscular Hemoglobin 30.9 pg (27.0-33.0); Monocytes Absolute Auto 0.6 X10*3/uL (0.1-1.2); Monocytes Percent Auto 6.4 % (2-11); Neutrophils Absolute Auto 6.1 x10*3/uL (2.0-8.3); Neutrophils Percent Auto 65.2 % (45-73); Platelet Count 285 X10*3/uL (160-400); Red Blood Count 4.17 X10*6/uL (4.20-5.50); Red Cell Distribution Width 11.9 % (11.0-16.0); White Blood Count 9.3 X10*3/uL (4.8-10.8)
[2024-03-07 01:37] LABS: Alanine Aminotransferase 16 U/L (0-31); Albumin Level 4.1 g/dL (3.5-5.0); Alkaline Phosphatase 84 U/L (39-117); Anion Gap 14 (12-20); Aspartate Amino Transferase 15 U/L (5-31); Bilirubin Direct < 0.2 mg/dL (0.0-0.5); Bilirubin Total 0.2 mg/dL (0.0-1.0); Blood Urea Nitrogen 11 mg/dL (9-16); Calcium 9.2 mg/dL (8.4-10.2); Carbon Dioxide 23 mmol/L (22-29); Chloride 106 mmol/L (96-108); Creatinine Clr Calc Pharmacy 96.7; Estimated Glomerular Filt Rate > 60; Ethanol < 10 mg/dL; Glucose Random 116 mg/dL (60-115); Potassium 3.3 mmol/L (3.3-5.1); Sodium 140 mmol/L (135-145); Total Protein 7.4 g/dL (6.5-8.0)
[2024-03-07 01:40] LABS: Troponin-I High Sensitivity < 2.7 ng/L (<3.5-17.0)
[2024-03-07 01:57] LABS: Lactic Acid 1.3 mmol/L (0.5-2.0)
[2024-03-07] MEDS: LORazepam 1 MG TABLET PO (02:02)
[2024-03-07] MEDS: Acetaminophen 325 MG TABLET 650 MG PO (02:32)
[2024-03-07 03:09] VITALS: BP 116/68; PULSE 76; RESP 18; TEMP 36.9; O2SAT 98
[2024-03-11 19:48] LABS: Levetiracetam Keppra 31.7 mcg/mL (6.0-46.0)
== END 2024-03-07 02:36 | disposition home or self-care (01) ==
PROVIDERS: Emergency Provider Emergency Medicine; PCP Internal Medicine
DX: G40.901 Epilepsy, unspecified, not intractable, with status epilepticus (principal); Z79.899 Other long term (current) drug therapy
CPT/HCPCS: 36415; 80048; 80076; 80175; 80177; 80307; 83605; 84484; 85025; 93005; 99283; 99285

== ENCOUNTER → 2024-03-07 00:52 | Outpatient (BNV) | payer OTHER, SELFPAY | PROVIDERS: Emergency Provider Emergency Medicine; PCP Internal Medicine; Visit Provider Internal Medicine Cardiovascular Disease | DX: R56.9 Unspecified convulsions (principal) | CPT/HCPCS: 93010 ==

== ENCOUNTER 2024-03-12 21:57 | Emergency (ER) | payer OTHER, SELFPAY ==
--- NOTE | 2024-03-12 | ECG_ITS ---
Test Reason : SEIZURE Blood Pressure : / mmHG Vent. Rate : 071 BPM Atrial Rate : 071 BPM P-R Int : 126 ms QRS Dur : 078 ms QT Int : 414 ms P-R-T Axes : 095 057 045 degrees QTc Int : 449 ms Normal sinus rhythm Normal ECG When compared with ECG of 07-MAR-2024 00:52, No significant change was found Referred By: Generic ED Physician Electronically Signed By:DEAN NICOLE
[2024-03-12 22:06] VITALS: BP 117/78; PULSE 100; O2SAT 97
[2024-03-12 22:15] VITALS: BP 116/65; PULSE 86; RESP 18; TEMP 36.9; O2SAT 99; BMI 35.9
[2024-03-12 22:55] LABS: MANUAL DIFF FLAG NO
[2024-03-12 22:56] LABS: Basophils Percent Auto 0.3 % (0-2); Eosinophils Absolute Auto 0.1 X10*3/uL (0.0-0.4); Eosinophils Percent Auto 1.3 % (0-4); Hematocrit 36.7 % (37.0-47.0); Hemoglobin 12.9 g/dl (12.0-16.0); Imm Gran Abs Auto 0.03 X10*3/uL (0.00-0.03); Imm Gran Pct Auto 0.3 % (0.0-0.4); Lymphocytes Absolute Auto 1.4 X10*3/uL (1.2-4.9); Mean Corpuscular HGB Conc 35.1 g/dl (31.0-35.0); Mean Corpuscular Hemoglobin 31.2 pg (27.0-33.0); Mean Corpuscular Volume 88.6 fL (80.0-98.0); Mean Platelet Volume 9.2 fL (9.4-12.3); Monocytes Absolute Auto 0.4 X10*3/uL (0.1-1.2); Monocytes Percent Auto 4.5 % (2-11); Neutrophils Absolute Auto 6.9 x10*3/uL (2.0-8.3); Neutrophils Percent Auto 77.6 % (45-73); Platelet Count 230 X10*3/uL (160-400); Red Blood Count 4.14 X10*6/uL (4.20-5.50); Red Cell Distribution Width 11.9 % (11.0-16.0); White Blood Count 8.9 X10*3/uL (4.8-10.8)
--- NOTE | 2024-03-12 22:57 | ED_ITS ---
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 Patient states that around 3:00 pm she was ?feeling somewhat confused. ? She was talking to family and seemed to be forgetting things. She states at the time she had a dull headache. This resolved with Excedrin She reports that around 6:00 pm tonight, about 5 hours prior to my evaluation she reports going to bed Patient states that she woke up with vomiting and ?next thing I know I woke up in the hospital here. ? Currently she states that she is not nauseous She denies any abdominal pain The patient does complain of a mild headache She reports that she takes both Keppra and lamotrigine for seizure disorder She reports that she is not missed any doses She follows with Neurology at [facility] and reports last seeing them a few months ago Related Data Home Medications ?Medication ?Instructions ?Recorded ?Confirmed levetiracetam 1,000 mg tablet 1,000 mg PO BID 09/06/20 12/23/20 Previous Rx's ?Medication ?Instructions ?Recorded cholecalciferol (vitamin D3) 50 50 mcg PO DAILY #30 caps 09/24/20 mcg (2,000 unit) capsule lidocaine 5 % topical patch 1 patch topical DAILY #15 ea 11/15/20 (Lidoderm) naproxen 500 mg tablet 500 mg PO BID PRN pain #20 tabs 11/15/20 bisacodyl 5 mg tablet,delayed 10 mg (2 x 5 mg) PO ONCE 12/06/20 release (Dulcolax (bisacodyl)) colonoscopy prep 1 day #2 tabs polyethylene glycol 3350 17 238 g PO ONCE 1 day #238 grams 12/06/20 gram/dose oral powder (Miralax) mupirocin 2 % topical ointment 1 appl topical BID #22 grams 11/19/22 lamotrigine 150 mg tablet 300 mg (2 x 150 mg) PO BID 1 month 12/15/23 (Lamictal) #120 tabs prednisone 20 mg tablet 20 mg PO DAILY #4 tabs 02/20/24 Allergies Allergy/AdvReac Type Severity Reaction Status Date / Time meperidine [From Demerol] AdvReac Mild HIVES Verified 03/12/24 22:17 Review of Systems 2 Constitutional: Constitutional: Denies body ache(s), Denies chills, Denies fever(s) and Reports headache(s) Eyes: Eyes: Denies blurry vision ENT: Denies vertigo, Denies dizziness and Reports headache(s) Cardiovascular: Cardiovascular: Denies chest pain and Denies dyspnea Respiratory: Respiratory: Denies cough and Denies dyspnea Gastrointestinal: Gastrointestinal: Reports abdominal pain, Reports nausea and Reports vomiting Musculoskeletal: Musculoskeletal: Denies back pain Integumentary/Breasts: Skin/Breast: Denies rash Neurologic: Denies vertigo, Denies dizziness, Reports headache(s) and Denies convulsions Psychiatric: Psychiatric: Denies anxiety PMFSH Past Medical History Medical History Epilepsy Chronic abdominal pain H/O partial seizures Constipation by delayed colonic transit Surgical History Hx of hemorrhoidectomy Hx of tubal ligation Family History Family History Maternal Grandmother Colon cancer Paternal Grandmother Stomach cancer Mother Diabetes Father Diabetes Social History Social History Household Members: Spouse and Children Alcohol intake: never Patient Tobacco Use Status: Never used Tobacco Advance Directives: No Advance Directives Information Provided: No Current occupational status: employed 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 Physical 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 ED Vital Signs: Vital Signs - 24 hr 03/12/24 22:15 03/13/24 00:11 Temperature 98.5 F Pulse Rate 86 76 Respiratory Rate 18 12 Blood Pressure 116/65 111/65 Pulse Oximetry 99 96 Oxygen Delivery Method Room Air Room Air BMI result Body Mass Index 35.9 Const General: healthy appearing, comfortable, no acute distress, alert and awake Nutritional Appearance: well nourished Orientation/consciousness: patient oriented x3 HENMT Head: Yes normocephalic and Yes atraumatic Eyes Eyelids: Yes eyelids normal Conjunctivae: conjunctivae normal Sclerae: sclerae normal Corneas: corneas normal Pupils: Equal, round and reactive pupils present EOM: EOMs intact bilaterally Neck Neck: Yes full ROM Resp Effort & Inspection: normal respiratory effort, able to speak in complete sentences, no audible wheezes and not labored Auscultation: clear to auscultation bilaterally Cardio Rate: regular rate Rhythm: regular rhythm GI Inspection: No distended Palpation (GI): Soft to palpation, not firm, nontender, no guarding and not rigid Skin General skin exam: no rashes or lesions noted and elasticity normal Neuro General: patient oriented x3 Cranial nerves: Yes CN's II-XII intact bilaterally, Yes Equal, round and reactive pupils present and Yes Bilaterally intact EOM present Cognition (Neuro): normal cognition Extrem Other: Moving all extremities well without any obvious deformities Course Reevaluation(s) Reevaluation #1: Patient remains neurologically intact, she has been in the ER for just under 3 hours and has had no further seizure-like activity. Her workup is largely unremarkable. The patient is stable for discharge to follow-up with her outpatient neurologist. No medication adjustments at this time. It is possible that the patient's seizure disorder is pseudo seizures, as her lactic, CPK were within normal limits, she had no obvious postictal state and no witnessed seizure-like activity Time: 00:42 Medications Administered Discontinued Medications Generic Name Dose Route Start Last Admin Trade Name Freq PRN Reason Stop Dose Admin Ibuprofen 600 mg 03/13/24 00:16 03/13/24 00:30 Ibuprofen 600 Mg Tablet PO 03/13/24 00:17 600 mg ONCE ONE Administration Medical Decision Making Medical Decision Making [facility] Narrative: 39-year-old female with past medical history significant for seizure disorder reports being compliant with the medication. She reports a possible seizure. There were no witnessed convulsions. The patient reports that she went to bed with a headache and woke up in the hospital. She remembers going to bed at about 6:00 p.m., about 5 hours prior to my evaluation. She arrived to the hospital four hours after she remembers going to bed. At present time she is awake, alert and oriented, she is not appear to be postictal whatsoever. She no longer has any nausea/vomiting. She does complain of a dull headache. Plan for basic labs including CPK and lactic acid. It is unclear if this was a true seizure disorder versus syncope versus pseudo-seizure. Patient will be on seizure precautions and will be on the lunchroom monitor Differential Diagnosis Differential Diagnoses: The differential diagnosis associated with the presentation includes Pseudo seizure Seizure disorder Anxiety Syncope Near-syncope Lab Data MDM Lab Attestation statement: I reviewed the patient's lab results. No leukocytosis or significant anemia. Normal platelet count. Electrolytes within normal limits. Lactic acid within normal limits, CPK within normal limits, less likely recent seizure-like activity 03/12/24 22:50 03/12/24 22:50 Labs: Lab Results 03/12/24 Range/Units 22:50 WBC 8.9 (4.8-10.8) X10*3/uL RBC 4.14 L (4.20-5.50) X10*6/uL Hgb 12.9 (12.0-16.0) g/dl Hct 36.7 L (37.0-47.0) % MCV 88.6 (80.0-98.0) fL MCH 31.2 (27.0-33.0) pg MCHC 35.1 H (31.0-35.0) g/dl RDW 11.9 (11.0-16.0) % Plt Count 230 (160-400) X10*3/uL MPV 9.2 L (9.4-12.3) fL Immature Gran % (Auto) 0.3 (0.0-0.4) % Neut % (Auto) 77.6 H (45-73) % Lymph % (Auto) 16.0 L (20-40) % [place] % (Auto) 4.5 (2-11) % Eos % (Auto) 1.3 (0-4) % Baso % (Auto) 0.3 (0-2) % Lymph # (Auto) 1.4 (1.2-4.9) X10*3/uL [place] # (Auto) 0.4 (0.1-1.2) X10*3/uL Eos # (Auto) 0.1 (0.0-0.4) X10*3/uL Baso # (Auto) 0.0 (0.0-0.2) X10*3/uL Abs Immat Gran (auto) 0.03 (0.00-0.03) X10*3/uL Absolute Neuts (auto) 6.9 (2.0-8.3) x10*3/uL Absolute Nucleated RBC 0.000 (0.0-0.012) X10*3/uL Nucleated RBC % (auto) 0.0 (0.0-0.2) /100WBC Sodium 138 (135-145) mmol/L Potassium 3.4 (3.3-5.1) mmol/L Chloride 108 (96-108) mmol/L Carbon Dioxide 25 (22-29) mmol/L Anion Gap 8 L (12-20) BUN 11 (9-16) mg/dL Creatinine 0.71 (0.5-1.4) mg/dL Estim Creat Clear Calc 126.2 Estimated GFR > 60 Random Glucose 129 H (60-115) mg/dL Lactic Acid 1.2 (0.5-2.0) mmol/L Calcium 8.7 (8.4-10.2) mg/dL Total Bilirubin 0.3 (0.0-1.0) mg/dL AST 14 (5-31) U/L ALT 15 (0-31) U/L Alkaline Phosphatase 70 (39-117) U/L Total Creatine Kinase 81 (26-140) U/L Total Protein 7.4 (6.5-8.0) g/dL Albumin 4.2 (3.5-5.0) g/dL Independent Interpretation I performed an independent interpretation of an: EKG (Normal sinus rhythm with a rate of 71 beats per minute. No ST segment elevations or depressions) Discharge Plan Discharge Clinical Impression: Nausea & vomiting, Headache Patient Disposition: Home, Self-Care Instructions: Acute Headache (ED), Acute Nausea and Vomiting (ED) Additional Instructions: Your workup in the ER today was reassuring. You did not have any seizure-like activity while in the ER. Your blood work was within normal limits. Take all your medications as prescribed. Call your neurologist in the morning to schedule follow up appointment Prescriptions: No Action cholecalciferol (vitamin D3) 50 mcg (2,000 unit) capsule 50 mcg PO DAILY Qty: 30 3RF levetiracetam 1,000 mg Tablet 1,000 mg PO BID naproxen 500 mg tablet 500 mg PO BID PRN (Reason: pain) Qty: 20 0RF lidocaine [Lidoderm] 5 % adhesive patch,medicated 1 patch topical DAILY Qty: 15 0RF Rx Instructions: leave on most painful area for up to 12 hrs mupirocin 2 % ointment 1 appl topical BID Qty: 22 0RF lamotrigine [Lamictal] 150 mg tablet 300 mg PO BID 30 Days Qty: 120 0RF prednisone 20 mg tablet 20 mg PO ONCE Qty: 1 0RF prednisone 20 mg tablet 20 mg PO DAILY Qty: 4 0RF bisacodyl [Dulcolax (bisacodyl)] 5 mg tablet,delayed release (DR/EC) 10 mg PO ONCE 1 Days Qty: 2 0RF Rx Instructions: Take 2 tablets by mouth at 12:00pm the day before your procedure. polyethylene glycol 3350 [Miralax] 17 gram/dose powder 238 g PO ONCE 1 Days Qty: 238 0RF Rx Instructions: Take as directed by mouth the day before your procedure. Print Language: Israeli
[2024-03-12 23:06] LABS: Lactic Acid 1.2 mmol/L (0.5-2.0)
[2024-03-12 23:11] LABS: Alanine Aminotransferase 15 U/L (0-31); Albumin Level 4.2 g/dL (3.5-5.0); Alkaline Phosphatase 70 U/L (39-117); Anion Gap 8 (12-20); Aspartate Amino Transferase 14 U/L (5-31); Bilirubin Total 0.3 mg/dL (0.0-1.0); Blood Urea Nitrogen 11 mg/dL (9-16); Calcium 8.7 mg/dL (8.4-10.2); Carbon Dioxide 25 mmol/L (22-29); Chloride 108 mmol/L (96-108); Creatinine Clr Calc Pharmacy 126.2; Estimated Glomerular Filt Rate > 60; Glucose Random 129 mg/dL (60-115); Potassium 3.4 mmol/L (3.3-5.1); Sodium 138 mmol/L (135-145); Total Protein 7.4 g/dL (6.5-8.0)
[2024-03-13 00:11] VITALS: BP 111/65; PULSE 76; RESP 12; O2SAT 96
[2024-03-13] MEDS: Ibuprofen 600 MG TABLET PO (00:30)
[2024-03-13 00:51] VITALS: BP 112/63; PULSE 81; RESP 14; O2SAT 96
[2024-03-13 01:09] VITALS: BP 112/63; PULSE 81; RESP 14; TEMP 36.9; O2SAT 96
[2024-03-16 18:59] LABS: Levetiracetam Keppra 32.2 mcg/mL (6.0-46.0)
== END 2024-03-13 01:10 | disposition home or self-care (01) ==
PROVIDERS: Emergency Provider Emergency Medicine
DX: R56.9 Unspecified convulsions (principal); R11.2 Nausea with vomiting, unspecified; R51.9 Headache, unspecified; Z79.899 Other long term (current) drug therapy
CPT/HCPCS: 36415; 80053; 80177; 82550; 83605; 85025; 93005; 99283; 99284

== ENCOUNTER 2024-04-03 23:15 | Emergency (ER) | payer OTHER, SELFPAY ==
[2024-04-03 23:30] VITALS: BP 118/88; PULSE 109; O2SAT 97
[2024-04-03 23:40] VITALS: BP 112/72; PULSE 79; RESP 17; TEMP 36.9; O2SAT 97; BMI 33.6
--- NOTE | 2024-04-04 02:21 | ECG_ITS ---
Test Reason : SEIZURE Blood Pressure : / mmHG Vent. Rate : 107 BPM Atrial Rate : 107 BPM P-R Int : 156 ms QRS Dur : 086 ms QT Int : 362 ms P-R-T Axes : 063 060 041 degrees QTc Int : 483 ms Sinus tachycardia Nonspecific ST abnormality Abnormal ECG When compared with ECG of 12-MAR-2024 22:23, Vent. rate has increased BY [address] abnormality is now Present Referred By: Elias Tobias Electronically Signed By:DEAN NICOLE
--- NOTE | 2024-04-04 02:21 | ED.GENADULT ---
HPI - General Adult General Chief complaint: Seizure Stated complaint: seizure Time Seen by Provider: 04/04/24 02:20 History of Present Illness ED Provider: Micheline CLAY narrative: The patient is a 39-year-old female with a history of a seizure disorder. She is on levetiracetam. Tells me she takes 750 mg twice a day. She also takes lamotrigine. She tells me she takes 400 mg b.i.d. of the lamotrigine. Apparently her has been called an ambulance because she had a seizure at home. Apparently she had had a headache with some nausea and vomiting which is not unusual when she has seizures. She subsequently had a seizure at home and then an ambulance was called and she was brought here. While waiting to be seen she had a seizure in the emergency room. It was after a seizure in the emergency room that I saw the patient. She recovered from the seizure and seemed sleepy. She says that she usually gets headaches with her seizures. She says that she sees a neurologist at [facility]. Related Data Home Medications ?Medication ?Instructions ?Recorded ?Confirmed levetiracetam 1,000 mg tablet 1,000 mg PO BID 09/06/20 12/23/20 Previous Rx's ?Medication ?Instructions ?Recorded cholecalciferol (vitamin D3) 50 50 mcg PO DAILY #30 caps 09/24/20 mcg (2,000 unit) capsule lidocaine 5 % topical patch 1 patch topical DAILY #15 ea 11/15/20 (Lidoderm) naproxen 500 mg tablet 500 mg PO BID PRN pain #20 tabs 11/15/20 bisacodyl 5 mg tablet,delayed 10 mg (2 x 5 mg) PO ONCE 12/06/20 release (Dulcolax (bisacodyl)) colonoscopy prep 1 day #2 tabs polyethylene glycol 3350 17 238 g PO ONCE 1 day #238 grams 12/06/20 gram/dose oral powder (Miralax) mupirocin 2 % topical ointment 1 appl topical BID #22 grams 11/19/22 lamotrigine 150 mg tablet 300 mg (2 x 150 mg) PO BID 1 month 12/15/23 (Lamictal) #120 tabs prednisone 20 mg tablet 20 mg PO DAILY #4 tabs 02/20/24 Allergies Allergy/AdvReac Type Severity Reaction Status Date / Time meperidine [From Demerol] AdvReac Mild HIVES Verified 04/03/24 23:48 Review of Systems Review of Systems: Yes all other systems are reviewed and are negative [facility] Past Medical History Medical History Epilepsy Chronic abdominal pain H/O partial seizures Constipation by delayed colonic transit Surgical History Hx of hemorrhoidectomy Hx of tubal ligation Family History Family History Maternal Grandmother Colon cancer Paternal Grandmother Stomach cancer Mother Diabetes Father Diabetes Social History Social History Household Members: Spouse and Children Alcohol intake: current Alcohol intake frequency: holidays/special occasions only Alcohol type: wine Patient Tobacco Use Status: Never used Tobacco Smoked in Last 30 Days: No Use of substances other than those prescribed or required for medical reasons: No Advance Directives: No Advance Directives Information Provided: No Patient : No Current occupational status: employed 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 the patient had apparently arrived with a normal mental status. I was asked to see the patient after the nurse was concerned that the patient had exhibited seizure-like activity in the emergency department. therefore when I 1st saw the patient she was somnolent with heavy breathing and was unresponsive to verbal and painful stimuli. She seemed postictal. Later she was awake and alert with normal mental status. HENMT Other: face is symmetrical. mucous membranes moist. No tongue biting. Eyes Other: Pupils are round equal reactive to light, extraocular movements intact, conjunctivae clear Neck Neck: Yes full ROM and Yes no meningeal signs Resp Effort & Inspection: normal respiratory effort Auscultation: clear to auscultation bilaterally Cardio Rate: regular rate Rhythm: regular rhythm Heart sounds: S1 normal heart sound present and S2 normal heart sound present GI Other: the abdomen was soft and not apparently tender. Skin Other: Skin was dry and unremarkable Neuro Other: why 1st saw the patient she was somnolent and did not significantly respond to verbal or painful stimuli. She seemed postictal with heavy breathing. Later she seemed to have recovered fully to a normal mental status. At that time she was awake and alert and oriented. Cranial nerves were intact. She moves her extremities normally. Her gait was normal. General: no meningeal signs Extrem Other: No injuries to the extremities. No calf swelling or tenderness. No peripheral edema. Medications Administered Discontinued Medications Generic Name Dose Route Start Last Admin Trade Name Lucina PRN Reason Stop Dose Admin Levetiracetam 1,000 mg in 100 mls @ 400 mls/hr 04/04/24 06:44 04/04/24 08:00 Keppra IV 04/04/24 06:58 Infused ONCE ONE Infusion Ketorolac Tromethamine 10 mg 04/04/24 08:16 04/04/24 08:46 Ketorolac Tromethamine 15 Mg/Ml Vial IVPUSH 04/04/24 08:17 10 mg ONCE ONE Administration Lamotrigine 400 mg 04/04/24 08:16 04/04/24 08:47 Lamotrigine 100 Mg Tablet PO 04/04/24 08:17 400 mg ONCE ONE Administration Lorazepam 2 mg 04/04/24 02:25 04/04/24 02:34 Lorazepam 2 Mg/Ml Vial IVPUSH 04/04/24 02:26 2 mg ONCE ONE Administration Medical Decision Making Medical Decision Making [facility] Narrative: The patient is a 39-year-old female with a history of a seizure disorder. She is on levetiracetam and lamotrigine. She came to the emergency room by ambulance after having apparently had a seizure at home. While waiting to be seen in the emergency department it seems as though she has had a 2nd seizure. She was given 2 mg of lorazepam IV. She was observed. She was also given 1000 mg of levetiracetam IV. She returned to normal mental status. Ultimately the sedative affects of the lorazepam wore off and she seemed ambulatory and appropriate. At that point she told me that in addition to levetiracetam she also took lamotrigine. She was given her usual morning dose of 400 mg of lamotrigine. Therefore after a fairly long period of observation and after she had received her morning dose of levetiracetam as an IV does and also having received her 400 mg of oral lamotrigine I felt she was appropriate for discharge to follow-up with her regular neurologist, Dr. Wagner of [facility]. Lab Data 04/04/24 02:26 04/04/24 02:26 Labs: Lab Results 04/04/24 04/04/24 Range/Units 02:18 02:26 WBC 12.3 H (4.8-10.8) X10*3/uL RBC 4.25 (4.20-5.50) X10*6/uL Hgb 13.0 (12.0-16.0) g/dl Hct 40.5 (37.0-47.0) % MCV 95.3 (80.0-98.0) fL MCH 30.6 (27.0-33.0) pg MCHC 32.1 (31.0-35.0) g/dl RDW 12.0 (11.0-16.0) % Plt Count 377 D (160-400) X10*3/uL MPV 9.1 L (9.4-12.3) fL Immature Gran % (Auto) 0.3 (0.0-0.4) % Neut % (Auto) 53.0 (45-73) % Lymph % (Auto) 38.3 (20-40) % [place] % (Auto) 6.5 (2-11) % Eos % (Auto) 1.4 (0-4) % Baso % (Auto) 0.5 (0-2) % Lymph # (Auto) 4.7 (1.2-4.9) X10*3/uL [place] # (Auto) 0.8 (0.1-1.2) X10*3/uL Eos # (Auto) 0.2 (0.0-0.4) X10*3/uL Baso # (Auto) 0.1 (0.0-0.2) X10*3/uL Abs Immat Gran (auto) 0.04 H (0.00-0.03) X10*3/uL Absolute Neuts (auto) 6.5 (2.0-8.3) x10*3/uL Absolute Nucleated RBC 0.000 (0.0-0.012) X10*3/uL Nucleated RBC % (auto) 0.0 (0.0-0.2) /100WBC Sodium 143 (135-145) mmol/L Potassium 3.4 (3.3-5.1) mmol/L Chloride 104 (96-108) mmol/L Carbon Dioxide 18 L (22-29) mmol/L Anion Gap 24 H (12-20) BUN 11 (9-16) mg/dL Creatinine 0.91 (0.5-1.4) mg/dL Estim Creat Clear Calc 95.1 Estimated GFR > 60 POC Glucose 103 (60-115) mg/dL Random Glucose 116 H (60-115) mg/dL Calcium 9.3 D (8.4-10.2) mg/dL Magnesium 2.1 (1.6-2.6) mg/dL Total Bilirubin 0.2 (0.0-1.0) mg/dL Direct Bilirubin < 0.2 (0.0-0.5) mg/dL AST 14 (5-31) U/L ALT 14 (0-31) U/L Alkaline Phosphatase 86 (39-117) U/L Total Protein 8.0 (6.5-8.0) g/dL Albumin 4.4 (3.5-5.0) g/dL Beta HCG, Quant < 2 mIU/mL Urine Color Yellow Urine Appearance Clear Urine pH 6.0 (5.0-9.0) Ur Specific [place] 1.010 (1.005-1.025) Urine Protein Negative (Neg-Trace) mg/dL Urine Glucose (UA) Negative (Negative) mg/dL Urine Ketones Negative (Negative) mg/dL Urine Blood Negative (Negative) Urine Nitrite Negative (Negative) Ur Leukocyte Esterase Negative (Negative) Urine Opiates Screen Not Detected (Not Detect) Ur Buprenorphine Scrn Not Detected (Not Detect) ng/mL Ur Oxycodone Screen Not Detected (Not Detect) ng/mL Urine Methadone Screen Not Detected (Not Detect) ng/mL Urine Fentanyl Screen Not Detected (Not Detect) Ur Barbiturates Screen Not Detected (Not Detect) Ur Phencyclidine Scrn Not Detected (Not Detect) Ur Amphetamines Screen Not Detected (Not Detect) U Benzodiazepines Scrn Not Detected (Not Detect) Urine Cocaine Screen Not Detected (Not Detect) U Marijuana (THC) Screen Not Detected (Not Detect) Ethyl Alcohol < 10 mg/dL Discharge Plan Discharge Clinical Impression: Breakthrough seizure, Headache Patient Disposition: Home, Self-Care Additional Instructions: Please continue your regular medications. Please follow up with your regular neurologist soon. Rest and take it easy today. Return to the emergency room if significantly worse. Prescriptions: No Action cholecalciferol (vitamin D3) 50 mcg (2,000 unit) capsule 50 mcg PO DAILY Qty: 30 3RF levetiracetam 1,000 mg Tablet 1,000 mg PO BID naproxen 500 mg tablet 500 mg PO BID PRN (Reason: pain) Qty: 20 0RF lidocaine [Lidoderm] 5 % adhesive patch,medicated 1 patch topical DAILY Qty: 15 0RF Rx Instructions: leave on most painful area for up to 12 hrs mupirocin 2 % ointment 1 appl topical BID Qty: 22 0RF lamotrigine [Lamictal] 150 mg tablet 300 mg PO BID 30 Days Qty: 120 0RF prednisone 20 mg tablet 20 mg PO ONCE Qty: 1 0RF prednisone 20 mg tablet 20 mg PO DAILY Qty: 4 0RF bisacodyl [Dulcolax (bisacodyl)] 5 mg tablet,delayed release (DR/EC) 10 mg PO ONCE 1 Days Qty: 2 0RF Rx Instructions: Take 2 tablets by mouth at 12:00pm the day before your procedure. polyethylene glycol 3350 [Miralax] 17 gram/dose powder 238 g PO ONCE 1 Days Qty: 238 0RF Rx Instructions: Take as directed by mouth the day before your procedure. Referrals: Miguel Ángel Chambers MD [Physician] - (breakthrough seizures) Interventions: ED Discharge Assessment Last Done: 04/04/24 08:56 Discharge Date/Time: 04/04/24 08:56 Print Language: Gabonese
[2024-04-04 02:22] LABS: Glucose, Whole Blood 103 mg/dL (60-115)
[2024-04-04] MEDS: LORazepam 2 MG/ML VIAL IVPUSH (02:34)
[2024-04-04 02:37] LABS: MANUAL DIFF FLAG NO
[2024-04-04 02:39] LABS: Basophils Absolute Auto 0.1 X10*3/uL (0.0-0.2); Basophils Percent Auto 0.5 % (0-2); Eosinophils Absolute Auto 0.2 X10*3/uL (0.0-0.4); Eosinophils Percent Auto 1.4 % (0-4); Hematocrit 40.5 % (37.0-47.0); Imm Gran Abs Auto 0.04 X10*3/uL (0.00-0.03); Imm Gran Pct Auto 0.3 % (0.0-0.4); Lymphocytes Absolute Auto 4.7 X10*3/uL (1.2-4.9); Lymphocytes Percent Auto 38.3 % (20-40); Mean Corpuscular HGB Conc 32.1 g/dl (31.0-35.0); Mean Corpuscular Hemoglobin 30.6 pg (27.0-33.0); Mean Corpuscular Volume 95.3 fL (80.0-98.0); Mean Platelet Volume 9.1 fL (9.4-12.3); Monocytes Absolute Auto 0.8 X10*3/uL (0.1-1.2); Monocytes Percent Auto 6.5 % (2-11); Neutrophils Absolute Auto 6.5 x10*3/uL (2.0-8.3); Platelet Count 377 X10*3/uL (160-400); Red Blood Count 4.25 X10*6/uL (4.20-5.50); White Blood Count 12.3 X10*3/uL (4.8-10.8)
--- NOTE | 2024-04-04 02:42 | PC.NURSE ---
Upon entering room Pt appeared to be having seizure activity lasting about 45 seconds. Provider Jacobo Tobias made aware, new order given per SEP. Blood work collected and sent to lab.
[2024-04-04 02:43] LABS: Appearance Urine Clear; Color Urine Yellow; Glucose Urine UA Negative (Negative); Leukocyte Esterase Urine Negative (Negative); Nitrite Urine Negative (Negative); Urine Blood Negative (Negative); Urine Ketones Negative (Negative); Urine Protein Negative (Neg-Trace)
[2024-04-04 02:56] LABS: Amphetamine Screen Urine Not Detected (Not Detect); Barbiturates, Urine Not Detected (Not Detect); Benzodiazepines Screen Urine Not Detected (Not Detect); Buprenorphine Scr Not Detected (Not Detect); Cannabinoid Screen Urine Not Detected (Not Detect); Cocaine Screen Urine Not Detected (Not Detect); Fentanyl, urine Not Detected (Not Detect); Methadone Screen, Urine Not Detected (Not Detect); Opiate Screen Urine Not Detected (Not Detect); Oxycodone Screen Urine Not Detected (Not Detect); Phencyclidine Screen Urine Not Detected (Not Detect)
[2024-04-04 02:59] LABS: Alanine Aminotransferase 14 U/L (0-31); Albumin Level 4.4 g/dL (3.5-5.0); Alkaline Phosphatase 86 U/L (39-117); Anion Gap 24 (12-20); Aspartate Amino Transferase 14 U/L (5-31); Bilirubin Direct < 0.2 mg/dL (0.0-0.5); Bilirubin Total 0.2 mg/dL (0.0-1.0); Blood Urea Nitrogen 11 mg/dL (9-16); Calcium 9.3 mg/dL (8.4-10.2); Carbon Dioxide 18 mmol/L (22-29); Chloride 104 mmol/L (96-108); Creatinine Clr Calc Pharmacy 95.1; Estimated Glomerular Filt Rate > 60; Ethanol < 10 mg/dL; Glucose Random 116 mg/dL (60-115); HCG Quantitative < 2 mIU/mL; Magnesium 2.1 mg/dL (1.6-2.6); Potassium 3.4 mmol/L (3.3-5.1); Sodium 143 mmol/L (135-145)
[2024-04-04 03:03] VITALS: BP 103/61; PULSE 98; RESP 20; TEMP 36.9; O2SAT 96
[2024-04-04 05:51] VITALS: BP 100/63; PULSE 77; RESP 18; TEMP 36.9; O2SAT 95
[2024-04-04] MEDS: levETIRAcetam in NaCl (iso-os) 1,000 MG/100 ML PIGGYBACK 400 MG IV (07:20)
[2024-04-04 07:22] VITALS: BP 116/71; PULSE 70; RESP 14; TEMP 36.6; O2SAT 98
[2024-04-04 08:01] VITALS: BP 98/54; PULSE 67; RESP 16; O2SAT 97
[2024-04-04] MEDS: Ketorolac Tromethamine 15 MG/ML VIAL 10 MG IVPUSH (08:46)
[2024-04-04] MEDS: lamoTRIgine 100 MG TABLET 400 MG PO (08:47)
[2024-04-04 08:49] VITALS: BP 119/75; PULSE 77; RESP 12; TEMP 36.6; O2SAT 100
[2024-04-04 08:56] VITALS: BP 119/75; PULSE 77; RESP 12; TEMP 36.6; O2SAT 100
== END 2024-04-04 08:56 | disposition home or self-care (01) ==
PROVIDERS: Emergency Provider Emergency Medicine; PCP Internal Medicine
DX: G40.901 Epilepsy, unspecified, not intractable, with status epilepticus (principal); R51.9 Headache, unspecified; Z79.899 Other long term (current) drug therapy
CPT/HCPCS: 36415; 80048; 80076; 80177; 80307; 81003; 82947; 83735; 84702; 85025; 93005; 96365; 96375; 99284; 99285; J1885; J1953; J2060

== ENCOUNTER 2024-07-12 09:01 | Emergency (ER) | payer OTHER, SELFPAY ==
[2024-07-12 09:09] VITALS: BP 130/90; PULSE 96; O2SAT 99
--- NOTE | 2024-07-12 09:15 | ECG_ITS ---
Test Reason : SEIZURE Blood Pressure : / mmHG Vent. Rate : 079 BPM Atrial Rate : 079 BPM P-R Int : 140 ms QRS Dur : 078 ms QT Int : 398 ms P-R-T Axes : 050 045 029 degrees QTc Int : 456 ms Normal sinus rhythm Normal ECG When compared with ECG of 04-APR-2024 02:27, No significant change was found Referred By: Loni Spann Electronically Signed By:ANGEL BAPTISTE MD
[2024-07-12 09:24] VITALS: BP 112/70; PULSE 87; RESP 18; TEMP 37.2; O2SAT 100; BMI 33.6
[2024-07-12 09:27] VITALS: RESP 16
--- NOTE | 2024-07-12 09:31 | ED.SEIZURE ---
HPI - Seizure General Chief Complaint: Seizure Stated Complaint: WITNESSED SZ,MARTIN/NAUSEA PER EMS Time Seen by Provider: 07/12/24 09:12 Source: patient, EMS and old records reviewed Mode of arrival: EMS Limitations: no limitations History of Present Illness ED Provider: KARO CLAY Narrative: 39 yo female with PMH of epilepsy on keppra 750mg BID and lamictal 200mg BID here with c/o seizure in bed 1 min GTC felt nauseated after with headache which is normal for the patient. No recent trauma, infections. She is compliant with medications. Has neurology appointment Sunday to discuss med changes as she had another seizure the start of the month. She has not been sleeping well which is a trigger for her. MD complaint: seizure Onset (ago): minute(s) (HEARING THERAPIST) Description of Episode: loss of consciousness and tonic-clonic movement Duration of episode: 1 -: minutes(s) Witnessed: Yes - by Bystander Trauma: No Seizure History: Yes Place: Home Possible Precipitating Event: lack of sleep Associated symptoms: denies other symptoms Treatments prior to arrival: other (zofran) Related Data Home Medications ?Medication ?Instructions ?Recorded ?Confirmed levetiracetam 1,000 mg tablet 1,000 mg PO BID 09/06/20 12/23/20 Previous Rx's ?Medication ?Instructions ?Recorded cholecalciferol (vitamin D3) 50 50 mcg PO DAILY #30 caps 09/24/20 mcg (2,000 unit) capsule lidocaine 5 % topical patch 1 patch topical DAILY #15 ea 11/15/20 (Lidoderm) naproxen 500 mg tablet 500 mg PO BID PRN pain #20 tabs 11/15/20 bisacodyl 5 mg tablet,delayed 10 mg (2 x 5 mg) PO ONCE 12/06/20 release (Dulcolax (bisacodyl)) colonoscopy prep 1 day #2 tabs polyethylene glycol 3350 17 238 g PO ONCE 1 day #238 grams 12/06/20 gram/dose oral powder (Miralax) mupirocin 2 % topical ointment 1 appl topical BID #22 grams 11/19/22 lamotrigine 150 mg tablet 300 mg (2 x 150 mg) PO BID 1 month 12/15/23 (Lamictal) #120 tabs prednisone 20 mg tablet 20 mg PO DAILY #4 tabs 02/20/24 levetiracetam 1,000 mg tablet 1,000 mg PO BID #60 tabs 07/12/24 (Keppra) Allergies Allergy/AdvReac Type Severity Reaction Status Date / Time meperidine [From Demerol] AdvReac Mild HIVES Verified 07/12/24 09:26 Review of Systems Review of Systems: Constitutional : No Fever, No Chills, No Fatigue ENT/Mouth : No sore throat, No Rhinorrhea Eyes: No Eye Pain, No Swelling, No Redness Cardiovascular : No Chest Pain, No SOB, No Dyspnea on Exertion Respiratory : No Cough, No Sputum Gastrointestinal : pos Nausea, No Vomiting, No Diarrhea, No abdominal Pain Genitourinary : No Dysuria, No Urinary Frequency, No Hematuria, Musculoskeletal : No joint pain, No Myalgias, No Joint Swelling Skin : No Skin Lesions, No rash Neuro : No Weakness, No Numbness, No Dizziness, positive Headache Psych : No Anxiety/Panic, No Depression All other systems reviewed and are negative PMFSH Past Medical History Attestation statement: The following information was validated with the patient. Source: old records reviewed Medical History Epilepsy Chronic abdominal pain H/O partial seizures Constipation by delayed colonic transit Surgical History Hx of hemorrhoidectomy Hx of tubal ligation Family History Family History Maternal Grandmother Colon cancer Paternal Grandmother Stomach cancer Mother Diabetes Father Diabetes Social History Social History Household Members: Spouse and Children Alcohol intake: current Alcohol intake frequency: does not drink Alcohol type: wine Patient Tobacco Use Status: Never used Tobacco Smoked in Last 30 Days: No Use of substances other than those prescribed or required for medical reasons: No Advance Directives: No Advance Directives Information Provided: Yes Patient : No Current occupational status: employed Current occupation: [employer] Physical Exam Vital Signs: Vital Signs: Last Vital Signs Temp 99.0 F 07/12/24 09:24 Pulse 87 07/12/24 09:24 Resp 16 07/12/24 09:27 BP 112/70 07/12/24 09:24 Pulse Ox 100 07/12/24 09:24 O2 Del Method Room Air 07/12/24 09:24 BMI result Body Mass Index 33.6 Appearance: Alert. Oriented X3. No acute distress. Eyes: Pupils equal, round and reactive to light. ENT: Pharynx normal. atraumatic Neck: Normal inspection. Neck supple. CVS: Normal heart rate and rhythm. Pulses normal. Respiratory: No respiratory distress. Breath sounds normal. Abdomen: Soft and non-tender. Skin: Skin warm and dry. Normal skin color. Extremities: No lower extremity edema. Neuro: Oriented X 3. No motor deficit. No sensory deficit. Medications Administered Discontinued Medications Generic Name Dose Route Start Last Admin Trade Name Freq PRN Reason Stop Dose Admin Lorazepam 1 mg 07/12/24 09:15 07/12/24 09:40 Lorazepam 2 Mg/Ml Vial IVPUSH 07/12/24 09:16 1 mg STAT STA Administration Medical Decision Making Medical Decision Making [facility] Narrative: 39 yo female with PMH of epilepsy on keppra 750mg BID and lamictal 200mg BID here with c/o seizure at home at this time she has no signs of trauma and this feels typical for her with her seizures - will start on IV ativan, plan to increase her keppra to 1000mg BID. Has neuro appointment Sunday. If work up negative and she is at baseline will DC home. She suspects lack of sleep as the cause Differential Diagnosis Differential Diagnoses: The differential diagnosis associated with the presentation includes epilepsy Admission/Observation Consideration of admission/observation: Escalation of care including admission/observation considered at baseline plan to increase keppra to 1000mg BID patient is comfortable Lab Data [facility] Lab Attestation statement: I reviewed the patient's lab results. 07/12/24 09:39 07/12/24 09:39 Labs: Lab Results 07/12/24 Range/Units 09:39 WBC 5.6 (4.8-10.8) X10*3/uL RBC 4.80 (4.20-5.50) X10*6/uL Hgb 14.5 (12.0-16.0) g/dl Hct 42.7 (37.0-47.0) % MCV 89.0 (80.0-98.0) fL MCH 30.2 (27.0-33.0) pg MCHC 34.0 (31.0-35.0) g/dl RDW 11.6 (11.0-16.0) % Plt Count 279 D (160-400) X10*3/uL MPV 9.1 L (9.4-12.3) fL Immature Gran % (Auto) 0.2 (0.0-0.4) % Neut % (Auto) 62.9 (45-73) % Lymph % (Auto) 29.1 (20-40) % [place] % (Auto) 5.9 (2-11) % Eos % (Auto) 1.4 (0-4) % Baso % (Auto) 0.5 (0-2) % Lymph # (Auto) 1.6 (1.2-4.9) X10*3/uL [place] # (Auto) 0.3 (0.1-1.2) X10*3/uL Eos # (Auto) 0.1 (0.0-0.4) X10*3/uL Baso # (Auto) 0.0 (0.0-0.2) X10*3/uL Abs Immat Gran (auto) 0.01 (0.00-0.03) X10*3/uL Absolute Neuts (auto) 3.6 (2.0-8.3) x10*3/uL Absolute Nucleated RBC 0.000 (0.0-0.012) X10*3/uL Nucleated RBC % (auto) 0.0 (0.0-0.2) /100WBC Sodium 140 (135-145) mmol/L Potassium 3.9 (3.3-5.1) mmol/L Chloride 103 (96-108) mmol/L Carbon Dioxide 27 (22-29) mmol/L Anion Gap 14 (12-20) BUN 11 (9-16) mg/dL Creatinine 0.67 (0.5-1.4) mg/dL Estim Creat Clear Calc 129.1 Estimated GFR > 60 Random Glucose 97 (60-115) mg/dL Calcium 9.3 (8.4-10.2) mg/dL Magnesium 2.0 (1.6-2.6) mg/dL Total Bilirubin 0.4 (0.0-1.0) mg/dL Direct Bilirubin 0.1 (0.0-0.5) mg/dL AST 17 (5-31) U/L ALT 14 (0-31) U/L Alkaline Phosphatase 76 (39-117) U/L Total Protein 8.5 H (6.5-8.0) g/dL Albumin 4.7 (3.5-5.0) g/dL Lipase 24 (8-78) U/L Beta HCG, Quant < 2 mIU/mL Ethyl Alcohol < 10 mg/dL Independent Interpretation I performed an independent interpretation of an: EKG Interpretation: Rate: 79 Rhythm: NSR [place]: normal Normal P waves. Normal JUANA. Normal QRS complex. ST T wave : normal no [place]ACKSON qTC: 456 prior studies: no acute ischemia The study has been interpreted contemporaneously by me. . External Record Review External record reviewed: Outpatient record Prescription Management I considered prescription management with: Other Discharge Plan Discharge Clinical Impression: Epileptic seizure Patient Disposition: Home, Self-Care Instructions: Epilepsy (ED) Additional Instructions: stay with responsible adult return for any worsening symptoms or complaints follow up with your neurologist as planned start on keppra 1,000mg twice a day STOP keppra 750mg twice a day Prescriptions: New levetiracetam [Keppra] 1,000 mg tablet 1,000 mg PO BID Qty: 60 0RF No Action cholecalciferol (vitamin D3) 50 mcg (2,000 unit) capsule 50 mcg PO DAILY Qty: 30 3RF levetiracetam 1,000 mg Tablet 1,000 mg PO BID naproxen 500 mg tablet 500 mg PO BID PRN (Reason: pain) Qty: 20 0RF lidocaine [Lidoderm] 5 % adhesive patch,medicated 1 patch topical DAILY Qty: 15 0RF Rx Instructions: leave on most painful area for up to 12 hrs mupirocin 2 % ointment 1 appl topical BID Qty: 22 0RF lamotrigine [Lamictal] 150 mg tablet 300 mg PO BID 30 Days Qty: 120 0RF prednisone 20 mg tablet 20 mg PO ONCE Qty: 1 0RF prednisone 20 mg tablet 20 mg PO DAILY Qty: 4 0RF bisacodyl [Dulcolax (bisacodyl)] 5 mg tablet,delayed release (DR/EC) 10 mg PO ONCE 1 Days Qty: 2 0RF Rx Instructions: Take 2 tablets by mouth at 12:00pm the day before your procedure. polyethylene glycol 3350 [Miralax] 17 gram/dose powder 238 g PO ONCE 1 Days Qty: 238 0RF Rx Instructions: Take as directed by mouth the day before your procedure. Stand Alone Forms: Work/School Release Print Language: Urdu
[2024-07-12] MEDS: LORazepam 2 MG/ML VIAL 1 MG IVPUSH (09:40)
[2024-07-12 09:44] LABS: Basophils Percent Auto 0.5 % (0-2); Eosinophils Absolute Auto 0.1 X10*3/uL (0.0-0.4); Eosinophils Percent Auto 1.4 % (0-4); Hematocrit 42.7 % (37.0-47.0); Hemoglobin 14.5 g/dl (12.0-16.0); Imm Gran Abs Auto 0.01 X10*3/uL (0.00-0.03); Imm Gran Pct Auto 0.2 % (0.0-0.4); Lymphocytes Absolute Auto 1.6 X10*3/uL (1.2-4.9); Lymphocytes Percent Auto 29.1 % (20-40); MANUAL DIFF FLAG NO; Mean Corpuscular Hemoglobin 30.2 pg (27.0-33.0); Mean Platelet Volume 9.1 fL (9.4-12.3); Monocytes Absolute Auto 0.3 X10*3/uL (0.1-1.2); Monocytes Percent Auto 5.9 % (2-11); Neutrophils Absolute Auto 3.6 x10*3/uL (2.0-8.3); Neutrophils Percent Auto 62.9 % (45-73); Platelet Count 279 X10*3/uL (160-400); Red Cell Distribution Width 11.6 % (11.0-16.0); White Blood Count 5.6 X10*3/uL (4.8-10.8)
[2024-07-12 10:14] LABS: Alanine Aminotransferase 14 U/L (0-31); Albumin Level 4.7 g/dL (3.5-5.0); Alkaline Phosphatase 76 U/L (39-117); Anion Gap 14 (12-20); Aspartate Amino Transferase 17 U/L (5-31); Bilirubin Direct 0.1 mg/dL (0.0-0.5); Bilirubin Total 0.4 mg/dL (0.0-1.0); Blood Urea Nitrogen 11 mg/dL (9-16); Calcium 9.3 mg/dL (8.4-10.2); Carbon Dioxide 27 mmol/L (22-29); Chloride 103 mmol/L (96-108); Creatinine Clr Calc Pharmacy 129.1; Estimated Glomerular Filt Rate > 60; Ethanol < 10 mg/dL; Glucose Random 97 mg/dL (60-115); HCG Quantitative < 2 mIU/mL; Lipase 24 U/L (8-78); Potassium 3.9 mmol/L (3.3-5.1); Sodium 140 mmol/L (135-145); Total Protein 8.5 g/dL (6.5-8.0)
[2024-07-12 12:14] VITALS: BP 93/58; PULSE 76; RESP 13; TEMP 36.8; O2SAT 99
[2024-07-12 12:53] VITALS: BP 98/55; PULSE 78; RESP 18; O2SAT 98
[2024-07-12 13:06] VITALS: BP 98/55; PULSE 78; RESP 18; TEMP 37.1; O2SAT 98
== END 2024-07-12 13:07 | disposition home or self-care (01) ==
PROVIDERS: Emergency Provider Emergency Medicine; PCP Internal Medicine
DX: G40.909 Epilepsy, unspecified, not intractable, without status epilepticus (principal); Z79.899 Other long term (current) drug therapy
CPT/HCPCS: 36415; 80048; 80076; 80307; 83690; 83735; 84702; 85025; 93005; 96374; 99284; J2060

== ENCOUNTER → 2024-07-12 09:15 | Outpatient (BNV) | payer OTHER, SELFPAY | PROVIDERS: Emergency Provider Emergency Medicine; PCP Internal Medicine; Visit Provider Internal Medicine Cardiovascular Disease | DX: G40.89 Other seizures (principal) | CPT/HCPCS: 93010 ==

== ENCOUNTER 2024-08-06 12:06 | Emergency (ER) | payer OTHER, SELFPAY ==
--- NOTE | ~2024-08-06 | XR_ITS ---
EXAMINATION: XR CHEST 2 VIEWS HISTORY: seizure COMPARISON: Comparison is made with the prior examination dated 10/02/2022. FINDINGS: PA and lateral views of the chest are submitted. The lungs are expanded and clear. There is no pleural effusion, pneumothorax, or pulmonary vascular congestion. The heart is normal in size. The bones are intact. XR/XR chest 2V IMPRESSION: No acute cardiopulmonary abnormality. Electronically signed by: Eusebio Mulligan MD 08/06/2024 01:32 PM [facility]
--- NOTE | ~2024-08-06 | CT_ITS ---
EXAMINATION: CT HEAD WITHOUT IV CONTRAST HISTORY: seizure, headache. TECHNIQUE: Unenhanced helical CT of the head was performed per standard departmental protocol. Coronal and sagittal reformats of the head were also evaluated. One or more of the following techniques was used for dose reduction: Automated exposure control, adjustment of the mA and/or kV according to patient size, use of iterative reconstruction technique. DLP: 662.16 mGy-cm COMPARISON: Comparison is made with the prior examination dated 05/01/2023. FINDINGS: BRAIN: The brain parenchyma is unremarkable. There is normal rosraio/white differentiation. The ventricular system is normal in size and configuration. There is no mass effect or midline shift. No intra- or extra-axial fluid collections are identified. SINUSES: The visualized paranasal sinuses are clear. The mastoid air cells and middle ear cavities are well pneumatized. ORBITS: The visualized orbits are unremarkable. BONES/SOFT TISSUES: The extracranial soft tissues are unremarkable. The calvarium is intact. No suspicious lytic or sclerotic lesions. CT/CT head/brain wo IV con IMPRESSION: No acute intracranial abnormality. Electronically signed by: Eusebio Mulligan MD 08/06/2024 02:11 PM [facility] [place] [place]
--- NOTE | ~2024-08-06 | CT_ITS ---
EXAMINATION: CT CERVICAL SPINE WITHOUT CONTRAST CLINICAL INFORMATION: Seizure. Neck pain. COMPARISON: None available. TECHNIQUE: Contiguous axial images through the cervical spine using 3 mm collimation with bone and soft tissue algorithm. Sagittal and coronal reformatted images acquired. This CT examination was performed using dose optimization techniques as appropriate, variously including the following: *Automated exposure control *Adjustment of mA and/or kV according to patient size (this includes techniques or standardized protocols for targeted exams where dose is matched to indication/reason for exam; i.e. extremities or head) *Use of iterative reconstruction technique. Total dose: 1295 mGy centimeter FINDINGS: Limited by patient's motion artifact. Craniocervical junction is intact. C1 is intact. C2 is intact. C3 is intact. C4 is intact. C5 is intact. C6 is intact. C7 is intact. The alignment is grossly normal. Marginal osteophyte formation at C4-5 and C5-6. Degenerative changes in the periodontal C1 region. No gross prevertebral compartment hematoma. Tympanic cavities and mastoid air cells are aerated. Focal calcification at the nuchal ligament, C5 level. CT/CT cervical spine wo IV con IMPRESSION: Limited by patient's motion artifact. Multilevel cervical spondylosis C4-5 and C5-6 without acute fracture or trauma-related listhesis. Fleischner guidelines were followed. Electronically signed by: Raj Cortes MD 08/06/2024 02:16 PM [facility]
[2024-08-06 12:20] VITALS: BP 107/7; PULSE 110; O2SAT 98
[2024-08-06 12:34] VITALS: BP 113/73; PULSE 92; RESP 16; TEMP 36.6; O2SAT 97; BMI 21.1
--- NOTE | 2024-08-06 12:53 | ECG_ITS ---
Test Reason : siezure Blood Pressure : */* mmHG Vent. Rate : 85 BPM Atrial Rate : 85 BPM P-R Int : 138 ms QRS Dur : 72 ms QT Int : 370 ms P-R-T Axes : 57 52 29 degrees QTcB Int : 440 ms Normal sinus rhythm Normal ECG When compared with ECG of 12-Jul-2024 10:04, No significant change was found Referred By: Rebeca Garcia Electronically Signed By: DANUTA TREVINO
--- NOTE | 2024-08-06 12:56 | ED_ITS ---
HPI - Seizure General Chief Complaint: Seizure Stated Complaint: WIT 5 MIN SZ,POSTICTAL PER EMS Time Seen by Provider: 08/06/24 12:35 Source: patient and EMS Mode of arrival: EMS Limitations: no limitations History of Present Illness ED Provider: VALERIY LYLES PA-C HPI Narrative: 39-year-old female with pmhx significant for epilepsy (on Keppra 1000 mg BID and lamictal 200 mg BID) presents to the ED today via EMS for evaluation of seizure prior to arrival in ED today. She states that she felt tired and generally unwell so she went to lie down in her bed. Her father was home who witnessed patient having a tonic-clonic seizure. She did not fall from the bed. Patient reports waking up in the ambulance on the way to the ED. Her last seizure was yesterday however she did not seek medical attention at that time. Her last seizure prior to that was approximately 1 month ago. She followed up with her neurologist who increased her Keppra to a 1000 mg b.i.d.. She was originally on 750 mg b.i.d.. States she is compliant with all of her medications. No missed doses. She states she has not been sleeping well and has had increased life stressors which are triggers for her. At present she endorses headache and neck pain which are normal post seizure per patient. Denies tongue pain or laceration. Denies losing control of her bowel/ bladder. complaint: seizure Onset (ago): minute(s) Description of Episode: loss of consciousness and tonic-clonic movement Seizure History: Yes Place: Home Possible Precipitating Event: stress Associated symptoms: denies other symptoms Treatments prior to arrival: none Related Data Home Medications ?Medication ?Instructions ?Recorded ?Confirmed levetiracetam 1,000 mg tablet 1,000 mg PO BID 09/06/20 12/23/20 Previous Rx's ?Medication ?Instructions ?Recorded cholecalciferol (vitamin D3) 50 50 mcg PO DAILY #30 caps 09/24/20 mcg (2,000 unit) capsule lidocaine 5 % topical patch 1 patch topical DAILY #15 ea 11/15/20 (Lidoderm) naproxen 500 mg tablet 500 mg PO BID PRN pain #20 tabs 11/15/20 bisacodyl 5 mg tablet,delayed 10 mg (2 x 5 mg) PO ONCE 12/06/20 release (Dulcolax (bisacodyl)) colonoscopy prep 1 day #2 tabs polyethylene glycol 3350 17 238 g PO ONCE 1 day #238 grams 12/06/20 gram/dose oral powder (Miralax) mupirocin 2 % topical ointment 1 appl topical BID #22 grams 11/19/22 lamotrigine 150 mg tablet 300 mg (2 x 150 mg) PO BID 1 month 12/15/23 (Lamictal) #120 tabs prednisone 20 mg tablet 20 mg PO DAILY #4 tabs 02/20/24 levetiracetam 1,000 mg tablet 1,000 mg PO BID #60 tabs 07/12/24 (Keppra) Allergies Allergy/AdvReac Type Severity Reaction Status Date / Time meperidine [From Demerol] AdvReac Mild HIVES Verified 08/06/24 12:38 Review of Systems 2 Review of Systems: Constitutional: No fever, chills, fatigue, night sweats, weight changes ENT/Mouth: No ear pain, hearing loss, nasal congestion, sinus pain, rhinorrhea, sore throat Eyes: No eye pain, swelling, redness, vision changes, discharge Cardio: No chest pain, palpitations, BERMUDEZ, orthopnea, peripheral edema Pulm: No SOB, cough, sputum, wheezing, dyspnea, hemoptysis GI: No nausea, vomiting, hematemesis, abdominal pain, diarrhea, constipation, hematochezia, melena : No irregular bleeding, dysuria, frequency, urgency, hesitancy, hematuria, flank pain, urinary flow changes, urinary incontinence or retention MSK: No back pain, neck pain, joint pain, myalgias, +neck pain Skin: No lesions, rashes Neuro: No weakness, numbness, paresthesias, LOC, dizziness, +headache Psych: No anxiety/panic, depression, SI/HI, AH/VH All other systems reviewed and are negative. [facility] Past Medical History Attestation statement: The following information was validated with the patient. Source: old records reviewed and nursing notes reviewed Medical History Epilepsy Chronic abdominal pain H/O partial seizures Constipation by delayed colonic transit Surgical History Hx of hemorrhoidectomy Hx of tubal ligation Family History Family History Maternal Grandmother Colon cancer Paternal Grandmother Stomach cancer Mother Diabetes Father Diabetes Social History Social History Household Members: Spouse and Children Alcohol intake: current Alcohol intake frequency: does not drink Alcohol type: wine Patient Tobacco Use Status: Never used Tobacco Advance Directives: No Advance Directives Information Provided: Yes Do you have a plan to hurt others: No Plan Current occupational status: employed 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 Skin: Warm, dry, intact. No rashes or lesions. Head: Normocephalic, atraumatic. No palpable hematoma or skull fracture. EENT: Hearing is intact b/l. Conjunctiva clear. PERRLA. EOM intact. Moist mucous membranes.?No tongue laceration. Neck: No midline cervical tenderness or step-off deformity Cardiac: Chest wall symmetric. RRR Lungs: Normal respiratory effort without accessory muscle use. CTA bilaterally Abdomen: Soft, non-tender, non-distended. No rebound tenderness or guarding. Positive BS x4. Back: No midline spinous or paraspinal tenderness. No step off deformity. Ext: Upper and lower extremities atraumatic, without tenderness, deformity, swelling or erythema. Full ROM throughout. Neuro: AOx3. Normal speech. Strength 5/5 intact throughout. No saddle anesthesia. Sensation intact to light touch. NV intact distally. Ambulating with steady gait. Psych: Appropriate mood and affect. Responds appropriately to questions. Course Course Course Narrative: CBC without leukocytosis. No anemia. H&H stable. Chemistry without acute electrolyte abnormality requiring intervention. No TON. Random glucose 106 > hypoglycemia unlikely. Liver function WNL. Troponin undetectable. Total CK 90. Negative COVID, flu, RSV. Chest x-ray does not demonstrate infiltrate or consolidation. EKG showing normal sinus rhythm with a rate of 85 beats per minute, QT 370, QTC 440, no acute ischemic changes or ST elevations. CT head/brain without intracranial bleed or mass. CT cervical spine without fracture. > UA pending. lamotrigine and Keppra levels pending > IV ativan and loading dose keppra ordered > tylenol ordered for headache 1531 --urine negative for nitrites, leukocyte esterase, 0-5 WBCs, 6-10 squamous epithelial cells with trace urine bacteria. concern for contamination as patient denies any urinary symptoms. Will await culture to treat. Patient has been observed for over 3.5 hours without further seizure activity. She states she feels well and feels comfortable being discharged home. Patient will be contacting her neurologist tomorrow morning for follow up. her father will be driving her home from the ED today. Patient has remained stable throughout ED visit today. Discussed worrisome signs and symptoms and when to return to the ED. All questions answered at this time. Patient is agreeable with disposition and stable for discharge. Medications Administered Discontinued Medications Generic Name Dose Route Start Last Admin Trade Name Freq PRN Reason Stop Dose Admin Acetaminophen 975 mg 08/06/24 12:52 08/06/24 13:36 Acetaminophen 325 Mg Tablet PO 08/06/24 12:53 975 mg ONCE ONE Administration Levetiracetam 1,000 mg in 100 mls @ 400 mls/hr 08/06/24 12:56 08/06/24 13:47 Keppra IV 08/06/24 13:10 Infused ONCE ONE Infusion Lorazepam 1 mg 08/06/24 14:32 08/06/24 14:44 Lorazepam 2 Mg/Ml Vial IVPUSH 08/06/24 14:33 1 mg ONCE ONE Administration Medical Decision Making Medical Decision Making MDM Narrative: 39-year-old female with pmhx significant for epilepsy (on Keppra 750 mg BID and lamictal 200 mg BID) presents to the ED today via EMS for evaluation of seizure prior to arrival in ED today. Her vital signs are stable. She is afebrile. She is nontoxic-appearing and in no acute distress. Exam is nonfocal. She does not present in post-ictal state. AOX3. PERRLA. No palpable hematoma or skull fracture. No midline cervical spinous tenderness. No tongue laceration. Exam essentially benign. Differential diagnosis includes anemia, electrolyte abnormality, dehydration, anxiety, seizure disorder, arrhythmia, viral syndrome, brain bleed/ mass, urinary tract infection, pnuemonia Plan for labs, EKG, chest x-ray, urinalysis, pain control, CT head/cervical spine, re-evaluation. Differential Diagnosis Differential Diagnoses: The differential diagnosis associated with the presentation includes As above Admission/Observation Consideration of admission/observation: Escalation of care including admission/observation considered admission considered on presentation Lab Data MDM Lab Attestation statement: I reviewed the patient's lab results. as above. 08/06/24 13:08 08/06/24 13:08 Labs: Lab Results 08/06/24 08/06/24 Range/Units 13:08 15:06 WBC 6.3 (4.8-10.8) X10*3/uL RBC 4.58 (4.20-5.50) X10*6/uL Hgb 13.7 (12.0-16.0) g/dl Hct 40.2 (37.0-47.0) % MCV 87.8 (80.0-98.0) fL MCH 29.9 (27.0-33.0) pg MCHC 34.1 (31.0-35.0) g/dl RDW 11.8 (11.0-16.0) % Plt Count 314 (160-400) X10*3/uL MPV 9.0 L (9.4-12.3) fL Immature Gran % (Auto) 0.3 (0.0-0.4) % Neut % (Auto) 78.9 H (45-73) % Lymph % (Auto) 16.0 L (20-40) % [place] % (Auto) 3.6 (2-11) % Eos % (Auto) 0.6 (0-4) % Baso % (Auto) 0.6 (0-2) % Lymph # (Auto) 1.0 L (1.2-4.9) X10*3/uL [place] # (Auto) 0.2 (0.1-1.2) X10*3/uL Eos # (Auto) 0.0 (0.0-0.4) X10*3/uL Baso # (Auto) 0.0 (0.0-0.2) X10*3/uL Abs Immat Gran (auto) 0.02 (0.00-0.03) X10*3/uL Absolute Neuts (auto) 5.0 (2.0-8.3) x10*3/uL Absolute Nucleated RBC 0.000 (0.0-0.012) X10*3/uL Nucleated RBC % (auto) 0.0 (0.0-0.2) /100WBC PT 16.5 H (10.9-12.4) SEC INR 1.4 H (0.9-1.1) Sodium 143 (135-145) mmol/L Potassium 3.9 (3.3-5.1) mmol/L Chloride 107 (96-108) mmol/L Carbon Dioxide 25 (22-29) mmol/L Anion Gap 15 (12-20) BUN 11 (9-16) mg/dL Creatinine 0.72 (0.5-1.4) mg/dL Estim Creat Clear Calc 100.4 Estimated GFR > 60 Random Glucose 106 (60-115) mg/dL Calcium 9.0 (8.4-10.2) mg/dL Magnesium 1.9 (1.6-2.6) mg/dL Total Bilirubin 0.3 (0.0-1.0) mg/dL AST 21 (5-31) U/L ALT 15 (0-31) U/L Alkaline Phosphatase 67 (39-117) U/L Total Creatine Kinase 90 (26-140) U/L Troponin I High Sens < 2.7 (<3.5-17.0) ng/L C-Reactive Protein 0.22 (< or = 0.50) mg/dL Total Protein 7.9 (6.5-8.0) g/dL Albumin 4.3 (3.5-5.0) g/dL Lipase 19 (8-78) U/L Urine Color Yellow Urine Appearance Clear Urine pH 6.5 (5.0-9.0) Ur Specific [place] >= 1.030 H (1.005-1.025) Urine Protein 30 (1+) H (Neg-Trace) mg/dL Urine Glucose (UA) Negative (Negative) mg/dL Urine Ketones Trace (Negative) mg/dL Urine Blood Negative (Negative) Urine Nitrite Negative (Negative) Ur Leukocyte Esterase Negative (Negative) Urine RBC 0-2 (0-2) /HPF Urine WBC 0-5 (0-5) /HPF Ur Squamous Epith Cells 6-10 (0-2) /HPF Urine Bacteria Trace (None Seen) Hyaline Casts 0-2 (0-2) /LPF Influenza Type A (PCR) NEGATIVE (Negative) Influenza Type B (PCR) NEGATIVE (Negative) RSV RNA Qual (PCR) NEGATIVE (Negative) SARS-CoV-2 RNA (RT-PCR) NEGATIVE (Negative) Independent Interpretation I performed an independent interpretation of an: EKG, Plain X-Ray and CT Scan Interpretation: EKG showing normal sinus rhythm with a rate of 85 beats per minute, QT 370, QTC 440, no acute ischemic changes or ST elevations. Chest x-ray does not show infiltrate or consolidation CT head/brain without bleed or mass CT cervical spine without fracture Radiology Impression Discussion of test interpretation with radiology: I have reviewed the radiologist's reading. Radiologist Impression: EXAMINATION: XR CHEST 2 VIEWS HISTORY: seizure COMPARISON: Comparison is made with the prior examination dated 10/02/2022. FINDINGS: PA and lateral views of the chest are submitted. The lungs are expanded and clear. There is no pleural effusion, pneumothorax, or pulmonary vascular congestion. The heart is normal in size. The bones are intact. XR/XR chest 2V IMPRESSION: No acute cardiopulmonary abnormality. Electronically signed by: Eusebio Mulligan MD 08/06/2024 01:32 PM [facility] Report Number: [id number]: Total DLP = 622.90 mGy-cm EXAMINATION: CT CERVICAL SPINE WITHOUT CONTRAST CLINICAL INFORMATION: Seizure. Neck pain. COMPARISON: None available. TECHNIQUE: Contiguous axial images through the cervical spine using 3 mm collimation with bone and soft tissue algorithm. Sagittal and coronal reformatted images acquired. This CT examination was performed using dose optimization techniques as appropriate, variously including the following: *Automated exposure control *Adjustment of mA and/or kV according to patient size (this includes techniques or standardized protocols for targeted exams where dose is matched to indication/reason for exam; i.e. extremities or head) *Use of iterative reconstruction technique. Total dose: 1295 mGy centimeter FINDINGS: Limited by patient's motion artifact. Craniocervical junction is intact. C1 is intact. C2 is intact. C3 is intact. C4 is intact. C5 is intact. C6 is intact. C7 is intact. The alignment is grossly normal. Marginal osteophyte formation at C4-5 and C5-6. Degenerative changes in the periodontal C1 region. No gross prevertebral compartment hematoma. Tympanic cavities and mastoid air cells are aerated. Focal calcification at the nuchal ligament, C5 level. CT/CT cervical spine wo IV con IMPRESSION: Limited by patient's motion artifact. Multilevel cervical spondylosis C4-5 and C5-6 without acute fracture or trauma-related listhesis. Fleischner guidelines were followed. Electronically signed by: Raj Cortes MD 08/06/2024 02:16 PM [facility] Report Number: [id number]: Total DLP = 672.41 mGy-cm EXAMINATION: CT HEAD WITHOUT IV CONTRAST HISTORY: seizure, headache. TECHNIQUE: Unenhanced helical CT of the head was performed per standard departmental protocol. Coronal and sagittal reformats of the head were also evaluated. One or more of the following techniques was used for dose reduction: Automated exposure control, adjustment of the mA and/or kV according to patient size, use of iterative reconstruction technique. DLP: 662.16 mGy-cm COMPARISON: Comparison is made with the prior examination dated 05/01/2023. FINDINGS: BRAIN: The brain parenchyma is unremarkable. There is normal rosario/white differentiation. The ventricular system is normal in size and configuration. There is no mass effect or midline shift. No intra- or extra-axial fluid collections are identified. SINUSES: The visualized paranasal sinuses are clear. The mastoid air cells and middle ear cavities are well pneumatized. ORBITS: The visualized orbits are unremarkable. BONES/SOFT TISSUES: The extracranial soft tissues are unremarkable. The calvarium is intact. No suspicious lytic or sclerotic lesions. CT/CT head/brain wo IV con IMPRESSION: No acute intracranial abnormality. Electronically signed by: Eusebio Mulligan MD 08/06/2024 02:11 PM [facility] Independent Historian Clinical information obtained from an independent historian. History obtained from or confirmed by: Parent (dad) and EMS External Record Review External record reviewed: Inpatient record, Office record, Outpatient record, Prior outpatient labs, Prior outpatient radiology, Primary care record and Outside ED record Chronic Conditions Patient?s care impacted by: Other (Epilepsy) Social Determinants Patient?s care significantly limited by Social Determinants of Health including: Other Social Determinant of Health Critical Care Time Critical Care Time Critical Care Time: No Discharge Plan Discharge Clinical Impression: Breakthrough seizure Patient Disposition: Home, Self-Care Instructions: Lamotrigine (By mouth), Levetiracetam (By mouth), Epilepsy (ED) Additional Instructions: You were evaluated in the ED today for seizure activity. Your workup today is reassuring. You were provided with a loading dose of Keppra and Ativan while in ED today without further seizure activity. Your increase in seizures may be related to your increased stress. I recommend taking it easy and increasing your hydration. As discussed, I would like you to contact your neurologist tomorrow morning to schedule an appointment this week. Continue all home medications as prescribed. Do not miss any doses. Your blood levels of keppra and lamotrigine are still pending. You will be contacted if these levels are not within therapeutic range. Do not drive/ operate heavy machinery for at least 6 months. Please return to the ED with any new or worsening symptoms. In the case of an emergency call 911. Prescriptions: No Action cholecalciferol (vitamin D3) 50 mcg (2,000 unit) capsule 50 mcg PO DAILY Qty: 30 3RF levetiracetam 1,000 mg Tablet 1,000 mg PO BID naproxen 500 mg tablet 500 mg PO BID PRN (Reason: pain) Qty: 20 0RF lidocaine [Lidoderm] 5 % adhesive patch,medicated 1 patch topical DAILY Qty: 15 0RF Rx Instructions: leave on most painful area for up to 12 hrs mupirocin 2 % ointment 1 appl topical BID Qty: 22 0RF lamotrigine [Lamictal] 150 mg tablet 300 mg PO BID 30 Days Qty: 120 0RF levetiracetam [Keppra] 1,000 mg tablet 1,000 mg PO BID Qty: 60 0RF prednisone 20 mg tablet 20 mg PO ONCE Qty: 1 0RF prednisone 20 mg tablet 20 mg PO DAILY Qty: 4 0RF bisacodyl [Dulcolax (bisacodyl)] 5 mg tablet,delayed release (DR/EC) 10 mg PO ONCE 1 Days Qty: 2 0RF Rx Instructions: Take 2 tablets by mouth at 12:00pm the day before your procedure. polyethylene glycol 3350 [Miralax] 17 gram/dose powder 238 g PO ONCE 1 Days Qty: 238 0RF Rx Instructions: Take as directed by mouth the day before your procedure. Referrals: Vee Shafer MD [Primary Care Provider] - Print Language: Romansh
[2024-08-06 13:14] LABS: MANUAL DIFF FLAG NO
[2024-08-06 13:18] LABS: Basophils Percent Auto 0.6 % (0-2); Eosinophils Percent Auto 0.6 % (0-4); Hematocrit 40.2 % (37.0-47.0); Hemoglobin 13.7 g/dl (12.0-16.0); Imm Gran Abs Auto 0.02 X10*3/uL (0.00-0.03); Imm Gran Pct Auto 0.3 % (0.0-0.4); Mean Corpuscular HGB Conc 34.1 g/dl (31.0-35.0); Mean Corpuscular Hemoglobin 29.9 pg (27.0-33.0); Mean Corpuscular Volume 87.8 fL (80.0-98.0); Monocytes Absolute Auto 0.2 X10*3/uL (0.1-1.2); Monocytes Percent Auto 3.6 % (2-11); Neutrophils Percent Auto 78.9 % (45-73); Platelet Count 314 X10*3/uL (160-400); Red Blood Count 4.58 X10*6/uL (4.20-5.50); Red Cell Distribution Width 11.8 % (11.0-16.0); White Blood Count 6.3 X10*3/uL (4.8-10.8)
[2024-08-06 13:23] LABS: INTERNATIONAL NORM RATIO 1.4 (0.9-1.1); Prothrombin Time 16.5 SEC (10.9-12.4)
[2024-08-06] MEDS: levETIRAcetam in NaCl (iso-os) 1,000 MG/100 ML PIGGYBACK 400 MG IV (13:32)
[2024-08-06 13:33] LABS: Alanine Aminotransferase 15 U/L (0-31); Albumin Level 4.3 g/dL (3.5-5.0); Alkaline Phosphatase 67 U/L (39-117); Anion Gap 15 (12-20); Aspartate Amino Transferase 21 U/L (5-31); Bilirubin Total 0.3 mg/dL (0.0-1.0); Blood Urea Nitrogen 11 mg/dL (9-16); C Reactive Protein 0.22 mg/dL (< or = 0.50); Carbon Dioxide 25 mmol/L (22-29); Chloride 107 mmol/L (96-108); Creatinine Clr Calc Pharmacy 100.4; Estimated Glomerular Filt Rate > 60; Glucose Random 106 mg/dL (60-115); Lipase 19 U/L (8-78); Magnesium 1.9 mg/dL (1.6-2.6); Potassium 3.9 mmol/L (3.3-5.1); Sodium 143 mmol/L (135-145); Total Protein 7.9 g/dL (6.5-8.0)
[2024-08-06] MEDS: Acetaminophen 325 MG TABLET 975 MG PO (13:36)
[2024-08-06 13:42] LABS: Troponin-I High Sensitivity < 2.7 ng/L (<3.5-17.0)
[2024-08-06 14:08] LABS: Influenza A PCR NEGATIVE (Negative); Influenza B PCR NEGATIVE (Negative); Resp Syncy Virus RNA Qual PCR NEGATIVE (Negative); SARS COV2 PCR INHOUSE NEGATIVE (Negative)
[2024-08-06 14:11] VITALS: BP 111/67; PULSE 77; RESP 16; TEMP 36.7; O2SAT 95
[2024-08-06] MEDS: LORazepam 2 MG/ML VIAL 1 MG IVPUSH (14:44)
[2024-08-06 15:13] LABS: Appearance Urine Clear; Color Urine Yellow; Glucose Urine UA Negative (Negative); Leukocyte Esterase Urine Negative (Negative); Nitrite Urine Negative (Negative); PH 6.5 (5.0-9.0); Specific Gravity - Urine >= 1.030 (1.005-1.025); UMIC TRIGGER UACC YES; Urine Blood Negative (Negative); Urine Ketones Trace mg/dL (Negative); Urine Protein 30 (1+) mg/dL (Neg-Trace)
[2024-08-06 15:28] LABS: Bacteria Urine Trace (None Seen); Hyaline Casts Urine 0-2 /LPF (0-2); RBC Urine 0-2 /HPF (0-2); WBC Urine 0-5 /HPF (0-5)
[2024-08-06 15:49] VITALS: BP 104/68; PULSE 82; RESP 18; TEMP 36.6; O2SAT 97
[2024-08-09 18:48] LABS: Lamotrigine Lamictal 8.4 mcg/mL (2.5-15.0)
[2024-08-10 05:33] LABS: Levetiracetam Keppra 23.4 mcg/mL (6.0-46.0)
== END 2024-08-06 15:56 | disposition home or self-care (01) ==
PROVIDERS: Physician Assistant Medical; Emergency Provider Student in an Organized Health Care Education/Training Program; PCP Internal Medicine
DX: R56.9 Unspecified convulsions (principal); M54.2 Cervicalgia; R51.9 Headache, unspecified; Z03.818 Encounter for observation for suspected exposure to other biological agents ruled out; Z79.899 Other long term (current) drug therapy
CPT/HCPCS: 0241U; 36415; 70450; 71046; 72125; 80053; 80175; 80177; 81001; 82550; 83690; 83735; 84484; 85025; 85610; 86140; 93005; 96374; 96375; 99284; J1953; J2060

== ENCOUNTER → 2024-08-06 12:53 | Outpatient (BNV) | payer OTHER, SELFPAY | PROVIDERS: Emergency Provider Student in an Organized Health Care Education/Training Program; PCP Internal Medicine; Visit Provider Internal Medicine | DX: G40.89 Other seizures (principal) | CPT/HCPCS: 93010 ==

== ENCOUNTER → 2024-08-06 12:53 | Outpatient (BNV) | payer OTHER, SELFPAY | PROVIDERS: Emergency Provider Student in an Organized Health Care Education/Training Program; PCP Internal Medicine; Visit Provider Radiology Diagnostic Radiology | DX: R56.9 Unspecified convulsions (principal); R51.9 Headache, unspecified; M47.812 Spondylosis without myelopathy or radiculopathy, cervical region | CPT/HCPCS: 70450; 71046; 72125 ==

== ENCOUNTER 2024-10-22 09:27 | Outpatient (REF) | payer OTHER, SELFPAY ==
[2024-10-22 12:04] LABS: Alanine Aminotransferase 19 U/L (0-31); Albumin Level 4.1 g/dL (3.5-5.0); Alkaline Phosphatase 68 U/L (39-117); Anion Gap 10 (12-20); Aspartate Amino Transferase 20 U/L (5-31); Bilirubin Total 0.4 mg/dL (0.0-1.0); Blood Urea Nitrogen 10 mg/dL (9-16); Calcium 8.7 mg/dL (8.4-10.2); Carbon Dioxide 23 mmol/L (22-29); Chloride 108 mmol/L (96-108); Cholesterol 193 mg/dL (<200); Estimated Glomerular Filt Rate > 60; Glucose Random 86 mg/dL (60-115); HDL Cholesterol 47 mg/dL (>40); LDL Cholesterol Calculated 133 mg/dL (<100); Potassium 3.6 mmol/L (3.3-5.1); Sodium 137 mmol/L (135-145); Total Protein 7.5 g/dL (6.5-8.0); Triglycerides 69 mg/dL (<150)
== END 2024-10-22 09:28 | disposition home or self-care (01) ==
LOC: HO.LAB 09:27
PROVIDERS: PCP Internal Medicine; Visit Provider Internal Medicine
DX: R07.89 Other chest pain (principal); R10.32 Left lower quadrant pain
CPT/HCPCS: 36415; 80053; 80061

== ENCOUNTER 2024-12-25 11:28 | Inpatient (IN) | payer OTHER, SELFPAY ==
--- NOTE | ~2024-12-25 | CT_ITS ---
EXAMINATION: CT ABDOMEN AND PELVIS WITH CONTRAST CLINICAL INFORMATION: Abdominal pain. COMPARISON: November 15, 2020. TECHNIQUE: Multidetector volumetric images were obtained from the superior aspect of the liver through the pubic symphysis following administration 85 mL of Omnipaque 350 intravenous contrast. Sagittal and coronal reformatted images were obtained on the technologist's workstation. Oral contrast: No This CT examination was performed using dose optimization techniques as appropriate, variously including the following: *Automated exposure control *Adjustment of mA and/or kV according to patient size (this includes techniques or standardized protocols for targeted exams where dose is matched to indication/reason for exam; i.e. extremities or head) *Use of iterative reconstruction technique. DLP: 830 mGy centimeter. FINDINGS: LUNG BASES: No acute airspace disease. LIVER, GALLBLADDER, AND BILIARY TREE: Liver measures 18 cm. No focal enhancing lesion. Portal veins, hepatic veins and intrahepatic portion of the IVC are patent. Low density intraluminal abnormalities in the gallbladder. No pericholecystic fluid collection or gallbladder wall thickening. No intrahepatic or extrahepatic biliary ductal dilatation. PANCREAS: No focal lesion. No peripancreatic fluid collection. No main pancreatic ductal dilatation. SPLEEN: 9 cm. No focal lesion. ADRENAL GLANDS: Soft tissue fullness. No gross nodular lesion. KIDNEYS AND URETERS: No hydronephrosis. No gross nephrolithiasis. 1 cm cystic lesion midportion right kidney. Normal enhancement of the renal parenchyma. BLADDER: Fluid-filled. GASTROINTESTINAL TRACT: Gas and fluid-filled prominent small bowel loops. Abundant stool throughout the large intestine. No pneumatosis intestinalis. No intestinal obstruction pattern. No gross intestinal wall thickening. No ascites. No pneumoperitoneum. No peripheral enhancing fluid collection, peritoneal cavity. Swirling of the mesenteric vessels. Sutures/scarring in the midline lower peritoneal cavity. Small hiatal hernia. ABDOMINAL WALL: Small tiny fat-containing periumbilical and epigastric hernias/eventration. LYMPH NODES: No lymphadenopathy, mesenteric or retroperitoneal. VASCULAR: No aneurysm or dissection, abdominal aorta. PELVIC VISCERA: I do not see the uterus. OSSEOUS STRUCTURES: Mild multilevel spondylosis without acute fracture or listhesis. Broad-based disc bulging at L4-5. CT/CT abdomen pelvis w IV con IMPRESSION: The possibility of an internal hernia creating partial/intermittent mid to distal small bowel obstruction versus ileus cannot be entirely excluded. Cholelithiasis likely cholesterol. Hepatomegaly, mild. Cystic lesion right kidney. Fleischner guidelines were followed. Electronically signed by: Raj Cortes MD 12/25/2024 03:26 PM EDT RP
--- NOTE | 2024-12-25 11:34 | ED_ITS ---
HPI - General Adult General Chief complaint: GI Bleed Stated complaint: rectal bleeding Time Seen by Provider: 12/25/24 12:19 History of Present Illness HPI narrative: Patient is a 39-year-old female presents today with having bright red blood per rectum. History of seizures. History of abdominal pain in the past. Patient is from home. Positive brown stool as well. Pain diffuse over the entire abdomen. Related Data Home Medications ?Medication ?Instructions ?Recorded ?Confirmed levetiracetam 1,000 mg tablet 1,000 mg PO BID 09/06/20 12/23/20 Previous Rx's ?Medication ?Instructions ?Recorded cholecalciferol (vitamin D3) 50 50 mcg PO DAILY #30 caps 09/24/20 mcg (2,000 unit) capsule lidocaine 5 % topical patch 1 patch topical DAILY #15 ea 11/15/20 (Lidoderm) naproxen 500 mg tablet 500 mg PO BID PRN pain #20 tabs 11/15/20 bisacodyl 5 mg tablet,delayed 10 mg (2 x 5 mg) PO ONCE 12/06/20 release (Dulcolax (bisacodyl)) colonoscopy prep 1 day #2 tabs polyethylene glycol 3350 17 238 g PO ONCE 1 day #238 grams 12/06/20 gram/dose oral powder (Miralax) mupirocin 2 % topical ointment 1 appl topical BID #22 grams 11/19/22 lamotrigine 150 mg tablet 300 mg (2 x 150 mg) PO BID 1 month 12/15/23 (Lamictal) #120 tabs prednisone 20 mg tablet 20 mg PO DAILY #4 tabs 02/20/24 levetiracetam 1,000 mg tablet 1,000 mg PO BID #60 tabs 07/12/24 (Keppra) Allergies Allergy/AdvReac Type Severity Reaction Status Date / Time meperidine [From Demerol] AdvReac Mild HIVES Verified 12/25/24 11:35 PMFSH Past Medical History Medical History Epilepsy Chronic abdominal pain H/O partial seizures Constipation by delayed colonic transit Surgical History Hx of hemorrhoidectomy Hx of tubal ligation Family History Family History Maternal Grandmother Colon cancer Paternal Grandmother Stomach cancer Mother Diabetes Father Diabetes Social History Social History Household Members: Spouse and Children Alcohol intake: current Alcohol intake frequency: does not drink Alcohol type: wine Patient Tobacco Use Status: Never used Tobacco Advance Directives: No Advance Directives Information Provided: Yes Current occupational status: employed 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 States this is associated with epigastric pain, and feels constipated. Showed a photo of moderate volume of bright red blood in the toilet bowl and on the toilet paper. Takes linzess for constipation. Also endorses lower back pain, took naproxen which improved back pain. States she has a history of hemorrhoids. Denies recent travel, or sick contacts. Patient has had hysterectomy. PE: hypoactive bowel sounds. Exquisitely tender in the RLQ Plan: labs, UA Medications Administered Discontinued Medications Generic Name Dose Route Start Last Admin Trade Name Freq PRN Reason Stop Dose Admin Iohexol 100 ml 12/25/24 15:06 12/25/24 15:06 Iohexol 350 Mg/Ml 100 Ml Infus..Btl IV 12/25/24 15:07 85 ml ONCE ONE Administration Ketorolac Tromethamine 15 mg 12/25/24 13:26 12/25/24 15:45 Ketorolac Tromethamine 15 Mg/Ml Vial IVPUSH 12/25/24 13:27 15 mg ONCE ONE Administration Ondansetron HCl 4 mg 12/25/24 13:26 12/25/24 15:45 Ondansetron Hcl 4 Mg/2 Ml Vial IVPUSH 12/25/24 13:27 4 mg ONCE ONE Administration Medical Decision Making Medical Decision Making MDM Narrative: Patient had colonoscopy and endoscopy done in 2020. The results are Endoscopy Findings: esophagitis gastritis, erosions duodenitis Colonoscopy Findings: internal hemorrhoids No obstruction no abscess no perforation. Positive internal hemorrhoids. Patient's hemoglobin is 13 and is baseline. Patient's electrolytes showed normal BUN and creatinine. Beta hCG was negative not . Patient's urine showed no signs of infection. Because of the excruciating abdominal pain. A CT scan of the abdomen pelvis was done. CT scan showed question internal hernia causing small bowel obstruction. Surgical team was consulted. Surgical team evaluated patient agreed patient should be admitted for observation overnight. 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 12/25/24 12:00 12/25/24 12:00 Labs: Lab Results 12/25/24 12/25/24 Range/Units 12:00 13:30 WBC 6.3 (4.8-10.8) X10*3/uL RBC 4.54 (4.20-5.50) X10*6/uL Hgb 13.3 (12.0-16.0) g/dl Hct 39.9 (37.0-47.0) % MCV 87.9 (80.0-98.0) fL MCH 29.3 (27.0-33.0) pg MCHC 33.3 (31.0-35.0) g/dl RDW 12.4 (11.0-16.0) % Plt Count 335 (160-400) X10*3/uL MPV 8.9 L (9.4-12.3) fL Immature Gran % (Auto) 0.2 (0.0-0.4) % Neut % (Auto) 62.0 (45-73) % Lymph % (Auto) 29.2 (20-40) % Colbert % (Auto) 6.3 (2-11) % Eos % (Auto) 1.7 (0-4) % Baso % (Auto) 0.6 (0-2) % Lymph # (Auto) 1.8 (1.2-4.9) X10*3/uL [place]bert # (Auto) 0.4 (0.1-1.2) X10*3/uL Eos # (Auto) 0.1 (0.0-0.4) X10*3/uL Baso # (Auto) 0.0 (0.0-0.2) X10*3/uL Abs Immat Gran (auto) 0.01 (0.00-0.03) X10*3/uL Absolute Neuts (auto) 3.9 (2.0-8.3) x10*3/uL Absolute Nucleated RBC 0.000 (0.0-0.012) X10*3/uL Nucleated RBC % (auto) 0.0 (0.0-0.2) /100WBC ESR 14 (0-20) MM/HR Sodium 138 (135-145) mmol/L Potassium 4.3 (3.3-5.1) mmol/L Chloride 103 (96-108) mmol/L Carbon Dioxide 27 (22-29) mmol/L Anion Gap 12 (12-20) BUN 7 L (9-16) mg/dL Creatinine 0.74 (0.5-1.4) mg/dL Estim Creat Clear Calc 119.4 Estimated GFR > 60 Random Glucose 90 (60-115) mg/dL Calcium 9.2 (8.4-10.2) mg/dL Magnesium 2.1 (1.6-2.6) mg/dL Total Bilirubin 0.4 (0.0-1.0) mg/dL AST 23 (5-31) U/L ALT 25 (0-31) U/L Alkaline Phosphatase 74 (39-117) U/L C-Reactive Protein 0.20 (< or = 0.50) mg/dL Total Protein 7.9 (6.5-8.0) g/dL Albumin 4.4 (3.5-5.0) g/dL Lipase 17 (8-78) U/L Beta HCG, Quant < 2 mIU/mL Urine Color Yellow Urine Appearance Clear Urine pH 7.5 (5.0-9.0) Ur Specific [place] 1.010 (1.005-1.025) Urine Protein Negative (Neg-Trace) mg/dL Urine Glucose (UA) Negative (Negative) mg/dL Urine Ketones Negative (Negative) mg/dL Urine Blood Negative (Negative) Urine Nitrite Negative (Negative) Ur Leukocyte Esterase Negative (Negative) Stool Occult Blood POSITIVE (NEGATIVE) Blood Type O Negative Antibody Screen NEGATIVE Independent Interpretation I performed an independent interpretation of an: CT Scan (No gross obstruction noted) Radiology Impression Discussion of test interpretation with radiology: I have reviewed the radiologist's reading. (Possible small bowel obstruction) External Record Review External record reviewed: Inpatient record Chronic Conditions History of internal hemorrhoids Discharge Plan Discharge Clinical Impression: Intermittent small bowel obstruction, Hemorrhoids Patient Disposition: Admitted As Inpatient Prescriptions: No Action cholecalciferol (vitamin D3) 50 mcg (2,000 unit) capsule 50 mcg PO DAILY Qty: 30 3RF levetiracetam 1,000 mg Tablet 1,000 mg PO BID naproxen 500 mg tablet 500 mg PO BID PRN (Reason: pain) Qty: 20 0RF lidocaine [Lidoderm] 5 % adhesive patch,medicated 1 patch topical DAILY Qty: 15 0RF Rx Instructions: leave on most painful area for up to 12 hrs mupirocin 2 % ointment 1 appl topical BID Qty: 22 0RF lamotrigine [Lamictal] 150 mg tablet 300 mg PO BID 30 Days Qty: 120 0RF levetiracetam [Keppra] 1,000 mg tablet 1,000 mg PO BID Qty: 60 0RF prednisone 20 mg tablet 20 mg PO ONCE Qty: 1 0RF prednisone 20 mg tablet 20 mg PO DAILY Qty: 4 0RF bisacodyl [Dulcolax (bisacodyl)] 5 mg tablet,delayed release (DR/EC) 10 mg PO ONCE 1 Days Qty: 2 0RF Rx Instructions: Take 2 tablets by mouth at 12:00pm the day before your procedure. polyethylene glycol 3350 [Miralax] 17 gram/dose powder 238 g PO ONCE 1 Days Qty: 238 0RF Rx Instructions: Take as directed by mouth the day before your procedure. Print Language: German
[2024-12-25 11:35] VITALS: BP 123/78; PULSE 84; RESP 16; TEMP 36.2; O2SAT 100; BMI 34.9
[2024-12-25 12:10] LABS: Basophils Percent Auto 0.6 % (0-2); Eosinophils Absolute Auto 0.1 X10*3/uL (0.0-0.4); Eosinophils Percent Auto 1.7 % (0-4); Hematocrit 39.9 % (37.0-47.0); Hemoglobin 13.3 g/dl (12.0-16.0); Imm Gran Abs Auto 0.01 X10*3/uL (0.00-0.03); Imm Gran Pct Auto 0.2 % (0.0-0.4); Lymphocytes Absolute Auto 1.8 X10*3/uL (1.2-4.9); Lymphocytes Percent Auto 29.2 % (20-40); MANUAL DIFF FLAG NO; Mean Corpuscular HGB Conc 33.3 g/dl (31.0-35.0); Mean Corpuscular Hemoglobin 29.3 pg (27.0-33.0); Mean Corpuscular Volume 87.9 fL (80.0-98.0); Mean Platelet Volume 8.9 fL (9.4-12.3); Monocytes Absolute Auto 0.4 X10*3/uL (0.1-1.2); Monocytes Percent Auto 6.3 % (2-11); Neutrophils Absolute Auto 3.9 x10*3/uL (2.0-8.3); Platelet Count 335 X10*3/uL (160-400); Red Blood Count 4.54 X10*6/uL (4.20-5.50); Red Cell Distribution Width 12.4 % (11.0-16.0); White Blood Count 6.3 X10*3/uL (4.8-10.8)
[2024-12-25 12:12] LABS: Appearance Urine Clear; Color Urine Yellow; Glucose Urine UA Negative (Negative); Leukocyte Esterase Urine Negative (Negative); Nitrite Urine Negative (Negative); PH 7.5 (5.0-9.0); Urine Blood Negative (Negative); Urine Ketones Negative (Negative); Urine Protein Negative (Neg-Trace)
--- OUTSIDE RECORDS SUMMARY | 2024-12-25 12:21 | XMS_ITS | Clinical Summary ---
Author Organization [employer] [facility] ity Address [address] [place] [address] Care Team Providers Care Process Eng Name Role Phone Unavailable Primary Care Provider Unavailabl e Social History Tobacco Use Types Packs/Day Years Used Date Smoking Tobacco: Never Assessed Comments Unknown Sex and Gender Information Value Date Recorded Sex Assigned at Not on file Legal Sex Female 2:28 AM EST Gender Identity Not on file Sexual Orientation Not on file Plan of Treatment Health Maintenance Due Date Last Done Comments Breast Cancer Screening 1984 DTaP,Tdap,and Td Vaccines (1 - Tdap) 02/18/2003 Hepatitis B Vaccines (1 of 3 - 19+ 3-dose series) 02/18/2003 Cervical Cancer Screening: P ap Smear 02/18/2005 COVID-19 Vaccine (2023-2 5 season) 2024 Influenza Vaccine (Season Ended) 2025 HIB Vaccines Aged Out No longer eligi ble based on patient's age to complete this topic HPV Vaccines Aged Out No longer eligi ble based on patient's age to complete this topic Hepatitis A Vaccines Aged Out No long er eligible based on patient's age to complete this topic IPV Vaccines Aged Out No longer eligi ble based on patient's age to complete this topic MMR Vaccines Aged Out No longer eligi ble based on patient's age to complete this topic Meningococcal ACWY Vaccine Aged Out N o longer eligible based on patient's age to complete this topic Meningococcal B Vaccine Aged Out No l onger eligible based on patient's age to complete this topic Pneumococcal Vaccine: Pediat rics (0 to 5 Years) and At-Risk Patients (6 to 64 Years) Aged Out No longer eligible b ased on patient's age to complete this topic RSV Immunization Patients Un [place] 20 months Aged Out No longer eligible b ased on patient's age to complete this topic Varicella Vaccines Aged Out No longer eligible based on patient's age to complete this topic
[2024-12-25 12:30] LABS: Alanine Aminotransferase 25 U/L (0-31); Albumin Level 4.4 g/dL (3.5-5.0); Alkaline Phosphatase 74 U/L (39-117); Anion Gap 12 (12-20); Aspartate Amino Transferase 23 U/L (5-31); Bilirubin Total 0.4 mg/dL (0.0-1.0); Blood Urea Nitrogen 7 mg/dL (9-16); Calcium 9.2 mg/dL (8.4-10.2); Carbon Dioxide 27 mmol/L (22-29); Chloride 103 mmol/L (96-108); Creatinine Clr Calc Pharmacy 119.4; Estimated Glomerular Filt Rate > 60; Glucose Random 90 mg/dL (60-115); Lipase 17 U/L (8-78); Magnesium 2.1 mg/dL (1.6-2.6); Potassium 4.3 mmol/L (3.3-5.1); Sodium 138 mmol/L (135-145); Total Protein 7.9 g/dL (6.5-8.0)
[2024-12-25 12:34] VITALS: BP 114/81; PULSE 79; RESP 18; O2SAT 100
[2024-12-25 12:50] LABS: Erythrocyte Sedimentation Rate 14 MM/HR (0-20)
[2024-12-25 13:10] LABS: HCG Quantitative < 2 mIU/mL
[2024-12-25 13:38] LABS: OBS Int Ctl Valid YES; OBS1 POSITIVE (NEGATIVE)
[2024-12-25] MEDS: iohexoL 350 MG/ML 100 ML INFUS..BTL IV (15:06)
[2024-12-25 15:17] VITALS: BP 114/73; PULSE 83; RESP 16; O2SAT 100
[2024-12-25] MEDS: Ketorolac Tromethamine 15 MG/ML VIAL IVPUSH (15:45)
[2024-12-25] MEDS: ondansetron HCL 4 MG/2 ML VIAL IVPUSH ×2 (15:45→20:35)
--- NOTE | 2024-12-25 16:17 | PM.HPGS ---
History of Present Illness History of Present Illness Date of Service: 12/27/24 Chief complaint: Blood per rectum, abnormal CAT scan Narrative: Ramon Su is a 39 year old female who came in the ER today because of passage of bright blood per rectum. This has been ongoing for about 3 days now. She does state that she has known hemorrhoids. She has a long history of constipation as well. She also admits to having periodic abdominal pain for years. However, she says she also had pain her lower abdomen when she came in this morning along with the blood per rectum. She says her pain has resolved at this time although she says she did get pain medications earlier this afternoon She denies any vomiting. She says she currently feels well but is were about her passage of bright blood per rectum intermittently for 3 days. She has a history of hysterectomy. She says this was done because described as a prolapse of her uterus after she was . She has a history of abdominoplasty as well She had a colonoscopy in 2020 showing hemorrhoids. Review of Systems Constitutional: Constitutional: Denies chills and Denies fever(s) Cardiovascular: Cardiovascular: Denies chest pain, Denies dyspnea and Denies dyspnea on exertion Respiratory: Respiratory: Denies cough, Denies dyspnea and Denies dyspnea on exertion Gastrointestinal: Gastrointestinal: Reports hematochezia, Denies change in bowel habits and Reports constipation Genitourinary: Genitourinary: Denies hematuria Musculoskeletal: Musculoskeletal: Denies back pain and Denies limited range of motion Neurologic: Denies focal weakness and Denies convulsions Psychiatric: Psychiatric: Denies depression and Denies mood swings [facility] Past Medical History Medical History (Updated 12/25/24 @ 16:22 by Tony Ray MD) Bright red blood per rectum Epilepsy Chronic abdominal pain H/O partial seizures Constipation by delayed colonic transit Family History Family History Maternal Grandmother Colon cancer Paternal Grandmother Stomach cancer Mother Diabetes Father Diabetes Surgical History Surgical History Hx of hemorrhoidectomy Hx of tubal ligation Social History Social History Household Members: Family Housing: House Do you presently have visiting nurse or other home services: No Alcohol intake: current Alcohol intake frequency: does not drink Alcohol type: wine Patient Tobacco Use Status: Never used Tobacco Currently Displaying Signs/Symptoms of Drug Intoxication Withdrawal: No Have you been hit, kicked, punched, or otherwise hurt by someone within the past year? 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 Allergies Allergy/AdvReac Type Severity Reaction Status Date / Time meperidine [From Demerol] AdvReac Mild HIVES Verified 12/25/24 11:35 Home Medications ?Medication ?Instructions ?Recorded ?Confirmed ?Last Taken ?Type acetaminophen 325 mg tablet 650 mg PO Q4H PRN pain 12/25/24 12/25/24 Unknown History amitriptyline 25 mg tablet 50 mg PO BEDTIME 12/25/24 12/25/24 12/24/24 History lamotrigine 200 mg tablet 200 mg PO BID 12/25/24 12/25/24 12/25/24 History levetiracetam 1,000 mg tablet 1,500 mg PO BID 12/25/24 12/25/24 12/25/24 History lidocaine 5 % topical patch 1 patch topical DAILY PRN Pain 12/25/24 12/25/24 12/25/24 History (Lidoderm) sertraline 100 mg tablet 100 mg PO DAILY 12/25/24 12/25/24 12/25/24 History verapamil 120 mg 24 hr 120 mg PO DAILY 12/25/24 12/25/24 12/25/24 History capsule,extended release Physical Exam Vital Signs: Vital Signs: Last Vital Signs Temp 97.2 F 12/25/24 11:35 Pulse 83 12/25/24 15:17 Resp 16 05/29/25 15:17 BP 114/73 12/25/24 15:17 Pulse Ox 100 12/25/24 15:17 O2 Del Method Room Air 12/25/24 12:34 BMI result Body Mass Index 34.9 Const: General: comfortable and no acute distress Orientation/consciousness: patient oriented x3 Neck: Neck: Yes no lymphadenopathy Resp: Auscultation: clear to auscultation bilaterally Cardio: Rhythm: regular rhythm GI: Other: Rectal exam shows large external hemorrhoids on both the left and right side, no active bleeding currently Palpation (GI): Soft to palpation, not firm, nontender and no guarding Neuro: General: patient oriented x3 Results Results Labs: Short CBC 12/25/24 Range/Units 12:00 WBC 6.3 (4.8-10.8) X10*3/uL Hgb 13.3 (12.0-16.0) g/dl Hct 39.9 (37.0-47.0) % Plt Count 335 (160-400) X10*3/uL BMP 12/25/24 12:00 Sodium 138 Potassium 4.3 Chloride 103 Carbon Dioxide 27 BUN 7 L Creatinine 0.74 Calcium 9.2 Liver Function 12/25/24 Range/Units 12:00 Total Bilirubin 0.4 (0.0-1.0) mg/dL AST 23 (5-31) U/L ALT 25 (0-31) U/L Alkaline Phosphatase 74 (39-117) U/L Albumin 4.4 (3.5-5.0) g/dL Urine 12/25/24 Range/Units 12:00 Urine Color Yellow Urine Appearance Clear Urine pH 7.5 (5.0-9.0) Ur Specific [place] 1.010 (1.005-1.025) Urine Protein Negative (Neg-Trace) mg/dL Urine Glucose (UA) Negative (Negative) mg/dL CT scan IMPRESSION: The possibility of an internal hernia creating partial/intermittent mid to distal small bowel obstruction versus ileus cannot be entirely excluded. Cholelithiasis likely cholesterol. Hepatomegaly, mild. Cystic lesion right kidney. Abdomen CT scan report/results: report reviewed and image reviewed CT scan - pelvis: report reviewed and image reviewed Assessment and Plan (1) Bright red blood per rectum: Status: Acute She has been passing bright blood per rectum intermittently for the past 3 days. She does not present with any orthostatic symptoms. Etiology is likely outlet bleeding from her large hemorrhoids. Hemoglobin is stable. There is no active bleeding currently on rectal exam. She also describes having abdominal pain earlier. I have reviewed her CAT scan and there is is some suggestion of mild swirling of mesenteric vessels and the official report states that an intermittent internal hernia could not be ruled out. However there was no actual twist in the small bowel at this time. There is no transition point. She denies any vomiting. Her abdominal exam is very benign. She has no leukocytosis. She has no acidosis We will admit her for observation along with serial exams. We will keep her on clear liquids for now. We will repeat her H&H tomorrow. Current examined overall clinical picture does not suggest an indication for any urgent surgical intervention at this time. Quality Stroke Does the patient have a stroke diagnosis?: No VTE Prior VTE?: No VTE Risk Level:: Medical - low VTE Device Contraindication: N/A - Device Ordered VTE Drug Contraindication: Treatment Not Indicated Procedures Date of Service Date of Service: 12/27/24
[2024-12-25] MEDS: lamoTRIgine 100 MG TABLET 300 MG PO (17:31)
[2024-12-25] MEDS: Lactated Ringers 1,000 ML 80 ML IVCONT (17:38)
--- NOTE | 2024-12-25 17:52 | PHA.MEDREC ---
Addendum entered by Samantha Gordillo [facility] 12/25/24 18:14: reviewed Original Note: Pharmacy Consult ? Medication Reconciliation Pharmacy has completed the medication reconciliation. Spoke with pt and she confirmed her medications.
[2024-12-25 19:30] VITALS: BP 122/73; PULSE 78; RESP 12; TEMP 36.4; O2SAT 99
--- NOTE | 2024-12-25 19:31 | MHC.EDTECH ---
pt requesting her pain meds, and her seizure meds. RN aware
[2024-12-25 19:44] VITALS: BMI 35.0
[2024-12-25 19:58] VITALS: BP 120/68; PULSE 74; RESP 18; TEMP 36.6; O2SAT 100
[2024-12-25] MEDS: Acetaminophen 325 MG TABLET 650 MG PO (19:59)
[2024-12-25] MEDS: levETIRAcetam 500 MG TABLET 1500 MG PO (20:07)
[2024-12-25] MEDS: Amitriptyline HCl 50 MG TABLET PO (20:35)
[2024-12-25] MEDS: Morphine Sulfate 4 MG/ML CARTRIDGE 2 MG IVPUSH (23:05)
[2024-12-26 03:49] VITALS: BP 118/66; PULSE 75; RESP 18; TEMP 36.2; O2SAT 96
[2024-12-26] MEDS: Lactated Ringers 1,000 ML 80 ML IVCONT ×2 (05:56→16:56)
[2024-12-26 07:50] VITALS: BP 130/58; PULSE 79; RESP 16; TEMP 36.4; O2SAT 99
[2024-12-26 07:57] LABS: Hematocrit 36.7 % (37.0-47.0); Hemoglobin 12.5 g/dl (12.0-16.0); Mean Corpuscular HGB Conc 34.1 g/dl (31.0-35.0); Mean Corpuscular Hemoglobin 30.1 pg (27.0-33.0); Mean Corpuscular Volume 88.4 fL (80.0-98.0); Mean Platelet Volume 9.1 fL (9.4-12.3); Platelet Count 282 X10*3/uL (160-400); Red Blood Count 4.15 X10*6/uL (4.20-5.50); Red Cell Distribution Width 12.4 % (11.0-16.0); White Blood Count 5.4 X10*3/uL (4.8-10.8)
[2024-12-26 08:15] LABS: Anion Gap 10 (12-20); Blood Urea Nitrogen 9 mg/dL (9-16); Calcium 8.9 mg/dL (8.4-10.2); Carbon Dioxide 29 mmol/L (22-29); Chloride 105 mmol/L (96-108); Creatinine Clr Calc Pharmacy 110.5; Estimated Glomerular Filt Rate > 60; Glucose Random 83 mg/dL (60-115); Potassium 4.5 mmol/L (3.3-5.1); Sodium 139 mmol/L (135-145)
--- NOTE | 2024-12-26 08:16 | P.PNGS_ITS ---
Subjective Subjective Date of Service: 12/26/24 <Moisés Houston PA-C - Last Filed: 12/26/24 08:33> 12/26/24 <Tony Ray MD - Last Filed: 12/26/24 09:59> Patient reports: feels better and bowel movement <REMEDIOS Garcia Last Filed: 12/26/24 08:33> Interval history: Patient reports she is doing better today. Her pain is improving, continues to endorse mild pain in the rectum. States she has not notice any more bleeding, endorses bowel movement, denies blood in stool, in toilet of on the tissue. Tolerating clear liquids. She denies nausea, vomiting. Had an episode of dizziness yesterday. <REMEDIOS Garcia Last Filed: 12/26/24 08:33> Physical Exam 2 Vital Signs: Vital Signs: Last Vital Signs Temp 97.6 F 12/26/24 07:50 Pulse 79 12/26/24 07:50 Resp 16 12/26/24 07:50 BP 130/58 L 12/26/24 07:50 Pulse Ox 99 12/26/24 07:50 O2 Del Method Room Air 12/26/24 07:50 BMI result Body Mass Index 35.0 <REMEDIOS Garcia Last Filed: 12/26/24 08:33> Const: General: comfortable and no acute distress <REMEDIOS Garcia Last Filed: 12/26/24 08:33> Orientation/consciousness: patient oriented x3 <REMEDIOS Garcia Last Filed: 12/26/24 08:33> Resp: Effort & Inspection: normal respiratory effort and able to speak in complete sentences <Moisés Houston PA-C - Last Filed: 12/26/24 08:33> GI: Inspection: Yes normal to inspection and No distended <REMEDIOS Garcia Last Filed: 12/26/24 08:33> Palpation (GI): Soft to palpation, not firm, Tenderness to palpation present (GI) (mild generalized tenderness), no guarding and not rigid <REMEDIOS Garcia Last Filed: 12/26/24 08:33> Rectal Exam - Female: hemorrhoids (no gross blood, not engorged, no edema) < Moisés Houston PA-C - Last Filed: 12/26/24 08:33> Neuro: General: patient oriented x3 <Moisés Houston PA-C - Last Filed: 12/26/24 08:33> Objective Data Active Medications Acetaminophen (Acetaminophen 325 Mg Tablet) 650 mg PO Q6H PRN PRN Reason: Pain, Mild 1-3,fever,headache Last Admin: 12/25/24 19:59 Dose: 650 mg Documented By: LESTER Amitriptyline HCl (Amitriptyline Hcl 50 Mg Tablet) 50 mg PO BEDTIME [facility] Last Admin: 12/25/24 20:35 Dose: 50 mg Documented By: COURTNEY Calcium Carbonate (Calcium Carbonate 750 Mg Tab.Chew) 750 mg PO Q6H PRN PRN Reason: Heartburn Lactated Ringer's (Lr) 1,000 mls @ 80 mls/hr IVCONT .[id number] [facility] Last Admin: 12/26/24 05:56 Dose: 80 mls/hr Documented By: COURTNEY Lamotrigine (Lamotrigine 100 Mg Tablet) 200 mg PO BID [facility] Levetiracetam (Levetiracetam 500 Mg Tablet) 1,500 mg PO BID [facility] Last Admin: 12/25/24 20:07 Dose: 1,500 mg Documented By: LESTER Melatonin (Melatonin 3 Mg Tablet) 6 mg PO BEDTIME PRN PRN Reason: Insomnia Morphine Sulfate (Morphine Sulfate 4 Mg/Ml Cartridge) 2 mg IVPUSH Q4H PRN; Protocol PRN Reason: Pain, Severe (Pain Scale 7-10) Last Admin: 12/25/24 23:05 Dose: 2 mg Documented By: COURTNEY Ondansetron HCl (Ondansetron Hcl 4 Mg/2 Ml Vial) 4 mg IVPUSH Q8H PRN PRN Reason: Nausea and Vomiting Last Admin: 12/25/24 20:35 Dose: 4 mg Documented By: COURTNEY Sodium Chloride (0.9 % Sodium Chloride Flush 3 Ml Syringe) 3 ml IVFLUSH QSHIFT [facility] Last Admin: 12/26/24 07:07 Dose: Not Given Documented By: ARMANI Non-Admin Reason: IV Running Verapamil HCl (Verapamil Hcl Sr 120 Mg Tablet.Er) 120 mg PO DAILY [facility]; Protocol <Moisés Houston PA-C - Last Filed: 12/26/24 08:33> Labs CBC & Chem 7: 12/26/24 07:46 12/26/24 07:46 <Moisés Houston PA-C - Last Filed: 12/26/24 08:33> Labs: Laboratory Results - last 24 hr 12/25/24 12/25/24 12/26/24 12:00 13:30 07:46 MCV 87.9 88.4 MCH 29.3 30.1 MCHC 33.3 34.1 RDW 12.4 12.4 Plt Count 335 282 MPV 8.9 L 9.1 L Immature Gran % (Auto) 0.2 Neut % (Auto) 62.0 Lymph % (Auto) 29.2 [place] % (Auto) 6.3 Eos % (Auto) 1.7 Baso % (Auto) 0.6 Lymph # (Auto) 1.8 [place] # (Auto) 0.4 Eos # (Auto) 0.1 Baso # (Auto) 0.0 Abs Immat Gran (auto) 0.01 Absolute Neuts (auto) 3.9 Absolute Nucleated RBC 0.000 0.000 Nucleated RBC % (auto) 0.0 0.0 ESR 14 Anion Gap 12 10 L Estim Creat Clear Calc 119.4 110.5 Estimated GFR > 60 > 60 Random Glucose 90 83 Calcium 9.2 8.9 Magnesium 2.1 Total Bilirubin 0.4 AST 23 ALT 25 Alkaline Phosphatase 74 C-Reactive Protein 0.20 Total Protein 7.9 Albumin 4.4 Lipase 17 Beta HCG, Quant < 2 Urine Color Yellow Urine Appearance Clear Urine pH 7.5 Ur Specific [place] 1.010 Urine Protein Negative Urine Glucose (UA) Negative Urine Ketones Negative Urine Blood Negative Urine Nitrite Negative Ur Leukocyte Esterase Negative Stool Occult Blood POSITIVE Blood Type O Negative Antibody Screen NEGATIVE <Moisés Houston PA-C - Last Filed: 12/26/24 08:33> Procedures Date of Service Date of Service: 12/26/24 <Moisés Houston PA-C - Last Filed: 12/26/24 08:33> 12/26/24 <Tony Ray MD - Last Filed: 12/26/24 09:59> Progress Note: A&P Assessment and plan (1) Hemorrhoids: Status: Acute <Moisés Houston PA-C - Last Filed: 12/26/24 08:33> Assessment and Plan: Says she feels much better No bleeding overnight had some pain in the rectum Also says she had some epigastric pain last night No fever Hemoglobin stable PPI Okay to try to advance diet Abdomen is soft and benign Seen and examined independently <Tony Ray MD - Last Filed: 12/26/24 09:59> (2) Bright red blood per rectum: Status: Acute <Moisés Houston PA-C - Last Filed: 12/26/24 08:33> Assessment and Plan: 39 year old female admitted for bleeding hemorrhoids. Patient improving today. Pain is improved, mild pain at rest. She no longer has bleeding from her rectum. Has passed bowel movement without any blood. On exam, the hermorrhoids are visible, so not appear engorged. No evidence of bleeding. Abdomen is soft, mildly tender. AM H/H stable. Patient is tolerating clear liquid diet, will advance to regular diet. will advance diet to regular Recommend sitz baths Pain management as needed Monitor with serial exams <Moisés Houston PA-C - Last Filed: 12/26/24 08:33> Time Spent With Patient Time: Total time managing care of this patient today ____ minutes. <Moisés Houston PA-C - Last Filed: 12/26/24 08:33> Quality Stroke Does the patient have a stroke diagnosis?: No <Moisés Houston PA-C - Last Filed: 12/26/24 08:33> VTE Prior VTE?: No <Moisés Houston PA-C - Last Filed: 12/26/24 08:33> VTE Risk Level:: Medical - low <Moisés Houston PA-C - Last Filed: 12/26/24 08:33> VTE Device Contraindication: N/A - Device Ordered <Moisés Houston PA-C - Last Filed: 12/26/24 08:33> VTE Drug Contraindication: Treatment Not Indicated <Moisés Houston PA-C - Last Filed: 12/26/24 08:33>
[2024-12-26] MEDS: levETIRAcetam 500 MG TABLET 1500 MG PO ×2 (08:21→16:56)
[2024-12-26] MEDS: lamoTRIgine 100 MG TABLET 200 MG PO ×2 (08:21→16:56)
[2024-12-26] MEDS: VerapamiL HCL SR 120 MG TABLET.ER PO (08:21)
--- NOTE | 2024-12-26 09:14 | MHC.CM.PN ---
Patient lives in a home w/ her mother, father, spouse and 3 children. Functionally independent. Denies use of DME or services. PCP Vee Shafer MD Completed HCP naming [facility] 1) daughter Nicci [phone] and 2) spouse Pancho [phone] DP: Goal is home self care. [place] [facility] [place] and prefers to drive herself home if safe to do so. CM will continue to follow.
[2024-12-26] MEDS: Acetaminophen 325 MG TABLET 650 MG PO ×2 (10:49→19:26)
[2024-12-26 14:22] VITALS: RESP 18
[2024-12-26] MEDS: 0.9 % Sodium Chloride Flush 3 ML SYRINGE IVFLUSH (14:22)
[2024-12-26] MEDS: Morphine Sulfate 4 MG/ML CARTRIDGE 2 MG IVPUSH (14:22)
--- NOTE | 2024-12-26 14:53 | PM.EVENT ---
Event Note Date of Service: 12/26/24 Event Note: Says she feels well but complains of severe migraine Says she normally takes Excedrin migraine at home No bleeding per rectum Denies abdominal pain currently Abdomen is soft and benign Continue current care Possible DC home tomorrow Time Spent With Patient Time: Total time managing care of this patient today ____ minutes.
[2024-12-26 16:00] VITALS: BP 115/60; PULSE 71; RESP 18; TEMP 36.2; O2SAT 96
[2024-12-26] MEDS: Amitriptyline HCl 50 MG TABLET PO (19:26)
[2024-12-26] MEDS: Omeprazole 20 MG CAPSULE.DR PO (19:26)
[2024-12-26 19:45] VITALS: BP 138/68; PULSE 91; RESP 18; TEMP 36.5; O2SAT 97
[2024-12-26] MEDS: Melatonin 3 MG TABLET 6 MG PO (23:31)
[2024-12-27 03:45] VITALS: BP 113/72; PULSE 97; RESP 18; TEMP 36.6; O2SAT 95
[2024-12-27] MEDS: Omeprazole 20 MG CAPSULE.DR PO (04:53)
[2024-12-27] MEDS: Lactated Ringers 1,000 ML 80 ML IVCONT (04:53)
[2024-12-27 07:21] VITALS: BP 114/76; PULSE 84; RESP 18; TEMP 36.3; O2SAT 96
[2024-12-27] MEDS: Sertraline HCL 100 MG TABLET PO (08:23)
[2024-12-27] MEDS: levETIRAcetam 500 MG TABLET 1500 MG PO (08:23)
[2024-12-27] MEDS: lamoTRIgine 100 MG TABLET 200 MG PO (08:23)
[2024-12-27] MEDS: VerapamiL HCL SR 120 MG TABLET.ER PO (08:24)
--- NOTE | 2024-12-27 09:59 | P.PNGS_ITS ---
Subjective Subjective Date of Service: 12/27/24 Interval history: says she is doing very well tolerating diet passing flatus denies abd pain no rectal bleed Physical Exam 2 Vital Signs: Vital Signs: Last Vital Signs Temp 97.3 F 12/27/24 07:21 Pulse 84 12/27/24 07:21 Resp 18 12/27/24 07:21 BP 114/76 12/27/24 07:21 Pulse Ox 96 12/27/24 07:21 O2 Del Method Room Air 12/27/24 07:21 BMI result Body Mass Index 35.0 Const: General: comfortable and no acute distress Resp: Effort & Inspection: normal respiratory effort GI: Palpation (GI): Soft to palpation, not firm, nontender and no guarding Objective Data Active Medications Acetaminophen (Acetaminophen 325 Mg Tablet) 650 mg PO Q6H PRN PRN Reason: Pain, Mild 1-3,fever,headache Last Admin: 12/26/24 19:26 Dose: 650 mg Documented By: ALYSE Acetaminophen/Butalbital/Caffeine (Butalb/Acetamin/Caff 50/325/40 Tablet) 1 tab PO Q4H PRN PRN Reason: Migraine Headache Amitriptyline HCl (Amitriptyline Hcl 50 Mg Tablet) 50 mg PO BEDTIME [facility] Last Admin: 12/26/24 19:26 Dose: 50 mg Documented By: ALYSE Calcium Carbonate (Calcium Carbonate 750 Mg Tab.Chew) 750 mg PO Q6H PRN PRN Reason: Heartburn Lamotrigine (Lamotrigine 100 Mg Tablet) 200 mg PO BID@0800,1700 [facility] Last Admin: 12/27/24 08:23 Dose: 200 mg Documented By: SHELLEY Levetiracetam (Levetiracetam 500 Mg Tablet) 1,500 mg PO BID@0800,1700 [facility] Last Admin: 12/27/24 08:23 Dose: 1,500 mg Documented By: SHELLEY Lidocaine (Lidocaine 4 % Patch Adh..Patch) 1 patch TRANSDERMA DAILY PRN PRN Reason: Pain Melatonin (Melatonin 3 Mg Tablet) 6 mg PO BEDTIME PRN PRN Reason: Insomnia Last Admin: 12/26/24 23:31 Dose: 6 mg Documented By: ALYSE Morphine Sulfate (Morphine Sulfate 4 Mg/Ml Cartridge) 2 mg IVPUSH Q4H PRN; Protocol PRN Reason: Pain, Severe (Pain Scale 7-10) Last Admin: 12/26/24 14:22 Dose: 2 mg Documented By: SERGIO Omeprazole (Omeprazole 20 Mg Capsule.Dr) 20 mg PO BID@0630,1630 [facility] Last Admin: 12/27/24 04:53 Dose: 20 mg Documented By: ALYSE Ondansetron HCl (Ondansetron Hcl 4 Mg/2 Ml Vial) 4 mg IVPUSH Q8H PRN PRN Reason: Nausea and Vomiting Last Admin: 12/25/24 20:35 Dose: 4 mg Documented By: COURTNEY Sertraline HCl (Sertraline Hcl 100 Mg Tablet) 100 mg PO DAILY [facility] Last Admin: 12/27/24 08:23 Dose: 100 mg Documented By: SHELLEY Sodium Chloride (0.9 % Sodium Chloride Flush 3 Ml Syringe) 3 ml IVFLUSH QSHIFT [facility] Last Admin: 12/27/24 08:24 Dose: Not Given Documented By: SHELLEY Non-Admin Reason: IV Running Verapamil HCl (Verapamil Hcl Sr 120 Mg Tablet.Er) 120 mg PO DAILY [facility]; Protocol Last Admin: 12/27/24 08:24 Dose: 120 mg Documented By: SHELLEY Labs 12/26/24 07:46 12/26/24 07:46 Procedures Date of Service Date of Service: 12/27/24 Progress Note: A&P Assessment and plan (1) Bright red blood per rectum: Status: Acute Assessment and Plan: no further bleeding denies abdl pain good GI function likely outlet bleed from large hemorrhoids she feels ready to go home will dc home today office ffup Time Spent With Patient Time: Total time managing care of this patient today ____ minutes. Quality Stroke Does the patient have a stroke diagnosis?: No VTE Prior VTE?: No VTE Risk Level:: Medical - low VTE Device Contraindication: N/A - Device Ordered VTE Drug Contraindication: Treatment Not Indicated
[2024-12-27 10:38] VITALS: BP 121/73; PULSE 90; RESP 16; TEMP 36.3; O2SAT 98
--- NOTE | 2024-12-27 14:26 | PM.DS ---
DS: Providers Provider Date of Service: 12/27/24 Date of admission: 12/25/24 16:26 Date of discharge: 12/27/24 Primary care physician: Vee Shafer MD Attending physician on admission: Tony Ray Attending physician on discharge: Tony Ray DS: Diagnosis Discharge Diagnosis (1) Bright red blood per rectum: Status: Acute DS: Summary Hospital Course Hospital Course: HPI AT ADMISSION: Ramon Su is a 39 year old female who came in the ER today because of passage of bright blood per rectum. This has been ongoing for about 3 days now. She does state that she has known hemorrhoids. She has a long history of constipation as well. She also admits to having periodic abdominal pain for years. However, she says she also had pain her lower abdomen when she came in this morning along with the blood per rectum. She says her pain has resolved at this time although she says she did get pain medications earlier this afternoon. She denies any vomiting. She says she currently feels well but is were about her passage of bright blood per rectum intermittently for 3 days. She has a history of hysterectomy. She says this was done because described as a prolapse of her uterus after she was . She has a history of abdominoplasty as well. She had a colonoscopy in 2020 showing hemorrhoids. CAT scan and there is is some suggestion of mild swirling of mesenteric vessels and the official report states that an intermittent internal hernia could not be ruled out. HOSPITAL COURSE: She was admitted to the surgical service for observation in view of the CT scan findings and BRBPR. Her CT scan was reviewed which showed no actual twist in the small bowel at this time and no transition point. She had no obstructive symptoms and was well appearing. Overall clinical picture did not suggest an indication for any urgent surgical intervention at that time. Etiology is likely outlet bleeding from her large hemorrhoids. Hemoglobin is stable, no leukocytosis. There is no active bleeding currently on rectal exam. She was kept on clear liquids for now, plan for repeat H&H. Her symptoms improved and she had no further bleeding per rectum. Her H/H remained stable. Her abdominal exam remained benign. Her diet was advanced. On the day of discharge, she was tolerating a solid diet without any abdominal pain, nausea or vomiting. She had good GI function. She was hemodynamically stable with benign abd exam and no further rectal bleeding. ETiology likely outlet bleed from large hemorrhoids. She was instructed on sitz baths and high fiber diet with follow up in the office in 2 weeks. Time Attestation Discharge Coordination Time (in mins): 35 Quality: Safe Use of Opioids Does Pt have an Active Cancer Diagnosis on the Problem List?: No Quality: Stroke Does the patient have a stroke diagnosis?: No Physical Exam Vital Signs: Vital Signs: Last Vital Signs Temp 97.4 F 12/27/24 10:38 Pulse 90 12/27/24 10:38 Resp 16 12/27/24 10:38 BP 121/73 12/27/24 10:38 Pulse Ox 98 12/27/24 10:38 O2 Del Method Room Air 12/27/24 10:38 BMI result Body Mass Index 35.0 Const: General: no acute distress and alert Orientation/consciousness: patient oriented x3 GI: Inspection: No distended Palpation (GI): Soft to palpation and nontender Neuro: General: patient oriented x3 Discharge Plan Discharge Anticipated Discharge Date/Time: 12/27/24 12:39 Patient Disposition: Home, Self-Care Discharge Diagnosis: bleeding hemorrhoids Referrals: Vee Shafer MD [Primary Care Provider] - 1 Week Tony Ray MD [Physician] - 2 Weeks Discharge Medications: New Metamucil 3.4 gram/5.4 gram powder 1 tbsp PO DAILY Qty: 660 0RF Rx Instructions: mix into at least 8 oz of water or juice before administering docusate sodium [Colace] 100 mg capsule 100 mg PO BID Qty: 60 2RF Continued naproxen 500 mg tablet 500 mg PO BID PRN (Reason: pain) Qty: 20 0RF acetaminophen 325 mg tablet 650 mg PO Q4H PRN (Reason: pain) sertraline 100 mg tablet 100 mg PO DAILY amitriptyline 25 mg tablet 50 mg PO BEDTIME verapamil 120 mg capsule,ext rel. pellets 24 hr 120 mg PO DAILY lamotrigine 200 mg tablet 200 mg PO BID levetiracetam 1,000 mg tablet 1,500 mg PO BID lidocaine [Lidoderm] 5 % adhesive patch,medicated 1 patch topical DAILY PRN (Reason: Pain) Rx Instructions: leave on most painful area for up to 12 hrs Discharge Orders: Discharge Order (Routine); Ordered 12/27/24 Ordered By: Tony Ray Diet: Advance to usual diet Activity on Discharge: As tolerated Stand Alone Forms: Patient Portal Discharge page Print Language: Yoruba Activity Restrictions/Additional Instructions: Hot sitz baths three times a day and after bowel movements. Increase your fiber intake- take metamucil or citrucel once a day. Follow up in office in 2 weeks. ([phone]) Call Your Doctor Or Return to ED If: ? ? -Your temperature exceeds 101.5? F? ? ? -You experience excessive pain or swelling or significant bleeding ? ? -You have an unexpected reaction to medication ? ? -You experience continued vomiting/nausea Care Plan Goals: Return to baseline health and resume normal activities. Health Concerns: BRBPR hemorrhoids Plan of Treatment: supportive with bowel rest, fluids fiber intake f/u in office in 2 weeks Assessment: Improved Discharge Date/Time: 12/27/24 10:42
[2024-12-28 02:33] LABS: Lamotrigine Lamictal 7.8 mcg/mL (2.5-15.0)
== END 2024-12-27 10:42 | disposition home or self-care (01) | DRG 254 ==
LOC: HO.ED 16:07 → HO.EDOVER 16:51 → HO.S3 19:05
PROVIDERS: Admitting Provider Surgery; Emergency Provider Emergency Medicine Emergency Medical Services; PCP Internal Medicine; Visit Provider Surgery
DX: K64.9 Unspecified hemorrhoids (principal); G40.909 Epilepsy, unspecified, not intractable, without status epilepticus; Z79.899 Other long term (current) drug therapy
CPT/HCPCS: 36415; 74177; 80048; 80053; 80175; 81003; 82272; 83690; 83735; 84702; 85025; 85027; 85652; 86140; 86850; 86900; 86901; 99221; 99285; J1885; J2270; J2405; J7120; Q9967

== ENCOUNTER → 2024-12-25 13:26 | Outpatient (BNV) | payer OTHER, SELFPAY | PROVIDERS: Emergency Provider Emergency Medicine Emergency Medical Services; PCP Internal Medicine; Visit Provider Radiology Diagnostic Radiology | DX: N28.1 Cyst of kidney, acquired (principal); K80.20 Calculus of gallbladder without cholecystitis without obstruction | CPT/HCPCS: 74177 ==

== ENCOUNTER → 2024-12-25 16:26 | Outpatient (BNV) | payer OTHER, SELFPAY | PROVIDERS: Admitting Provider Surgery; Emergency Provider Emergency Medicine Emergency Medical Services; PCP Internal Medicine | DX: K62.5 Hemorrhage of anus and rectum (principal) | CPT/HCPCS: 99222; 99232 ==

== ENCOUNTER 2024-12-27 18:06 | Emergency (ER) | payer OTHER, SELFPAY ==
--- NOTE | ~2024-12-27 | CT_ITS ---
CLINICAL HISTORY: fall seizure CT cervical spine without contrast Comparison: None Findings: Normal alignment. No fracture. No severe central spinal canal stenosis. No epidural hematoma. Normal thickness of the prevertebral soft tissues. The lung apices are clear. Impression: No acute findings. This document has been electronically signed by: Blanche Fontana MD on 12/27/2024 19:55:48
--- NOTE | ~2024-12-27 | CT_ITS ---
CLINICAL HISTORY: fall seizure CT head without contrast Comparison: None Findings: No acute hemorrhage. Basal ganglia calcifications. No extra-axial fluid collection. No hydrocephalus, mass-effect or herniation. Maher-white differentiation is maintained. White matter is within normal limits for age. No acute orbital pathology. No acute soft tissue abnormality. No fracture. The visualized paranasal sinuses are predominantly clear. The mastoid air cells are clear. Impression: No acute findings. This document has been electronically signed by: Blanche Fontana MD on 12/27/2024 19:56:13
[2024-12-27 18:14] VITALS: BMI 36.0
--- NOTE | 2024-12-27 18:16 | ED_ITS ---
HPI - Seizure General Chief Complaint: Seizure Stated Complaint: seizure/on meds/postictal Time Seen by Provider: 12/27/24 18:16 Source: patient Mode of arrival: EMS Limitations: no limitations History of Present Illness ED Provider: HPI Narrative: Patient's history of epilepsy on Keppra and lamotrigine does discharge today after admission for rectal bleeding was given her medication earlier today patient was on the toilet seat talking to her daughter fell to vague and had a seizure her heard the thump and found her on the floor patient complaining of pain back of the head unclear what she hit seizure approximately lasted about 3 minutes no tongue bite patient feel tired and sleepy does not remember coming by ambulance. Patient has had previous seizure about a month ago fairly compliant to her medications Seizure History: Yes Related Data Home Medications ?Medication ?Instructions ?Recorded ?Confirmed acetaminophen 325 mg tablet 650 mg PO Q4H PRN pain 12/25/24 12/25/24 amitriptyline 25 mg tablet 50 mg PO BEDTIME 12/25/24 12/25/24 lamotrigine 200 mg tablet 200 mg PO BID 12/25/24 12/25/24 levetiracetam 1,000 mg tablet 1,500 mg PO BID 12/25/24 12/25/24 lidocaine 5 % topical patch 1 patch topical DAILY PRN Pain 12/25/24 12/25/24 (Lidoderm) sertraline 100 mg tablet 100 mg PO DAILY 12/25/24 12/25/24 verapamil 120 mg 24 hr 120 mg PO DAILY 12/25/24 12/25/24 capsule,extended release Previous Rx's ?Medication ?Instructions ?Recorded naproxen 500 mg tablet 500 mg PO BID PRN pain #20 tabs 11/15/20 psyllium husk 3.4 gram/5.4 gram 1 tbsp PO DAILY #660 grams 12/26/24 oral powder (Metamucil) docusate sodium 100 mg capsule 100 mg PO BID #60 caps 12/27/24 (Colace) Allergies Allergy/AdvReac Type Severity Reaction Status Date / Time meperidine [From Demerol] AdvReac Mild HIVES Verified 12/27/24 18:18 Review of Systems Review of Systems: Yes all other systems are reviewed and are negative PMFSH Past Medical History Medical History Bright red blood per rectum Epilepsy Chronic abdominal pain H/O partial seizures Constipation by delayed colonic transit Surgical History Hx of hemorrhoidectomy Hx of tubal ligation Family History Family History Maternal Grandmother Colon cancer Paternal Grandmother Stomach cancer Mother Diabetes Father Diabetes Social History Social History Household Members: Family Housing: House Do you presently have visiting nurse or other home services: No Alcohol intake: current Alcohol intake frequency: does not drink Alcohol type: wine Patient Tobacco Use Status: Never used Tobacco service: No Current occupational status: employed 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 Oriented X3. No acute distress. Eyes: PERRLA, No Nystagmus ENT: Pharynx normal. Oral Mucosa moist no tongue bite Neck: Normal inspection. Neck supple. CVS: Normal heart rate and rhythm. Pulses normal. Respiratory: No respiratory distress. Equal air entry bilateral, no wheezing/rales/rhonchi Abdomen: Soft and nontender. Bowel sounds are present, no mass palpable, no CVA tenderness Skin: Skin warm and dry. Normal skin color. Normal skin turgor. Extremities: No lower extremity edema. No calf tenderness Neuro: Oriented X 3. No motor deficit. No sensory deficit.No cerebellar signs , cranial nerves II-XII intact Medications Administered Discontinued Medications Generic Name Dose Route Start Last Admin Trade Name Freq PRN Reason Stop Dose Admin Acetaminophen 650 mg 12/27/24 20:18 12/27/24 20:59 Acetaminophen 325 Mg Tablet PO 12/27/24 20:19 650 mg ONCE ONE Administration Levetiracetam 1,000 mg 12/27/24 18:40 12/27/24 18:45 Levetiracetam 1,000 Mg Tablet PO 12/27/24 18:41 1,000 mg ONCE ONE Administration Medical Decision Making Medical Decision Making [facility] Narrative: Patient's history of epilepsy came here after breakthrough seizure and fall head CT and cervical spine CT negative patient was given extra Keppra advised to follow up with with neurologist continue lamotrigine and Keppra Differential Diagnosis Differential Diagnoses: The differential diagnosis associated with the presentation includes Independent Interpretation I performed an independent interpretation of an: CT Scan Radiology Impression Discussion of test interpretation with radiology: I have reviewed the radiologist's reading. Radiologist Impression: No acute Discharge Plan Discharge Clinical Impression: Epileptic seizure Patient Disposition: Home, Self-Care Instructions: Epilepsy (ED) Additional Instructions: Continue medications for seizure and follow up with your neurologist Prescriptions: No Action naproxen 500 mg tablet 500 mg PO BID PRN (Reason: pain) Qty: 20 0RF acetaminophen 325 mg tablet 650 mg PO Q4H PRN (Reason: pain) sertraline 100 mg tablet 100 mg PO DAILY amitriptyline 25 mg tablet 50 mg PO BEDTIME verapamil 120 mg capsule,ext rel. pellets 24 hr 120 mg PO DAILY lamotrigine 200 mg tablet 200 mg PO BID levetiracetam 1,000 mg tablet 1,500 mg PO BID lidocaine [Lidoderm] 5 % adhesive patch,medicated 1 patch topical DAILY PRN (Reason: Pain) Rx Instructions: leave on most painful area for up to 12 hrs Metamucil 3.4 gram/5.4 gram powder 1 tbsp PO DAILY Qty: 660 0RF Rx Instructions: mix into at least 8 oz of water or juice before administering docusate sodium [Colace] 100 mg capsule 100 mg PO BID Qty: 60 2RF Interventions: ED Discharge Assessment Last Done: 12/27/24 21:02 Discharge Date/Time: 12/27/24 21:19 Print Language: Palauan
[2024-12-27 18:23] VITALS: BP 125/79; PULSE 117; RESP 16; TEMP 36.8; O2SAT 98
--- NOTE | 2024-12-27 18:27 | PC.NURSE ---
Pt arrived via EMS after family reported pt has unwitnessed seizure in bathroom, reported seizure lasted 2-3 min. Pt states d/c from hospital this morning and was approx 3 hr late taking anti-seizure medications. Calm and cooperative, A/O x 4. C-Collar placed on EMS in place. ELROY. at bedside.
--- NOTE | 2024-12-27 18:32 | PC.NURSE ---
Pt arrived to unit via EMS for unwitnessed seizure on bathroom fall, per family lasted 2-3 min. A/O x 4 on arrival, calm and cooperative. Pt. states she was discharged earlier this morning and was approx 3 hr late taking anti seizure medicaiton. Denies pain at this time. C-Collar placed by EMS in place. VSS. KELLY at bedside.
[2024-12-27] MEDS: levETIRAcetam 1,000 MG TABLET 1000 MG PO (18:45)
[2024-12-27 20:15] VITALS: BP 115/62; PULSE 96; RESP 16; TEMP 36.4; O2SAT 95
[2024-12-27] MEDS: Acetaminophen 325 MG TABLET 650 MG PO (20:59)
[2024-12-27 21:02] VITALS: BP 115/62; PULSE 96; RESP 16; TEMP 36.4; O2SAT 95
== END 2024-12-27 21:19 | disposition home or self-care (01) ==
PROVIDERS: Emergency Provider Internal Medicine; PCP Internal Medicine
DX: G40.909 Epilepsy, unspecified, not intractable, without status epilepticus (principal); Z91.81 History of falling
CPT/HCPCS: 70450; 72125; 99284

== ENCOUNTER → 2024-12-27 18:41 | Outpatient (BNV) | payer OTHER, SELFPAY | PROVIDERS: Emergency Provider Internal Medicine; PCP Internal Medicine; Visit Provider Radiology Diagnostic Radiology | DX: R56.9 Unspecified convulsions (principal); W19.XXXA Unspecified fall, initial encounter | CPT/HCPCS: 70450; 72125 ==

== ENCOUNTER 2025-03-11 15:06 | Outpatient (REF) | payer OTHER, SELFPAY ==
--- NOTE | ~2025-03-11 | MM_ITS ---
EXAMINATION: MM SCREENING DIGITAL BREAST TOMOSYNTHESIS, BILATERAL CLINICAL INFORMATION: Screening. Asymptomatic. COMPARISON: September 07, 2022 TECHNIQUE: Digital breast tomosynthesis is performed in both the craniocaudal and mediolateral oblique views along with computer-aided detection (CAD). FINDINGS: BREAST COMPOSITION: There are scattered areas of fibroglandular density (ACR BI-RADS breast composition Category b). BILATERAL BREASTS: No significant masses, suspicious calcifications or other abnormalities are seen in either breast. MM/MM tomosynthesis screening BI IMPRESSION: BILATERAL BREASTS: Negative, no mammographic evidence of malignancy. Normal interval follow-up is recommended in 12 months. ASSESSMENT: BI-RADS 1 - Negative RECOMMENDATION: Routine annual mammography screening. FOLLOW-UP: 1 year F/U This examination should not preclude the clinical evaluation of a suspicious palpable abnormality. This patient's information was entered into a reminder system with a target due date for their next mammogram. Electronically signed by: James See MD 03/16/2025 08:39 PM EDT
--- OUTSIDE RECORDS SUMMARY | 2025-03-11 15:09 | XMS_ITS | Clinical Summary ---
Author Organization [facility] Address [address] [address] Phone Care Team Providers Care Confidential Investigator Name Role Phone Vee Shafer MD Primary Care Provider Allergies Active Allergy Reactions Criticality Noted Date Comments Meperidine (Pf) 08/06/2022 Medications levETIRAcetam (KEPPRA) 1000 MG tablet Take 1,500 mg by mouth 2 (two) times a day. Active lamoTRIgine (LAMICTAL XR) 200 mg TR24 Take 200 mg by mouth daily. Active Social History Tobacco Use Types Packs/Day Years Used Date Smoking Tobacco: Never Assessed Education Answer Date Recorded Are you interested in more education? Not on altagracia e 11/25/2022 Are you concerned about learning? Not on file 11/25/2022 No 11/25/2022 No 11/25/2022 Digital Access Answer Date Recorded No 12/24/2022 No 12/24/2022 No 12/24/2022 Reliable internet access at home? Not on file 12/24/2022 Device with a working camera? Not on file Intimate Partner Violence Answer Date R ecorded Are you denied basic needs s uch as food, clothing, or medical care? No 08/06/2022 In the past 12 months have y ou been in a relationship with a person who hurts, threatens, or tries to control you? No 08/06/2022 Are you denied basic needs s uch as food, clothing, or medical care? No 08/06/2022 In the past 12 months have y ou been in a relationship with a person who hurts, threatens, or tries to control you? No 08/06/2022 Comments Unknown Sex and Gender Information Value Date Recorded Sex Assigned at Not on file Legal Sex Female 2:11 AM EST Gender Identity Not on file Sexual Orientation Not on file Last Filed Vital Signs Vital Sign Reading Time Taken Comments Blood Pressure 127/95 08/06/2022 2:13 AM EST Pulse 87 08/06/2022 3:00 AM EST Temperature 36.8 C (98.2 F) 08/06/2022 2:13 AM EST Respiratory Rate 19 08/06/2022 3:00 AM EST Oxygen Saturation 95% 08/06/2022 3:00 AM EST Inhaled Oxygen Concentration - - Weight 98.9 kg (218 lb) 08/06/2022 2:13 AM EST Height 167.6 cm (5' 6 ) 08/06/2022 2:13 AM EST Body Mass Index 35.19 08/06/2022 2:13 AM EST Plan of Treatment Health Maintenance Due Date Last Done Comments DEPRESSION SCREENING 1996 SMOKING Hx and SMOKELESS TOB ACCO SCREENING 02/18/1997 HEPATITIS C SCREENING 02/18/2002 HIV ONE-TIME SCREENING (18-6 5 YEARS) 02/18/2002 PAP SMEAR 02/18/2005 Adult Td,Tdap Booster 10/27/2008 10/27/1998 MAMMOGRAM 2024 COVID-19 VACCINE (2023-2 5 season) 2024 SCREENING FOR DIABETES 08/06/2025 08/06/2022 HEPATITIS A VACCINES Aged Out No long er eligible based on patient's age to complete this topic HIB VACCINES Aged Out No longer eligi ble based on patient's age to complete this topic MENINGOCOCCAL VACCINES (ACWY) Aged Out No longer eligible based on patient's age to complete this topic MENINGOCOCCAL VACCINES (B) Aged Out N o longer eligible based on patient's age to complete this topic PNEUMOCOCCAL VACCINES (0-49 years) Aged Out No longer eligible based on patient's age to complete this topic Medical Devices Not on file Insurance [employer] [place] [employer] [place] [employer] [place] [employer] Care Teams Confidential Investigator Relationship Specialty Start Date End Date Vee Shafer MD [address] [place] [address] [place] [address] PCP - General Internal Medicine 08/06/22 Additional Source Comments The information contained in this document represents components of the legal health record. It is not the complete legal health record.[facility]
--- OUTSIDE RECORDS SUMMARY | 2025-03-11 15:09 | XMS_ITS | Clinical Summary ---
Author Organization [employer] [facility] ity Address [address] [place] [address] Care Team Providers Care Automotive Exhaust Emissions Technician Name Role Phone Unavailable Primary Care Provider [...] Screening: P ap Smear 02/18/2005 COVID-19 Vaccine ( - 2023-2 5 season) 2024 Depression Screening 07/30/2024 Influenza Vaccine (#1) 2025 HIB Vaccines Aged Out No longer [...] 5 Years) and At-Risk Patients (6 to 49 Years) Aged Out No longer eligible b ased on patient's age to complete this topic RSV Immunization Patients Un [place] 20 months Aged Out No longer eligible b ased on patient's age to complete this topic Varicella Vaccines Aged Out No longer eligible based on patient's age to complete this topic
== END 2025-03-11 15:07 | disposition home or self-care (01) ==
LOC: HO.MAMMO 15:06
PROVIDERS: PCP Internal Medicine; Visit Provider Internal Medicine
DX: Z12.31 Encounter for screening mammogram for malignant neoplasm of breast (principal)
CPT/HCPCS: 77063; 77067

== ENCOUNTER → 2025-03-11 15:30 | Outpatient (BNV) | payer OTHER, SELFPAY | PROVIDERS: PCP Internal Medicine; Visit Provider Radiology Body Imaging | DX: Z12.31 Encounter for screening mammogram for malignant neoplasm of breast (principal) | CPT/HCPCS: 77063; 77067 ==

== ENCOUNTER 2025-04-17 19:55 | Observation (INO) | payer OTHER, SELFPAY ==
--- NOTE | 2025-04-17 | ECG_ITS ---
Test Reason : SYNCOPE Blood Pressure : */* mmHG Vent. Rate : 100 BPM Atrial Rate : 100 BPM P-R Int : 156 ms QRS Dur : 92 ms QT Int : 372 ms P-R-T Axes : 54 54 50 degrees QTcB Int : 479 ms Normal sinus rhythm Normal ECG When compared with ECG of 06-Aug-2024 13:35, No significant change was found Referred By: Generic ED Physician Electronically Signed By: DANUTA TREVINO
--- NOTE | ~2025-04-17 | CT_ITS ---
CLINICAL HISTORY: ? fx fall CT cervical spine without contrast Comparison: CT of the cervical spine from 12/27/2024 Findings: No acute fracture of the cervical spine, accounting for artifacts. Ligament calcifications, disc osteophyte complexes, and mild facet arthropathy are multifocal. No significant osseous spinal stenosis by CT. Mild reversal cervical lordosis noted. Nuchal ligament ossifications. Mild osteoarthritis of the imaged craniocervical junction. Vessel channels are multifocal. Metal artifacts noted. Mild scarring and motion of the imaged lung apices. No paraspinal hematoma. Subcutaneous edema is noted, including dependently. IMPRESSION: No acute fracture of the cervical spine. This document has been electronically signed by: Michael Keith MD on 04/17/2025 23:06:15
--- NOTE | ~2025-04-17 | CT_ITS ---
CLINICAL HISTORY: sz CT head without contrast Comparison: Head CT from 12/27/2024 Findings: No acute intracranial hemorrhage accounting for motion artifacts. Upper brain in the convexities are obscured by motion artifacts. No definite acute skull fracture, accounting for motion artifacts. Portions of the calvarium obscured including upper-superior aspects of the frontal bones. Portions of the brain of the upper calvarium read imaged to maximize diagnostic capability. Imaged paranasal sinuses and imaged mastoid air cells are well aerated. No large arterial territorial infarction of the imaged brain parenchyma. No hydrocephalus or midline shift. Cavum velum interpositum noted. Mild esotropia at the time of the imaging. IMPRESSION: 1. No acute intracranial abnormality by CT with artifacts 2. No acute skull fracture, accounting for artifacts. This document has been electronically signed by: Michael Keith MD on 04/17/2025 23:00:15
[2025-04-17 19:58] VITALS: BP 130/70; PULSE 82; O2SAT 98
[2025-04-17 20:02] VITALS: BP 115/72; PULSE 70; RESP 16; TEMP 36.6; O2SAT 97; BMI 36.3
[2025-04-17 20:29] LABS: MANUAL DIFF FLAG NO
[2025-04-17 20:30] LABS: Hematocrit 35.3 % (37.0-47.0); Hemoglobin 12.1 g/dl (12.0-16.0); Imm Gran Abs Auto 0.01 X10*3/uL (0.00-0.03); Imm Gran Pct Auto 0.2 % (0.0-0.4); Lymphocytes Absolute Auto 1.9 X10*3/uL (1.2-4.9); Mean Corpuscular HGB Conc 34.3 g/dl (31.0-35.0); Mean Corpuscular Hemoglobin 29.9 pg (27.0-33.0); Mean Corpuscular Volume 87.2 fL (80.0-98.0); NRBC Abs Auto 0.000 X10*3/uL (0.0-0.012); NRBC Pct Auto 0.0 /100WBC (0.0-0.2); Platelet Count 244 X10*3/uL (160-400); Red Blood Count 4.05 X10*6/uL (4.20-5.50); White Blood Count 6.6 X10*3/uL (4.8-10.8)
--- OUTSIDE RECORDS SUMMARY | 2025-04-17 20:30 | XMS_ITS | Clinical Summary ---
Author Organization [employer] [facility] ity Address [address] [place] [address] Care Team Providers Care Hand Chain Maker Name Role Phone Unavailable Primary Care Provider [...] Cervical Cancer Screening: P ap Smear 02/18/2005 Depression Screening 07/30/2024 COVID-19 Vaccine ( - 2023-2 5 season) 2025 Influenza Vaccine (#1) 2025 HIB Vaccines Aged [...]
--- OUTSIDE RECORDS SUMMARY | 2025-04-17 20:30 | XMS_ITS | Clinical Summary ---
Author Organization [facility] Address [address] [address] Phone Care Team Providers Care Recapper Name Role Phone Vee Shafer MD Primary [...] Adult Td,Tdap Booster 10/27/2008 10/27/1998 MAMMOGRAM 2024 INFLUENZA VACCINE (#1) 2025 COVID-19 VACCINE ( - 2023-2 5 season) 2025 SCREENING FOR DIABETES 08/06/2025 08/06/2022 HEPATITIS A [...] topic Medical Devices Not on file Insurance [employer] [place] [employer] [place] [employer] [place] [employer] [employer] Care Teams Recapper Relationship Specialty Start Date End Date Vee Shafer MD [address] [place] [address] [place] [address] PCP - General Internal Medicine 08/06/22 Additional Source Comments The information contained in this document represents components of the legal health record. It is not the complete legal health record.[facility]
--- NOTE | 2025-04-17 20:48 | ED.SEIZURE ---
HPI - Seizure General Chief Complaint: Seizure Stated Complaint: Seizure, +loc/headstrike, blurry vision, headache Time Seen by Provider: 04/17/25 20:41 History of Present Illness HPI Narrative: Patient is a 40-year-old female with a history of seizures. Presented today after a tonic-clonic seizure episode at home. There was positive postictal state. Patient was transferred to the ED for for the back unsure as to the duration of the seizure. Has a history of being on Keppra. Dose of medications unchanged. Patient prior to being evaluated had a 2nd seizure in the ED. lasting approximately 1-2 minutes. Appears to be tonic clonic. I was called to bedside. Seizure History: Yes Related Data Home Medications ?Medication ?Instructions ?Recorded ?Confirmed acetaminophen 325 mg tablet 650 mg PO Q4H PRN pain 12/25/24 12/25/24 amitriptyline 25 mg tablet 50 mg PO BEDTIME 12/25/24 12/25/24 lamotrigine 200 mg tablet 200 mg PO BID 12/25/24 12/25/24 levetiracetam 1,000 mg tablet 1,500 mg PO BID 12/25/24 12/25/24 lidocaine 5 % topical patch 1 patch topical DAILY PRN Pain 12/25/24 12/25/24 (Lidoderm) sertraline 100 mg tablet 100 mg PO DAILY 12/25/24 12/25/24 verapamil 120 mg 24 hr 120 mg PO DAILY 12/25/24 12/25/24 capsule,extended release Previous Rx's ?Medication ?Instructions ?Recorded naproxen 500 mg tablet 500 mg PO BID PRN pain #20 tabs 11/15/20 psyllium husk 3.4 gram/5.4 gram 1 tbsp PO DAILY #660 grams 12/26/24 oral powder (Metamucil) docusate sodium 100 mg capsule 100 mg PO BID #60 caps 12/27/24 (Colace) Allergies Allergy/AdvReac Type Severity Reaction Status Date / Time meperidine (From Demerol) AdvReac Mild HIVES Verified 04/17/25 20:06 Review of Systems Review of Systems: Unable to provide review of systems secondary to patient's postictal state PMFSH Past Medical History Attestation statement: The following information was validated with the patient. Medical History Bright red blood per rectum Epilepsy Chronic abdominal pain H/O partial seizures Constipation by delayed colonic transit Surgical History Hx of hemorrhoidectomy Hx of tubal ligation Family History Family History Maternal Grandmother Colon cancer Paternal Grandmother Stomach cancer Mother Diabetes Father Diabetes Social History Social History Household Members: Family Housing: House Do you presently have visiting nurse or other home services: No Alcohol intake: current Alcohol intake frequency: holidays/special occasions only Alcohol type: wine Patient Tobacco Use Status: Never used Tobacco Smoked in Last 30 Days: No Use of substances other than those prescribed or required for medical reasons: No Advance Directives: No Advance Directives Information Provided: No service: No Current occupational status: employed 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 Eyes: Pupils equal, round and reactive to light. ENT: Pharynx normal. Neck: Normal inspection. Neck supple. No lymph nodes noted. No crepitus CVS: Normal heart rate and rhythm. Pulses normal. Normal S1 and S2 Respiratory: No respiratory distress. Breath sounds normal. No Wheezing. No rales Abdomen: Soft and nontender. No rigidity. No distention. good BS x4 Skin: Skin warm and dry. Normal skin color. Normal skin turgor. Extremities: No lower extremity edema. Neurovascular intact to all extremities. No Lacerations. No Rash Neuro: Moving all extremities Vital Signs: Vital Signs: Last Vital Signs Temp 98.2 F 04/17/25 22:46 Pulse 76 04/17/25 22:46 Resp 16 04/17/25 22:46 BP 122/80 04/17/25 22:46 Pulse Ox 100 04/17/25 22:46 O2 Del Method Room Air 04/17/25 22:46 O2 Flow Rate 2 04/17/25 21:33 BMI result Body Mass Index 36.3 Medications Administered Discontinued Medications Generic Name Dose Route Start Last Admin Trade Name Freq PRN Reason Stop Dose Admin Diazepam 5 mg 04/17/25 20:48 04/17/25 20:50 Diazepam 10 Mg/2 Ml Cartridge IVPUSH 04/17/25 20:49 5 mg STAT STA Administration Levetiracetam 1,000 mg in 100 mls @ 400 mls/hr 04/17/25 20:46 04/17/25 21:21 Keppra IV 04/17/25 21:00 Infused ONCE ONE Infusion Acetaminophen 1,000 mg in 100 mls @ 400 mls/hr 04/17/25 21:39 04/17/25 22:27 Ofirmev IV 04/17/25 21:53 Infused ONCE ONE Infusion Ketorolac Tromethamine 30 mg 04/17/25 23:31 04/17/25 23:35 Ketorolac Tromethamine 30 Mg/Ml Vial IVPUSH 04/17/25 23:32 30 mg ONCE ONE Administration Medical Decision Making Medical Decision Making [facility] Narrative: I was called to the bedside when patient had a 2nd seizure of the day. On my arrival patient's seizure already stopped. Has a history of being on Keppra 1500 mg twice a day in addition to being on Lamictal 200 mg twice a day. We loaded the patient with an additional [address] scan was done my interpretation of patient's CT head showed no evidence of bleeding. Over the course of next 1/2 hour patient's mental status improved. Now is awake alert oriented. Patient stated that she took all her medication including her Keppra and including her Lamictal without missing any doses. Patient's electrolytes were normal. test is negative. White count is normal. Sodium was normal. Troponin is negative. I discussed patient's case with neurology for patient's doctor goes meds at [facility] wanted patient's Keppra to be increased to 2000 mg twice a day. Understands that patient still is having 2 seizures per month. Wanted patient to be observed overnight. Currently in stable condition. Differential Diagnosis Differential Diagnoses: The differential diagnosis associated with the presentation includes Seizure, intracranial bleed, med noncompliance Admission/Observation Consideration of admission/observation: Escalation of care including admission/observation considered Consult Healthcare Provider Management of the patient was discussed with: Hospitalist and Hand Collator (Neurology) Lab Data [facility] Lab Attestation statement: I reviewed the patient's lab results. 04/17/25 20:22 04/17/25 20:22 Labs: Lab Results 04/17/25 Range/Units 20:22 WBC 6.6 (4.8-10.8) X10*3/uL RBC 4.05 L (4.20-5.50) X10*6/uL Hgb 12.1 (12.0-16.0) g/dl Hct 35.3 L (37.0-47.0) % MCV 87.2 (80.0-98.0) fL MCH 29.9 (27.0-33.0) pg MCHC 34.3 (31.0-35.0) g/dl RDW 12.1 (11.0-16.0) % Plt Count 244 (160-400) X10*3/uL MPV 9.4 (9.4-12.3) fL Immature Gran % (Auto) 0.2 (0.0-0.4) % Neut % (Auto) 62.4 (45-73) % Lymph % (Auto) 28.6 (20-40) % Ramsey % (Auto) 6.8 (2-11) % Eos % (Auto) 1.4 (0-4) % Baso % (Auto) 0.6 (0-2) % Lymph # (Auto) 1.9 (1.2-4.9) X10*3/uL Ramsey # (Auto) 0.5 (0.1-1.2) X10*3/uL Eos # (Auto) 0.1 (0.0-0.4) X10*3/uL Baso # (Auto) 0.0 (0.0-0.2) X10*3/uL Abs Immat Gran (auto) 0.01 (0.00-0.03) X10*3/uL Absolute Neuts (auto) 4.1 (2.0-8.3) x10*3/uL Absolute Nucleated RBC 0.000 (0.0-0.012) X10*3/uL Nucleated RBC % (auto) 0.0 (0.0-0.2) /100WBC Sodium 139 (135-145) mmol/L Potassium 3.6 (3.3-5.1) mmol/L Chloride 107 (96-108) mmol/L Carbon Dioxide 24 (22-29) mmol/L Anion Gap 12 (12-20) BUN 9 (9-16) mg/dL Creatinine 0.71 (0.5-1.4) mg/dL Estim Creat Clear Calc 125.7 Estimated GFR > 60 Random Glucose 93 (60-115) mg/dL Calcium 8.7 (8.4-10.2) mg/dL Troponin I High Sens < 2.7 (<3.5-17.0) ng/L Beta HCG, Quant < 2 mIU/mL Independent Interpretation I performed an independent interpretation of an: EKG (Sinus heart rate is 100 [place] QRS QTC normal no acute ST segment elevation) and CT Scan (CT head negative for any evidence of bleeding) Radiology Impression Discussion of test interpretation with radiology: I have reviewed the radiologist's reading. External Record Review External record reviewed: Office record Chronic Conditions Seizure Social Determinants Patient?s care significantly limited by Social Determinants of Health including: Problems related to primary support group Critical Care Time Critical Care Time Critical Care Time: Yes Total Critical Care Time: 35 Attestation: I have personally provided 35 minutes of critical care time exclusive of time spent on separately billable procedures. ?Time includes review of lab data, radiology results, discussion with consultants, and monitoring for potential decompensation. ?Interventions were performed as documented above Discharge Plan Discharge Clinical Impression: Epileptic seizure Patient Disposition: Admitted As Inpatient
[2025-04-17] MEDS: diazePAM 10 MG/2 ML CARTRIDGE 5 MG IVPUSH (20:50)
[2025-04-17] MEDS: levETIRAcetam in NaCl (iso-os) 1,000 MG/100 ML PIGGYBACK 400 MG IV (20:50)
--- NOTE | 2025-04-17 20:50 | PC.NURSE ---
Called to exam room by PCT, pt was having tonic clonic seizure-like activity lasting approx [address] Elias at bedside for eval, pt now post ictal. New orders received pt medicated for seizure w/ seizure pads in place for safety
[2025-04-17 20:55] LABS: Anion Gap 12 (12-20); Blood Urea Nitrogen 9 mg/dL (9-16); Calcium 8.7 mg/dL (8.4-10.2); Carbon Dioxide 24 mmol/L (22-29); Chloride 107 mmol/L (96-108); Creatinine Clr Calc Pharmacy 125.7; Estimated Glomerular Filt Rate > 60; Potassium 3.6 mmol/L (3.3-5.1); Sodium 139 mmol/L (135-145)
[2025-04-17 20:56] VITALS: BP 118/71; PULSE 107; RESP 26; O2SAT 97
[2025-04-17 21:07] LABS: Troponin-I High Sensitivity < 2.7 ng/L (<3.5-17.0)
--- NOTE | 2025-04-17 21:22 | PC.NURSE ---
Pt awake but groggy, pt informed she had seizure, provider updated on pts status
[2025-04-17 21:33] VITALS: BP 115/65; PULSE 80; RESP 18; TEMP 36.6; O2SAT 99
[2025-04-17 22:46] VITALS: BP 122/80; PULSE 76; RESP 16; TEMP 36.8; O2SAT 100
--- NOTE | 2025-04-17 23:29 | PC.NURSE ---
assumed care of pt, pt states she has a headache going down her neck, provider aware, awaiting new orders
[2025-04-18] VITALS (9 sets, daily range): BP systolic 100–113; BP diastolic 56–70; PULSE 58–69; RESP 12–16; TEMP 36.2–36.5; O2SAT 97–99; BMI 36.1
--- NOTE | 2025-04-18 01:44 | P.HPHOSP_ITS ---
History of Present Illness Date of Service: 04/18/25 Attending physician on admission: Adeel Brito Chief Complaint: Seizures Ramon Su is a 40 years old woman with past medical history significant for seizures and depression was brought to the emergency department after she had an event of what seems to be tonic-clonic seizure. She feels secondary to this and hit her head. Her dad was present during this event. She does complain of severe generalized headache, nausea, dizziness and generalized weakness. She did not report any acute visual disturbances, focal weakness or acute speech difficulty. She did not have any events of urinary or stool incontinence; but did bite her lower lip. She did not report any acute cardiopulmonary or gastrointestinal symptoms. She denied alcohol abuse, illicit drug use or tobacco smoking. Past surgical history significant for hysterectomy. Patient said that she has been taking her antiseizure medication Keppra and lamotrigine as prescribed and has not missed any dose. She follows with a neurologist at [facility]. Last time she was evaluated by her neurologist was 2 months ago. At that time her Keppra was increased to 1500 mg p.o. b.i.d.. She takes Lamictal 200 mg p.o. b.i.d.. For depression, patient is taking amitriptyline and sertraline; and verapamil for migraine prophylaxis. In the ED, she was found to to have normal vital signs. CBC and BNP are unremarkable. Troponin is less than 2.7. Head and C-spine CT scan showed no acute abnormalities. ED tx: Valium 15 mg IV total, Keppra 1000 mg IV, ketorolac 30 mg IV, acetaminophen 1 g IV According to ED physician Dr. Elias, he discussed patient's case with her primary neurologist at [facility] I recommend observation overnight and to increased Keppra to 200O p.o. b.i.d.. Review of Systems 2 Review of Systems: All 12 systems were reviewed and normal except as noted in HPI. [facility] Medical History Bright red blood per rectum Epilepsy Chronic abdominal pain H/O partial seizures Constipation by delayed colonic transit Family History Maternal Grandmother Colon cancer Paternal Grandmother Stomach cancer Mother Diabetes Father Diabetes Surgical History Hx of hemorrhoidectomy Hx of tubal ligation Social History Household Members: Family Housing: House Do you presently have visiting nurse or other home services: No Alcohol intake: current Alcohol intake frequency: holidays/special occasions only Alcohol type: wine Patient Tobacco Use Status: Never used Tobacco Smoked in Last 30 Days: No Use of substances other than those prescribed or required for medical reasons: No Advance Directives: No Advance Directives Information Provided: No service: No Current occupational status: employed 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 Meds Allergies Allergy/AdvReac Type Severity Reaction Status Date / Time meperidine (From Demerol) AdvReac Mild HIVES Verified 04/17/25 20:06 Active Medications: Current Medications Acetaminophen (Acetaminophen 325 Mg Tablet) 975 mg PO Q6H PRN PRN Reason: Pain, Mild 1-3,fever,headache Calcium Carbonate (Calcium Carbonate 750 Mg Tab.Chew) 750 mg PO Q4H PRN PRN Reason: Heartburn Diazepam (Diazepam 10 Mg/2 Ml Cartridge) 5 mg IVPUSH ONCE PRN PRN Reason: Seizures Magnesium Hydroxide (Milk Of Magnesia 30 Ml Oral.Susp) 30 ml PO DAILY PRN PRN Reason: Constipation Melatonin (Melatonin 3 Mg Tablet) 6 mg PO BEDTIME PRN PRN Reason: Insomnia Sodium Chloride (0.9 % Sodium Chloride Flush 3 Ml Syringe) [facility] Medications ?Medication ?Instructions ?Recorded ?Confirmed ?Last Taken ?Type acetaminophen 325 mg tablet 650 mg PO Q4H PRN pain 12/25/24 Unknown History amitriptyline 25 mg tablet 50 mg PO BEDTIME 12/25/24 0 12/25/24 12/24/24 History lamotrigine 200 mg tablet 200 mg PO BID 12/25/2412/2512/25/24 History levetiracetam 1,000 mg tablet 1,500 mg PO BID 12/25/24 12/25/24 12/25/24 History lidocaine 5 % topical patch 1 patch topical DAILY PRN Pain 12/25/24 12/25/24 12/25/24 History (Lidoderm) sertraline 100 mg tablet 100 mg PO DAILY 12/25/2412/25/24 History verapamil 120 mg 24 hr 120 mg PO DAILY 12/25/2412/25/24 History capsule,extended release Physical Exam 2 Vital Signs and Narrative: Vital Signs: Last Vital Signs Temp 98.2 F 04/17/25 22:46 Pulse 76 04/17/25 22:46 Resp 16 04/17/25 22:46 BP 122/80 04/17/25 22:46 Pulse Ox 100 04/17/25 22:46 O2 Del Method Room Air 04/17/25 22:46 O2 Flow Rate 2 04/17/25 21:33 BMI result Body Mass Index 36.3 Constitutional - Awake and Alert, No apparent distress HEENT - PERRLA, EOMI Heart - RRR, no murmurs Lungs - Normal lung expansion, Normal respiratory effort, No respiratory distress, CTA bilaterally Abdomen - NT / ND; +BS; No rebound or guarding Extremities - no calf tenderness bilaterally, no swelling Musculoskeletal - Normal inspection, normal ROM Skin - Warm/Dry Neurological - Alert & oriented x3. Moving all extremities spontaneously. Normal speech. Psychological - Appropriate affect Results Labs 04/17/25 20:22 04/17/25 20:22 Labs: Laboratory Results - last 24 hr 04/17/25 20:22 MCV 87.2 MCH 29.9 MCHC 34.3 RDW 12.1 Plt Count 244 MPV 9.4 Immature Gran % (Auto) 0.2 Neut % (Auto) 62.4 Lymph % (Auto) 28.6 [place] % (Auto) 6.8 Eos % (Auto) 1.4 Baso % (Auto) 0.6 Lymph # (Auto) 1.9 [place] # (Auto) 0.5 Eos # (Auto) 0.1 Baso # (Auto) 0.0 Abs Immat Gran (auto) 0.01 Absolute Neuts (auto) 4.1 Absolute Nucleated RBC 0.000 Nucleated RBC % (auto) 0.0 Anion Gap 12 Estim Creat Clear Calc 125.7 Estimated GFR > 60 Random Glucose 93 Calcium 8.7 Troponin I High Sens < 2.7 Beta HCG, Quant < 2 Assessment and Plan (1) Epileptic seizure: Status: Acute (2) Acute migraine: Status: Acute Plan Ramon Su is a 40 y/o woman who presents with: Seizures, neuro status back to baseline. Received Valium in the ED. Seizure precautions. Neuro checks. Patient's neurologic contacted by ED recommended observation and to increase Keppra to 2,000 mg p.o. b.i.d.. Continue Lamictal. Valium IV p.r.n. for seizures. Check Keppra and lamotrigine levels. Neurology consult. Acute migraine, resolved. Received Toradol and Tylenol in the ED. Continue verapamil. Imitrex subacute as needed. Depression. Continue sertraline. med rec pending Quality Stroke Does the patient have a stroke diagnosis?: No VTE Prior VTE?: No VTE Risk Level:: Medical - moderate - high VTE Device Contraindication: Treatment Not Indicated VTE Drug Contraindication: Treatment Not Indicated
[2025-04-18 02:29] LABS: Appearance Urine Clear; Glucose Urine UA Negative (Negative); PH 5.5 (5.0-9.0); Specific Gravity - Urine 1.025 (1.005-1.025)
--- NOTE | 2025-04-18 02:33 | PC.NURSE ---
pt reporting 9/10 migraine and neck pain pt requesting meds. pt medicated according to mar for migraine MARTIN. lights dimmed to promote rest
--- NOTE | 2025-04-18 07:27 | P.PNIM_ITS ---
Subjective Subjective Date of Service: 04/18/25 Interval History: Pt's father and daughter in room Pt reports headache and neck thorne - likley msk from seizures Review of Systems Review of Systems: Yes all other systems are reviewed and are negative Physical Exam 2 Exam: Exam: General: AOx3, no acute distress Resp: CTA bilaterally CVS: S1, S2, RRR GI: +BS, NT, no distention Skin: Warm, dry Neuro: non-ternder on head, neck and spinal palpation. Motor grossly intact bilaterally Vital Signs: Vital Signs: Last Vital Signs Temp 97.7 F 04/18/25 07:07 Pulse 58 04/18/25 07:07 Resp 12 04/18/25 07:07 BP 111/70 04/18/25 07:07 Pulse Ox 98 04/18/25 07:07 O2 Del Method Room Air 04/18/25 07:07 O2 Flow Rate 2 04/17/25 21:33 BMI result Body Mass Index 36.3 Objective Data Active Medications Acetaminophen (Acetaminophen 325 Mg Tablet) 975 mg PO Q6H PRN PRN Reason: Pain, Mild 1-3,fever,headache Calcium Carbonate (Calcium Carbonate 750 Mg Tab.Chew) 750 mg PO Q4H PRN PRN Reason: Heartburn Diazepam (Diazepam 10 Mg/2 Ml Cartridge) 5 mg IVPUSH ONCE PRN PRN Reason: Seizures Lamotrigine (Lamotrigine 100 Mg Tablet) 200 mg PO BID CATA Levetiracetam (Levetiracetam 1,000 Mg Tablet) 2,000 mg PO BID CATA Magnesium Hydroxide (Milk Of Magnesia 30 Ml Oral.Susp) 30 ml PO DAILY PRN PRN Reason: Constipation Melatonin (Melatonin 3 Mg Tablet) 6 mg PO BEDTIME PRN PRN Reason: Insomnia Sodium Chloride (0.9 % Sodium Chloride Flush 3 Ml Syringe) 3 ml IVFLUSH QSHIFT CATA Sumatriptan Succinate (Sumatriptan Succinate 6 Mg/0.5 Ml Vial) 6 mg SUBCUT ONCE PRN PRN Reason: Migraine Headache Last Admin: 04/18/25 02:29 Dose: 6 mg Documented By: SERENITY Labs 04/17/25 20:22 04/17/25 20:22 Labs: Laboratory Results - last 24 hr 04/17/25 04/18/25 20:22 02:21 MCV 87.2 MCH 29.9 MCHC 34.3 RDW 12.1 Plt Count 244 MPV 9.4 Immature Gran % (Auto) 0.2 Neut % (Auto) 62.4 Lymph % (Auto) 28.6 [place] % (Auto) 6.8 Eos % (Auto) 1.4 Baso % (Auto) 0.6 Lymph # (Auto) 1.9 [place] # (Auto) 0.5 Eos # (Auto) 0.1 Baso # (Auto) 0.0 Abs Immat Gran (auto) 0.01 Absolute Neuts (auto) 4.1 Absolute Nucleated RBC 0.000 Nucleated RBC % (auto) 0.0 Anion Gap 12 Estim Creat Clear Calc 125.7 Estimated GFR > 60 Random Glucose 93 Calcium 8.7 Troponin I High Sens < 2.7 Beta HCG, Quant < 2 Urine Color Yellow Urine Appearance Clear Urine pH 5.5 Ur Specific [place] 1.025 Urine Protein Trace Urine Glucose (UA) Negative Urine Ketones Negative Urine Blood Negative Urine Nitrite Negative Ur Leukocyte Esterase Negative Assessment and Plan (1) Epileptic seizure: Status: Acute Plan Ramon Su is a 40 years old woman with past medical history significant for seizures and depression was brought to the emergency department after she had an event of what seems to be a witnessed tonic-clonic seizure 5 mins. We consulted her in house neurologist and [facility] neurology and we increased /adjusted the meds Witnessed presumed tonic clonic seizures of uncertain etiology in a pt with prior h/o seizures ? Complicated migraine inducing seizures Inc home Keppra to 2gm BID Inc Lamotrigene to 300 bid OP EEG OP neuro f/up per her [facility] neurology Compliacted migraine [place] of sumatriptan 100 mg orally along with ondansetron 4 mg Depression Anxiety Cont home meds .This note is constructed using voice recognition software. While every effort has been made to ensure accuracy, car ferry captain errors may have been included. The patient is being admitted for inpatient monitoring and evaluation following a breakthrough seizure. Ongoing admission is warranted to address acute risks and initiate a comprehensive workup to determine the seizure's etiology and guide an appropriate management plan Quality Stroke Does the patient have a stroke diagnosis?: No VTE Prior VTE?: No VTE Risk Level:: Medical - moderate - high VTE Device Contraindication: Treatment Not Indicated VTE Drug Contraindication: Treatment Not Indicated
--- NOTE | 2025-04-18 07:48 | PC.NURSE ---
patient stating needs seizure meds right at 8am or she will have a seizure, when asked what med other than lamictal she takes she states she also takes keppra 1500mg bid. Provider aware stating will order
--- NOTE | 2025-04-18 07:59 | HO.NURTONUR ---
Addendum entered by Linn Bennett RN 04/18/25 16:15: Care of Pt assumed at approx. 1145a. Pt resting comfortably throughout the afternoon. She reports discomfort and is medicated per SEP. Purwick in place per request. Seizure precautions in place. VSS. NAD noted. Original Note: Pt admitted for seizures. Alert and oriented x4. Independent with cares. Has had one witnessed seizure over night in the ED. Recieved diazepam, keppra, toradol. PO dose Keppra increased to 2000mg this morning. Pt verbalized understanding. Pt reports continued headache 5/10 and tingling in fingers. She is anxious to get her Keppra on time to avert seizures. Vitals WNL on room air. No IV fluids at this time.
--- NOTE | 2025-04-18 08:09 | HE.PHANOTE ---
RE: Geeta Spoke to Dr. Tuttle regarding 4g/day of Keppra, noted that dose was increased by patient's neurologist at [facility] despite max recommendation of 3g/day d/t patient still having seizures. Order updated.
[2025-04-18] MEDS: 0.9 % Sodium Chloride Flush 3 ML SYRINGE IVFLUSH ×3 (09:17→19:58)
--- NOTE | 2025-04-18 10:51 | PHA.MEDREC ---
Addendum entered by Sandi Sarabia RPh 04/18/25 11:13: MED REC REVIEWED BY [facility]. Per patient, she no longer takes amitriptyline. Original Note: Pharmacy Consult ? Medication Reconciliation Pharmacy has completed the medication reconciliation. Confirmed medication list with patient. Patient confirmed she is still taking verapamil 120 mg daily even though last pharmacy claim was 10/10/2024 for 90 day supply. Patient takes levetiracetam(keppra) 1500 mg BID at home. Dose of keppra increased to 2000 mg while in hospital during this visit. Took 2000 mg keppra and 200 mg lamotrigine today. Patient confirmed she takes 150 mg sertraline dose in the morning. All other non-prn medications taken yesterday.
[2025-04-18] MEDS: oxyCODONE HCl Immed Release 5 MG TABLET PO (12:05)
--- NOTE | 2025-04-18 12:33 | PM.NEUROCN ---
History of Present Illness Data of Consult Service Date: 04/18/25 Primary Care Provider: Vee Shafer MD [facility] Reason for consult: Sz and headache This is a 40 years old woman with past medical history significant for seizures and depression was brought to the emergency department after she apparently had 2 seizures at home and 1 in the emergency room according to the patient. She says her eyes roll up and she starts to thrash all over and feels that she may have a slight bite on the inside of her lower lip which I could not confirm. The last set of seizures prior to this was a week ago. She feels that her seizures have increased in the last 2 months. She says she has been compliant with her Keppra and lamotrigine. She apparently fell out of bed as a result of the seizure and has neck pain and headache. All day yesterday she also had a bad migraine. She does complain of [id number] generalized headache, no nausea, dizziness and generalized weakness. She did not report any acute visual disturbances, focal weakness or acute speech difficulty. She did not have any events of urinary or stool incontinence; but did bite her lower lip. She did not report any acute cardiopulmonary or gastrointestinal symptoms. She denied alcohol abuse, illicit drug use or tobacco smoking. Past surgical history significant for hysterectomy. Patient said that she has been taking her antiseizure medication Keppra and lamotrigine as prescribed and has not missed any dose. She follows with a neurologist at [facility]. Last time she was evaluated by her neurologist was 2 months ago. At that time her Keppra was increased to 1500 mg p.o. b.i.d.. She takes Lamictal 200 mg p.o. b.i.d.. For depression, patient is taking amitriptyline and sertraline; and verapamil for migraine prophylaxis. [facility] Past Medical History Medical History Bright red blood per rectum Epilepsy Chronic abdominal pain H/O partial seizures Constipation by delayed colonic transit Family History Family History Maternal Grandmother Colon cancer Paternal Grandmother Stomach cancer Mother Diabetes Father Diabetes Surgical History Surgical History Hx of hemorrhoidectomy Hx of tubal ligation Social History Social History Household Members: Family Housing: House Do you presently have visiting nurse or other home services: No Alcohol intake: current Alcohol intake frequency: holidays/special occasions only Alcohol type: wine Patient Tobacco Use Status: Never used Tobacco Smoked in Last 30 Days: No Use of substances other than those prescribed or required for medical reasons: No Advance Directives: No Advance Directives Information Provided: No Nutrition Risks: No Nutritional Risk service: No Current occupational status: employed 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 Allergies Allergy/AdvReac Type Severity Reaction Status Date / Time meperidine (From Demerol) AdvReac Mild HIVES Verified 04/17/25 20:06 Active Medications: Current Medications Acetaminophen (Acetaminophen 325 Mg Tablet) 975 mg PO Q6H PRN PRN Reason: Pain, Mild 1-3,fever,headache Last Admin: 04/18/25 09:14 Dose: 975 mg Atorvastatin Calcium (Atorvastatin Calcium 20 Mg Tablet) 20 mg PO BEDTIME CATA Calcium Carbonate (Calcium Carbonate 750 Mg Tab.Chew) 750 mg PO Q4H PRN PRN Reason: Heartburn Diazepam (Diazepam 10 Mg/2 Ml Cartridge) 5 mg IVPUSH ONCE PRN PRN Reason: Seizures Docusate Sodium (Docusate Sodium 100 Mg Capsule) 100 mg PO BID PRN PRN Reason: Constipation Ibuprofen (Ibuprofen 400 Mg Tablet) 400 mg PO Q6H PRN PRN Reason: Pain (Scale Score 4-6) Lamotrigine (Lamotrigine 100 Mg Tablet) 200 mg PO BID CATA Levetiracetam (Levetiracetam 1,000 Mg Tablet) 2,000 mg PO Q12H CATA Last Admin: 04/18/25 08:24 Dose: 2,000 mg Lidocaine (Lidocaine 4 % Patch Adh..Patch) 1 patch TRANSDERMA DAILY PRN PRN Reason: Pain Magnesium Hydroxide (Milk Of Magnesia 30 Ml Oral.Susp) 30 ml PO DAILY PRN PRN Reason: Constipation Melatonin (Melatonin 3 Mg Tablet) 6 mg PO BEDTIME PRN PRN Reason: Insomnia Methocarbamol (Methocarbamol 500 Mg Tablet) 500 mg PO QID CATA Oxycodone HCl (Oxycodone Hcl Immed Release 5 Mg Tablet) 5 mg PO Q6H PRN PRN Reason: Pain, Moderate(Pain Scale 4-6) Last Admin: 04/18/25 12:05 Dose: 5 mg Sertraline HCl (Sertraline Hcl 50 Mg Tablet) 150 mg PO DAILY CATA Last Admin: 04/18/25 12:05 Dose: 150 mg Sodium Chloride (0.9 % Sodium Chloride Flush 3 Ml Syringe) 3 ml IVFLUSH QSHIFT CATA Last Admin: 04/18/25 09:17 Dose: 3 ml Sumatriptan Succinate (Sumatriptan Succinate 6 Mg/0.5 Ml Vial) 6 mg SUBCUT ONCE PRN PRN Reason: Migraine Headache Last Admin: 04/18/25 02:29 Dose: 6 mg Triamcinolone Acetonide (Triamcinolone Acet 0.5 % Cream 15 Gm Tube) 1 appl TOPICAL DAILY CATA; Protocol Verapamil HCl (Verapamil Hcl Sr 120 Mg Tablet.Er) 120 mg PO DAILY CATA; Protocol Home Medications ?Medication ?Instructions ?Recorded ?Confirmed ?Last Taken ?Type acetaminophen 325 mg tablet 650 mg PO Q4H PRN pain 12/25/24 04/18/25 Unknown History lamotrigine 200 mg tablet 200 mg PO BID 12/25/24 04/18/25 04/18/25 History levetiracetam 1,000 mg tablet 1,500 mg PO BID 12/25/24 04/18/25 04/18/25 History lidocaine 5 % topical patch 1 patch topical DAILY PRN Pain 12/25/24 04/18/25 12/25/24 History (Lidoderm) sertraline 100 mg tablet 100 mg PO DAILY 12/25/24 04/18/25 04/17/25 History verapamil 120 mg 24 hr 120 mg PO DAILY 12/25/24 04/18/25 04/17/25 History capsule,extended release atorvastatin 20 mg tablet 20 mg PO BEDTIME 04/18/25 04/18/25 04/17/25 History docusate sodium 100 mg capsule 100 mg PO BID PRN Constipation 04/18/25 04/18/25 Unknown History (Colace) ibuprofen 200 mg tablet 400 mg PO Q6H PRN Pain (Scale 04/18/25 04/18/25 Unknown History Score 4-6) sertraline 50 mg tablet 50 mg PO QAM 04/18/25 04/18/25 04/17/25 History triamcinolone acetonide 0.5 % 1 appl topical DAILY 04/18/25 04/18/25 04/17/25 History topical cream Physical Exam Vital Signs: Vital Signs: Last Vital Signs Temp 97.3 F 04/18/25 08:19 Pulse 68 04/18/25 12:20 Resp 16 04/18/25 12:14 BP 100/57 L 04/18/25 12:20 Pulse Ox 98 04/18/25 08:19 O2 Del Method Room Air 04/18/25 08:19 O2 Flow Rate 2 04/17/25 21:33 BMI result Body Mass Index 36.3 Neuro: Other: She is alert and oriented with normal intellectual functions. Cranial nerves 2-12 are normal. Muscle tone and strength are normal in all 4 extremities. Reflexes are symmetrical plantar responses are flexor. She has pain in the base of her cervical spine and the right shoulder probably from her fall. Results Labs 04/17/25 20:22 04/17/25 20:22 Labs: Short CBC 04/17/25 Range/Units 20:22 WBC 6.6 (4.8-10.8) X10*3/uL Hgb 12.1 (12.0-16.0) g/dl Hct 35.3 L (37.0-47.0) % Plt Count 244 (160-400) X10*3/uL BMP 04/17/25 20:22 Sodium 139 Potassium 3.6 Chloride 107 Carbon Dioxide 24 BUN 9 Creatinine 0.71 Calcium 8.7 Urine 04/18/25 Range/Units 02:21 Urine Color Yellow Urine Appearance Clear Urine pH 5.5 (5.0-9.0) Ur Specific [place] 1.025 (1.005-1.025) Urine Protein Trace (Neg-Trace) mg/dL Urine Glucose (UA) Negative (Negative) mg/dL Assessment and Plan (1) Epileptic seizure: Status: Acute Recommendation outpatient EEG including a 24 hour ambulatory EEG. Increase Keppra to 2 g b.i.d. and increase lamotrigine to 300 b.i.d.. Outpatient follow-up with her treating neurologist at [facility] (2) Acute migraine: Status: Acute Will try sumatriptan 100 mg orally along with ondansetron 4 mg. Procedures Date of Service Date of Service: 04/18/25
[2025-04-18] MEDS: Triamcinolone Acet 0.5 % Cream 15 GM TUBE 1 APPL TOPICAL (13:52)
[2025-04-18] MEDS: VerapamiL HCL SR 120 MG TABLET.ER PO (13:52)
[2025-04-18 21:36] LABS: MANUAL DIFF FLAG NO
[2025-04-18 21:55] LABS: Hematocrit 34.1 % (37.0-47.0); Hemoglobin 12.0 g/dl (12.0-16.0); Imm Gran Abs Auto 0.02 X10*3/uL (0.00-0.03); Imm Gran Pct Auto 0.3 % (0.0-0.4); Lymphocytes Absolute Auto 2.5 X10*3/uL (1.2-4.9); Mean Corpuscular HGB Conc 35.2 g/dl (31.0-35.0); Mean Corpuscular Hemoglobin 30.4 pg (27.0-33.0); Mean Corpuscular Volume 86.3 fL (80.0-98.0); NRBC Abs Auto 0.000 X10*3/uL (0.0-0.012); NRBC Pct Auto 0.0 /100WBC (0.0-0.2); Platelet Count 267 X10*3/uL (160-400); Red Blood Count 3.95 X10*6/uL (4.20-5.50); White Blood Count 7.2 X10*3/uL (4.8-10.8)
[2025-04-18 22:04] LABS: Anion Gap 10 (12-20); Blood Urea Nitrogen 15 mg/dL (9-16); Calcium 8.7 mg/dL (8.4-10.2); Carbon Dioxide 28 mmol/L (22-29); Chloride 105 mmol/L (96-108); Creatinine Clr Calc Pharmacy 108.6; Estimated Glomerular Filt Rate > 60; Magnesium 2.1 mg/dL (1.6-2.6); Potassium 3.6 mmol/L (3.3-5.1); Sodium 139 mmol/L (135-145)
[2025-04-19] VITALS: BP 116/66; PULSE 62; RESP 16; TEMP 36.5; O2SAT 96
[2025-04-19 03:55] VITALS: BP 115/66; PULSE 61; RESP 17; TEMP 36.2; O2SAT 96
--- NOTE | 2025-04-19 06:58 | P.PNIM_ITS ---
Subjective Subjective Date of Service: 04/19/25 Physical Exam 2 Vital Signs: Vital Signs: Last Vital Signs Temp 97.1 F 04/19/25 03:55 Pulse 61 04/19/25 03:55 Resp 17 04/19/25 03:55 BP 115/66 04/19/25 03:55 Pulse Ox 96 04/19/25 03:55 O2 Del Method Room Air 04/19/25 03:55 O2 Flow Rate 2 04/17/25 21:33 BMI result Body Mass Index 36.1 Objective Data Active Medications Acetaminophen (Acetaminophen 325 Mg Tablet) 975 mg PO Q6H PRN PRN Reason: Pain, Mild 1-3,fever,headache Last Admin: 04/18/25 09:14 Dose: 975 mg Documented By: SERAFIN Atorvastatin Calcium (Atorvastatin Calcium 20 Mg Tablet) 20 mg PO BEDTIME [facility] Last Admin: 04/18/25 19:57 Dose: 20 mg Documented By: ROSHNI Calcium Carbonate (Calcium Carbonate 750 Mg Tab.Chew) 750 mg PO Q4H PRN PRN Reason: Heartburn Diazepam (Diazepam 10 Mg/2 Ml Cartridge) 5 mg IVPUSH ONCE PRN PRN Reason: Seizures Docusate Sodium (Docusate Sodium 100 Mg Capsule) 100 mg PO BID PRN PRN Reason: Constipation Last Admin: 04/18/25 20:00 Dose: 100 mg Documented By: ROSHNI Ibuprofen (Ibuprofen 400 Mg Tablet) 400 mg PO Q6H PRN PRN Reason: Pain (Scale Score 4-6) Lamotrigine (Lamotrigine 100 Mg Tablet) 300 mg PO BID [facility] Last Admin: 04/18/25 19:56 Dose: 300 mg Documented By: ROSHNI Levetiracetam (Levetiracetam 1,000 Mg Tablet) 2,000 mg PO Q12H [facility] Last Admin: 04/18/25 19:56 Dose: 2,000 mg Documented By: ROSHNI Lidocaine (Lidocaine 4 % Patch Adh..Patch) 1 patch TRANSDERMA DAILY PRN PRN Reason: Pain Magnesium Hydroxide (Milk Of Magnesia 30 Ml Oral.Susp) 30 ml PO DAILY PRN PRN Reason: Constipation Melatonin (Melatonin 3 Mg Tablet) 6 mg PO BEDTIME PRN PRN Reason: Insomnia Methocarbamol (Methocarbamol 500 Mg Tablet) 500 mg PO QID [facility] Last Admin: 04/18/25 19:56 Dose: 500 mg Documented By: ROSHNI Ondansetron HCl (Ondansetron Hcl 4 Mg/2 Ml Vial) 4 mg IVPUSH DAILY PRN PRN Reason: GIVE WITH IMITREX Last Admin: 04/18/25 19:56 Dose: 4 mg Documented By: ROSHNI Oxycodone HCl (Oxycodone Hcl Immed Release 5 Mg Tablet) 5 mg PO Q6H PRN PRN Reason: Pain, Moderate(Pain Scale 4-6) Last Admin: 04/18/25 12:05 Dose: 5 mg Documented By: ROSAS Sertraline HCl (Sertraline Hcl 50 Mg Tablet) 150 mg PO DAILY [facility] Last Admin: 04/18/25 12:05 Dose: 150 mg Documented By: ROSAS Sodium Chloride (0.9 % Sodium Chloride Flush 3 Ml Syringe) 3 ml IVFLUSH QSHIFT [facility] Last Admin: 04/18/25 19:58 Dose: 3 ml Documented By: ROSHNI Sumatriptan Succinate (Sumatriptan Succinate 6 Mg/0.5 Ml Vial) 6 mg SUBCUT ONCE PRN PRN Reason: Migraine Headache Last Admin: 04/18/25 02:29 Dose: 6 mg Documented By: SERENITY Sumatriptan Succinate (Sumatriptan Succinate 100 Mg Tablet) 100 mg PO DAILY MRX1 PRN PRN Reason: Migraine Headache Last Admin: 04/18/25 19:56 Dose: 100 mg Documented By: ROSHNI Triamcinolone Acetonide (Triamcinolone Acet 0.5 % Cream 15 Gm Tube) 1 appl TOPICAL DAILY [facility]; Protocol Last Admin: 04/18/25 13:52 Dose: 1 appl Documented By: ROSAS Verapamil HCl (Verapamil Hcl Sr 120 Mg Tablet.Er) 120 mg PO DAILY [facility]; Protocol Last Admin: 04/18/25 13:52 Dose: 120 mg Documented By: ROSAS Comments: Dispensed upon arrival from pharmacy Labs 04/18/25 21:30 04/18/25 21:30 Labs: Laboratory Results - last 24 hr 04/18/25 21:30 MCV 86.3 MCH 30.4 MCHC 35.2 H RDW 12.2 Plt Count 267 MPV 9.4 Immature Gran % (Auto) 0.3 Neut % (Auto) 56.0 Lymph % (Auto) 34.6 [place] % (Auto) 6.6 Eos % (Auto) 1.9 Baso % (Auto) 0.6 Lymph # (Auto) 2.5 [place] # (Auto) 0.5 Eos # (Auto) 0.1 Baso # (Auto) 0.0 Abs Immat Gran (auto) 0.02 Absolute Neuts (auto) 4.0 Absolute Nucleated RBC 0.000 Nucleated RBC % (auto) 0.0 Anion Gap 10 L Estim Creat Clear Calc 108.6 Estimated GFR > 60 Random Glucose 89 Calcium 8.7 Magnesium 2.1 Quality Stroke Does the patient have a stroke diagnosis?: No VTE Prior VTE?: No VTE Risk Level:: Medical - moderate - high VTE Device Contraindication: Treatment Not Indicated VTE Drug Contraindication: Treatment Not Indicated
[2025-04-19 07:57] VITALS: BP 103/57; PULSE 55; RESP 12; TEMP 36.6; O2SAT 98
[2025-04-19] MEDS: VerapamiL HCL SR 120 MG TABLET.ER PO (07:58)
[2025-04-19] MEDS: 0.9 % Sodium Chloride Flush 3 ML SYRINGE IVFLUSH (08:00)
--- NOTE | 2025-04-19 08:27 | MHC.CM.PN ---
CM met with Patient at bedside and addressed STEEN with her, providing Patient with the original and a copy has been placed on the chart. 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 PT is recommending home with services and CM has initiated and will follow for dc planning. PCP is Dr. Vee Shafer and Patient will self arrange transport to home at time of dc.
--- NOTE | 2025-04-19 10:55 | PM.DS ---
DS: Providers Provider Date of Service: 04/19/25 Date of admission: 04/18/25 00:36 Date of discharge: 04/19/25 Primary care physician: Vee Shafer MD Consults: 04/18/25 01:42 Consult to Neurology Routine Consulting Provider: [facility] Reason for consultation: Seizures Has provider been notified: No DS: Diagnosis Discharge Diagnosis (1) Epileptic seizure: Status: Acute DS: Summary Hospital Course Hospital Course: Witnessed presumed tonic clonic seizures of uncertain etiology in a pt with prior h/o seizures-breakthrough seizures requiring higher doses / adjustment of home medication ? Complicated migraine inducing seizures Ramon Su is a 40 years old woman with past medical history significant for seizures and depression was brought to the emergency department after she had an event of what seems to be a witnessed tonic-clonic seizure 5 mins. We consulted her in house neurologist and [facility] neurology and we increased /adjusted the meds. Inc home Keppra to 2gm BID Inc Lamotrigene to 300 bid OP EEG OP neuro f/up per her [facility] neurology Compliacted migraine Started sumatriptan 100 mg orally along with ondansetron 4 mg this admission Depression Anxiety Cont home meds .This note is constructed using voice recognition software. While every effort has been made to ensure accuracy, cloth edge singer errors may have been included. Patient is being discharged today with instructions about seizure precautions and follow-up with PCP and neurologist outpatient at [facility] Patient in agreement with the plan Time spent discussing smoking cessation with patient: more than 10 minutes Time Attestation Discharge Coordination Time (in mins): 35 Quality: Safe Use of Opioids Does Pt have an Active Cancer Diagnosis on the Problem List?: No Quality: Stroke Does the patient have a stroke diagnosis?: No Physical Exam Exam: Exam: General: AOx3, no acute distress Resp: CTA bilaterally CVS: S1, S2, RRR GI: +BS, NT, no distention Skin: Warm, dry Neuro: non-ternder on head, neck and spinal palpation. Motor grossly intact bilaterally Vital Signs: Vital Signs: Last Vital Signs Temp 97.8 F 04/19/25 07:57 Pulse 55 04/19/25 07:57 Resp 12 04/19/25 07:57 BP 103/57 L 04/19/25 07:57 Pulse Ox 98 04/19/25 07:57 O2 Del Method Room Air 04/19/25 07:57 O2 Flow Rate 2 04/17/25 21:33 BMI result Body Mass Index 36.1 DS: Data Data Completed and Pending Labs on day of discharge: Laboratory Results - last 24 hr 04/18/25 21:30 WBC 7.2 RBC 3.95 L Hgb 12.0 Hct 34.1 L MCV 86.3 MCH 30.4 MCHC 35.2 H RDW 12.2 Plt Count 267 MPV 9.4 Immature Gran % (Auto) 0.3 Neut % (Auto) 56.0 Lymph % (Auto) 34.6 [place] % (Auto) 6.6 Eos % (Auto) 1.9 Baso % (Auto) 0.6 Lymph # (Auto) 2.5 [place] # (Auto) 0.5 Eos # (Auto) 0.1 Baso # (Auto) 0.0 Abs Immat Gran (auto) 0.02 Absolute Neuts (auto) 4.0 Absolute Nucleated RBC 0.000 Nucleated RBC % (auto) 0.0 Sodium 139 Potassium 3.6 Chloride 105 Carbon Dioxide 28 Anion Gap 10 L BUN 15 Creatinine 0.82 Estim Creat Clear Calc 108.6 Estimated GFR > 60 Random Glucose 89 Calcium 8.7 Magnesium 2.1 Discharge Plan Discharge Anticipated Discharge Date/Time: 04/19/25 10:24 Patient Disposition: Home, Self-Care Referrals: Vee Shafer MD [Primary Care Provider, Internal Medicine] - 1 Week Discharge Medications: New methocarbamol 500 mg Tablet 500 mg PO QID 20 Days Qty: 80 0RF sumatriptan succinate 100 mg Tablet 100 mg PO DAILY MRX1 PRN (Reason: Migraine Headache) 30 Days Qty: 30 0RF Antacid Ext Str (calcium carb) 300 mg (750 mg) Tablet,Chewable 2.5 tab PO Q4H PRN (Reason: Heartburn) 30 Days Qty: 30 0RF lamotrigine 100 mg Tablet 300 mg PO BID 30 Days Qty: 180 3RF levetiracetam 1,000 mg Tablet 2,000 mg PO Q12H 30 Days Qty: 120 3RF ondansetron 8 mg tablet,disintegrating 8 mg PO Q8H PRN (Reason: nausea and vomiting) Qty: 10 0RF Continued naproxen 500 mg tablet 500 mg PO BID PRN (Reason: pain) Qty: 20 0RF acetaminophen 325 mg tablet 650 mg PO Q4H PRN (Reason: pain) sertraline 100 mg tablet 100 mg PO DAILY verapamil 120 mg capsule,ext rel. pellets 24 hr 120 mg PO DAILY levetiracetam 1,000 mg tablet 1,500 mg PO BID Patient Comments: Patient takes 1500 mg BID at home. Upped to 2000 mg BID for this hospital visit. lidocaine [Lidoderm] 5 % adhesive patch,medicated 1 patch topical DAILY PRN (Reason: Pain) Rx Instructions: leave on most painful area for up to 12 hrs atorvastatin 20 mg tablet 20 mg PO BEDTIME triamcinolone acetonide 0.5 % cream 1 appl topical DAILY sertraline 50 mg tablet 50 mg PO QAM ibuprofen 200 mg Tablet 400 mg PO Q6H PRN (Reason: Pain (Scale Score 4-6)) docusate sodium [Colace] 100 mg capsule 100 mg PO BID PRN (Reason: Constipation) Discontinued lamotrigine 200 mg tablet 200 mg PO BID Discharge Orders: Discharge Order (Routine); Ordered 04/19/25 Ordered By: Viola Tuttle Diet: Advance to usual diet Activity on Discharge: As tolerated Stand Alone Forms: Patient Portal Discharge page Print Language: [employer] [facility] Concerns: Seizure precautions Plan of Treatment: Increased lamotrigine to 300 p.o. b.i.d. Increased Keppra to 2 g b.i.d. Initiated sumatriptan and simultaneous ondansetron 4 complicated migraine Patient to have EEG and follow-up care by primary Neurology Advised the patient about seizure precautions PCP follow-up in 1 week Assessment: What is epilepsy? This is a condition that causes people to have repeated seizures. Seizures are caused by abnormal electrical activity in the brain. They can make a person have convulsions, pass out, or move or behave strangely. Epilepsy can start at any age. What are the symptoms of a seizure? There are different kinds of seizures. Each causes a different set of symptoms. Most seizures last only a few seconds or minutes. People who have tonic-clonic or grand mal seizures will suddenly pass out, get stiff, and then have jerking movements. Other types of seizures cause less dramatic symptoms. For instance, some people have shaking movements in just 1 arm or in a part of their face. Others suddenly stop responding and stare for a few seconds. Sometimes, people know they are about to have a seizure. They have a certain feeling or smell a certain smell. This feeling or smell is called an aura. Will I need tests? Yes. You will probably have 1 or both of the following: ?Electroencephalogram, or EEG ? This measures electrical activity in the brain (figure 1https://www.[employer]/contents/image?imageKey=PI%7Q55449&topicKey=PI%8T83866&search=Instructions%20for%20post%20seizure%20precautions%20for%20discharge&source=see_link). ?CT or MRI scan ? These imaging tests create pictures of the brain. How is epilepsy treated? Epilepsy is treated with anti-seizure medicines. These are also called anti-epileptic or anti-convulsant medicines. They do not cure epilepsy, but they can help prevent seizures. There are different anti-seizure medicines. The right one for you depends on your seizures and other factors. What should I know about anti-seizure medicines? ?Anti-seizure medicines usually work well to control seizures. Some people might need to try different medicines or take more than 1 kind to find the right treatment. ?These medicines can cause side effects. They can make you feel tired or dizzy, or cause other problems. Tell your doctor about any side effects you have. That way, you can work together to find the best medicine and dose for you. There are some rare side effects that can be very serious. Tell your doctor right away if you get a new rash or feel like hurting yourself. ?Anti-seizure medicines can affect your other medicines. Plus, other medicines can keep your anti-seizure medicine from working well. Tell your doctor if you start any new prescription or non-prescription medicines, including control pills. Some anti-seizure medicines can keep control pills from working well. This can lead to an unplanned . ?You might need regular blood tests to check the amount of anti-seizure medicine in your body. ?Some people need to take anti-seizure medicines for the rest of their life. But this depends on your situation. If you don't have any seizures for several years, your doctor might talk with you about stopping your medicine. Do?not?stop taking your medicine without talking to your doctor. What if medicines do not control my seizures? Your doctor might talk with you about other possible treatments. These can include: ?Surgery ? Some people can have surgery to remove the small part of their brain that is causing seizures. ?Neurostimulation ? Different devices can be used for this. One is called a vagus nerve stimulator, which is placed under the skin. Others include responsive cortical stimulation and deep brain stimulation. ?Following a ketogenic diet ? This involves eating foods that are high in fat, moderate in protein, and low in carbohydrates. If you are interested in trying this diet, your doctor or nurse can talk to you about how to do this safely. How can I lower my chances of having more seizures? You should: ?Take your medicine exactly as instructed. ?Get enough sleep ? Not getting enough sleep raises your chances of having a seizure. ?Avoid alcohol and drugs. Can I drive if I have epilepsy? Each state and country has its own rules. Before you can drive again, you will probably need to be seizure free for a certain amount of time. You might also need to get your doctor's permission. What if I want to get ? Talk with your doctor before you start trying to get . They might change your anti-seizure medicine or prescribe a vitamin called?folic acidhttps://www.[employer]/contents/jolfy-inya-nmggvva-drug-information?search=Instructions%20for%20post%20seizure%20precautions%20for%20discharge&iqhxzSla=16517&source=see_link. But don't ever stop your medicine on your own. What else should I do if I have epilepsy? You should: ?Wear a medical bracelet to let others know about your epilepsy. ?Tell family members and friends how to help you if you have a seizure. They can position you so you will not hurt yourself, but they should?not?put anything in your mouth. They should time your seizure and?call for an ambulance?(in the [place] and [place],?call ) if it lasts longer than 5 minutes. ?Talk to your doctor about how to stay safe at home. They can suggest ways to lower your chances of getting hurt if you have a seizure. For example, they might tell you to: ?Have nvqw-ed-hcue carpet or soft fatimah in your home, if possible. This can make it softer if you fall. ?Take showers instead of baths, and use a shower chair. ?Have another person with you if you do activities that could be dangerous, like swimming or using power tools. ?Change some of your habits and routines to lower the risk of hurting yourself or someone else. The Epilepsy Foundation also has information about staying safe at home:?www.epilepsy.com/preparedness-safety/staying-safe/safety-homehttps://[employer]/external-redirect?target_url=https%3A%2F%2Fwww.[employer].com%2Fpreparedness-safety%2Fstaying-safe%2Fsafety-home&token=XjWpRSslHbpL%4DB0oIko%8Pqs1yXOCEmiEfXBz64 [id number]%2FPlqdwW%2FfOgs%3D&TOPIC_ID=43561. When should I call the doctor? Your doctor will make a plan with you that tells you when to call them. In general, call your doctor or nurse if you have more seizures than usual or if your seizures last longer than usual. Some seizures are a medical emergency.?If you have a seizure that lasts longer than 5 minutes, or if you have 2 or more seizures without waking up in between, the person with you should call for an ambulance (in the [place] and [place], call ). Call your doctor for advice if: ?Your seizures start happening more often. ?Your seizures get worse. ?You have changes in your thoughts or mood, like feeling depressed or anxious. ?Other people notice you are acting differently. ?You have new or worsening weakness, especially if on 1 side of your body. ?You have new or worsening trouble with balance. ?You have side effects from your medicines. Patient Instructions: Nonepileptic Seizures (DC)
--- NOTE | 2025-04-19 11:12 | MHC.CM.PN ---
Patient has been medically cleared for dc to home today. PT is recommending home with services and [facility] accepted Patient.
[2025-04-19 11:20] VITALS: BP 122/65; PULSE 60; RESP 20; TEMP 36.1; O2SAT 98
--- NOTE | 2025-04-19 11:31 | W.MHC.F2F ---
Service Date Service Date: 04/19/25 Encounter Date of encounter: 04/19/25 Reasons for Services Signs and symptoms assessed: PT is recommending home with services and [facility] accepted Patient. Reason for physical therapy: home safety and mobility Homebound: Leaving the home is medically contraindicated at this time without the asist of a device and/or another person due th the listed conditions above and below. Reason homebound: poor balance / fall risk Certification: Based on the above findings, I certify that this patient is confined to the home and needs intermittent senior living care, physical therapy and/or speech therapy, or continues to need occupational therapy. The patient is under my care, and I have initiated the establishment of the plan of care. The patient will be followed by a physician who will periodically review the plan of care. Time Spent With Patient Time: Total time managing care of this patient today ____ minutes.
[2025-04-22 22:29] LABS: Levetiracetam Keppra 46.1 mcg/mL (6.0-46.0)
[2025-04-24 18:25] LABS: Lamotrigine Lamictal 7.5 mcg/mL (2.5-15.0)
== END 2025-04-19 15:15 | disposition home health service (06) ==
LOC: HO.ED 23:14 → HO.EDOVER 04-18 00:44 → HO.IMC 04-18 16:01
PROVIDERS: Admitting Provider Internal Medicine; Emergency Provider Emergency Medicine Emergency Medical Services; PCP Internal Medicine; Visit Provider Student in an Organized Health Care Education/Training Program
DX: G40.909 Epilepsy, unspecified, not intractable, without status epilepticus (principal); R55 Syncope and collapse; S09.90XA Unspecified injury of head, initial encounter; W19.XXXA Unspecified fall, initial encounter; Y93.9 Activity, unspecified; Y92.9 Unspecified place or not applicable; Y99.9 Unspecified external cause status; G43.909 Migraine, unspecified, not intractable, without status migrainosus; F32.A Depression, unspecified; M54.2 Cervicalgia; Z79.899 Other long term (current) drug therapy
CPT/HCPCS: 36415; 70450; 72125; 80048; 80175; 80177; 81003; 83735; 84484; 84702; 85025; 93005; 96365; 96367; 96372; 96375; 96376; 97161; 99222; 99285; J0131; J1885; J1953; J2405; J3030; J3360

== ENCOUNTER → 2025-04-17 20:51 | Outpatient (BNV) | payer OTHER, SELFPAY | PROVIDERS: Admitting Provider Internal Medicine; Emergency Provider Emergency Medicine Emergency Medical Services; PCP Internal Medicine; Visit Provider Internal Medicine | DX: R55 Syncope and collapse (principal) | CPT/HCPCS: 93010 ==

== ENCOUNTER → 2025-04-17 21:28 | Outpatient (BNV) | payer OTHER, SELFPAY | PROVIDERS: Emergency Provider Emergency Medicine Emergency Medical Services; PCP Internal Medicine; Visit Provider Radiology Neuroradiology | DX: Z04.3 Encounter for examination and observation following other accident (principal); R56.9 Unspecified convulsions; W19.XXXA Unspecified fall, initial encounter | CPT/HCPCS: 70450; 72125 ==

== ENCOUNTER → 2025-04-18 00:36 | Outpatient (BNV) | payer OTHER, SELFPAY | PROVIDERS: Admitting Provider Internal Medicine; Emergency Provider Emergency Medicine Emergency Medical Services; PCP Internal Medicine; Visit Provider Internal Medicine | DX: G40.909 Epilepsy, unspecified, not intractable, without status epilepticus (principal) | CPT/HCPCS: 99222; 99239; 99499; G0180 ==

== ENCOUNTER → 2025-04-18 00:36 | Outpatient (BNV) | payer OTHER, SELFPAY | PROVIDERS: Admitting Provider Internal Medicine; Emergency Provider Emergency Medicine Emergency Medical Services; PCP Internal Medicine; Visit Provider Psychiatry & Neurology Neurology | DX: G40.909 Epilepsy, unspecified, not intractable, without status epilepticus (principal); G43.909 Migraine, unspecified, not intractable, without status migrainosus | CPT/HCPCS: 99222 ==

== ENCOUNTER 2025-05-02 19:40 | Emergency (ER) | payer OTHER, SELFPAY ==
--- NOTE | ~2025-05-02 | CT_ITS ---
CLINICAL HISTORY: fall, possible seizure CT head without contrast Comparison: Prior head CTs most recently on 04/17/2025 Findings: No intra-axial mass, midline shift, hydrocephalus, or acute hemorrhage. No significant atrophy-like change or white matter disease. The visualized paranasal sinuses and mastoid air cells are normal. The orbits are within normal limits. There is no acute fracture. IMPRESSION: 1. No acute intracranial findings. This document has been electronically signed by: Jerrod Rojas MD on 05/02/2025 22:33:48
--- NOTE | ~2025-05-02 | CT_ITS ---
CLINICAL HISTORY: fall, neck pain CT cervical spine without contrast Comparison: CT/SR - CT CERVICAL SPINE WO IV CON - 04/17/2025 09:07 PM EDT Findings: Normal vertebral body alignment. No significant degenerative change. No acute fractures or dislocations. Visualized intracranial contents are unremarkable. No cervical fluid collections or masses. No consolidation or effusion at the lung apices. IMPRESSION: No acute cervical spine fracture or subluxation. This document has been electronically signed by: Jerrod Rojas MD on 05/02/2025 22:45:11
--- NOTE | 2025-05-02 20:02 | ECG_ITS ---
Test Reason : SEIZURE Blood Pressure : */* mmHG Vent. Rate : 75 BPM Atrial Rate : 75 BPM P-R Int : 142 ms QRS Dur : 82 ms QT Int : 414 ms P-R-T Axes : 56 56 60 degrees QTcB Int : 462 ms Normal sinus rhythm Normal ECG When compared with ECG of 17-Apr-2025 20:51, No significant change was found Referred By: Generic ED Physician Electronically Signed By: DANUTA TREVINO
[2025-05-02 20:04] VITALS: BP 122/69; BP 128/76; PULSE 74; PULSE 82; RESP 13; TEMP 37.2; O2SAT 100; BMI 36.3
--- NOTE | 2025-05-02 20:30 | ED.SEIZURE ---
HPI - Seizure General Chief Complaint: Seizure Stated Complaint: Breakthrough sz on sz med Time Seen by Provider: 05/02/25 20:18 Source: patient and EMS Mode of arrival: EMS Limitations: no limitations History of Present Illness ED Provider: Dr. Evangelina Cardona HPI Narrative: Patient comes to the emergency room stating that she had a seizure at home. According to the patient, she was very sleepy today and decided to take a nap. Patient states that she woke up on the floor. Patient complaining of a headache and neck pain. Patient denies any visual changes, denies chest pain or shortness of breath. Denies any other symptoms other than the headache and the neck pain. Patient states that she is compliant with her lamotrigine and Keppra. Patient states that a few days ago, patient decided to decrease her dose without consulting with her neurologist. Patient states that the new dose was making her very sleepy and decided to decrease the dose of both lamotrigine and Keppra. Seizure History: Yes Related Data Home Medications ?Medication ?Instructions ?Recorded ?Confirmed acetaminophen 325 mg tablet 650 mg PO Q4H PRN pain 12/25/24 04/18/25 levetiracetam 1,000 mg tablet 1,500 mg PO BID 12/25/24 04/18/25 lidocaine 5 % topical patch 1 patch topical DAILY PRN Pain 12/25/24 04/18/25 (Lidoderm) sertraline 100 mg tablet 100 mg PO DAILY 12/25/24 04/18/25 verapamil 120 mg 24 hr 120 mg PO DAILY 12/25/24 04/18/25 capsule,extended release atorvastatin 20 mg tablet 20 mg PO BEDTIME 04/18/25 04/18/25 docusate sodium 100 mg capsule 100 mg PO BID PRN Constipation 04/18/25 04/18/25 (Colace) ibuprofen 200 mg tablet 400 mg PO Q6H PRN Pain (Scale 04/18/25 04/18/25 Score 4-6) sertraline 50 mg tablet 50 mg PO QAM 04/18/25 04/18/25 triamcinolone acetonide 0.5 % 1 appl topical DAILY 04/18/25 04/18/25 topical cream Previous Rx's ?Medication ?Instructions ?Recorded naproxen 500 mg tablet 500 mg PO BID PRN pain #20 tabs 11/15/20 calcium carbonate (Antacid Ext Str 2.5 tab PO Q4H PRN Heartburn 30 04/19/25 (calcium carb)) days #30 tabs lamotrigine 100 mg tablet 300 mg (3 x 100 mg) PO BID 30 days 04/19/25 #180 tabs levetiracetam 1,000 mg tablet 2,000 mg (2 x 1,000 mg) PO Q12H 30 04/19/25 days #120 tabs methocarbamol 500 mg tablet 500 mg PO QID 20 days #80 tabs 04/19/25 ondansetron 8 mg disintegrating 8 mg PO Q8H PRN nausea and 04/19/25 tablet vomiting #10 tabs sumatriptan succinate 100 mg tablet 100 mg PO DAILY MRX1 PRN Migraine 04/19/25 Headache 30 days #30 tabs Allergies Allergy/AdvReac Type Severity Reaction Status Date / Time meperidine (From Demerol) AdvReac Mild HIVES Verified 05/02/25 20:08 Review of Systems Review of Systems: Constitutional : No Weight loss, No Fever, No Chills, No Night Sweats, No Fatigue, No Malaise ENT/Mouth : No Hearing loss, No Ear Pain, No Nasal Congestion, No Sinus Pain, No Hoarseness, No sore throat, No Rhinorrhea, No Swallowing Difficulty Eyes: No Eye Pain, No Swelling, No Redness, No Foreign Body, No Discharge, No Vision Changes Cardiovascular : No Chest Pain, No SOB, No Dyspnea on Exertion, No Orthopnea, No Edema, No Palpitations Respiratory : No Cough, No Sputum, No Wheezing, No Smoke Exposure, No Dyspnea Gastrointestinal : No Nausea, No Vomiting, No Diarrhea, No Constipation, No abdominal Pain, No Hematochezia, No Melena Genitourinary : no irregular bleeding, No Dysuria, No Urinary Frequency, No Hematuria, No Urinary Incontinence, No Urgency, No Flank Pain, No Urinary Flow Changes, No Hesitancy Musculoskeletal : Complaining of posterior neck pain, No Myalgias, No Joint Swelling Skin : No Skin Lesions, No rash Neuro : Patient complaining of having a seizure, No Weakness, No Numbness, No Paresthesias, No Loss of Consciousness, No Dizziness, complaining of Headache Psych : No Anxiety/Panic, No Depression, No SI/HI/AH/VH, No Social Issues, Heme/Lymph: No Bruising, No Bleeding,No Lymphadenopathy Endocrine : No Polyuria, No Polydipsia, No Temperature Intolerance [facility] Past Medical History Medical History Bright red blood per rectum Epilepsy Chronic abdominal pain H/O partial seizures Constipation by delayed colonic transit Surgical History Hx of hemorrhoidectomy Hx of tubal ligation Family History Family History Maternal Grandmother Colon cancer Paternal Grandmother Stomach cancer Mother Diabetes Father Diabetes Social History Social History Household Members: Spouse, Family and Children Housing: House Do you presently have visiting nurse or other home services: No Alcohol intake: current Alcohol intake frequency: does not drink Alcohol type: wine Patient Tobacco Use Status: Never used Tobacco Smoked in Last 30 Days: No Use of substances other than those prescribed or required for medical reasons: No Advance Directives: No Advance Directives Information Provided: No Do you have a plan to hurt others: No Plan Patient : No service: No Current occupational status: employed Current occupation: [employer] Physical Exam Exam: Exam: Appearance: Alert. Oriented X3. No acute distress. Eyes: Pupils equal, round and reactive to light. ENT: Pharynx normal. Neck: Normal inspection. Neck supple. Pain to palpation over the bilateral aspects of the neck, no C-spine tenderness, No lymph nodes noted. No crepitus CVS: Normal heart rate and rhythm. Pulses normal. Normal S1 and S2 Respiratory: No respiratory distress. Breath sounds normal. No Wheezing. No rales Abdomen: Soft and nontender. No rigidity. No distention. Skin: Skin warm and dry. Normal skin color. Normal skin turgor. Extremities: No lower extremity edema. No Lacerations. No Rash Neuro: Oriented X 3. No motor deficit. No sensory deficit. Moving all extremities. No slurred speech. CN 2 through 12 grossly intact Psych: calm, cooperative, normal affect Vital Signs: Vital Signs: Last Vital Signs Temp 98.9 F 05/02/25 20:04 Pulse 62 05/02/25 21:57 Resp 15 05/02/25 21:57 BP 118/70 05/02/25 21:57 Pulse Ox 97 05/02/25 21:57 O2 Del Method Room Air 05/02/25 21:57 BMI result Body Mass Index 36.3 Course Course Course Narrative: Patient with history of seizures on Keppra and lamotrigine, came to the emergency room for a breakthrough seizure. Three days ago, patient decided to decrease her dose of both medications because the new increased dose was making her feel drowsy. Patient receiving IV fluids, 1 dose of IV Keppra All of patient's labs pending Medications Administered Discontinued Medications Generic Name Dose Route Start Last Admin Trade Name Freq PRN Reason Stop Dose Admin Levetiracetam 1,000 mg in 100 mls @ 400 mls/hr 05/02/25 20:28 05/02/25 21:07 Keppra IV 05/02/25 20:42 Infused ONCE ONE Infusion Sodium Chloride 1,000 mls @ 999 mls/hr 05/02/25 20:35 05/02/25 23:34 Ns IVCONT 05/02/25 21:35 Infused .Q1H1M ONE Infusion Metoclopramide HCl 10 mg 05/02/25 21:04 05/02/25 21:43 Metoclopramide Hcl 10 Mg/2 Ml Vial IVPUSH 05/02/25 21:05 10 mg ONCE ONE Administration Morphine Sulfate 2 mg 05/02/25 21:04 05/02/25 21:43 Morphine Sulfate 2 Mg/Ml Cartridge IVPUSH 05/02/25 21:05 2 mg ONCE ONE Administration Protocol Medical Decision Making Medical Decision Making [facility] Narrative: My interpretation of labs: No significant abnormality in patient's hematology or chemistry, normal lactic, normal CPK. Labs are not quite necessarily consistent with a tonic-clonic seizure. It is possible that patient may have had pseudo-seizure? . Patient recently decreased the dose of her antiepileptic medications. I did ask the patient to return to her prescribed dose and to talk with her neurologist about the side effects that she is experiencing. Otherwise, patient is well-appearing, alert and oriented x3, ambulatory Differential Diagnosis Differential Diagnoses: The differential diagnosis associated with the presentation includes (Seizure, pseudo-seizure, fall out of bed) Admission/Observation Consideration of admission/observation: Escalation of care including admission/observation considered (Given patient's past medical history history of breakthrough seizures, observation was considered) Lab Data MDM Lab Attestation statement: I reviewed the patient's lab results. 05/02/25 20:48 05/02/25 20:31 Labs: Lab Results 05/02/25 05/02/25 05/02/25 Range/Units 20:31 20:48 21:52 WBC 6.5 (4.8-10.8) X10*3/uL RBC 3.96 L (4.20-5.50) X10*6/uL Hgb 12.0 (12.0-16.0) g/dl Hct 34.3 L (37.0-47.0) % MCV 86.6 (80.0-98.0) fL MCH 30.3 (27.0-33.0) pg MCHC 35.0 (31.0-35.0) g/dl RDW 12.2 (11.0-16.0) % Plt Count 242 (160-400) X10*3/uL MPV 9.0 L (9.4-12.3) fL Immature Gran % (Auto) 0.3 (0.0-0.4) % Neut % (Auto) 61.7 (45-73) % Lymph % (Auto) 27.2 (20-40) % [place] % (Auto) 8.0 (2-11) % Eos % (Auto) 2.0 (0-4) % Baso % (Auto) 0.8 (0-2) % Lymph # (Auto) 1.8 (1.2-4.9) X10*3/uL [place] # (Auto) 0.5 (0.1-1.2) X10*3/uL Eos # (Auto) 0.1 (0.0-0.4) X10*3/uL Baso # (Auto) 0.1 (0.0-0.2) X10*3/uL Abs Immat Gran (auto) 0.02 (0.00-0.03) X10*3/uL Absolute Neuts (auto) 4.0 (2.0-8.3) x10*3/uL Absolute Nucleated RBC 0.000 (0.0-0.012) X10*3/uL Nucleated RBC % (auto) 0.0 (0.0-0.2) /100WBC Sodium 138 (135-145) mmol/L Potassium 3.9 (3.3-5.1) mmol/L Chloride 104 (96-108) mmol/L Carbon Dioxide 25 (22-29) mmol/L Anion Gap 13 (12-20) BUN 8 L (9-16) mg/dL Creatinine 0.71 (0.5-1.4) mg/dL Estim Creat Clear Calc 125.7 Estimated GFR > 60 Random Glucose 99 (60-115) mg/dL Lactic Acid 1.3 (0.5-2.0) mmol/L Calcium 8.9 (8.4-10.2) mg/dL Total Bilirubin 0.2 (0.0-1.0) mg/dL AST 25 (5-31) U/L ALT 28 (0-31) U/L Alkaline Phosphatase 75 (39-117) U/L Total Creatine Kinase 86 (26-140) U/L Total Protein 7.2 (6.5-8.0) g/dL Albumin 4.3 (3.5-5.0) g/dL Urine Color Yellow Urine Appearance Clear Urine pH 7.0 (5.0-9.0) Ur Specific [place] <= 1.005 (1.005-1.025) Urine Protein Negative (Neg-Trace) mg/dL Urine Glucose (UA) Negative (Negative) mg/dL Urine Ketones Negative (Negative) mg/dL Urine Blood Negative (Negative) Urine Nitrite Negative (Negative) Ur Leukocyte Esterase Negative (Negative) Urine Opiates Screen Not Detected (Not Detect) Ur Buprenorphine Scrn Not Detected (Not Detect) ng/mL Ur Oxycodone Screen Not Detected (Not Detect) ng/mL Urine Methadone Screen Not Detected (Not Detect) ng/mL Urine Fentanyl Screen Not Detected (Not Detect) Ur Barbiturates Screen Not Detected (Not Detect) Ur Phencyclidine Scrn Not Detected (Not Detect) Ur Amphetamines Screen Not Detected (Not Detect) U Benzodiazepines Scrn Not Detected (Not Detect) Urine Cocaine Screen Not Detected (Not Detect) U Marijuana (THC) Screen Not Detected (Not Detect) Ethyl Alcohol < 10 mg/dL Independent Interpretation I performed an independent interpretation of an: CT Scan Radiology Impression Discussion of test interpretation with radiology: I have reviewed the radiologist's reading. Radiologist Impression: No intra-axial mass, midline shift, hydrocephalus, or acute hemorrhage. No significant atrophy-like change or white matter disease. The visualized paranasal sinuses and mastoid air cells are normal. The orbits are within normal limits. There is no acute fracture. Normal vertebral body alignment. No significant degenerative change. No acute fractures or dislocations. Visualized intracranial contents are unremarkable. No cervical fluid collections or masses. No consolidation or effusion at the lung apices Independent Historian Clinical information obtained from an independent historian. History obtained from or confirmed by: EMS Critical Care Time Critical Care Time Critical Care Time: Yes Total Critical Care Time: 45 Attestation: I have personally provided critical care time. Time includes review of lab data, radiology results, discussion with consultants, and monitoring for potential decompensation. Intervention performed as documented. Discharge Plan Discharge Clinical Impression: Breakthrough seizure Patient Disposition: Home, Self-Care Instructions: Recurrent Seizures in Adults (ED) Additional Instructions: Please take your Keppra and Lamictal as instructed by your provider. Also, please discussed with them he the side effects that you are experiencing with the higher dose. Please follow-up with your primary care physician tomorrow. If you have any worsening or new symptoms, please return to the emergency room or call 911 Prescriptions: No Action naproxen 500 mg tablet 500 mg PO BID PRN (Reason: pain) Qty: 20 0RF acetaminophen 325 mg tablet 650 mg PO Q4H PRN (Reason: pain) sertraline 100 mg tablet 100 mg PO DAILY verapamil 120 mg capsule,ext rel. pellets 24 hr 120 mg PO DAILY levetiracetam 1,000 mg tablet 1,500 mg PO BID Patient Comments: Patient takes 1500 mg BID at home. Upped to 2000 mg BID for this hospital visit. lidocaine [Lidoderm] 5 % adhesive patch,medicated 1 patch topical DAILY PRN (Reason: Pain) Rx Instructions: leave on most painful area for up to 12 hrs atorvastatin 20 mg tablet 20 mg PO BEDTIME triamcinolone acetonide 0.5 % cream 1 appl topical DAILY sertraline 50 mg tablet 50 mg PO QAM ibuprofen 200 mg Tablet 400 mg PO Q6H PRN (Reason: Pain (Scale Score 4-6)) docusate sodium [Colace] 100 mg capsule 100 mg PO BID PRN (Reason: Constipation) methocarbamol 500 mg Tablet 500 mg PO QID 20 Days Qty: 80 0RF sumatriptan succinate 100 mg Tablet 100 mg PO DAILY MRX1 PRN (Reason: Migraine Headache) 30 Days Qty: 30 0RF Antacid Ext Str (calcium carb) 300 mg (750 mg) Tablet,Chewable 2.5 tab PO Q4H PRN (Reason: Heartburn) 30 Days Qty: 30 0RF lamotrigine 100 mg Tablet 300 mg PO BID 30 Days Qty: 180 3RF levetiracetam 1,000 mg Tablet 2,000 mg PO Q12H 30 Days Qty: 120 3RF ondansetron 8 mg tablet,disintegrating 8 mg PO Q8H PRN (Reason: nausea and vomiting) Qty: 10 0RF Print Language: Malawian
[2025-05-02] MEDS: levETIRAcetam in NaCl (iso-os) 1,000 MG/100 ML PIGGYBACK 400 MG IV (20:52)
[2025-05-02 20:54] LABS: Alanine Aminotransferase 28 U/L (0-31); Albumin Level 4.3 g/dL (3.5-5.0); Alkaline Phosphatase 75 U/L (39-117); Anion Gap 13 (12-20); Aspartate Amino Transferase 25 U/L (5-31); Blood Urea Nitrogen 8 mg/dL (9-16); Calcium 8.9 mg/dL (8.4-10.2); Carbon Dioxide 25 mmol/L (22-29); Chloride 104 mmol/L (96-108); Creatinine Clr Calc Pharmacy 125.7; Estimated Glomerular Filt Rate > 60; Potassium 3.9 mmol/L (3.3-5.1); Sodium 138 mmol/L (135-145); Total Protein 7.2 g/dL (6.5-8.0)
[2025-05-02 20:55] LABS: MANUAL DIFF FLAG NO
[2025-05-02 20:58] LABS: Hematocrit 34.3 % (37.0-47.0); Hemoglobin 12.0 g/dl (12.0-16.0); Imm Gran Abs Auto 0.02 X10*3/uL (0.00-0.03); Imm Gran Pct Auto 0.3 % (0.0-0.4); Lymphocytes Absolute Auto 1.8 X10*3/uL (1.2-4.9); Mean Corpuscular HGB Conc 35.0 g/dl (31.0-35.0); Mean Corpuscular Hemoglobin 30.3 pg (27.0-33.0); Mean Corpuscular Volume 86.6 fL (80.0-98.0); NRBC Abs Auto 0.000 X10*3/uL (0.0-0.012); NRBC Pct Auto 0.0 /100WBC (0.0-0.2); Platelet Count 242 X10*3/uL (160-400); Red Blood Count 3.96 X10*6/uL (4.20-5.50); White Blood Count 6.5 X10*3/uL (4.8-10.8)
--- OUTSIDE RECORDS SUMMARY | 2025-05-02 21:08 | XMS_ITS | Clinical Summary ---
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 Name Role Phone Vee Shafer MD Primary [...] VACCINE (#1) 2025 COVID-19 VACCINE ( - 2024-2 6 season) 2025 SCREENING FOR DIABETES 08/06/2025 08/06/2022 [...] topic Medical Devices Not on file Insurance [employer] Care Teams Felting Machine Operator Relationship Specialty Start Date End Date Vee Shafer MD [address] [place] [address] [place] [address] PCP - General Internal Medicine 08/06/22 Additional Source Comments The information contained in this document represents components of the legal health record. It is not the complete legal health record.[facility]
--- OUTSIDE RECORDS SUMMARY | 2025-05-02 21:08 | XMS_ITS | Clinical Summary ---
Author Organization [facility] it Address [address] [place] [address] Care Team Providers Care Traffic Lieutenant Name Role Phone Unavailable Primary Care Provider [...] Cervical Cancer Screening: P ap Smear 02/18/2005 HPV Vaccines (1 - 3-dose SCD M series) 02/18/2011 Depression Screening 07/30/2024 COVID-19 Vaccine ( - 2023-2 5 season) 2025 Influenza Vaccine (#1) 2025 RSV Immunization Adult Patie nts (1 - 1-dose 75+ series) 02/18/2059 HIB Vaccines Aged Out No longer eligi [...]
[2025-05-02 21:57] VITALS: BP 118/70; PULSE 62; RESP 15; O2SAT 97
[2025-05-02 22:11] LABS: Appearance Urine Clear; Glucose Urine UA Negative (Negative); PH 7.0 (5.0-9.0); Specific Gravity - Urine <= 1.005 (1.005-1.025)
[2025-05-02 22:12] LABS: Cannabinoid Screen Urine Not Detected (Not Detect)
[2025-05-03 00:59] VITALS: BP 110/69; PULSE 62; RESP 26; TEMP 36.7; O2SAT 99
[2025-05-03 01:12] VITALS: BP 110/69; PULSE 62; RESP 26; TEMP 36.7; O2SAT 99
[2025-05-07 10:49] LABS: Levetiracetam Keppra 42.3 mcg/mL (6.0-46.0)
[2025-05-08 18:38] LABS: Lamotrigine Lamictal 11.9 mcg/mL (2.5-15.0)
== END 2025-05-03 01:13 | disposition home or self-care (01) ==
PROVIDERS: Emergency Provider Emergency Medicine; PCP Internal Medicine
DX: G40.909 Epilepsy, unspecified, not intractable, without status epilepticus (principal); Z79.899 Other long term (current) drug therapy
CPT/HCPCS: 36415; 70450; 72125; 80053; 80175; 80177; 80307; 81003; 82550; 83605; 85025; 93005; 96361; 96374; 96375; 99285; J1953; J2270; J2765

== ENCOUNTER → 2025-05-02 20:02 | Outpatient (BNV) | payer OTHER, SELFPAY | PROVIDERS: Emergency Provider Emergency Medicine; PCP Internal Medicine; Visit Provider Internal Medicine | DX: R56.9 Unspecified convulsions (principal) | CPT/HCPCS: 93010 ==

== ENCOUNTER → 2025-05-02 20:31 | Outpatient (BNV) | payer OTHER, SELFPAY | PROVIDERS: Emergency Provider Emergency Medicine; PCP Internal Medicine; Visit Provider Radiology Diagnostic Radiology | DX: M54.2 Cervicalgia (principal); Z04.3 Encounter for examination and observation following other accident; W19.XXXA Unspecified fall, initial encounter | CPT/HCPCS: 70450; 72125 ==